=== PATIENT | female | born 1960 | race Caucasian/White ===

== ENCOUNTER → 2017-01-22 | Outpatient (CLI) | payer OTHER ==
--- NOTE | 2017-01-23 07:48 | MM ---
Reason for exam: screening (asymptomatic). Last mammogram was performed 1 year and 11 months ago. History: Took hormonal contraceptives for 6 months. Physical Findings: A clinical breast exam by your physician is recommended on an annual basis and results should be correlated with mammographic findings. MG Screening Mammo w CAD Bilateral CC and MLO view(s) were taken. Prior study comparison: February 19, 2015, bilateral MG screening mammo w CAD. January 10, 2011, bilateral digital screening mammo w/CAD. The breast tissue is almost entirely fat. Finding: There are typically benign calcifications in the right breast inferior fold. New finding since February 19, 2015 and January 10, 2011. ASSESSMENT: Incomplete: need additional imaging evaluation, BI-RAD 0 RECOMMENDATION: Special view mammogram of the right breast. [facility] will attempt to contact patient to return for supplemental views.
== END | disposition home or self-care (01) ==
LOC: RADMAMWWP 10:17
PROVIDERS: ATTEND Family Medicine
DX: Z12.31 Encounter for screening mammogram for malignant neoplasm of breast (principal)

== ENCOUNTER → 2017-01-28 | Outpatient (CLI) | payer OTHER ==
--- NOTE | 2017-01-29 07:10 | MM ---
Reason for exam: additional evaluation requested from abnormal screening. Last mammogram was performed less than 1 month ago. History: Took hormonal contraceptives for 6 months. Physical Findings: Nurse did not find any significant physical abnormalities on exam. MG Work Up Mamm w CAD RT ML and ML with magnification view(s) were taken of the right breast. Prior study comparison: January 22, 2017, bilateral MG screening mammo w CAD. February 19, 2015, bilateral MG screening mammo w CAD. There are scattered fibroglandular densities. Finding: There are stable typically benign calcifications in the right breast. These results were verbally communicated with the patient and result sheet given to the patient on 01/28/17. ASSESSMENT: Probably benign, BI-RAD 3 RECOMMENDATION: Follow-up diagnostic mammogram of the right breast in 6 months.
== END | disposition home or self-care (01) ==
LOC: RADMAMWWP 14:18
PROVIDERS: ATTEND Family Medicine
DX: R92.8 Other abnormal and inconclusive findings on diagnostic imaging of breast (principal)

== ENCOUNTER → 2017-02-02 | Outpatient (CLI) | payer OTHER ==
--- NOTE | 2017-02-02 16:40 | XR ---
Lumbosacral spine HISTORY: Back pain Correlation to prior exam 09/23/2016 Lumbar vertebral bodies show preserved height, alignment, and bone mineralization. There is no eviden t spondylolysis. Loss of disc height is present at L4-5, L5-S1, L3-4. There is multilevel spondylosis . IMPRESSION: Similar findings to prior exam, degenerative disc disease and facet arthropathy.
== END | disposition home or self-care (01) ==
LOC: RADXRMAIN 15:12
PROVIDERS: ATTEND Family Medicine
DX: M51.36 Other intervertebral disc degeneration, lumbar region (principal); M46.90 Unspecified inflammatory spondylopathy, site unspecified
CPT/HCPCS: 72110

== ENCOUNTER 2017-03-02 15:45 | Emergency (ER) | payer OTHER ==
[2017-03-02] MEDS ORDERED: IPRATROPIUM-ALBUTEROL 3 ML NEB INHALATION STA (16:57)
--- NOTE | 2017-03-02 17:00 | ED ---
SOB HPI - General Chief Complaint: Shortness of Breath Stated Complaint: SOB Time Seen by Provider: 03/02/17 16:03 Source: patient Mode of arrival: ambulatory Limitations: no limitations - History of Present Illness Initial Comments: 56-year-old female patient with past medical history significant for moderate COPD CHF, and sleep apnea presents to emergency department today for complaints of increased shortness of breath with activity. Patient states that this has been getting worse over the last couple of months. Patient states that she has seen her scada operator and was told that he would be giving her a nebulizer, but they never followed up. Patient states she has been utilizing her inhalers as directed but states they don't seem to be working any more. Patient states whenever she walks short distances that she becomes short of breath and has to rest until her breathing improves. Patient states she has a very intermittent cough, without sputum production. She does have edema for which she is supposed to wear compression stockings. She states she is occasionally wheezy. She denies any fever, chills, chest pain, back pain, weakness, or dizziness. She denies any abdominal pain, nausea, vomiting, constipation, or diarrhea. - Related Data Home Medications Medication Instructions Recorded Confirmed Meloxicam [Mobic] 7.5 mg PO AC-BID 10/06/14 03/02/17 metFORMIN HCL [Glucophage] 1,000 mg PO AC-BID 10/06/14 03/02/17 Atorvastatin [Lipitor] 20 mg PO HS 02/28/15 03/02/17 DULoxetine HCL [Cymbalta] 60 mg PO AC-BRKFST 05/10/15 03/02/17 Gabapentin 800 mg PO QID 02/25/16 03/02/17 Mirtazapine [Remeron] 30 mg PO HS 02/25/16 03/02/17 Pioglitazone [Actos] 15 mg PO AC-LUNCH 02/25/16 03/02/17 busPIRone HCL 15 mg PO AC-BID 02/25/16 03/02/17 Dicyclomine [Bentyl] 20 mg PO QID 10/07/16 03/02/17 Mometasone/Formoterol [Dulera 100 1 puff INHALATION RT-DAILY 10/07/16 03/02/17 Mcg/5 Mcg Inhaler] OXcarbazepine [Trileptal] 1,200 mg PO BID 10/07/16 03/02/17 Isosorbide Mononitrate ER [Imdur] 30 mg PO DAILY 10/22/16 03/02/17 Acetaminophen-Codeine 300-30mg 1 tab PO Q6H PRN 03/02/17 03/02/17 [Tylenol #3] Albuterol Inhaler [Ventolin Hfa 2 puff INHALATION RT-Q8H PRN 03/02/17 03/02/17 Inhaler] Aspirin 81 mg PO DAILY 03/02/17 03/02/17 Budesonide/Formoterol Fumarate 1 puff INHALATION RT-BID 03/02/17 03/02/17 [Symbicort 160-4.5 Mcg Inhaler] Insulin Glargine,Hum.rec.anlog 20 unit SQ HS 03/02/17 03/02/17 [Basaglar Kwikpen U-100] Pramipexole [Mirapex] 0.25 mg PO HS 03/02/17 03/02/17 Umeclidinium [place] [Incruse 1 puff INHALATION RT-DAILY 03/02/17 03/02/17 Ellipta] Verapamil HCl [Calan Sr] 240 mg PO HS 03/02/17 03/02/17 Previous Rx's Medication Instructions Recorded Ipratropium-Albuterol Nebulize 3 ml INHALATION QID #2 box 03/02/17 [Duoneb 0.5 mg-3 mg/3 ml Soln] predniSONE 10 mg PO DIRECTED #20 tab 03/02/17 Allergies Allergy/AdvReac Type Severity Reaction Status Date / Time adhesive AdvReac Rash/Hives Verified 03/02/17 16:26 Review of Systems ROS Statement: Those systems with pertinent positive or pertinent negative responses have been documented in the HPI. ROS Other: All systems not noted in ROS Statement are negative. Past Medical History Past Medical History: Asthma, COPD, Diabetes Mellitus, Fibromyalgia, Hyperlipidemia, Hypertension, Neurologic Disorder, Osteoarthritis (OA), Sleep Apnea/CPAP/BIPAP Additional Past Medical History / Comment(s): restless leg, neuropathy History of Any Multi-Drug Resistant Organisms: None Reported Past Surgical History: Cholecystectomy, Hysterectomy, Orthopedic Surgery, Tonsillectomy Additional Past Surgical History / Comment(s): colonoscopy, tendon repair on left foot Past Anesthesia/Blood Transfusion Reactions: Motion Sickness Past Psychological History: Anxiety, Depression, PTSD, Schizophrenia Smoking Status: Former smoker Past Alcohol Use History: Occasional Additional Past Alcohol Use History / Comment(s): quit drinking 6 months ago and now only occasionally will have a drink Past Drug Use History: None Reported General Exam Limitations: no limitations General appearance: alert, in no apparent distress Head exam: Present: atraumatic, normocephalic, normal inspection Eye exam: Present: normal appearance, PERRL, EOMI. Absent: scleral icterus, conjunctival injection, periorbital swelling ENT exam: Present: normal exam, normal oropharynx, mucous membranes moist Neck exam: Present: normal inspection. Absent: tenderness, meningismus, lymphadenopathy Respiratory exam: Present: wheezes (Faint right upper lobe), decreased breath sounds (Throughout). Absent: respiratory distress, rales, rhonchi, stridor Cardiovascular Exam: Present: regular rate, normal rhythm, normal heart sounds. Absent: systolic murmur, diastolic murmur, rubs, gallop, clicks GI/Abdominal exam: Present: soft, normal bowel sounds. Absent: distended, tenderness, guarding, rebound, rigid Extremities exam: Present: normal inspection, full ROM, normal capillary refill. Absent: tenderness, pedal edema, joint swelling, calf tenderness Back exam: Present: normal inspection Neurological exam: Present: alert, oriented X3, CN II-XII intact Psychiatric exam: Present: normal affect, normal mood Skin exam: Present: warm, dry, intact, normal color. Absent: rash Course Vital Signs 03/02/17 03/02/17 03/02/17 15:53 16:55 17:23 Temperature 97.7 F Pulse Rate 89 84 78 Respiratory 24 16 Rate Blood Pressure 138/87 144/78 O2 Sat by Pulse 99 98 Oximetry 03/02/17 03/02/17 17:33 17:41 Temperature Pulse Rate 76 83 Respiratory 18 Rate Blood Pressure 137/67 O2 Sat by Pulse 98 Oximetry Medical Decision Making - Medical Decision Making 56-year-old female patient presents to emergency department today for evaluation of shortness of breath with activity. Chest x-ray was negative for any acute cardiac pulmonary process. Lab work was unremarkable except for a low sodium level. Patient is satting 100% on room air, ambulating without difficulties in the department, and states she feels better after receiving DuoNeb treatment here in the emergency department. Patient will be given IV Solu-Medrol and then discharged home with prescription for DuoNeb nebulizer treatments as well as a tapering prednisone dose. Patient instructed to follow up with her scada operator in one to 2 days for recheck. Patient also instructed to return for any new, worsening, or concerning symptoms. Patient verbalizes understanding and agrees with this plan. - Lab Data Result diagrams: 03/02/17 17:00 03/02/17 17:00 Lab Results 03/02/17 03/02/17 03/02/17 Range/Units 17:00 17:00 17:00 WBC 8.1 (3.8-10.6) k/uL RBC 4.09 (3.80-5.40) m/uL Hgb 12.5 (11.4-16.0) gm/dL Hct 37.7 (34.0-46.0) % MCV 92.4 (80.0-100.0) fL MCH 30.7 (25.0-35.0) pg MCHC 33.2 (31.0-37.0) g/dL RDW 13.2 (11.5-15.5) % Plt Count 348 (150-450) k/uL Neutrophils % 73 % Lymphocytes % 16 % Monocytes % 6 % Eosinophils % 2 % Basophils % 1 % Neutrophils # 5.9 (1.3-7.7) k/uL Lymphocytes # 1.3 (1.0-4.8) k/uL Monocytes # 0.5 (0-1.0) k/uL Eosinophils # 0.2 (0-0.7) k/uL Basophils # 0.1 (0-0.2) k/uL PT (9.0-12.0) sec INR (<1.1) APTT (22.0-30.0) sec D-Dimer (<0.60) mg/L FEU Sodium 128 L (137-145) mmol/L Potassium 4.1 (3.5-5.1) mmol/L Chloride 94 L (98-107) mmol/L Carbon Dioxide 23 (22-30) mmol/L Anion Gap 11 mmol/L BUN 9 (7-17) mg/dL Creatinine 0.51 L (0.52-1.04) mg/dL Est GFR (MDRD) Af Amer >60 (>60 ml/min/1.73 sqM) Est GFR (MDRD) Non-Af >60 (>60 ml/min/1.73 sqM) Glucose 113 H (74-99) mg/dL Calcium 8.7 (8.4-10.2) mg/dL Magnesium 2.0 (1.6-2.3) mg/dL Total Bilirubin 0.4 (0.2-1.3) mg/dL AST 33 (14-36) U/L ALT 44 (9-52) U/L Alkaline Phosphatase 179 H (38-126) U/L Total Creatine Kinase 135 (30-135) U/L CK-MB (CK-2) 2.4 (0.0-2.4) ng/mL CK-MB (CK-2) Rel Index 1.8 Troponin I 0.012 (0.000-0.034) ng/mL NT-Pro-B Natriuret Pep pg/mL Total Protein 6.8 (6.3-8.2) g/dL Albumin 4.1 (3.5-5.0) g/dL 03/02/17 03/02/17 Range/Units 17:00 17:00 WBC (3.8-10.6) k/uL RBC (3.80-5.40) m/uL Hgb (11.4-16.0) gm/dL Hct (34.0-46.0) % MCV (80.0-100.0) fL MCH (25.0-35.0) pg MCHC (31.0-37.0) g/dL RDW (11.5-15.5) % Plt Count (150-450) k/uL Neutrophils % % Lymphocytes % % Monocytes % % Eosinophils % % Basophils % % Neutrophils # (1.3-7.7) k/uL Lymphocytes # (1.0-4.8) k/uL Monocytes # (0-1.0) k/uL Eosinophils # (0-0.7) k/uL Basophils # (0-0.2) k/uL PT 9.8 (9.0-12.0) sec INR 1.0 (<1.1) APTT 26.1 (22.0-30.0) sec D-Dimer 0.52 (<0.60) mg/L FEU Sodium (137-145) mmol/L Potassium (3.5-5.1) mmol/L Chloride (98-107) mmol/L Carbon Dioxide (22-30) mmol/L Anion Gap mmol/L BUN (7-17) mg/dL Creatinine (0.52-1.04) mg/dL Est GFR (MDRD) Af Amer (>60 ml/min/1.73 sqM) Est GFR (MDRD) Non-Af (>60 ml/min/1.73 sqM) Glucose (74-99) mg/dL Calcium (8.4-10.2) mg/dL Magnesium (1.6-2.3) mg/dL Total Bilirubin (0.2-1.3) mg/dL AST (14-36) U/L ALT (9-52) U/L Alkaline Phosphatase (38-126) U/L Total Creatine Kinase (30-135) U/L CK-MB (CK-2) (0.0-2.4) ng/mL CK-MB (CK-2) Rel Index Troponin I (0.000-0.034) ng/mL NT-Pro-B Natriuret Pep 753 pg/mL Total Protein (6.3-8.2) g/dL Albumin (3.5-5.0) g/dL 03/02/17 18:11 EKG obtained at 1736 reveals sinus rhythm with first-degree AV block, low voltage QRS, ventricular rate 80, LA intervals 210, QRS duration 92, QTC 418, QTC 42. No evidence of ST elevation or depression in any leads. - Radiology Data Radiology results: report reviewed Two-view x-ray of the chest reveals no heart failure nor confluent pneumonic infiltrate. There is suboptimal inspiration. There is spurring and thoracic spine. 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 There are chest leads. Impression by Dr. Conrad reveals inspiration is slightly less than old exam but a normal heart. Disposition Clinical Impression: COPD (chronic obstructive pulmonary disease) Disposition: HOME SELF-CARE Condition: Stable Instructions: COPD (Chronic Obstructive Pulmonary Disease) (ED) Additional Instructions: Take prednisone until complete. Monitor blood sugars closely while taking steroids. Follow-up with scada operator. Up with primary care physician in one to 2 days for recheck. Return for any new, worsening, or concerning symptoms. Prescriptions: Ipratropium-Albuterol Nebulize [Duoneb 0.5 mg-3 mg/3 ml Soln] 3 ml INHALATION QID #2 box predniSONE 10 mg PO DIRECTED #20 tab Referrals: Jensen Nieto MD [Primary Care Provider] - 1-2 days Samaria Solis DO [Doctor of Osteopathic Medicine] - 1-2 days Time of Disposition: 18:09
[2017-03-02 17:13] LABS: Basophils # (A) 0.1 k/uL (0-0.2); Basophils % (A) 1 %; CH 31.3; Eosinophils # (A) 0.2 k/uL (0-0.7); Eosinophils % (A) 2 %; HCT 37.7 % (34.0-46.0); HDW 2.12; HGB 12.5 gm/dL (11.4-16.0); Luc # (Auto) 0.17; Luc % (Auto) 2; Lymphocytes # (A) 1.3 k/uL (1.0-4.8); Lymphocytes % (A) 16 %; MCH 30.7 pg (25.0-35.0); MCHC 33.2 g/dL (31.0-37.0); MCV 92.4 fL (80.0-100.0); Mean Platelet Volume 5.9; Monocytes # (A) 0.5 k/uL (0-1.0); Monocytes % (A) 6 %; Neutrophils # (A) 5.9 k/uL (1.3-7.7); Neutrophils % (A) 73 %; RBC 4.09 m/uL (3.80-5.40); RDW 13.2 % (11.5-15.5); WBC 8.1 k/uL (3.8-10.6); WBC (Perox) 7.77
--- NOTE | 2017-03-02 17:20 | XR ---
EXAMINATION TYPE: XR chest 2V DATE OF EXAM: 03/02/2017 5:11 PM COMPARISON: 10/22/2016 HISTORY: Difficulty breathing TECHNIQUE: Frontal and lateral views of the chest are obtained. FINDINGS: There is no heart failure nor confluent pneumonic infiltrate. There is suboptimal inspirat ion. There is spurring in the thoracic spine. Thoracic aorta is atheromatous. There are chest leads. IMPRESSION: Inspiration is slightly less than old exam. Normal heart.
[2017-03-02 17:27] LABS: ALT 44 U/L (9-52); AST 33 U/L (14-36); Alkaline Phosphatase 179 U/L (38-126); Anion Gap 11 mmol/L; Blood Urea Nitrogen 9 mg/dL (7-17); Calcium 8.7 mg/dL (8.4-10.2); Carbon Dioxide 23 mmol/L (22-30); Chloride 94 mmol/L (98-107); Glucose 113 mg/dL (74-99); Non-African American GFR(MDRD) >60 (>60 ml/min/1.73 sqM); Partial Thromboplastin Time 26.1 sec (22.0-30.0); Potassium 4.1 mmol/L (3.5-5.1); Prothrombin Time 9.8 sec (9.0-12.0); Sodium 128 mmol/L (137-145); Total Bilirubin 0.4 mg/dL (0.2-1.3); Total Protein 6.8 g/dL (6.3-8.2)
[2017-03-02 17:46] LABS: Creatine Kinase MB 2.4 ng/mL (0.0-2.4); Troponin I 0.012 ng/mL (0.000-0.034)
[2017-03-02] MEDS ORDERED: methylPREDNISolone SOD SUCCI 125 MG/2 ML VIAL IV STA (18:05)
[2017-03-02 18:24] VITALS: BP 145/68; PULSE 82; RESP 16; TEMP 98
== END 2017-03-02 18:24 | disposition home or self-care (01) ==
LOC: EC 15:45
DX: J44.9 Chronic obstructive pulmonary disease, unspecified (principal); E78.5 Hyperlipidemia, unspecified; E11.9 Type 2 diabetes mellitus without complications; G25.81 Restless legs syndrome; J45.909 Unspecified asthma, uncomplicated; M19.90 Unspecified osteoarthritis, unspecified site; F32.9 Major depressive disorder, single episode, unspecified; Z79.84 Long term (current) use of oral hypoglycemic drugs; Z91.048 Other nonmedicinal substance allergy status; Z79.52 Long term (current) use of systemic steroids; Z79.1 Long term (current) use of non-steroidal anti-inflammatories (NSAID); Z87.891 Personal history of nicotine dependence; Z79.899 Other long term (current) drug therapy
CPT/HCPCS: 99285; 96374; 36415; 94640; 93005; 85379; 83880; 80053; 82550; 82553; 83735; 84484; 85025; 85610; 85730; 71020; J2930

== ENCOUNTER → 2017-03-02 | Outpatient (CLI) | payer OTHER | END | disposition home or self-care (01) | LOC: RADMRIMAIN 14:32 | PROVIDERS: ATTEND Family Medicine | DX: Z53.9 Procedure and treatment not carried out, unspecified reason (principal) ==

== ENCOUNTER → 2017-03-05 | Outpatient (CLI) | payer OTHER ==
--- NOTE | 2017-03-05 19:30 | PN ---
DATE OF SERVICE: 03/05/2017 This patient is a 56-year-old lady who has been followed in the sleep center for treatment of obstructive sleep apnea/hypopnea syndrome. Patient has a history of obstructive sleep apnea-hypopnea syndrome with apnea-hypopnea index 19.7 and oxygen desaturation to 80.4%. She was recommended treatment with CPAP, but she stopped using it about 1-1/2 years ago. She tried it again about 1 week ago for 2 nights but still had difficulties using it. About 1-1/2 years ago the patient was able to use it. She continues to feel sleepiness during the day, falling asleep. [place] Sleepiness Scale is 19. I again discussed with her the necessity of being treated with CPAP. She explained that she has difficulties with different types of the mask which we tried. MEDICATIONS: 1. BuSpar. 2. Remeron. 3. Dicyclomine. 4. Dulera inhaler. 5. Actos. 6. Metformin. 7. Calan SR. 8. Trileptal. 9. Meloxicam. 10. Mirapex. 11. Cymbalta. 12. Lipitor. 13. Isosorbide ( ) 14. Symbicort. 15. Incruse inhaler. 16. Baby aspirin. 17. Ventolin inhaler. 18. Basaglar. 19. Gabapentin. 20. Tylenol. 21. Recently patient was started on prednisone. 22. Albuterol sulfate up to 4 times a day. PHYSICAL EXAMINATION: GENERAL: Patient is in no distress. VITAL SIGNS: BP 170/90, HR 94, RR up to 20. Height 5 feet 7-1/2 inches. Weight 278. Neck 16 inches in circumference. Temperature 98.1. Oxygen saturation at room air 97%. HEENT: PERRLA, EOMI. Evaluation of oropharynx showed tongue protrudes midline; low position of soft palate. NECK: Supple. No JVD. Thyroid is not palpable. LUNGS: No wheezing at the present time. HEART: S1, S2 regular. No murmurs, gallops or rubs. ABDOMEN: Obese. EXTREMITIES: No clubbing or cyanosis. RESERVATION AGENT: Awake, alert, and oriented x3. Cranial nerves 2 to 7 intact. There is no fasciculation or atrophy noted. No focal deficits observed. Patient walks with a walker because of some weakness in her legs. IMPRESSION: 1. Obstructive sleep apnea/hypopnea syndrome. Patient unfortunately is not able to use her CPAP equipment and continues to feel sleepiness during the day, with awakenings from sleep. 2. Depression. 3. Diabetes. 4. Chronic obstructive pulmonary disease. 5. Status post right knee surgery. 6. Posttraumatic stress disorder. 7. Hyperlipidemia. 8. History of gallstones. PLAN: 1. We will repeat CPAP titration for re-evaluation of effective CPAP pressure at the present time and also to fit patient with a comfortable mask to be sure that she will be able to use her CPAP therapy. 2. Patient could be evaluated by ear, nose and throat physician to check if she is a candidate for surgical treatment of obstructive sleep apnea-hypopnea syndrome. 3. Oral appliances also could be considered for treatment of obstructive sleep apnea-hypopnea syndrome. Thank you very much for allowing me to participate in the management of your patient. Sincerely, Pierre Siddiqi MD, PhD, FAASM. Diplomat of [place] [employer], Sleep Medicine Board by [place] [employer], [place] [employer]
== END | disposition home or self-care (01) ==
LOC: SLEEP 14:52
PROVIDERS: ATTEND Internal Medicine
DX: G47.33 Obstructive sleep apnea (adult) (pediatric) (principal); F32.9 Major depressive disorder, single episode, unspecified; E11.9 Type 2 diabetes mellitus without complications; J44.9 Chronic obstructive pulmonary disease, unspecified; Z98.890 Other specified postprocedural states; F43.10 Post-traumatic stress disorder, unspecified; E78.5 Hyperlipidemia, unspecified; Z87.898 Personal history of other specified conditions; Z79.899 Other long term (current) drug therapy; Z79.84 Long term (current) use of oral hypoglycemic drugs

== ENCOUNTER → 2017-04-16 | Outpatient (CLI) | payer OTHER ==
--- NOTE | 2017-04-16 22:13 | PN ---
DATE OF SERVICE: 04/16/2017 This patient is a 56-year-old lady who has been followed in the sleep center for treatment of obstructive sleep apnea/hypopnea syndrome. Recently patient had a CPAP titration. She was titrated up to the pressure of 14 cm of water, but she was not able to use this pressure at home. She felt that the pressure was too high. Pressure was decreased down to 10 cm of water, and for the last 6 days after pressure was changed, patient was able to use her equipment. I checked her CPAP unit. Pressure in the unit now is 10 cm of water. Patient did use it for the last 6 days. According to her , she sleeps better with the machine, and she does not have snoring while she is using her machine. [place] Sleepiness Scale is still high. Today it is 19. MEDICATIONS: 1. BuSpar. 2. Remeron. 3. Dicyclomine. 4. Dulera inhaler. 5. Actos. 6. Metformin. 7. Trileptal. 8. Meloxicam. 9. Mirapex. 10. Cymbalta. 11. Lipitor. 12. Isosorbide. 13. Symbicort. 14. Baby aspirin. 15. Ventolin. 16. Gabapentin. 17. Albuterol. PHYSICAL EXAMINATION: Patient in no distress. VITAL SIGNS: BP 144/73, HR 88, RR 16. Weight 295. Height 5 feet 8 inches. BMI 45. Temperature 98.5. Oxygen saturation at room air 96%. HEENT: PERRLA, EOMI. Evaluation of oropharynx showed tongue protrudes midline; extremely low position of soft palate. NECK: Supple. No JVD. Thyroid is not palpable. LUNGS: Clear to percussion and to auscultation. Good air exchange. No wheezing or rhonchi. HEART: S1, S2 regular. No murmurs, gallops or rubs. ABDOMEN: Obese. EXTREMITIES: One plus ankle edema. INTERACTIVE PRODUCER: Awake, alert, and oriented x3. Cranial nerves 2 to 7 intact. There is no fasciculation or atrophy noted. No focal deficits observed. IMPRESSION: 1. Obstructive sleep apnea/hypopnea syndrome, under control with CPAP at 10 cm of water. 2. History of depression. 3. Diabetes mellitus. 4. Chronic obstructive pulmonary disease. 5. Status post right knee surgery. 6. Posttraumatic stress disorder. 7. Hyperlipidemia. 8. History of gallstones. PLAN: 1. Patient will continue treatment with CPAP every night for the whole night. 2. Aggressive losing-weight program. 3. Sleep hygiene with regular time in bed for at least 8 hours. 4. No driving if feeling any sleepiness. 5. Prescription for all necessary CPAP supplies, including mask, tube, filters. Thank you very much for allowing me to participate in the management your patient. Sincerely, Pierre Siddiqi MD, PhD, FAASM. Diplomat of [place] [employer], Sleep Medicine Board by [place] [employer], [place] [employer]
== END | disposition home or self-care (01) ==
LOC: SLEEP 13:47
PROVIDERS: ATTEND Internal Medicine
DX: G47.33 Obstructive sleep apnea (adult) (pediatric) (principal); F32.9 Major depressive disorder, single episode, unspecified; E11.9 Type 2 diabetes mellitus without complications; J44.9 Chronic obstructive pulmonary disease, unspecified; F43.10 Post-traumatic stress disorder, unspecified; E78.5 Hyperlipidemia, unspecified; Z79.899 Other long term (current) drug therapy; Z79.84 Long term (current) use of oral hypoglycemic drugs

== ENCOUNTER 2017-04-21 15:10 | Emergency (ER) | payer OTHER ==
--- NOTE | 2017-04-21 17:18 | ED ---
General Adult HPI - General Chief complaint: Upper Respiratory Infection Stated complaint: Coughing Time Seen by Provider: 04/21/17 17:01 Source: patient, RN notes reviewed Mode of arrival: ambulatory Limitations: no limitations - History of Present Illness Initial comments: Patient 56-year-old female who presents emergency room today with chief complaint of cough congestion over the last week. Patient does admit that she has been trying her breathing treatments and inhalers at home with little relief the symptoms. She states the cough has been nonproductive. She states she has spells and feels like she cannot stop the coughing for a few minutes at a time. She denies any other complaints associated symptoms. Patient denies any recent fever, chills, shortness of breath, chest pain, back pain, abdominal pain, nausea or vomiting, numbness or tingling, dysuria or hematuria, constipation or diarrhea, headaches or visual changes, or any other complaints. - Related Data Home Medications Medication Instructions Recorded Confirmed Meloxicam [Mobic] 7.5 mg PO AC-BID 10/06/14 03/02/17 metFORMIN HCL [Glucophage] 1,000 mg PO AC-BID 10/06/14 03/02/17 Atorvastatin [Lipitor] 20 mg PO HS 02/28/15 03/02/17 DULoxetine HCL [Cymbalta] 60 mg PO AC-BRKFST 05/10/15 03/02/17 Gabapentin 800 mg PO QID 02/25/16 03/02/17 Mirtazapine [Remeron] 30 mg PO HS 02/25/16 03/02/17 Pioglitazone [Actos] 15 mg PO AC-LUNCH 02/25/16 03/02/17 busPIRone HCL 15 mg PO AC-BID 02/25/16 03/02/17 Dicyclomine [Bentyl] 20 mg PO QID 10/07/16 03/02/17 Mometasone/Formoterol [Dulera 100 1 puff INHALATION RT-DAILY 10/07/16 03/02/17 Mcg/5 Mcg Inhaler] OXcarbazepine [Trileptal] 1,200 mg PO BID 10/07/16 03/02/17 Isosorbide Mononitrate ER [Imdur] 30 mg PO DAILY 10/22/16 03/02/17 Acetaminophen-Codeine 300-30mg 1 tab PO Q6H PRN 03/02/17 03/02/17 [Tylenol #3] Albuterol Inhaler [Ventolin Hfa 2 puff INHALATION RT-Q8H PRN 03/02/17 03/02/17 Inhaler] Aspirin 81 mg PO DAILY 03/02/17 03/02/17 Budesonide/Formoterol Fumarate 1 puff INHALATION RT-BID 03/02/17 03/02/17 [Symbicort 160-4.5 Mcg Inhaler] Insulin Glargine,Hum.rec.anlog 20 unit SQ HS 03/02/17 03/02/17 [Basaglar Kwikpen U-100] Pramipexole [Mirapex] 0.25 mg PO HS 03/02/17 03/02/17 Umeclidinium [place] [Incruse 1 puff INHALATION RT-DAILY 03/02/17 03/02/17 Ellipta] Verapamil HCl [Calan Sr] 240 mg PO HS 03/02/17 03/02/17 Previous Rx's Medication Instructions Recorded Ipratropium-Albuterol Nebulize 3 ml INHALATION QID #2 box 03/02/17 [Duoneb 0.5 mg-3 mg/3 ml Soln] predniSONE 10 mg PO DIRECTED #20 tab 03/02/17 Benzonatate [Tessalon Perles] 100 mg PO TID PRN #20 capsule 04/21/17 Famotidine [Pepcid] 20 mg PO BID #20 tablet 04/21/17 Loratadine [Claritin] 10 mg PO DAILY 20 Days 04/21/17 Allergies Allergy/AdvReac Type Severity Reaction Status Date / Time adhesive AdvReac Rash/Hives Verified 04/21/17 15:20 Review of Systems ROS Statement: Those systems with pertinent positive or pertinent negative responses have been documented in the HPI. ROS Other: All systems not noted in ROS Statement are negative. Past Medical History Past Medical History: Asthma, COPD, Diabetes Mellitus, Fibromyalgia, Hyperlipidemia, Hypertension, Neurologic Disorder, Osteoarthritis (OA), Sleep Apnea/CPAP/BIPAP Additional Past Medical History / Comment(s): restless leg, neuropathy History of Any Multi-Drug Resistant Organisms: None Reported Past Surgical History: Cholecystectomy, Hysterectomy, Orthopedic Surgery, Tonsillectomy Additional Past Surgical History / Comment(s): colonoscopy, tendon repair on left foot Past Anesthesia/Blood Transfusion Reactions: Motion Sickness Past Psychological History: Anxiety, Depression, PTSD, Schizophrenia Smoking Status: Former smoker Past Alcohol Use History: Occasional Additional Past Alcohol Use History / Comment(s): quit drinking 6 months ago and now only occasionally will have a drink Past Drug Use History: None Reported General Exam - General Exam Comments Initial Comments: General: The patient is awake and alert, in no distress, and does not appear acutely ill. Eye: Pupils are equal, round and reactive to light, extra-ocular movements are intact. No nystagmus. There is normal conjunctiva bilaterally. No signs of icterus. Ears, nose, mouth and throat: There are moist mucous membranes and no oral lesions. Neck: The neck is supple, there is no tenderness or JVD. Cardiovascular: There is a regular rate and rhythm. No murmur, rub or gallop is appreciated. Respiratory: Lungs are clear to auscultation, respirations are non-labored, breath sounds are equal. No wheezes, stridor, rales, or rhonchi. Musculoskeletal: Normal ROM, no tenderness. Strength 5/5. Sensation intact. Pulses equal bilaterally 2+. Neurological: A&O x 3. CN II-XII intact, There are no obvious motor or sensory deficits. Coordination appears grossly intact. Speech is normal. Skin: Skin is warm and dry and no rashes or lesions are noted. Psychiatric: Cooperative, appropriate mood & affect, normal judgment. Limitations: no limitations Course Vital Signs 04/21/17 15:19 Temperature 97.8 F Pulse Rate 94 Respiratory 20 Rate Blood Pressure 148/84 O2 Sat by Pulse 97 Oximetry Medical Decision Making - Medical Decision Making Patient reexamined at this time showing no signs of distress. Chest x-rays reviewed and is unremarkable. No evidence of pneumonia. No other acute abnormalities. Results were discussed with the patient. Patient is advised to try [id number] medicine such as Claritin/Pepcid for possible ALLERGIES or acid reflux causing some symptoms. Will be given a callus present. Advised follow-up the family doctor. Advised return if any symptoms increase or worsen or for any other concerns. Disposition Clinical Impression: Cough Disposition: HOME SELF-CARE Condition: Good Instructions: Chronic Cough (ED) Additional Instructions: Please use medication as discussed. Please follow-up with family doctor in the next 2 days of symptoms have not improved. Please return to emergency room if the symptoms increase or worsen or for any other concerns. Prescriptions: Benzonatate [Tessalon Perles] 100 mg PO TID PRN #20 capsule PRN Reason: Cough Famotidine [Pepcid] 20 mg PO BID #20 tablet Loratadine [Claritin] 10 mg PO DAILY 20 Days Referrals: Jensen Nieto MD [Primary Care Provider] - 1-2 days Time of Disposition: 17:35
--- NOTE | 2017-04-21 17:23 | XR ---
EXAMINATION TYPE: XR chest 2V DATE OF EXAM: 04/21/2017 COMPARISON: 03/02/2017 HISTORY: Cough TECHNIQUE: Frontal and lateral views of the chest are obtained. FINDINGS: There is some coarsening of interstitial pulmonary markings. Heart size is normal. Thoraci c aorta is atheromatous. There is no pleural effusion. IMPRESSION: Coarse lung markings similar to last exam and consistent with mild fibrosis. No heart fa ilure.
[2017-04-21 17:56] VITALS: BP 180/86; PULSE 99; RESP 16; TEMP 98.2
== END 2017-04-21 17:54 | disposition home or self-care (01) ==
LOC: EC 15:10
DX: R05 Cough (principal); R09.89 Other specified symptoms and signs involving the circulatory and respiratory systems; J45.909 Unspecified asthma, uncomplicated; J44.9 Chronic obstructive pulmonary disease, unspecified; E78.5 Hyperlipidemia, unspecified; M79.7 Fibromyalgia; I10 Essential (primary) hypertension; M19.90 Unspecified osteoarthritis, unspecified site; G25.81 Restless legs syndrome; G62.9 Polyneuropathy, unspecified; F41.9 Anxiety disorder, unspecified; F32.9 Major depressive disorder, single episode, unspecified; F43.10 Post-traumatic stress disorder, unspecified; Z87.891 Personal history of nicotine dependence; Z79.1 Long term (current) use of non-steroidal anti-inflammatories (NSAID); Z79.4 Long term (current) use of insulin; Z79.51 Long term (current) use of inhaled steroids; Z79.82 Long term (current) use of aspirin; Z79.84 Long term (current) use of oral hypoglycemic drugs; Z79.899 Other long term (current) drug therapy; Z91.048 Other nonmedicinal substance allergy status
CPT/HCPCS: 71020; 99283

== ENCOUNTER 2017-05-20 13:04 | Emergency (ER) | payer OTHER ==
[2017-05-20] MEDS ORDERED: HYDROcodone/APAP 5-325MG 1 EACH TAB PO STA (13:51)
--- NOTE | 2017-05-20 14:17 | ED ---
General Adult HPI - General Chief complaint: Fall Stated complaint: fell out of bed/right side pain Time Seen by Provider: 05/20/17 13:28 Source: patient, RN notes reviewed, old records reviewed Mode of arrival: ambulatory Limitations: no limitations - History of Present Illness Initial comments: This is a 37-year-old female to the ER for evaluation status post fall. Patient fell out of bed last night, she is on no blood thinners at this time. Patient has significant medical history. But denies any chest pain or shortness of breath. No bowel pain. Patient recent fall again last night while she was getting out of bed, she hit the right side of her head on her dresser and right hip, right knee on the ground. Patient is complaining of right hip pain and right facial pain. No loss of consciousness. Patient coming here today for evaluation regarding swelling of right side of face. - Related Data Home Medications Medication Instructions Recorded Confirmed Meloxicam [Mobic] 7.5 mg PO AC-BID 10/06/14 05/20/17 metFORMIN HCL [Glucophage] 1,000 mg PO AC-BID 10/06/14 05/20/17 Atorvastatin [Lipitor] 20 mg PO AC-BRKFST 02/28/15 05/20/17 DULoxetine HCL [Cymbalta] 60 mg PO AC-BRKFST 05/10/15 05/20/17 Gabapentin 800 mg PO QID 02/25/16 05/20/17 Mirtazapine [Remeron] 30 mg PO HS 02/25/16 05/20/17 busPIRone HCL 15 mg PO AC-BID 02/25/16 05/20/17 Dicyclomine [Bentyl] 20 mg PO QID 10/07/16 05/20/17 Mometasone/Formoterol [Dulera 100 1 puff INHALATION RT-BID 10/07/16 05/20/17 Mcg/5 Mcg Inhaler] OXcarbazepine [Trileptal] 1,200 mg PO BID 10/07/16 05/20/17 Isosorbide Mononitrate ER [Imdur] 30 mg PO DAILY 10/22/16 05/20/17 Acetaminophen-Codeine 300-30mg 1 tab PO Q6H PRN 03/02/17 05/20/17 [Tylenol #3] Albuterol Inhaler [Ventolin Hfa 2 puff INHALATION RT-Q8H PRN 03/02/17 05/20/17 Inhaler] Aspirin 81 mg PO DAILY 03/02/17 05/20/17 Insulin Glargine,Hum.rec.anlog 30 unit SQ HS 03/02/17 05/20/17 [Basaglar Kwikpen U-100] Pramipexole [Mirapex] 0.25 mg PO HS 03/02/17 05/20/17 Verapamil HCl [Calan Sr] 240 mg PO HS 03/02/17 05/20/17 Ipratropium-Albuterol Nebulize 3 ml INHALATION RT-QID 04/21/17 05/20/17 [Duoneb 0.5 mg-3 mg/3 ml Soln] Liraglutide [Victoza 2-Fredo] 1.2 mg SQ HS 04/21/17 05/20/17 Pioglitazone [Actos] 30 mg PO W/LUNCH 04/21/17 05/20/17 Pregabalin [Lyrica] 150 mg PO BID 04/21/17 05/20/17 Previous Rx's Medication Instructions Recorded Benzonatate [Tessalon Perles] 100 mg PO TID PRN #20 capsule 04/21/17 Famotidine [Pepcid] 20 mg PO BID #20 tablet 04/21/17 Loratadine [Claritin] 10 mg PO DAILY 20 Days 04/21/17 Allergies Allergy/AdvReac Type Severity Reaction Status Date / Time adhesive AdvReac Rash/Hives Verified 05/20/17 13:40 Review of Systems ROS Statement: Those systems with pertinent positive or pertinent negative responses have been documented in the HPI. ROS Other: All systems not noted in ROS Statement are negative. Past Medical History Past Medical History: Asthma, COPD, Diabetes Mellitus, Fibromyalgia, Hyperlipidemia, Hypertension, Neurologic Disorder, Osteoarthritis (OA), Sleep Apnea/CPAP/BIPAP Additional Past Medical History / Comment(s): restless leg, neuropathy History of Any Multi-Drug Resistant Organisms: None Reported Past Surgical History: Cholecystectomy, Hysterectomy, Orthopedic Surgery, Tonsillectomy Additional Past Surgical History / Comment(s): colonoscopy, tendon repair on left foot Past Anesthesia/Blood Transfusion Reactions: Motion Sickness Past Psychological History: Anxiety, Depression, PTSD, Schizophrenia Smoking Status: Former smoker Past Alcohol Use History: Occasional Past Drug Use History: None Reported General Exam Limitations: no limitations General appearance: alert, in no apparent distress Head exam: Present: normocephalic, normal inspection. Absent: atraumatic (R eye , cheek ecchymosis) Eye exam: Present: normal appearance, PERRL, EOMI. Absent: scleral icterus, conjunctival injection, periorbital swelling ENT exam: Present: normal exam, mucous membranes moist Neck exam: Present: normal inspection. Absent: tenderness, meningismus, lymphadenopathy Respiratory exam: Present: normal lung sounds bilaterally. Absent: respiratory distress, wheezes, rales, rhonchi, stridor Cardiovascular Exam: Present: regular rate, normal rhythm, normal heart sounds. Absent: systolic murmur, diastolic murmur, rubs, gallop, clicks GI/Abdominal exam: Present: soft, normal bowel sounds. Absent: distended, tenderness, guarding, rebound, rigid Extremities exam: Present: normal inspection, full ROM, normal capillary refill. Absent: tenderness, pedal edema, joint swelling, calf tenderness Back exam: Present: normal inspection Neurological exam: Present: alert, oriented X3, CN II-XII intact Psychiatric exam: Present: normal affect, normal mood Skin exam: Present: warm, dry, intact, normal color. Absent: rash Course Vital Signs 05/20/17 13:21 Temperature 98.1 F Pulse Rate 92 Respiratory 20 Rate Blood Pressure 133/67 O2 Sat by Pulse 98 Oximetry - Reevaluation(s) Reevaluation #1: 05/20/17 15:19 patient is in no acute distress, adequate pain control at this time Medical Decision Making - Medical Decision Making 57 female in the ER for evaluation today. Patient presents after falling out of bed last night. Patient followed bilaterally and with have had right-sided body, complaining of right hip pain right facial pain, right facial contusion with right hip contusion - Radiology Data Radiology results: report reviewed (CT bases beneficial to show no acute traumatic injury, x-ray right hip negative for traumatic injury), image reviewed Disposition Clinical Impression: Fall, Fall, Facial contusion Disposition: HOME SELF-CARE Condition: Good Instructions: Fall Prevention for Older Adults (ED) Referrals: Jensen Nieto MD [Primary Care Provider] - 1-2 days
--- NOTE | 2017-05-20 14:29 | XR ---
EXAMINATION TYPE: XR Hip Complete RT DATE OF EXAM: 05/20/2017 COMPARISON: NONE HISTORY: Pain TECHNIQUE: 2 views submitted FINDINGS: There is no evidence of erosive change or acute fracture. There is mild concentric narrowing of the joint space. IMPRESSION: 1. No evidence of acute fracture or dislocation.
--- NOTE | 2017-05-20 14:30 | XR ---
EXAMINATION TYPE: XR knee complete RT DATE OF EXAM: 05/20/2017 COMPARISON: NONE HISTORY: Pain TECHNIQUE: Three views are submitted. FINDINGS: Severe narrowing of the medial compartment of the knee joint with hypertrophic changes and mild diffu se osteopenia. Severe narrowing patellofemoral joint with hypertrophic changes. No acute fracture. There is a defect involving the medial femoral condyle suspicious for osteochondri tis dissecans. IMPRESSION: 1. No acute fracture. 2. 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 MRI recommended. 3. Severe osteoarthritis.
--- NOTE | 2017-05-20 15:15 | CT ---
EXAMINATION TYPE: CT brain oskar aguirre DATE OF EXAM: 05/20/2017 COMPARISON: NONE HISTORY: Fall today out of bed today. Right orbital injury. CT DLP: 1853.[address] of the brain was performed. The ventricles, basal cisterns and sulci overlying the cerebral convexities demonstrate mild enlargem ent. There is no evidence for intracranial hemorrhage or sulcal effacement. There is decreased attenuatio n about the periventricular white matter and deep white matter of both cerebral hemispheres, compatib le with chronic small vessel ischemia. No mass effects are seen. If symptoms persist consider MRI. Osseous calvarium is intact. Right frontal scalp hematoma. A small right frontal calvarial lesion is nonspecific. IMPRESSION: 1. Age related atrophic and chronic small vessel ischemic change without acute intracranial process seen at this time. CT Cervical Spine: Unenhanced CT of the cervical spine was performed with bone and soft tissue window settings submitted . Coronal and sagittal reconstruction is obtained. There is normal alignment and prevertebral soft tissues. No evidence for acute cervical fracture . Scattered degenerative disc disease and spondylosis. Biapical scarring. IMPRESSION: 1. No evidence for acute fracture or subluxation of the cervical spine.
--- NOTE | 2017-05-20 15:16 | CT ---
EXAMINATION TYPE: CT facial bones wo con DATE OF EXAM: 05/20/2017 COMPARISON: NONE HISTORY: Fall today out of bed today. Right orbital injury. CT DLP: 589.[address] of the facial bones was performed in the axial and coronal planes. Bone and soft tissu e window settings are submitted. There is right periorbital soft tissue swelling. I do not see evidence for displaced facial bone fracture or depressed facial bone fracture. The globes are intact. Paranasal sinuses are well-aerated. IMPRESSION: 1. No evidence for depressed or displaced facial bone fracture.
[2017-05-20 15:36] VITALS: BP 131/71; PULSE 75; RESP 16; TEMP 97
== END 2017-05-20 15:57 | disposition home or self-care (01) ==
LOC: EC 13:04
DX: S00.83XA Contusion of other part of head, initial encounter (principal); M25.551 Pain in right hip; M17.11 Unilateral primary osteoarthritis, right knee; J45.909 Unspecified asthma, uncomplicated; J44.9 Chronic obstructive pulmonary disease, unspecified; E78.5 Hyperlipidemia, unspecified; I10 Essential (primary) hypertension; E11.40 Type 2 diabetes mellitus with diabetic neuropathy, unspecified; F41.9 Anxiety disorder, unspecified; F43.10 Post-traumatic stress disorder, unspecified; F20.9 Schizophrenia, unspecified; F32.9 Major depressive disorder, single episode, unspecified; Z91.048 Other nonmedicinal substance allergy status; Z79.4 Long term (current) use of insulin; Z79.82 Long term (current) use of aspirin; Z79.51 Long term (current) use of inhaled steroids; Z79.84 Long term (current) use of oral hypoglycemic drugs; Z79.899 Other long term (current) drug therapy; Z87.891 Personal history of nicotine dependence; W06.XXXA Fall from bed, initial encounter
CPT/HCPCS: 70450; 70486; 72125; 73502; 99284

== ENCOUNTER 2017-06-19 14:25 | Emergency (ER) | payer MEDICARE, OTHER ==
[2017-06-19 14:33] VITALS: RESP 20; TEMP 99
[2017-06-19] MEDS ORDERED: ASPIRIN 81 MG PO STA (14:50)
[2017-06-19] MEDS ORDERED: NITROGLYCERIN OINT 1 INCH/GM PACKET TOPICAL STA (14:50)
--- NOTE | 2017-06-19 14:52 | ED ---
General Adult HPI - General Chief complaint: Chest Pain Stated complaint: Chest Pain Time Seen by Provider: 06/19/17 14:40 Source: patient, RN notes reviewed Mode of arrival: wheelchair Limitations: no limitations - History of Present Illness Initial comments: Patient is a pleasant 57-year-old female presenting to the emergency Department with complaints of left-sided chest discomfort. Onset of symptoms was around 11 :00. Symptoms have been steady since that time. Patient has sharp discomfort in her left breast without radiation. Discomfort is mild at rest does increase with breaths and position changes. No difficulty breathing. No nausea or vomiting. Patient has had several symptoms twice previously with negative evaluation. Patient is unclear if symptoms seem similar to her previous heart problems. No leg pain or leg swelling. - Related Data Home Medications Medication Instructions Recorded Confirmed Meloxicam [Mobic] 7.5 mg PO AC-BID 10/06/14 06/19/17 metFORMIN HCL [Glucophage] 1,000 mg PO AC-BID 10/06/14 06/19/17 Atorvastatin [Lipitor] 20 mg PO AC-BRKFST 02/28/15 06/19/17 DULoxetine HCL [Cymbalta] 60 mg PO AC-BRKFST 05/10/15 06/19/17 Gabapentin 800 mg PO QID 02/25/16 06/19/17 Mirtazapine [Remeron] 30 mg PO HS 02/25/16 06/19/17 busPIRone HCL 15 mg PO AC-BID 02/25/16 06/19/17 Dicyclomine [Bentyl] 20 mg PO QID 10/07/16 06/19/17 Mometasone/Formoterol [Dulera 100 1 puff INHALATION RT-BID 10/07/16 06/19/17 Mcg/5 Mcg Inhaler] OXcarbazepine [Trileptal] 1,200 mg PO BID 10/07/16 06/19/17 Isosorbide Mononitrate ER [Imdur] 30 mg PO DAILY 10/22/16 06/19/17 Acetaminophen-Codeine 300-30mg 1 tab PO Q6H PRN 03/02/17 06/19/17 [Tylenol #3] Albuterol Inhaler [Ventolin Hfa 2 puff INHALATION RT-Q8H PRN 03/02/17 06/19/17 Inhaler] Aspirin 81 mg PO DAILY 03/02/17 06/19/17 Insulin Glargine,Hum.rec.anlog 20 unit SQ HS 03/02/17 06/19/17 [Basaglar Kwikpen U-100] Pramipexole [Mirapex] 0.25 mg PO HS 03/02/17 06/19/17 Verapamil HCl [Calan Sr] 240 mg PO HS 03/02/17 06/19/17 Ipratropium-Albuterol Nebulize 3 ml INHALATION RT-QID 04/21/17 06/19/17 [Duoneb 0.5 mg-3 mg/3 ml Soln] Liraglutide [Victoza 2-Fredo] 1.2 mg SQ HS 04/21/17 06/19/17 Pioglitazone [Actos] 30 mg PO AC-LUNCH 04/21/17 06/19/17 Previous Rx's Medication Instructions Recorded Famotidine [Pepcid] 20 mg PO BID #20 tablet 04/21/17 Allergies Allergy/AdvReac Type Severity Reaction Status Date / Time adhesive AdvReac Rash/Hives Verified 06/19/17 15:19 Review of Systems ROS Statement: Those systems with pertinent positive or pertinent negative responses have been documented in the HPI. ROS Other: All systems not noted in ROS Statement are negative. Constitutional: Denies: fever Eyes: Denies: eye pain ENT: Denies: ear pain Respiratory: Denies: cough, dyspnea Cardiovascular: Reports: chest pain Endocrine: Denies: fatigue Gastrointestinal: Denies: abdominal pain, nausea Genitourinary: Denies: dysuria Musculoskeletal: Denies: back pain Skin: Denies: rash Neurological: Denies: weakness Past Medical History Past Medical History: Asthma, COPD, Diabetes Mellitus, Fibromyalgia, Hyperlipidemia, Hypertension, Neurologic Disorder, Osteoarthritis (OA), Sleep Apnea/CPAP/BIPAP Additional Past Medical History / Comment(s): restless leg, neuropathy History of Any Multi-Drug Resistant Organisms: None Reported Past Surgical History: Cholecystectomy, Hysterectomy, Orthopedic Surgery, Tonsillectomy Additional Past Surgical History / Comment(s): colonoscopy, tendon repair on left foot Past Anesthesia/Blood Transfusion Reactions: Motion Sickness Past Psychological History: Anxiety, Depression, PTSD, Schizophrenia Smoking Status: Former smoker Past Alcohol Use History: Occasional Past Drug Use History: None Reported General Exam Limitations: no limitations General appearance: alert, in no apparent distress Head exam: Present: atraumatic Eye exam: Present: normal appearance, PERRL ENT exam: Present: normal oropharynx Neck exam: Present: normal inspection Respiratory exam: Present: normal lung sounds bilaterally, chest wall tenderness (Left anterior chest beneath the breast.) Cardiovascular Exam: Present: regular rate, normal rhythm Expanded Peripheral pulses: 2+: Dorsalis Pedis (R), Dorsalis Pedis (L) GI/Abdominal exam: Present: soft. Absent: tenderness Extremities exam: Present: normal inspection. Absent: pedal edema, calf tenderness Neurological exam: Present: alert Psychiatric exam: Present: normal affect, normal mood Skin exam: Present: normal color Course Vital Signs 06/19/17 06/19/17 14:29 16:00 Temperature 99.0 F Pulse Rate 83 81 Respiratory 20 20 Rate Blood Pressure 156/74 141/83 O2 Sat by Pulse 96 97 Oximetry EKG Findings - EKG Comments: EKG Findings:: Normal sinus rhythm 86. MO 188. QRS 78. QT 380. QTC 454. Normal axis. Low QRS voltage. No acute ST change. Medical Decision Making - Medical Decision Making Patient reevaluated and resting comfortably in bed. Patient states essentially no discomfort except for with movement. Case was discussed in detail with Dr. Hinson who is comfortable with discharge of this patient and will follow-up on Thursday. Patient updated and is comfortable with discharge. - Lab Data Result diagrams: 06/19/17 15:10 06/19/17 15:10 Lab Results 06/19/17 06/19/17 06/19/17 Range/Units 15:10 15:10 15:10 WBC 10.1 (3.8-10.6) k/uL RBC 4.16 (3.80-5.40) m/uL Hgb 12.7 (11.4-16.0) gm/dL Hct 38.4 (34.0-46.0) % MCV 92.2 (80.0-100.0) fL MCH 30.5 (25.0-35.0) pg MCHC 33.0 (31.0-37.0) g/dL RDW 14.9 (11.5-15.5) % Plt Count 343 (150-450) k/uL Neutrophils % 74 % Lymphocytes % 16 % Monocytes % 5 % Eosinophils % 3 % Basophils % 0 % Neutrophils # 7.5 (1.3-7.7) k/uL Lymphocytes # 1.6 (1.0-4.8) k/uL Monocytes # 0.5 (0-1.0) k/uL Eosinophils # 0.3 (0-0.7) k/uL Basophils # 0.0 (0-0.2) k/uL PT (9.0-12.0) sec INR (<1.2) APTT (22.0-30.0) sec D-Dimer (<0.60) mg/L FEU Sodium 131 L (137-145) mmol/L Potassium 4.2 (3.5-5.1) mmol/L Chloride 95 L (98-107) mmol/L Carbon Dioxide 27 (22-30) mmol/L Anion Gap 9 mmol/L BUN 10 (7-17) mg/dL Creatinine 0.51 L (0.52-1.04) mg/dL Est GFR (MDRD) Af Amer >60 (>60 ml/min/1.73 sqM) Est GFR (MDRD) Non-Af >60 (>60 ml/min/1.73 sqM) Glucose 99 (74-99) mg/dL Calcium 8.6 (8.4-10.2) mg/dL Magnesium 1.8 (1.6-2.3) mg/dL Total Bilirubin 0.3 (0.2-1.3) mg/dL AST 22 (14-36) U/L ALT 68 H (9-52) U/L Alkaline Phosphatase 173 H (38-126) U/L Total Creatine Kinase 46 (30-135) U/L CK-MB (CK-2) 0.9 (0.0-2.4) ng/mL CK-MB (CK-2) Rel Index 2.0 Troponin I <0.012 (0.000-0.034) ng/mL Total Protein 6.5 (6.3-8.2) g/dL Albumin 3.8 (3.5-5.0) g/dL 06/19/17 Range/Units 15:10 WBC (3.8-10.6) k/uL RBC (3.80-5.40) m/uL Hgb (11.4-16.0) gm/dL Hct (34.0-46.0) % MCV (80.0-100.0) fL MCH (25.0-35.0) pg MCHC (31.0-37.0) g/dL RDW (11.5-15.5) % Plt Count (150-450) k/uL Neutrophils % % Lymphocytes % % Monocytes % % Eosinophils % % Basophils % % Neutrophils # (1.3-7.7) k/uL Lymphocytes # (1.0-4.8) k/uL Monocytes # (0-1.0) k/uL Eosinophils # (0-0.7) k/uL Basophils # (0-0.2) k/uL PT 9.6 (9.0-12.0) sec INR 0.9 (<1.2) APTT 22.7 (22.0-30.0) sec D-Dimer 0.49 (<0.60) mg/L FEU Sodium (137-145) mmol/L Potassium (3.5-5.1) mmol/L Chloride (98-107) mmol/L Carbon Dioxide (22-30) mmol/L Anion Gap mmol/L BUN (7-17) mg/dL Creatinine (0.52-1.04) mg/dL Est GFR (MDRD) Af Amer (>60 ml/min/1.73 sqM) Est GFR (MDRD) Non-Af (>60 ml/min/1.73 sqM) Glucose (74-99) mg/dL Calcium (8.4-10.2) mg/dL Magnesium (1.6-2.3) mg/dL Total Bilirubin (0.2-1.3) mg/dL AST (14-36) U/L ALT (9-52) U/L Alkaline Phosphatase (38-126) U/L Total Creatine Kinase (30-135) U/L CK-MB (CK-2) (0.0-2.4) ng/mL CK-MB (CK-2) Rel Index Troponin I (0.000-0.034) ng/mL Total Protein (6.3-8.2) g/dL Albumin (3.5-5.0) g/dL - Radiology Data Radiology results: image reviewed (Chest x-ray shows no acute process. Possible component of interstitial lung disease.) Disposition Clinical Impression: Chest pain Disposition: HOME SELF-CARE Condition: Stable Instructions: Chest Pain (ED) Additional Instructions: Please follow-up with Dr. Hinson or Dr. Nieto Thursday. Return for change or worsening symptoms, difficulty breathing, fevers, or other concerns. Referrals: Jensen Nieto MD [Primary Care Provider] - 1-2 days Time of Disposition: 16:52
[2017-06-19 15:22] LABS: Basophils % (A) 0 %; CHCM 33.7; Eosinophils # (A) 0.3 k/uL (0-0.7); Eosinophils % (A) 3 %; HCT 38.4 % (34.0-46.0); HDW 2.12; HGB 12.7 gm/dL (11.4-16.0); Luc # (Auto) 0.17; Luc % (Auto) 2; Lymphocytes # (A) 1.6 k/uL (1.0-4.8); Lymphocytes % (A) 16 %; MCH 30.5 pg (25.0-35.0); MCV 92.2 fL (80.0-100.0); Mean Platelet Volume 6.7; Monocytes # (A) 0.5 k/uL (0-1.0); Monocytes % (A) 5 %; Neutrophils # (A) 7.5 k/uL (1.3-7.7); Neutrophils % (A) 74 %; RBC 4.16 m/uL (3.80-5.40); RDW 14.9 % (11.5-15.5); WBC 10.1 k/uL (3.8-10.6); WBC (Perox) 10.63
[2017-06-19 15:33] LABS: ALT 68 U/L (9-52); AST 22 U/L (14-36); Alkaline Phosphatase 173 U/L (38-126); Anion Gap 9 mmol/L; Blood Urea Nitrogen 10 mg/dL (7-17); Calcium 8.6 mg/dL (8.4-10.2); Carbon Dioxide 27 mmol/L (22-30); Chloride 95 mmol/L (98-107); Glucose 99 mg/dL (74-99); Magnesium 1.8 mg/dL (1.6-2.3); Non-African American GFR(MDRD) >60 (>60 ml/min/1.73 sqM); Potassium 4.2 mmol/L (3.5-5.1); Sodium 131 mmol/L (137-145); Total Bilirubin 0.3 mg/dL (0.2-1.3); Total Protein 6.5 g/dL (6.3-8.2)
[2017-06-19 15:36] LABS: INR 0.9 (<1.2); Partial Thromboplastin Time 22.7 sec (22.0-30.0); Prothrombin Time 9.6 sec (9.0-12.0)
[2017-06-19 15:46] LABS: Creatine Kinase 46 U/L (30-135)
[2017-06-19 15:56] LABS: Creatine Kinase MB 0.9 ng/mL (0.0-2.4); Troponin I <0.012 ng/mL (0.000-0.034)
--- NOTE | 2017-06-19 16:03 | XR ---
EXAMINATION TYPE: XR chest 2V DATE OF EXAM: 06/19/2017 COMPARISON: Prior chest x-ray 04/21/2017 HISTORY: Chest pain and shortness of breath TECHNIQUE: Frontal and lateral views of the chest are obtained. FINDINGS: There is no focal air space opacity, pleural effusion, or pneumothorax seen. The cardiac silhouette size is stable. Prominent lung volume may be indicative of underlying COPD. Mild prominen ce of interstitium again noted as on prior exam. There are overlying cardiac leads. The osseous struc tures are intact. IMPRESSION: No acute cardiopulmonary process. There may be a component of interstitial lung disease, additional findings above.
[2017-06-19 17:46] VITALS: BP 144/70; PULSE 82
== END 2017-06-19 18:00 | disposition home or self-care (01) ==
LOC: EC 14:25
DX: R07.9 Chest pain, unspecified (principal); E11.9 Type 2 diabetes mellitus without complications; J44.9 Chronic obstructive pulmonary disease, unspecified; M19.90 Unspecified osteoarthritis, unspecified site; I10 Essential (primary) hypertension; E78.5 Hyperlipidemia, unspecified; M79.7 Fibromyalgia; G25.81 Restless legs syndrome; F32.9 Major depressive disorder, single episode, unspecified; F41.9 Anxiety disorder, unspecified; Z87.891 Personal history of nicotine dependence; Z91.048 Other nonmedicinal substance allergy status; Z79.1 Long term (current) use of non-steroidal anti-inflammatories (NSAID); Z79.84 Long term (current) use of oral hypoglycemic drugs; Z79.4 Long term (current) use of insulin; Z79.82 Long term (current) use of aspirin; Z79.51 Long term (current) use of inhaled steroids; Z79.899 Other long term (current) drug therapy
CPT/HCPCS: 36415; 71020; 80053; 82550; 82553; 83735; 84484; 85025; 85379; 85610; 85730; 93005; 99285

== ENCOUNTER → 2017-07-03 | Outpatient (CLI) | payer MEDICARE, OTHER ==
--- NOTE | 2017-07-03 12:00 | XR ---
Left foot HISTORY: Foot and heel pain, R 52 3 views of the left foot No comparisons There is an overlying dressing. Alignment, joint spaces, bone mineralization are maintained. No evide nt periostitis. Small plantar calcaneal spur is present. Some minimal spurring present at the tibiota lar joint, talar neck and intertarsal joints. IMPRESSION: Osteoarthritic changes are present. Small plantar calcaneal spur. Overlying dressing may obscure detail.
== END | disposition home or self-care (01) ==
LOC: RADXRMAIN 11:18
PROVIDERS: ATTEND Podiatrist
DX: M19.072 Primary osteoarthritis, left ankle and foot (principal); M77.32 Calcaneal spur, left foot

== ENCOUNTER → 2017-07-14 | Outpatient (CLI) | payer OTHER ==
[2017-07-14 14:12] LABS: Basophils # (A) 0.1 k/uL (0-0.2); Basophils % (A) 1 %; CH 30.5; CHCM 33.5; Eosinophils # (A) 0.2 k/uL (0-0.7); Eosinophils % (A) 2 %; HCT 37.4 % (34.0-46.0); HDW 2.39; HGB 12.7 gm/dL (11.4-16.0); Luc # (Auto) 0.21; Luc % (Auto) 2; Lymphocytes # (A) 1.8 k/uL (1.0-4.8); Lymphocytes % (A) 17 %; MCH 30.9 pg (25.0-35.0); MCHC 33.9 g/dL (31.0-37.0); MCV 91.2 fL (80.0-100.0); Mean Platelet Volume 6.4; Monocytes # (A) 0.5 k/uL (0-1.0); Monocytes % (A) 5 %; Neutrophils % (A) 74 %; WBC 10.7 k/uL (3.8-10.6); WBC (Perox) 11.12
[2017-07-14 14:31] LABS: ALT 35 U/L (9-52); AST 18 U/L (14-36); Alkaline Phosphatase 173 U/L (38-126); Anion Gap 9 mmol/L; Blood Urea Nitrogen 11 mg/dL (7-17); Calcium 8.4 mg/dL (8.4-10.2); Carbon Dioxide 24 mmol/L (22-30); Chloride 99 mmol/L (98-107); Glucose 123 mg/dL (74-99); Non-African American GFR(MDRD) >60 (>60 ml/min/1.73 sqM); Potassium 4.4 mmol/L (3.5-5.1); Sodium 132 mmol/L (137-145); Total Bilirubin 0.2 mg/dL (0.2-1.3)
[2017-07-14 15:17] LABS: Hepatitis C Virus IgG Ab Negative (Negative); Hepatitis C Virus IgG Index 0.02
== END | disposition home or self-care (01) ==
LOC: LABWHC1 13:26
PROVIDERS: ATTEND Family Medicine
DX: I87.2 Venous insufficiency (chronic) (peripheral) (principal); M79.7 Fibromyalgia; M54.16 Radiculopathy, lumbar region; E11.9 Type 2 diabetes mellitus without complications
CPT/HCPCS: 36415; 80053; 85025; 86803

== ENCOUNTER 2017-08-03 16:15 | Emergency (ER) | payer MEDICARE, OTHER ==
[2017-08-03] MEDS ORDERED: KETOROLAC 30 MG/ML 1 ML VIAL IVP STA (16:49)
--- NOTE | 2017-08-03 17:00 | ED ---
Chest Pain HPI - General Chief Complaint: Chest Pain Stated Complaint: Chest Pain X's 2 weeks Time Seen by Provider: 08/03/17 16:36 Source: patient, RN notes reviewed Mode of arrival: wheelchair Limitations: no limitations - History of Present Illness Initial Comments: This is a 57-year-old female who was brought in for evaluation of left-sided chest pain that she's had for about 2 weeks. She states is left-sided underneath her left breast notes were back aching nature of the 6/10 severity does get worse with deep breathing or upright movement. She states when she sits up that she gets sharper. She had no cough or phlegm production fevers chills or sweats no rashes she is not recall any trauma or strenuous activity recently. He voices no other complaints of any other issues at this time. MD Complaint: chest pain - Related Data Home Medications Medication Instructions Recorded Confirmed Meloxicam [Mobic] 7.5 mg PO AC-BID 10/06/14 08/03/17 metFORMIN HCL [Glucophage] 1,000 mg PO AC-BID 10/06/14 08/03/17 Atorvastatin [Lipitor] 20 mg PO HS 02/28/15 08/03/17 DULoxetine HCL [Cymbalta] 60 mg PO AC-BRKFST 05/10/15 08/03/17 Gabapentin 800 mg PO QID 02/25/16 08/03/17 Mirtazapine [Remeron] 30 mg PO HS 02/25/16 08/03/17 busPIRone HCL 15 mg PO AC-BID 02/25/16 08/03/17 Mometasone/Formoterol [Dulera 100 1 puff INHALATION RT-BID 10/07/16 08/03/17 Mcg/5 Mcg Inhaler] OXcarbazepine [Trileptal] 1,200 mg PO BID 10/07/16 08/03/17 Isosorbide Mononitrate ER [Imdur] 30 mg PO DAILY 10/22/16 08/03/17 Albuterol Inhaler [Ventolin Hfa 2 puff INHALATION RT-Q6H PRN 03/02/17 08/03/17 Inhaler] Aspirin 81 mg PO DAILY 03/02/17 08/03/17 Insulin Glargine,Hum.rec.anlog 20 unit SQ HS 03/02/17 08/03/17 [Basaglar Kwikpen U-100] Pramipexole [Mirapex] 0.25 mg PO HS 03/02/17 08/03/17 Verapamil HCl [Calan Sr] 240 mg PO HS 03/02/17 08/03/17 Ipratropium-Albuterol Nebulize 3 ml INHALATION RT-QID 04/21/17 08/03/17 [Duoneb 0.5 mg-3 mg/3 ml Soln] Liraglutide [Victoza 2-Fredo] 1.2 mg SQ HS 04/21/17 08/03/17 Pioglitazone [Actos] 30 mg PO DAILY@1200 04/21/17 08/03/17 Ranitidine HCl [Zantac] 150 mg PO BID 08/03/17 08/03/17 Previous Rx's Medication Instructions Recorded Furosemide [Lasix] 20 mg PO DAILY #7 tab 08/03/17 Allergies Allergy/AdvReac Type Severity Reaction Status Date / Time adhesive Allergy Rash/Hives Verified 08/03/17 16:46 Review of Systems ROS Statement: Those systems with pertinent positive or pertinent negative responses have been documented in the HPI. ROS Other: All systems not noted in ROS Statement are negative. EKG Findings - EKG Results: EKG: interpreted by SABINO, sinus rhythm (Sinus rhythm a rate of 89. Interval 196 QRS duration 82 QT since QTC of 360/438she rests nonspecific anterior configuration) Past Medical History Past Medical History: Asthma, COPD, Diabetes Mellitus, Fibromyalgia, Hyperlipidemia, Hypertension, Neurologic Disorder, Osteoarthritis (OA), Sleep Apnea/CPAP/BIPAP Additional Past Medical History / Comment(s): restless leg, neuropathy History of Any Multi-Drug Resistant Organisms: None Reported Past Surgical History: Cholecystectomy, Hysterectomy, Orthopedic Surgery, Tonsillectomy Additional Past Surgical History / Comment(s): colonoscopy, tendon repair on left foot Past Anesthesia/Blood Transfusion Reactions: Motion Sickness Past Psychological History: Anxiety, Bipolar, Depression, PTSD Smoking Status: Former smoker Past Alcohol Use History: Occasional Past Drug Use History: None Reported General Exam - General Exam Comments Initial Comments: This is a well-developed well-nourished awake alert oriented 3 female Limitations: no limitations General appearance: alert, in no apparent distress Head exam: Present: atraumatic, normocephalic, normal inspection Eye exam: Present: normal appearance, PERRL, EOMI. Absent: scleral icterus, conjunctival injection, periorbital swelling ENT exam: Present: normal exam, mucous membranes moist Neck exam: Present: normal inspection. Absent: tenderness, meningismus, lymphadenopathy Respiratory exam: Present: normal lung sounds bilaterally, chest wall tenderness (Reproducible tenderness palpation on the left costal chondral margin. No rashes noted). Absent: respiratory distress, wheezes, rales, rhonchi, stridor Cardiovascular Exam: Present: regular rate, normal rhythm, normal heart sounds. Absent: systolic murmur, diastolic murmur, rubs, gallop, clicks GI/Abdominal exam: Present: soft, normal bowel sounds, other (Obese abdomen.). Absent: distended, tenderness, guarding, rebound, rigid Extremities exam: Present: normal inspection, full ROM, normal capillary refill. Absent: tenderness, pedal edema, joint swelling, calf tenderness Back exam: Present: normal inspection Neurological exam: Present: alert, oriented X3, CN II-XII intact Psychiatric exam: Present: normal affect, normal mood Skin exam: Present: warm, dry, intact, normal color. Absent: rash Course Vital Signs 08/03/17 08/03/17 08/03/17 16:19 17:15 18:15 Temperature 98.2 F 98.0 F Pulse Rate 64 89 88 Respiratory 20 20 20 Rate Blood Pressure 152/70 170/77 134/64 O2 Sat by Pulse 96 97 94 L Oximetry 08/03/17 19:32 Temperature Pulse Rate 86 Respiratory 18 Rate Blood Pressure 117/67 O2 Sat by Pulse 98 Oximetry Chest Pain MDM - MDM I did review the imaging and report no evidence of acute findings no pulmonary embolism. I did have discussion with the patient I did discuss the case with Dr. Nieto patient be placed on diuretics and will follow-up in the office. The chest is of musculoskeletal etiology. Disposition Clinical Impression: Chest wall syndrome, Hyponatremia Disposition: HOME SELF-CARE Condition: Good Instructions: Costochondritis (ED), Hyponatremia (ED) Prescriptions: Furosemide [Lasix] 20 mg PO DAILY #7 tab Referrals: Jensen Nieto MD [Primary Care Provider] - 1-2 days
[2017-08-03 17:20] LABS: Basophils # (A) 0.1 k/uL (0-0.2); Basophils % (A) 1 %; CH 31.5; CHCM 34.9; Eosinophils # (A) 0.3 k/uL (0-0.7); Eosinophils % (A) 3 %; HCT 38.4 % (34.0-46.0); HDW 2.35; HGB 12.7 gm/dL (11.4-16.0); Luc # (Auto) 0.11; Luc % (Auto) 1; Lymphocytes # (A) 1.4 k/uL (1.0-4.8); Lymphocytes % (A) 15 %; MCH 29.9 pg (25.0-35.0); MCV 90.7 fL (80.0-100.0); Mean Platelet Volume 6.6; Monocytes # (A) 0.4 k/uL (0-1.0); Monocytes % (A) 4 %; Neutrophils # (A) 7.5 k/uL (1.3-7.7); Neutrophils % (A) 77 %; RBC 4.23 m/uL (3.80-5.40); RDW 14.9 % (11.5-15.5); WBC 9.8 k/uL (3.8-10.6); WBC (Perox) 11.03
[2017-08-03 17:30] LABS: ALT 26 U/L (9-52); AST 32 U/L (14-36); Alkaline Phosphatase 171 U/L (38-126); Amylase 40 U/L (30-110); Anion Gap 11 mmol/L; Blood Urea Nitrogen 8 mg/dL (7-17); Calcium 8.6 mg/dL (8.4-10.2); Carbon Dioxide 20 mmol/L (22-30); Chloride 95 mmol/L (98-107); Glucose 120 mg/dL (74-99); Magnesium 1.7 mg/dL (1.6-2.3); Non-African American GFR(MDRD) >60 (>60 ml/min/1.73 sqM); Sodium 126 mmol/L (137-145); Total Bilirubin 0.5 mg/dL (0.2-1.3); Total Protein 6.8 g/dL (6.3-8.2)
[2017-08-03 17:31] LABS: Potassium 5.4 mmol/L (3.5-5.1)
--- NOTE | 2017-08-03 17:44 | XR ---
EXAMINATION TYPE: XR chest 2V DATE OF EXAM: 08/03/2017 COMPARISON: 8417 HISTORY: Chest pain and shortness of breath TECHNIQUE: Frontal and lateral views of the chest are obtained. FINDINGS: There is no focal air space opacity, pleural effusion, or pneumothorax seen. Hilar promine nce may relate to underlying pulmonary arterial hypertension. Pulmonary hyperinflation and flattening of the diaphragms relates to underlying COPD. The cardiac silhouette size is within normal limits. There is new mild pulmonary vascular congestion The osseous structures are intact. IMPRESSION: 1. New mild pulmonary vascular congestion. 2. Hilar prominence may relate to vascular engorgement and underlying pulmonary arterial hypertension . Alternatively this could relate to adenopathy, which is considered less likely. 3. Radiographic findings of COPD, unchanged from the prior.
[2017-08-03 17:47] LABS: Creatine Kinase 60 U/L (30-135)
[2017-08-03 18:01] LABS: Creatine Kinase MB 0.8 ng/mL (0.0-2.4); Troponin I <0.012 ng/mL (0.000-0.034)
[2017-08-03 18:26] LABS: Appearance,Urine Clear (Clear); Bilirubin,Urine Negative (Negative); Glucose,Urine (UA) Negative (Negative); Ketones,Urine Negative (Negative); Leukocyte Esterase,Urine Negative (Negative); Nitrite,Urine Negative (Negative); Protein,Urine Trace (Negative); Specific Gravity,Urine 1.019 (1.001-1.035); UA Billing (MACRO vs. MICRO) CHEM; Urobilinogen,Urine <2.0 mg/dL (<2.0)
[2017-08-03 19:01] LABS: Partial Thromboplastin Time 25.2 sec (22.0-30.0); Prothrombin Time 9.9 sec (9.0-12.0)
[2017-08-03] MEDS ORDERED: RX INFO: IV CONTRAST WAS GIVEN 1 EACH MISC MISCELLANE PRN (19:10)
[2017-08-03 19:32] VITALS: RESP 18
--- NOTE | 2017-08-03 20:11 | CT ---
EXAMINATION TYPE: CT angio chest DATE OF EXAM: 08/03/2017 COMPARISON: NONE HISTORY: Pain under left breast x [address] DLP: 581.00 mGycm. Automated Exposure Control for Dose Reduction was Utilized. CONTRAST: CTA scan of the thorax is performed with IV Contrast, patient injected with 83 mL of Omnipaque 350, p ulmonary embolism protocol. MIP Images are created on CT scanner and reviewed. FINDINGS: LUNGS: No evidence of pulmonary embolus. Moderate centrilobular emphysematous changes are most pronou nced within the lung apices with bibasilar dependent subsegmental atelectasis. The lungs are grossly clear, there is no concerning parenchymal mass or nodule identified. There is no pleural effusion o r pneumothorax seen. The tracheobronchial tree is patent. MEDIASTINUM: There is satisfactory enhancement of the pulmonary artery and its branches, there is no CT evidence for pulmonary embolism. There are no greater than 1 cm hilar or mediastinal lymph nodes. No cardiomegaly or pericardial effusion is seen. OTHER: Healing rib fractures are seen of the posterior lateral aspects of ribs 7 and 8 on the left. M ild degenerative changes of the thoracic spine are noted. IMPRESSION: 1. No evidence of pulmonary embolus. 2. Healing posterior lateral rib fractures of ribs 7 and 8 on the left. 3. Moderate centrilobular pulmonary emphysema.
[2017-08-03 21:29] VITALS: BP 150/72; PULSE 86; TEMP 98.1
== END 2017-08-03 21:29 | disposition home or self-care (01) ==
LOC: EC 16:15
DX: R07.1 Chest pain on breathing (principal); E87.1 Hypo-osmolality and hyponatremia; J44.9 Chronic obstructive pulmonary disease, unspecified; J45.909 Unspecified asthma, uncomplicated; E11.9 Type 2 diabetes mellitus without complications; E78.5 Hyperlipidemia, unspecified; M79.7 Fibromyalgia; I10 Essential (primary) hypertension; F41.9 Anxiety disorder, unspecified; F32.9 Major depressive disorder, single episode, unspecified; F43.10 Post-traumatic stress disorder, unspecified; G25.81 Restless legs syndrome; G47.30 Sleep apnea, unspecified; Z99.89 Dependence on other enabling machines and devices; Z87.891 Personal history of nicotine dependence; Z79.1 Long term (current) use of non-steroidal anti-inflammatories (NSAID); Z79.4 Long term (current) use of insulin; Z79.51 Long term (current) use of inhaled steroids; Z79.899 Other long term (current) drug therapy; Z79.82 Long term (current) use of aspirin; Z91.048 Other nonmedicinal substance allergy status
CPT/HCPCS: 36415; 85379; 83880; 80053; 82150; 82550; 82553; 83690; 83735; 84484; 85025; 85610; 85730; 81003; 71020; 71275; 99285; 96374; Q9967; J1885

== ENCOUNTER 2017-09-07 12:14 | Inpatient (IN) | payer MEDICARE ==
[2017-09-07] MEDS ORDERED: NITROGLYCERIN OINT 1 INCH/GM PACKET TOPICAL STA (12:30)
[2017-09-07] MEDS ORDERED: ASPIRIN 81 MG PO STA (12:30)
--- NOTE | 2017-09-07 12:33 | ED ---
General Adult HPI - General Chief complaint: Chest Pain Stated complaint: Chest Pain Time Seen by Provider: 09/07/17 12:24 Source: patient, RN notes reviewed Mode of arrival: wheelchair Limitations: no limitations - History of Present Illness Initial comments: Patient is a pleasant 57-year-old female presenting to the emergency department complaining of chest discomfort. Onset was yesterday. Symptoms are mild at this time. Patient does have sharp or indigestion type discomfort of her left chest. Patient has had a cough for the past couple of weeks. Discomfort does increase with coughing. Patient states she may feel slightly short of breath. No fevers. No leg pain or leg swelling. No nausea or diaphoresis. Patient has had similar symptoms previously however is unclear why - Related Data Home Medications Medication Instructions Recorded Confirmed Meloxicam [Mobic] 7.5 mg PO AC-BID 10/06/14 09/07/17 metFORMIN HCL [Glucophage] 1,000 mg PO AC-BID 10/06/14 09/07/17 Atorvastatin [Lipitor] 20 mg PO HS 02/28/15 09/07/17 DULoxetine HCL [Cymbalta] 60 mg PO AC-BRKFST 05/10/15 09/07/17 Gabapentin 800 mg PO QID 02/25/16 09/07/17 busPIRone HCL 15 mg PO BID@0800,1200 02/25/16 09/07/17 Mometasone/Formoterol [Dulera 100 1 puff INHALATION RT-BID 10/07/16 09/07/17 Mcg/5 Mcg Inhaler] OXcarbazepine [Trileptal] 1,200 mg PO BID 10/07/16 09/07/17 Isosorbide Mononitrate ER [Imdur] 30 mg PO DAILY 10/22/16 09/07/17 Albuterol Inhaler [Ventolin Hfa 2 puff INHALATION RT-Q6H PRN 03/02/17 09/07/17 Inhaler] Aspirin 81 mg PO DAILY 03/02/17 09/07/17 Insulin Glargine,Hum.rec.anlog 20 unit SQ HS 03/02/17 09/07/17 [Basaglar Kwikpen U-100] Pramipexole [Mirapex] 0.25 mg PO HS 03/02/17 09/07/17 Verapamil HCl [Calan Sr] 240 mg PO HS 03/02/17 09/07/17 Liraglutide [Victoza 2-Fredo] 1.2 mg SQ HS 04/21/17 09/07/17 Pioglitazone [Actos] 30 mg PO DAILY@1200 04/21/17 09/07/17 Allergies Allergy/AdvReac Type Severity Reaction Status Date / Time adhesive Allergy Rash/Hives Verified 09/07/17 13:40 Review of Systems ROS Statement: Those systems with pertinent positive or pertinent negative responses have been documented in the HPI. ROS Other: All systems not noted in ROS Statement are negative. Constitutional: Denies: fever Eyes: Denies: eye pain ENT: Denies: ear pain Respiratory: Reports: cough, dyspnea Cardiovascular: Reports: chest pain Endocrine: Denies: fatigue Gastrointestinal: Denies: abdominal pain Genitourinary: Denies: urgency Musculoskeletal: Denies: back pain Skin: Denies: rash Neurological: Denies: weakness Past Medical History Past Medical History: Asthma, COPD, Diabetes Mellitus, Fibromyalgia, Hyperlipidemia, Hypertension, Neurologic Disorder, Osteoarthritis (OA), Sleep Apnea/CPAP/BIPAP Additional Past Medical History / Comment(s): restless leg, neuropathy History of Any Multi-Drug Resistant Organisms: None Reported Past Surgical History: Cholecystectomy, Hysterectomy, Orthopedic Surgery, Tonsillectomy Additional Past Surgical History / Comment(s): colonoscopy, tendon repair on left foot Past Anesthesia/Blood Transfusion Reactions: Motion Sickness Past Psychological History: Anxiety, Bipolar, Depression, PTSD Smoking Status: Former smoker Past Alcohol Use History: Occasional Past Drug Use History: None Reported General Exam Limitations: no limitations General appearance: alert, in no apparent distress Head exam: Present: atraumatic Eye exam: Present: normal appearance, PERRL ENT exam: Present: normal oropharynx Neck exam: Present: normal inspection Respiratory exam: Present: wheezes (Mild expiratory wheeze). Absent: respiratory distress, chest wall tenderness Cardiovascular Exam: Present: regular rate, normal rhythm Expanded Peripheral pulses: 2+: Radial (R), Radial (L), Posterior Tibialis (R) (Left leg cast limiting pulses evaluation) GI/Abdominal exam: Present: soft. Absent: tenderness Extremities exam: Present: pedal edema (+1 on the right), other (Left leg cast limiting evaluation). Absent: calf tenderness (On the right no tenderness) Neurological exam: Present: alert Psychiatric exam: Present: normal affect, normal mood Skin exam: Present: normal color Course Vital Signs 09/07/17 09/07/17 09/07/17 12:18 13:41 13:50 Temperature 98.3 F Pulse Rate 100 88 93 Respiratory 22 18 Rate Blood Pressure 172/78 O2 Sat by Pulse 99 Oximetry 09/07/17 09/07/17 14:00 15:00 Temperature Pulse Rate 89 68 Respiratory 18 20 Rate Blood Pressure 133/69 117/56 O2 Sat by Pulse 98 98 Oximetry EKG Findings - EKG Comments: EKG Findings:: Sinus rhythm 92. First-degree AV block with SD of 2:30. QRS 86. QT 384. QTC 474. Normal axis. Low QRS did. Septal Q waves. No acute ST change. Medical Decision Making - Medical Decision Making Patient reevaluated and resting comfortably in bed. Case discussed with Dr. Hinson, who will admit for Dr. Nieto. Patient believes her last stress test was a couple of years ago. - Lab Data Result diagrams: 09/07/17 13:15 09/07/17 13:15 Lab Results 09/07/17 09/07/17 09/07/17 Range/Units 13:15 13:15 13:15 WBC 8.3 (3.8-10.6) k/uL RBC 4.04 (3.80-5.40) m/uL Hgb 11.9 (11.4-16.0) gm/dL Hct 37.0 (34.0-46.0) % MCV 91.6 (80.0-100.0) fL MCH 29.6 (25.0-35.0) pg MCHC 32.3 (31.0-37.0) g/dL RDW 13.0 (11.5-15.5) % Plt Count 448 (150-450) k/uL Neutrophils % 68 % Lymphocytes % 21 % Monocytes % 6 % Eosinophils % 4 % Basophils % 1 % Neutrophils # 5.6 (1.3-7.7) k/uL Lymphocytes # 1.7 (1.0-4.8) k/uL Monocytes # 0.5 (0-1.0) k/uL Eosinophils # 0.3 (0-0.7) k/uL Basophils # 0.1 (0-0.2) k/uL PT (9.0-12.0) sec INR (<1.2) APTT (22.0-30.0) sec D-Dimer (<0.60) mg/L FEU Sodium 124 L (137-145) mmol/L Potassium 3.9 (3.5-5.1) mmol/L Chloride 89 L (98-107) mmol/L Carbon Dioxide 24 (22-30) mmol/L Anion Gap 11 mmol/L BUN 6 L (7-17) mg/dL Creatinine 0.46 L (0.52-1.04) mg/dL Est GFR (MDRD) Af Amer >60 (>60 ml/min/1.73 sqM) Est GFR (MDRD) Non-Af >60 (>60 ml/min/1.73 sqM) Glucose 113 H (74-99) mg/dL Calcium 8.2 L (8.4-10.2) mg/dL Magnesium 1.7 (1.6-2.3) mg/dL Total Bilirubin 0.1 L (0.2-1.3) mg/dL AST 21 (14-36) U/L ALT 33 (9-52) U/L Alkaline Phosphatase 168 H (38-126) U/L Total Creatine Kinase 72 (30-135) U/L CK-MB (CK-2) 1.0 (0.0-2.4) ng/mL CK-MB (CK-2) Rel Index 1.4 Troponin I <0.012 (0.000-0.034) ng/mL NT-Pro-B Natriuret Pep pg/mL Total Protein 6.6 (6.3-8.2) g/dL Albumin 3.9 (3.5-5.0) g/dL 09/07/17 09/07/17 Range/Units 13:15 13:15 WBC (3.8-10.6) k/uL RBC (3.80-5.40) m/uL Hgb (11.4-16.0) gm/dL Hct (34.0-46.0) % MCV (80.0-100.0) fL MCH (25.0-35.0) pg MCHC (31.0-37.0) g/dL RDW (11.5-15.5) % Plt Count (150-450) k/uL Neutrophils % % Lymphocytes % % Monocytes % % Eosinophils % % Basophils % % Neutrophils # (1.3-7.7) k/uL Lymphocytes # (1.0-4.8) k/uL Monocytes # (0-1.0) k/uL Eosinophils # (0-0.7) k/uL Basophils # (0-0.2) k/uL PT 9.9 (9.0-12.0) sec INR 1.0 (<1.2) APTT 26.9 (22.0-30.0) sec D-Dimer 0.65 H (<0.60) mg/L FEU Sodium (137-145) mmol/L Potassium (3.5-5.1) mmol/L Chloride (98-107) mmol/L Carbon Dioxide (22-30) mmol/L Anion Gap mmol/L BUN (7-17) mg/dL Creatinine (0.52-1.04) mg/dL Est GFR (MDRD) Af Amer (>60 ml/min/1.73 sqM) Est GFR (MDRD) Non-Af (>60 ml/min/1.73 sqM) Glucose (74-99) mg/dL Calcium (8.4-10.2) mg/dL Magnesium (1.6-2.3) mg/dL Total Bilirubin (0.2-1.3) mg/dL AST (14-36) U/L ALT (9-52) U/L Alkaline Phosphatase (38-126) U/L Total Creatine Kinase (30-135) U/L CK-MB (CK-2) (0.0-2.4) ng/mL CK-MB (CK-2) Rel Index Troponin I (0.000-0.034) ng/mL NT-Pro-B Natriuret Pep 86 pg/mL Total Protein (6.3-8.2) g/dL Albumin (3.5-5.0) g/dL - Radiology Data Radiology results: report reviewed (Computed tomography scan of the chest negative for pulmonary embolism.), image reviewed (Chest x-ray shows no acute process) Critical Care Time Critical Care Time: Yes Total Critical Care Time: 31 Disposition Clinical Impression: Unstable angina pectoris Disposition: ADMITTED IP TO THIS HOSP Referrals: Jensen Nieto MD [Primary Care Provider] - 1-2 days Decision Time: 16:28
[2017-09-07] MEDS ORDERED: IPRATROPIUM-ALBUTEROL 3 ML NEB INHALATION STA (12:42)
[2017-09-07 13:34] LABS: Basophils # (A) 0.1 k/uL (0-0.2); Basophils % (A) 1 %; CH 30.2; CHCM 33.1; Eosinophils # (A) 0.3 k/uL (0-0.7); Eosinophils % (A) 4 %; HDW 2.15; HGB 11.9 gm/dL (11.4-16.0); Luc # (Auto) 0.15; Luc % (Auto) 2; Lymphocytes # (A) 1.7 k/uL (1.0-4.8); Lymphocytes % (A) 21 %; MCH 29.6 pg (25.0-35.0); MCHC 32.3 g/dL (31.0-37.0); MCV 91.6 fL (80.0-100.0); Mean Platelet Volume 6.1; Monocytes # (A) 0.5 k/uL (0-1.0); Monocytes % (A) 6 %; Neutrophils # (A) 5.6 k/uL (1.3-7.7); Neutrophils % (A) 68 %; RBC 4.04 m/uL (3.80-5.40); WBC 8.3 k/uL (3.8-10.6); WBC (Perox) 7.76
[2017-09-07 13:46] LABS: ALT 33 U/L (9-52); AST 21 U/L (14-36); Alkaline Phosphatase 168 U/L (38-126); Anion Gap 11 mmol/L; Blood Urea Nitrogen 6 mg/dL (7-17); Calcium 8.2 mg/dL (8.4-10.2); Carbon Dioxide 24 mmol/L (22-30); Chloride 89 mmol/L (98-107); Glucose 113 mg/dL (74-99); Magnesium 1.7 mg/dL (1.6-2.3); Non-African American GFR(MDRD) >60 (>60 ml/min/1.73 sqM); Potassium 3.9 mmol/L (3.5-5.1); Sodium 124 mmol/L (137-145); Total Bilirubin 0.1 mg/dL (0.2-1.3); Total Protein 6.6 g/dL (6.3-8.2)
[2017-09-07 13:53] LABS: Prothrombin Time 9.9 sec (9.0-12.0)
[2017-09-07 13:54] LABS: Partial Thromboplastin Time 26.9 sec (22.0-30.0)
[2017-09-07 13:56] LABS: Creatine Kinase 72 U/L (30-135)
[2017-09-07 14:09] LABS: Troponin I <0.012 ng/mL (0.000-0.034)
--- NOTE | 2017-09-07 14:31 | XR ---
EXAMINATION TYPE: XR chest 2V DATE OF EXAM: 09/07/2017 COMPARISON: Prior chest x-ray 08/03/2017 HISTORY: Chest pain, shortness of breath and cough TECHNIQUE: Frontal and lateral views of the chest are obtained. FINDINGS: There is no focal air space opacity, pleural effusion, or pneumothorax seen. The cardiac silhouette size is stable. Patient is rotated. There are overlying cardiac leads. Prominent lung vo lumes compatible with underlying COPD. The osseous structures are intact. IMPRESSION: No acute cardiopulmonary process.
[2017-09-07] MEDS ORDERED: RX INFO: IV CONTRAST WAS GIVEN 1 EACH MISC MISCELLANE PRN (15:11)
--- NOTE | 2017-09-07 15:47 | CT ---
EXAMINATION TYPE: CT angio chest DATE OF EXAM: 09/07/2017 COMPARISON: CTA chest November 02, 2017 HISTORY: Chest pain and SOB. CT DLP: 666 mGycm. Automated Exposure Control for Dose Reduction was Utilized. CONTRAST: CTA scan of the thorax is performed with IV Contrast, patient injected with 80 mL of Omnipaque 300, p ulmonary embolism protocol. MIP Images are created on CT scanner and reviewed. FINDINGS: LUNGS: The lung volumes are redemonstrated. There is background mild to moderate emphysematous change most prominent in the upper lobes. There is dependent atelectasis in both lower lobes. There is no s uspicious parenchymal nodule or mass identified bilaterally. No pleural effusion or pneumothorax is s een bilaterally. Tracheobronchial tree is patent. MEDIASTINUM: There is slightly suboptimal bolus with some contrast noted throughout left heart system , but there is no CT evidence for pulmonary embolism. There are no greater than 1 cm hilar or medias tinal lymph nodes. No cardiomegaly or pericardial effusion is seen. OTHER: There is multilevel spurring in the thoracic spine most prominent in lower thoracic levels. Th ere is redemonstration of healing or healed fractures of the posterior lateral left sided mid ribs. IMPRESSION: No CT evidence for pulmonary embolism. Mild to moderate emphysematous change without susp icious acute pulmonary process. No significant change from prior CT.
[2017-09-07] MEDS ORDERED: HEPARIN SODIUM,PORCINE 5,000 UNIT/ML 1 ML VIAL IV ONE (16:28)
[2017-09-07] MEDS ORDERED: HEPARIN SODIUM,PORCINE 5,000 UNIT/ML 1 ML VIAL IV PRN (16:28)
[2017-09-07] MEDS ORDERED: NITROGLYCERIN SL TABS 0.4 MG TAB SUBLINGUAL PRN (16:28)
[2017-09-07] MEDS ORDERED: HEPARIN SODIUM,PORCINE/D5W PMX 25,000 UNIT in DEXTROSE/WATER 1 500ML.BAG IV SCH (16:30)
[2017-09-07] MEDS ORDERED: SODIUM CHLORIDE 0.9% 1,000 ML IV STA (16:54)
[2017-09-07 17:08] LABS: Glucose,Whole Blood 100 mg/dL (75-99)
[2017-09-07 18:01] LABS: Glucose,Whole Blood 185 mg/dL (75-99)
[2017-09-07] MEDS ORDERED: ALBUTEROL NEBULIZED 2.5 MG/3 ML INHALATION PRN (19:42)
[2017-09-07 20:23] LABS: Creatine Kinase 76 U/L (30-135)
[2017-09-07 20:36] LABS: Creatine Kinase MB 1.3 ng/mL (0.0-2.4); Troponin I <0.012 ng/mL (0.000-0.034)
[2017-09-07 20:44] LABS: Glucose,Whole Blood 128 mg/dL (75-99)
[2017-09-07] MEDS: GABAPENTIN 400 MG CAP PO SCH (21:17)
[2017-09-07] MEDS: ATORVASTATIN 20 MG TAB PO SCH (21:17)
[2017-09-07] MEDS: PRAMIPEXOLE 0.25 MG TAB PO SCH (21:17)
[2017-09-07] MEDS: OXcarbazepine 300 MG TAB PO SCH (21:17)
[2017-09-07] MEDS: metFORMIN 500 MG TAB PO SCH (21:17)
[2017-09-07] MEDS: VERAPAMIL SR 240 MG TABLET.ER PO SCH (21:17)
[2017-09-07] MEDS: Acetaminophen-Codeine 300-30mg TAB PO PRN (21:24)
[2017-09-07] MEDS: INSULIN GLARGINE 100 UNIT/ML 10 ML VIAL SQ SCH (21:24)
[2017-09-07] MEDS: SYMBICORT 80-4.5 MCG INHALER INHALATION SCH (21:26)
[2017-09-07] MEDS: Liraglutide [Victoza 2-Pak] 1.2 MG SQ SCH (21:34)
[2017-09-07] MEDS: NITROGLYCERIN OINT 1 INCH/GM PACKET TOPICAL SCH (21:35)
[2017-09-08] MEDS: NITROGLYCERIN OINT 1 INCH/GM PACKET TOPICAL SCH ×2 (00:04→06:48)
[2017-09-08 02:20] LABS: Mean Platelet Volume 7.2
[2017-09-08 02:26] LABS: Creatine Kinase 73 U/L (30-135)
[2017-09-08 02:28] LABS: Cholesterol 147 mg/dL (<200); HDL Cholesterol 79 mg/dL (40-60)
[2017-09-08 02:39] LABS: Creatine Kinase MB 1.3 ng/mL (0.0-2.4); Troponin I <0.012 ng/mL (0.000-0.034)
[2017-09-08 06:57] LABS: Glucose,Whole Blood 112 mg/dL (75-99)
[2017-09-08] MEDS: Acetaminophen-Codeine 300-30mg TAB PO PRN ×2 (07:28→21:02)
[2017-09-08] MEDS: SYMBICORT 80-4.5 MCG INHALER INHALATION SCH ×2 (07:57→20:19)
[2017-09-08] MEDS: MELOXICAM 7.5 MG TAB PO SCH ×2 (08:51→17:34)
[2017-09-08] MEDS: DULoxetine HCL 60 MG CAPSULE.DR PO SCH (08:51)
[2017-09-08] MEDS: busPIRone HCl 5 MG TAB PO SCH ×2 (08:52→13:30)
[2017-09-08] MEDS ORDERED: ASPIRIN 325 MG TAB PO SCH (09:00)
[2017-09-08] MEDS ORDERED: REGADENOSON 0.4 MG/5 ML SYRINGE IV ONE (09:53)
[2017-09-08] MEDS ORDERED: AMINOPHYLLINE 500 MG/20 ML VIAL IV PRN (09:53)
--- NOTE | 2017-09-08 11:11 | P.CRDCN ---
History of Present Illness Consult date: 09/08/17 History of present illness: This is a pleasant 57 year old female. She follows regularly with Dr. Adamson. Past medical history significant for hypertension, dyslipidemia, diabetes mellitus, former smoker quit 3 years ago and COPD/asthma. We have been asked to see the patient in consultation for complaints of chest pain. She states she frequently has these symptoms for many years. She states the pain is more under her left breath and in the axillary region. She describes this as tight feeling associated with shortness of breath and the pain is worse with cough. The pain started yesterday and has persisted. At the time of my exam she is chest pain free sitting up on the side of the bed coloring. EKG reveals sinus mechanism with first degree AVB, poor R-wave progression and nonspecific changes. Cardiac enzymes negative x3. LDL 27, HDL 79, triglycerides 204 and total cholesterol 147. D-dimer elevated, CTA negative for PE. ProBNP 86. Chest xray reveals no acute cardiopulmonary process. Blood pressure 135/61 with heart rate 74. Blood pressure on admission 172/78. Current cardiac medications include verapamil SR 240mg daily, imdur 30 mg daily , atorvastatin 20 mg daily and aspirin 81 mg daily. Most recent stress test done in June 2016 reveals no reversible ischemia. Most recent echo done 11/2016 reveals preserved LV function EF 55%. Review of Systems CONSTITUTIONAL: Denies fever. Denies chills. EYES: Denies blurred vision. Denies vision changes. Denies eye pain. EARS, NOSE, MOUTH & THROAT: Denies headache. Denies sore throat. Denies ear pain. CARDIOVASCULAR: Complains of chest pain, resolved. Complains of intermittent shortness of breath, resolved. Denies orthopnea. Denies PND. Denies palpitations. RESPIRATORY: Denies cough. GASTROINTESTINAL: Denies abdominal pain. Denies diarrhea. Denies constipation. Denies nausea. Denies vomitng. MUSCULOSKELETAL: Denies myalgias. INTEGUMENTARY: Denies pruitis. Denies rash. NEUROLOGIC: Denies numbness. Denies tingling. Denies weakness. PSYCHIATRIC: Denies anxiety. Denies depression. ENDOCRINE: Denies fatigue. Denies weight change. Denies polydipsia. Denies polyurina. GENITOURINARY: Denies burning, hematuria or urgency with micturation. HEMATOLOGIC: Denies history of anemia. Denies bleeding. Past Medical History Past Medical History: Asthma, COPD, Diabetes Mellitus, Fibromyalgia, Hyperlipidemia, Hypertension, Neurologic Disorder, Osteoarthritis (OA), Sleep Apnea/CPAP/BIPAP Additional Past Medical History / Comment(s): restless leg, neuropathy History of Any Multi-Drug Resistant Organisms: None Reported Past Surgical History: Cholecystectomy, Hysterectomy, Orthopedic Surgery, Tonsillectomy Additional Past Surgical History / Comment(s): colonoscopy, tendon repair on left foot Past Anesthesia/Blood Transfusion Reactions: Motion Sickness Past Psychological History: Anxiety, Bipolar, Depression, PTSD Smoking Status: Former smoker Past Alcohol Use History: Occasional Additional Past Alcohol Use History / Comment(s): quit drinking 3 YEARS AGO and now only occasionally will have a drink Past Drug Use History: None Reported - Past Family History Father Family Medical History: CVA/TIA, Diabetes Mellitus, Hypertension Additional Family Medical History / Comment(s): CATARACTS, AAA Medications and Allergies Home Medications Medication Instructions Recorded Confirmed Type Meloxicam [Mobic] 7.5 mg PO AC-BID 10/06/14 09/07/17 History metFORMIN HCL [Glucophage] 1,000 mg PO AC-BID 10/06/14 09/07/17 History Atorvastatin [Lipitor] 20 mg PO HS 02/28/15 09/07/17 History DULoxetine HCL [Cymbalta] 60 mg PO AC-BRKFST 05/10/15 09/07/17 History Gabapentin 800 mg PO QID 02/25/16 09/07/17 History busPIRone HCL 15 mg PO BID@0800,1200 02/25/16 09/07/17 History Mometasone/Formoterol [Dulera 100 1 puff INHALATION RT-BID 10/07/16 09/07/17 History Mcg/5 Mcg Inhaler] OXcarbazepine [Trileptal] 1,200 mg PO BID 10/07/16 09/07/17 History Isosorbide Mononitrate ER [Imdur] 30 mg PO DAILY 10/22/16 09/07/17 History Albuterol Inhaler [Ventolin Hfa 2 puff INHALATION RT-Q6H PRN 03/02/17 09/07/17 History Inhaler] Aspirin 81 mg PO DAILY 03/02/17 09/07/17 History Insulin Glargine,Hum.rec.anlog 20 unit SQ HS 03/02/17 09/07/17 History [Basaglar Kwikpen U-100] Pramipexole [Mirapex] 0.25 mg PO HS 03/02/17 09/07/17 History Verapamil HCl [Calan Sr] 240 mg PO HS 03/02/17 09/07/17 History Liraglutide [Victoza 2-Fredo] 1.2 mg SQ HS 04/21/17 09/07/17 History Pioglitazone [Actos] 30 mg PO DAILY@1200 04/21/17 09/07/17 History Acetaminophen-Codeine 300-30mg 1 tab PO Q6H PRN 09/07/17 09/07/17 History [Tylenol #3] Allergies Allergy/AdvReac Type Severity Reaction Status Date / Time adhesive Allergy Rash/Hives Verified 09/07/17 13:40 Physical Exam Vitals: Vital Signs Temp Pulse Pulse Pulse Resp BP BP 09/08/17 08:00 97.8 F 74 18 09/08/17 04:00 97.9 F 75 18 157/77 09/08/17 03:52 76 18 09/08/17 00:00 98 F 98 18 140/74 09/07/17 20:00 98 F 76 18 157/76 09/07/17 18:40 20 09/07/17 17:11 97.4 F L 82 20 132/66 09/07/17 16:00 89 20 136/71 09/07/17 15:00 68 20 117/56 09/07/17 14:00 89 18 133/69 09/07/17 13:50 93 09/07/17 13:41 88 18 09/07/17 12:18 98.3 F 100 22 172/78 BP Pulse Ox 09/08/17 08:00 135/61 95 09/08/17 04:00 100 09/08/17 03:52 09/08/17 00:00 99 09/07/17 20:00 94 L 09/07/17 18:40 09/07/17 17:11 99 09/07/17 16:00 09/07/17 15:00 98 09/07/17 14:00 98 09/07/17 13:50 09/07/17 13:41 09/07/17 12:18 99 Intake and Output 09/07/17 09/08/17 09/08/17 22:59 06:59 14:59 Intake Total 1660 2040.466 Balance 1660 2040.466 Intake: IV 180 Heparin Sodium,Porcine/ 180 D5w Pmx 25,000 unit In Dextrose/Water 1 500ml. bag @ 8.16 UNITS/KG/HR 19 .98 mls/hr IV .Q24H [facility] Rx#:[id number] Intake, IV Titration 160 360.466 Amount Heparin Sodium,Porcine/ 80 200.466 D5w Pmx 25,000 unit In Dextrose/Water 1 500ml. bag @ 8.16 UNITS/KG/HR 19 .98 mls/hr IV .Q24H [facility] Rx#:[id number] Sodium Chloride 0.9% 1, 80 160 000 ml @ 20 mls/hr IV . Q24H STA Rx#:[id number] Oral 1500 1500 Other: # Voids 3 3 GENERAL: This is a 57-year-old female in no apparent distress at the time of my examination. Obese. HEENT: Head is atraumatic, normocephalic. Pupils are equal, round. Sclerae anicteric. Conjunctivae are clear. Mucous membranes of the mouth are moist. Neck is supple. There is no jugular venous distention. No carotid bruit is heard. LUNGS: Clear to auscultation no wheezes, rales or rhonchi. No chest wall tenderness is noted on palpation or with deep breathing. Diminished air entry. HEART: Regular rate and rhythm without murmurs, rubs or gallops. S1 and S2 heard. ABDOMEN: Soft, nontender. Bowel sounds are heard. No organomegaly noted. EXTREMITIES: Cast to the left lower extremity status post foot surgery. Left lower extremity pulses strong and intact with trace edema evident. NEUROLOGIC: Patient is awake, alert and oriented x3. Results 09/08/17 01:05 09/07/17 13:15 Cardiac Enzymes 09/07/17 09/07/17 09/07/17 Range/Units 13:15 13:15 19:49 AST 21 (14-36) U/L CK-MB (CK-2) 1.0 1.3 (0.0-2.4) ng/mL Troponin I <0.012 <0.012 (0.000-0.034) ng/mL 09/08/17 Range/Units 01:07 AST (14-36) U/L CK-MB (CK-2) 1.3 (0.0-2.4) ng/mL Troponin I <0.012 (0.000-0.034) ng/mL Coagulation 09/07/17 09/08/17 09/08/17 Range/Units 13:15 01:07 09:29 PT 9.9 (9.0-12.0) sec APTT 26.9 28.2 31.3 H (22.0-30.0) sec Lipids 09/08/17 Range/Units 01:05 Triglycerides 204 H (<150) mg/dL Cholesterol 147 (<200) mg/dL HDL Cholesterol 79 H (40-60) mg/dL CBC 09/07/17 09/08/17 Range/Units 13:15 01:05 WBC 8.3 (3.8-10.6) k/uL RBC 4.04 (3.80-5.40) m/uL Hgb 11.9 (11.4-16.0) gm/dL Hct 37.0 (34.0-46.0) % Plt Count 448 444 (150-450) k/uL Comprehensive Metabolic Panel 09/07/17 Range/Units 13:15 Sodium 124 L (137-145) mmol/L Potassium 3.9 (3.5-5.1) mmol/L Chloride 89 L (98-107) mmol/L Carbon Dioxide 24 (22-30) mmol/L BUN 6 L (7-17) mg/dL Creatinine 0.46 L (0.52-1.04) mg/dL Glucose 113 H (74-99) mg/dL Calcium 8.2 L (8.4-10.2) mg/dL AST 21 (14-36) U/L ALT 33 (9-52) U/L Alkaline Phosphatase 168 H (38-126) U/L Total Protein 6.6 (6.3-8.2) g/dL Albumin 3.9 (3.5-5.0) g/dL Current Medications Generic Name Dose Route Start Last Admin Trade Name Freq PRN Reason Stop Dose Admin Acetaminophen/Codeine Phosphate 1 each 09/07/17 19:42 09/08/17 07:28 Tylenol #3 PO 1 each Q6H PRN Administration Pain Albuterol Sulfate 2.5 mg 09/07/17 19:42 Ventolin Nebulized INHALATION RT-Q6H PRN Shortness Of Breath Aminophylline 100 mg 09/08/17 09:53 Aminophylline IV 10/08/17 09:54 ONCE PRN Patient Response Aspirin 81 mg 09/08/17 09:00 Aspirin PO DAILY J[facility]VIS Atorvastatin Calcium 20 mg 09/07/17 21:00 09/07/17 21:17 Lipitor PO 20 mg HS JARVIS Administration Budesonide/Formoterol Fumarate 2 puff 09/07/17 20:00 09/08/17 07:57 Symbicort 80-4.5 Mcg Inhaler INHALATION 2 puff RT-BID JARVIS Administration Buspirone HCl 15 mg 09/08/17 08:00 09/08/17 08:52 Buspar PO 15 mg BID@0800,1200 JAR[facility] Administration Duloxetine HCl 60 mg 09/08/17 07:30 09/08/17 08:51 Cymbalta PO 60 mg AC-BRKFST JARVIS Administration Gabapentin 800 mg 09/07/17 22:00 09/07/17 21:17 Neurontin PO 800 mg QID JARVIS Administration Sodium Chloride 1,000 mls @ 20 mls/hr 09/07/17 16:54 09/07/17 17:05 Saline 0.9% IV 09/08/17 16:53 20 mls/hr .Q24H STA Administration Insulin Glargine 20 unit 09/07/17 21:00 09/07/17 21:24 Lantus SQ 20 unit HS JARVIS Administration Isosorbide Mononitrate 30 mg 09/08/17 09:00 Imdur PO DAILY JARVIS Meloxicam 7.5 mg 09/08/17 07:30 09/08/17 08:51 Mobic PO 7.5 mg AC-BID J[facility]VIS Administration Metformin HCl 1,000 mg 09/07/17 20:00 09/07/17 21:17 Glucophage PO 1,000 mg AC-BID JARVIS Administration Miscellaneous Information 1 each 09/07/17 15:11 Rx Info: Iv Contrast Was Given MISCELLANE 09/09/17 15:11 DAILY PRN Per Protocol Nitroglycerin 0.4 mg 09/07/17 16:28 Nitrostat SUBLINGUAL Q5M PRN Chest Pain Liraglutide [Victoza 1.2 each 09/07/17 21:00 09/07/17 21:34 2-Fredo] 1.2 Mg SQ Not Given HS JARVIS Oxcarbazepine 1,200 mg 09/07/17 21:00 09/07/17 21:17 Trileptal PO 1,200 mg BID JARVIS Administration Pioglitazone HCl 30 mg 09/08/17 12:00 Actos PO DAILY@1200 J[facility]VIS Pramipexole Dihydrochloride 0.25 mg 09/07/17 21:00 09/07/17 21:17 Mirapex PO 0.25 mg HS JARVIS Administration Sodium Chloride 10 ml 09/07/17 21:00 09/07/17 21:27 Saline Flush IV 10 ml BID JARVIS Administration Verapamil HCl 240 mg 09/07/17 21:00 09/07/17 21:17 Isoptin Sr PO 240 mg HS JARVIS Administration Intake and Output 09/07/17 09/08/17 09/08/17 22:59 06:59 14:59 Intake Total 1660 2040.466 Balance 1660 2040.466 Intake: IV 180 Heparin Sodium,Porcine/ 180 D5w Pmx 25,000 unit In Dextrose/Water 1 500ml. bag @ 8.16 UNITS/KG/HR 19 .98 mls/hr IV .Q24H [facility] Rx#:[id number] Intake, IV Titration 160 360.466 Amount Heparin Sodium,Porcine/ 80 200.466 D5w Pmx 25,000 unit In Dextrose/Water 1 500ml. bag @ 8.16 UNITS/KG/HR 19 .98 mls/hr IV .Q24H [facility] Rx#:[id number] Sodium Chloride 0.9% 1, 80 160 000 ml @ 20 mls/hr IV . Q24H STA Rx#:[id number] Oral 1500 1500 Other: # Voids 3 3 09/08/17 01:05 09/07/17 13:15 Assessment and Plan Assessment: ASSESSMENT 1. Chest pain, atypical 2. Hypertension, controlled 3. Hyperlipidemia, controlled 4. Diabetes mellitus 5. COPD 6. Former smoker PLAN We will obtain a Lexiscan stress test as well as a 2-D echocardiogram and Doppler study to assess cardiac structure and function. An acute coronary event has been ruled out with negative cardiac enzymes. She should continue medications as previously ordered. If this testing is normal, she can follow up with Dr. Adamson in 2 weeks. Thank you for this consultation. Nurse Practitioner note has been reviewed, I agree with a documented findings and plan of care. Patient was seen and examined.
[2017-09-08 12:37] LABS: Glucose,Whole Blood 107 mg/dL (75-99)
--- NOTE | 2017-09-08 12:54 | ECHOF ---
Referral Reason:chest pain MEASUREMENTS -------- HEIGHT: 172.7 cm WEIGHT: 122.5 kg BP: 135/61 RVIDd: 2.8 cm (< 3.3) IVSd: 1.3 cm (0.6 - 1.1) LVIDd: 4.2 cm (3.9 - 5.3) LVPWd: 1.3 cm (0.6 - 1.1) IVSs: 1.7 cm LVIDs: 2.9 cm LVPWs: 1.8 cm LA Diam: 2.7 cm (2.7 - 3.8) LAESV Index (A-L): 21.53 ml/m Ao Diam: 3.6 cm (2.0 - 3.7) MV E Steven: 1.10 m/s MV DecT: 274 ms MV A Steven: 1.05 m/s MV E/A Ratio: 1.05 AV maxP.26 mmHg AV meanP.45 mmHg FINDINGS -------- Sinus rhythm. This was a technically adequate study. The left ventricular size is normal. There is mild concentric left ventricular hypertrophy. Overall left ventricular systolic function is normal with, an EF between 55 - 60 %. The right ventricle is normal in size. Normal LA size by volume 22+/-6 ml/m2. The right atrium was not well visualized. The aortic valve was not well visualized. Mild mitral annular calcification present. There is trace mitral regurgitation. The tricuspid valve appears structurally normal. The pulmonic valve was not well visualized. The aortic root size is normal. IVC Not well visulized. There is no pericardial effusion. CONCLUSIONS -------- 1. Sinus rhythm. 2. Mild mitral annular calcification present. 3. There is trace mitral regurgitation. 4. The tricuspid valve appears structurally normal. 5. The pulmonic valve was not well visualized. 6. The aortic root size is normal. 7. IVC Not well visulized. 8. There is no pericardial effusion. 9. This was a technically adequate study. 10. The left ventricular size is normal. 11. There is mild concentric left ventricular hypertrophy. 12. Overall left ventricular systolic function is normal with, an EF between 55 - 60 %. 13. The right ventricle is normal in size. 14. Normal LA size by volume 22+/-6 ml/m2. 15. The right atrium was not well visualized. 16. The aortic valve was not well visualized. ANESTHESIOLOGY FELLOW: Kanchan Damian RDCS
[2017-09-08] MEDS: GABAPENTIN 400 MG CAP PO SCH ×4 (13:00→20:53)
[2017-09-08] MEDS: metFORMIN 500 MG TAB PO SCH ×3 (13:01→22:39)
--- NOTE | 2017-09-08 13:28 | NM ---
EXAMINATION TYPE: NM stress lexiscan cardiolite DATE OF EXAM: 09/08/2017 COMPARISON: Previous exam 07/09/2016 HISTORY: Chest pain TECHNIQUE: After the intravenous administration of 9.9 mCi Tc 99m Sestamibi - Cardiolite resting SPE CT images acquired 45 minutes post injection. The patient received 0.4mg Lexiscan, 28.2 mCi Tc 99m Sestamibi - Stress images obtained [address] injection FINDINGS: Review of stress and rest SPECT images demonstrates decreased radiopharmaceutical uptake along the an terolateral left ventricle on stress images as compared to rest images towards the cardiac apex. Decr eased uptake is noted towards the base of the heart along the anterior wall of the left ventricle on stress and rest images. Gated analysis shows normal wall motion with an estimated left ventricular ej ection fraction of 63 %. 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
[2017-09-08] MEDS: OXcarbazepine 300 MG TAB PO SCH ×2 (13:31→20:54)
[2017-09-08] MEDS: ISOSORBIDE MONONITRATE ER 30 MG TAB.ER.24H PO SCH (13:31)
[2017-09-08] MEDS: PIOGLITAZONE 30 MG TAB PO SCH (13:33)
--- NOTE | 2017-09-08 13:49 | EST ---
EXERCISE STRESS DATE OF SERVICE: 09/08/2017 AGE: 57 SEX: Female HT: 68" WT: PROTOCOL: Lexiscan Cardiolite STAGE: DURATION OF EXERCISE: HEART RATE REST: 75 BLOOD PRESSURE REST: 140/59 MAXIMUM HEART RATE ACHIEVED: 91 MAXIMUM BLOOD PRESSURE: 170/63 85% MPHR: 100% MPHR: METS: INDICATION OF THE STUDY: Chest pain. STRESS DATA: Pretesting physical examination showed heart rate 75, pressure 140/59 mmHg. Baseline EKG showed sinus mechanism. The patient was given 0.4 mg of Lexiscan over 15 seconds per protocol. The max heart rate was 91 beats per minute and maximum pressure was 170/63 mmHg. Clinically, the patient did not have any symptoms of chest pain or discomfort and the EKG did not show any significant ST or T-wave abnormalities consistent with ischemia. CONCLUSION: 1. Nondiagnostic electrocardiogram stress testing in response to Lexiscan. 2. Please follow up on the Cardiolite portion on a separate report from the radiology department. MMODL / IJN: [id number] /
--- NOTE | 2017-09-08 14:36 | P.HPIM ---
History of Present Illness H&P Date: 09/08/17 57 year old female who presented to the hospital on 09/07/2017 with a chief complaint of chest pain. The pain is located near her left breast and axillary area. The patient describes the pain as tightness. She is also experiencing shortness of breath with the chest pain. Her EKG revealed sinus rhythm with first degree block, poor R-wave progression, and nonspecific changes. Troponins were negative x3. Chest xray was unremarkable. Her d-dimer was elevated in the emergency room, but CTA of the chest was negative for a PE. Patient underwent stress test today which was positive. She is scheduled for cardiac cath tomorrow. She denies chest pain, pressure, or shortness of breath. Vital signs are stable. Review of Systems Those systems with pertinent positive or pertinent negative responses have been documented in the HPI Past Medical History Past Medical History: Asthma, COPD, Diabetes Mellitus, Fibromyalgia, Hyperlipidemia, Hypertension, Neurologic Disorder, Osteoarthritis (OA), Sleep Apnea/CPAP/BIPAP Additional Past Medical History / Comment(s): restless leg, neuropathy History of Any Multi-Drug Resistant Organisms: None Reported Past Surgical History: Cholecystectomy, Hysterectomy, Orthopedic Surgery, Tonsillectomy Additional Past Surgical History / Comment(s): colonoscopy, tendon repair on left foot Past Anesthesia/Blood Transfusion Reactions: Motion Sickness Past Psychological History: Anxiety, Bipolar, Depression, PTSD Smoking Status: Former smoker Past Alcohol Use History: Occasional Additional Past Alcohol Use History / Comment(s): quit drinking 3 YEARS AGO and now only occasionally will have a drink Past Drug Use History: None Reported - Past Family History Father Family Medical History: CVA/TIA, Diabetes Mellitus, Hypertension Additional Family Medical History / Comment(s): CATARACTS, AAA Medications and Allergies Home Medications Medication Instructions Recorded Confirmed Type Meloxicam [Mobic] 7.5 mg PO AC-BID 10/06/14 09/07/17 History metFORMIN HCL [Glucophage] 1,000 mg PO AC-BID 10/06/14 09/07/17 History Atorvastatin [Lipitor] 20 mg PO HS 02/28/15 09/07/17 History DULoxetine HCL [Cymbalta] 60 mg PO AC-BRKFST 05/10/15 09/07/17 History Gabapentin 800 mg PO QID 02/25/16 09/07/17 History busPIRone HCL 15 mg PO BID@0800,1200 02/25/16 09/07/17 History Mometasone/Formoterol [Dulera 100 1 puff INHALATION RT-BID 10/07/16 09/07/17 History Mcg/5 Mcg Inhaler] OXcarbazepine [Trileptal] 1,200 mg PO BID 10/07/16 09/07/17 History Isosorbide Mononitrate ER [Imdur] 30 mg PO DAILY 10/22/16 09/07/17 History Albuterol Inhaler [Ventolin Hfa 2 puff INHALATION RT-Q6H PRN 03/02/17 09/07/17 History Inhaler] Aspirin 81 mg PO DAILY 03/02/17 09/07/17 History Insulin Glargine,Hum.rec.anlog 20 unit SQ HS 03/02/17 09/07/17 History [Basaglar Kwikpen U-100] Pramipexole [Mirapex] 0.25 mg PO HS 03/02/17 09/07/17 History Verapamil HCl [Calan Sr] 240 mg PO HS 03/02/17 09/07/17 History Liraglutide [Victoza 2-Fredo] 1.2 mg SQ HS 04/21/17 09/07/17 History Pioglitazone [Actos] 30 mg PO DAILY@1200 04/21/17 09/07/17 History Acetaminophen-Codeine 300-30mg 1 tab PO Q6H PRN 09/07/17 09/07/17 History [Tylenol #3] Allergies Allergy/AdvReac Type Severity Reaction Status Date / Time adhesive Allergy Rash/Hives Verified 09/07/17 13:40 Physical Exam Vitals: Vital Signs Temp Pulse Pulse Pulse Resp BP BP 09/08/17 12:40 97.8 F 78 18 09/08/17 12:00 59 L 09/08/17 08:00 97.8 F 74 18 09/08/17 04:00 97.9 F 75 18 157/77 09/08/17 03:52 76 18 09/08/17 00:00 98 F 98 18 140/74 09/07/17 20:00 98 F 76 18 157/76 09/07/17 18:40 20 09/07/17 17:11 97.4 F L 82 20 132/66 09/07/17 16:00 89 20 136/71 09/07/17 15:00 68 20 117/56 BP Pulse Ox 09/08/17 12:40 158/90 97 09/08/17 12:00 09/08/17 08:00 135/61 95 09/08/17 04:00 100 09/08/17 03:52 09/08/17 00:00 99 09/07/17 20:00 94 L 09/07/17 18:40 09/07/17 17:11 99 09/07/17 16:00 09/07/17 15:00 98 Intake and Output 09/07/17 09/08/17 09/08/17 22:59 06:59 14:59 Intake Total 1660 2040.466 Balance 1660 2040.466 Intake: IV 180 Heparin Sodium,Porcine/ 180 D5w Pmx 25,000 unit In Dextrose/Water 1 500ml. bag @ 8.16 UNITS/KG/HR 19 .98 mls/hr IV .Q24H [facility] Rx#:[id number] Intake, IV Titration 160 360.466 Amount Heparin Sodium,Porcine/ 80 200.466 D5w Pmx 25,000 unit In Dextrose/Water 1 500ml. bag @ 8.16 UNITS/KG/HR 19 .98 mls/hr IV .Q24H [facility] Rx#:[id number] Sodium Chloride 0.9% 1, 80 160 000 ml @ 20 mls/hr IV . Q24H ST[facility] Rx#:[id number] Oral 1500 1500 Other: # Voids 3 3 Weight 122.47 kg Patient Weight 09/09/17 06:59 Weight 122.47 kg GENERAL: Alert and oriented. Appears in no acute distress. Pleasant. RESPIRATORY: Lungs clear bilaterally. No use of accessory muscles. Patient maintaining oxygen saturation greater than 92%. CARDIOVASCULAR: S1 and S2 noted. No murmurs auscultated. No JVD noted. EXTREMITIES: No edema noted. Palpable pedal pulses +2. ABDOMEN: No distention noted. Abdomen soft and round. Normal active bowel sounds auscultated 4 quadrants. No pain or tenderness noted upon palpation. Results CBC & Chem 7: 09/08/17 01:05 09/07/17 13:15 Labs: Abnormal Lab Results - Last 24 Hours (Table) 09/07/17 09/07/17 09/07/17 Range/Units 17:06 17:57 20:43 APTT (22.0-30.0) sec POC Glucose (mg/dL) 100 H 185 H 128 H (75-99) mg/dL Triglycerides (<150) mg/dL HDL Cholesterol (40-60) mg/dL 09/08/17 09/08/17 09/08/17 Range/Units 01:05 06:55 09:29 APTT 31.3 H (22.0-30.0) sec POC Glucose (mg/dL) 112 H (75-99) mg/dL Triglycerides 204 H (<150) mg/dL HDL Cholesterol 79 H (40-60) mg/dL 09/08/17 Range/Units 12:32 APTT (22.0-30.0) sec POC Glucose (mg/dL) 107 H (75-99) mg/dL Triglycerides (<150) mg/dL HDL Cholesterol (40-60) mg/dL Thrombosis Risk Factor Assmnt - Choose All That Apply Each Factor Represents 1 point: Abnormal pulmonary function (COPD), Age 41-60 years, Obesity (BMI >25) Thrombosis Risk Factor Assessment Total Risk Factor Score: 3 Thrombosis Risk Factor Assessment Level: Moderate Risk Assessment and Plan Plan: ASSESSMENT: -Chest pain, present on admission, lexiscan stress test positive, scheduled for cardiac cath tomorrow -Essential hypertension -Hyperlipidemia -Diabetes mellitus, type II -COPD, no evidence of acute exacerbation -History of tobacco abuse, patient is a former smoker -Morbid obesity: BMI 41.1 PLAN: -Cardiology on consult. Appreciate recommendations and input -Patient scheduled for cardiac catheterization tomorrow -Resume home meds as appropriate -Continue IV fluids -Monitor labs -GI prophylaxis: pepcid 20mg bid po -DVT prophylaxis: Patient scheduled for cath tomorrow, will add heparin subq after procedure -Monitor vital signs and address as appropriate -Capillary blood glucose Accu-Cheks before meals at bedtime -Humalog sliding scale -Patient requesting to take her Victoza while in the hospital. Patient may bring in Victoza from home for administration after it is checked by pharmacy. The above impression and plan of care have been discussed and directed by signing physician. Yanely Mcclellan, nurse practitioner, acting as scribe for signing physician.
[2017-09-08] MEDS ORDERED: ASPIRIN 325 MG TAB PO STA (14:47)
[2017-09-08] MEDS ORDERED: ATORVASTATIN 80 MG TAB PO STA (14:47)
[2017-09-08] MEDS ORDERED: SODIUM CHLORIDE 0.9% 1,000 ML in EMPTY BAG 1 BAG IV ONE (14:47)
[2017-09-08] MEDS ORDERED: ALPRAZolam 0.25 MG TAB PO PRN (14:47)
[2017-09-08] MEDS ORDERED: ALPRAZolam 0.5 MG TAB PO PRN (14:47)
[2017-09-08] MEDS ORDERED: HEPARIN SODIUM,PORCINE 5,000 UNIT/ML 1 ML VIAL IV PRN (14:51)
[2017-09-08] MEDS ORDERED: HEPARIN SODIUM,PORCINE/D5W PMX 25,000 UNIT in DEXTROSE/WATER 1 500ML.BAG IV SCH (15:00)
--- NOTE | 2017-09-08 15:05 | P.PN ---
Progress Note - Text Progress Note Date: 09/08/17 Lexiscan stress test has been read as positive. Results discussed with Dr. Blount. We have recommended that the patient undergo cardiac catheterization. This has been discussed with the patient. I have discussed the risks, benefits and alternative therapies for the above-mentioned procedure and for both sedation/analgesia as well as necessary blood product administration, if indicated, as they pertain to this patient. The patient has indicated understanding and acceptance of the risks and procedures discussed. Questions have been answered appropriately and she is agreeable to move forward with above stated procedure. Pre-cath orders have been placed and she will be NPO after midnight. Heparin drip will be restarted.
[2017-09-08] MEDS: ASPIRIN 81 MG PO SCH ×2 (15:39→22:36)
[2017-09-08 17:30] LABS: Glucose,Whole Blood 122 mg/dL (75-99)
[2017-09-08 20:46] LABS: Glucose,Whole Blood 133 mg/dL (75-99)
[2017-09-08] MEDS: PRAMIPEXOLE 0.25 MG TAB PO SCH (20:53)
[2017-09-08] MEDS: ATORVASTATIN 20 MG TAB PO SCH (20:53)
[2017-09-08] MEDS: VERAPAMIL SR 240 MG TABLET.ER PO SCH (20:53)
[2017-09-08] MEDS: Liraglutide [Victoza 2-Pak] 1.2 MG SQ SCH (20:54)
[2017-09-08] MEDS: FAMOTIDINE 20 MG TAB PO SCH (20:54)
[2017-09-08] MEDS: INSULIN GLARGINE 100 UNIT/ML 10 ML VIAL SQ SCH (21:03)
[2017-09-09 03:42] VITALS: RESP 18
[2017-09-09] MEDS: DULoxetine HCL 60 MG CAPSULE.DR PO SCH (06:01)
[2017-09-09] MEDS: FAMOTIDINE 20 MG TAB PO SCH (06:01)
[2017-09-09] MEDS: MELOXICAM 7.5 MG TAB PO SCH (06:01)
[2017-09-09] MEDS: busPIRone HCl 5 MG TAB PO SCH ×2 (06:01→13:07)
[2017-09-09] MEDS: ISOSORBIDE MONONITRATE ER 30 MG TAB.ER.24H PO SCH (06:01)
[2017-09-09] MEDS: GABAPENTIN 400 MG CAP PO SCH ×2 (06:02→13:08)
[2017-09-09] MEDS: OXcarbazepine 300 MG TAB PO SCH (06:02)
[2017-09-09 06:56] LABS: Basophils # (A) 0.1 k/uL (0-0.2); Basophils % (A) 1 %; CH 29.7; CHCM 32.6; Eosinophils # (A) 0.2 k/uL (0-0.7); Eosinophils % (A) 4 %; HCT 37.4 % (34.0-46.0); HDW 2.06; HGB 12.1 gm/dL (11.4-16.0); Luc # (Auto) 0.12; Luc % (Auto) 2; Lymphocytes # (A) 1.3 k/uL (1.0-4.8); Lymphocytes % (A) 22 %; MCH 29.6 pg (25.0-35.0); MCHC 32.3 g/dL (31.0-37.0); MCV 91.6 fL (80.0-100.0); Mean Platelet Volume 6.7; Monocytes # (A) 0.4 k/uL (0-1.0); Monocytes % (A) 7 %; Neutrophils # (A) 3.8 k/uL (1.3-7.7); Neutrophils % (A) 64 %; RBC 4.08 m/uL (3.80-5.40); RDW 14.5 % (11.5-15.5); WBC 5.9 k/uL (3.8-10.6); WBC (Perox) 6.33
[2017-09-09 07:05] LABS: Glucose,Whole Blood 100 mg/dL (75-99)
[2017-09-09] MEDS: SYMBICORT 80-4.5 MCG INHALER INHALATION SCH (07:34)
[2017-09-09] MEDS ORDERED: MIDAZOLAM 2 MG/2 ML VIAL IV ONE (07:58)
[2017-09-09] MEDS ORDERED: SODIUM CHLORIDE 0.9% 1,000 ML IV ONE (08:00)
[2017-09-09] MEDS ORDERED: LIDOCAINE 2% INJ 20 MG/ML SQ ONE (08:05)
[2017-09-09] MEDS ORDERED: HYDROmorphone 1 MG/ML 1 ML SYRINGE IVP ONE (08:06)
[2017-09-09] MEDS: VERAPAMIL SYRINGE (5 MG/10 ML) INTRAARTER ONE ×2 (08:07→08:16)
[2017-09-09] MEDS ORDERED: IOHEXOL 350 MG/ML 125ML BOTTLE INJ ONE (08:16)
[2017-09-09] MEDS ORDERED: RX INFO: IV CONTRAST WAS GIVEN 1 EACH MISC MISCELLANE PRN (08:22)
[2017-09-09] MEDS ORDERED: SODIUM CHLORIDE 0.9% 1,000 ML IV SCH (08:30)
[2017-09-09 08:47] VITALS: TEMP 97.9
--- NOTE | 2017-09-09 09:14 | CC ---
CARDIAC CATHETERIZATION REPORT DATE OF SERVICE: 09/09/2017 PERFORMING PHYSICIAN: Alexis Blount MD, window/distribution clerk. PROCEDURE PERFORMED: 1. Selective right and left coronary angiogram. 2. Left heart catheterization. INDICATION: This is a pleasant 57-year-old female patient who sees Dr. Adamson as an outpatient who presented to the hospital with chest discomfort and underwent myocardial perfusion imaging stress test came in to be abnormal and in view of that, a heart catheterization was recommended. The ischemia based on that stress test came in to be in the anterolateral wall of the LV. APPROACH: Right radial artery. COMPLICATION: None. LEVEL OF SEDATION: Moderate with sedation length of 15 minutes. PROCEDURE DESCRIPTION: After obtaining an informed consent, the patient was brought to the cardiac medical lab technologist. Right radial artery was cannulated using micropuncture technique, the micropuncture wire passed easily then I placed a 6-Persian sheath in the right radial artery. Subsequently I gave the patient 2 mg of verapamil IA and 10,000 units of heparin IV. After that, I did selective right and left coronary angiogram using JR4 and JL3.5 catheters. After that, I did left heart catheterization and that was performed using the JR4 catheter, which into the LV and I did pullback after that. The procedure was completed without any complication. SELECTIVE CORONARY ANGIOGRAM: 1. The right coronary artery is a large caliber vessel and it is a dominant vessel. It is angiographically normal. It bifurcates distally into PDA and PLV branches. Both are angiographically normal. 2. The left main is angiographically normal. It bifurcates into the left circumflex and left anterior descending artery. 3. The left circumflex is a large caliber vessel and it is a nondominant vessel and the proximal left circumflex is angiographically normal and gives rise into a large OM branch which seems to be angiographically normal. The left circumflex in the midportion is angiographically normal and distally seems to be angiographically normal and gives rise into a second OM, which seems to be normal as well. 4. The left anterior descending artery; the proximal LAD appeared to be angiographically normal. It gives rise into the first and second diagonal branches. Both are angiographically normal. The mid LAD also is angiographically normal and the LAD distally is angiographically normal. HEMODYNAMICS: The left ventricular end-diastolic pressure was 24 mmHg and no gradient was identified across the aortic valve. CONCLUSION: 1. Normal coronary angiogram. 2. Elevated left ventricular end-diastolic pressure. POSTPROCEDURE MANAGEMENT: Medical treatment and follow up with the patient. YAKOV / MARIA ELENA: [id number] /
[2017-09-09 11:32] VITALS: BP 131/77; PULSE 76
[2017-09-09 12:04] LABS: Glucose,Whole Blood 134 mg/dL (75-99)
[2017-09-09] MEDS: PIOGLITAZONE 30 MG TAB PO SCH (13:08)
--- NOTE | 2017-09-09 14:49 | P.DS ---
Providers Date of admission: 09/08/17 14:50 Expected date of discharge: 09/09/17 Attending physician: Jose Maria Ott Consults: 09/07/17 16:28 Consult Physician Urgent Consulting Provider: Eusebio Adamson Consult Reason/Comments: ua Do you want consulting provider notified?: Yes Primary care physician: [place] Hospital Course: 57 year old female who presented to the hospital on 09/07/2017 with a chief complaint of chest pain. The pain is located near her left breast and axillary area. The patient describes the pain as tightness. She is also experiencing shortness of breath with the chest pain. Her EKG revealed sinus rhythm with first degree block, poor R-wave progression, and nonspecific changes. Troponins were negative x3. Chest xray was unremarkable. Her d-dimer was elevated in the emergency room, but CTA of the chest was negative for a PE. Patient underwent stress test on 09/08/2017 which was positive. The patient underwent cardiac catheterization on 09/09/[address] Blount. Her catheterization revealed normal coronary angiogram and elevated left ventricular end-diastolic pressure. Medical management was recommended and the patient is to follow-up with cardiology. The patient denies chest pain, pressure, or shortness of breath. Vital signs are stable. The patient was deemed stable for discharge per Dr. Ott. Patient is cleared for discharge per cardiology also per Kayla Cooper NP She is to follow up outpatient with cardiology as well as her primary care physician. DISCHARGE DIAGNOSIS: -Chest pain, present on admission, lexiscan stress test positive, cardiac catheterization revealed normal coronary arteries. -Essential hypertension -Hyperlipidemia -Diabetes mellitus, type II -COPD, no evidence of acute exacerbation -History of tobacco abuse, patient is a former smoker -Morbid obesity: BMI 41.1 The above impression and plan of care have been discussed and directed by signing physician. Yanely Mcclellan, nurse practitioner, acting as scribe for signing physician. Patient Condition at Discharge: Stable Plan - Discharge Summary Discharge Rx Participant: No New Discharge Prescriptions: Continue metFORMIN HCL [Glucophage] 1,000 mg PO AC-BID Meloxicam [Mobic] 7.5 mg PO AC-BID Atorvastatin [Lipitor] 20 mg PO HS DULoxetine HCL [Cymbalta] 60 mg PO AC-BRKFST busPIRone HCL 15 mg PO BID@0800,1200 Gabapentin 800 mg PO QID OXcarbazepine [Trileptal] 1,200 mg PO BID Mometasone/Formoterol [Dulera 100 Mcg/5 Mcg Inhaler] 1 puff INHALATION RT-BID Isosorbide Mononitrate ER [Imdur] 30 mg PO DAILY Aspirin 81 mg PO DAILY Albuterol Inhaler [Ventolin Hfa Inhaler] 2 puff INHALATION RT-Q6H PRN PRN Reason: Shortness Of Breath Verapamil HCl [Calan Sr] 240 mg PO HS Pramipexole [Mirapex] 0.25 mg PO HS Insulin Glargine,Hum.rec.anlog [Basaglar Kwikpen U-100] 20 unit SQ HS Liraglutide [Victoza 2-Fredo] 1.2 mg SQ HS Pioglitazone [Actos] 30 mg PO DAILY@1200 Acetaminophen-Codeine 300-30mg [Tylenol w/codeine #3] 1 tab PO Q6H PRN PRN Reason: Pain Discharge Medication List Meloxicam [Mobic] 7.5 mg PO AC-BID 10/06/14 [History] metFORMIN HCL [Glucophage] 1,000 mg PO AC-BID 10/06/14 [History] Atorvastatin [Lipitor] 20 mg PO HS 02/28/15 [History] DULoxetine HCL [Cymbalta] 60 mg PO AC-BRKFST 05/10/15 [History] Gabapentin 800 mg PO QID 02/25/16 [History] busPIRone HCL 15 mg PO BID@0800,1200 02/25/16 [History] Mometasone/Formoterol [Dulera 100 Mcg/5 Mcg Inhaler] 1 puff INHALATION RT-BID [History] OXcarbazepine [Trileptal] 1,200 mg PO BID 10/07/16 [History] Isosorbide Mononitrate ER [Imdur] 30 mg PO DAILY 10/22/16 [History] Albuterol Inhaler [Ventolin Hfa Inhaler] 2 puff INHALATION RT-Q6H PRN 03/02/17 [ History] Aspirin 81 mg PO DAILY 03/02/17 [History] Insulin Glargine,Hum.rec.anlog [Basaglar Kwikpen U-100] 20 unit SQ HS 03/02/17 [ History] Pramipexole [Mirapex] 0.25 mg PO HS 03/02/17 [History] Verapamil HCl [Calan Sr] 240 mg PO HS 03/02/17 [History] Liraglutide [Victoza 2-Fredo] 1.2 mg SQ HS 04/21/17 [History] Pioglitazone [Actos] 30 mg PO DAILY@1200 04/21/17 [History] Acetaminophen-Codeine 300-30mg [Tylenol w/codeine #3] 1 tab PO Q6H PRN 09/07/17 [History] Follow up Appointment(s)/Referral(s): Jensen Nieto MD [Primary Care Provider] - 1-2 days Eusebio Adamson MD [STAFF PHYSICIAN] - 1 Week (Office will call with follow up Appointment.) Patient Instructions/Handouts: *[facility] - After Heart Catheterization - Sound Tester Instructions Activity/Diet/Wound Care/Special Instructions: HOLD METFORMIN TODAY AND TOMORROW. RESUME METFORMIN ON SEPTEMBER 11, 2017 See Activity Restriction Instructions Discharge Disposition: HOME SELF-CARE
== END 2017-09-09 15:05 | disposition home or self-care (01) | DRG 287 ==
LOC: EC 12:14 → 3OBS 16:28 → OBSVTOIN 09-08 14:50
PROVIDERS: ADMIT Family Medicine; ATTEND Family Medicine
PROC: B2111ZZ Fluoroscopy of Multiple Coronary Arteries using Low Osmolar Contrast (ICD-10-PCS; 2017-09-09)
PROC: B2151ZZ Fluoroscopy of Left Heart using Low Osmolar Contrast (ICD-10-PCS; 2017-09-09)
PROC: 4A023N7 Measurement of Cardiac Sampling and Pressure, Left Heart, Percutaneous Approach (ICD-10-PCS; principal; 2017-09-09 09:30)
DX: R07.9 Chest pain, unspecified (principal); E11.40 Type 2 diabetes mellitus with diabetic neuropathy, unspecified; E66.01 Morbid (severe) obesity due to excess calories; I10 Essential (primary) hypertension; E78.5 Hyperlipidemia, unspecified; F32.9 Major depressive disorder, single episode, unspecified; F43.10 Post-traumatic stress disorder, unspecified; G25.81 Restless legs syndrome; G47.30 Sleep apnea, unspecified; I44.0 Atrioventricular block, first degree; J44.9 Chronic obstructive pulmonary disease, unspecified; M79.7 Fibromyalgia; M19.90 Unspecified osteoarthritis, unspecified site; F41.9 Anxiety disorder, unspecified; Z68.41 Body mass index [BMI] 40.0-44.9, adult; Z79.82 Long term (current) use of aspirin; Z79.899 Other long term (current) drug therapy; Z79.4 Long term (current) use of insulin; Z87.891 Personal history of nicotine dependence; Z82.49 Family history of ischemic heart disease and other diseases of the circulatory system
CPT/HCPCS: 36415; 71020; 71275; 78452; 80053; 80061; 82550; 82553; 83735; 83880; 84484; 85025; 85049; 85379; 85610; 85730; 93005; 93017; 93306; 93458; 94640; 96374; 99291

== ENCOUNTER → 2017-09-21 | Outpatient (CLI) | payer MEDICARE, OTHER ==
[~2017-09-21] MED LIST: HYDROmorphone 2 MG/ML 1 ML SYRINGE ONE; MIDAZOLAM 2 MG/2 ML VIAL ONE; VERAPAMIL 2.5 MG/ML 2 ML AMP ONE
[2017-09-21 13:07] LABS: Anion Gap 8 mmol/L; Blood Urea Nitrogen 11 mg/dL (7-17); Calcium 8.9 mg/dL (8.4-10.2); Carbon Dioxide 27 mmol/L (22-30); Chloride 97 mmol/L (98-107); Glucose 106 mg/dL (74-99); Non-African American GFR(MDRD) >60 (>60 ml/min/1.73 sqM); Potassium 4.6 mmol/L (3.5-5.1); Sodium 132 mmol/L (137-145)
--- NOTE | 2017-09-21 13:22 | MM ---
Reason for exam: follow-up at short interval from prior study. Last mammogram was performed 8 months ago. History: Took hormonal contraceptives for 6 months. Physical Findings: Nurse did not find any significant physical abnormalities on exam. MG 3D Diag Mammo W/Cad RT CC and MLO view(s) were taken of the right breast. Prior study comparison: January 28, 2017, right breast MG work up mamm w CAD RT. January 22, 2017, bilateral MG screening mammo w CAD. There are scattered fibroglandular densities. There is no discrete abnormality including area of concern. No significant new findings when compared with previous films. These results were verbally communicated with the patient and result sheet given to the patient on 09/21/17. ASSESSMENT: Negative, BI-RAD 1 RECOMMENDATION: Return to routine screening mammogram schedule for both breasts. Back on schedule.
== END | disposition home or self-care (01) ==
LOC: RADMAMWWP 12:07
PROVIDERS: ATTEND Family Medicine
DX: R92.8 Other abnormal and inconclusive findings on diagnostic imaging of breast (principal); J44.1 Chronic obstructive pulmonary disease with (acute) exacerbation; E11.9 Type 2 diabetes mellitus without complications
CPT/HCPCS: 80048; 36415; G0206; G0279

== ENCOUNTER → 2017-11-11 | Outpatient (CLI) | payer MEDICARE ==
[2017-11-11 08:02] LABS: Basophils # (A) 0.1 k/uL (0-0.2); Basophils % (A) 1 %; CHCM 33.3; Eosinophils # (A) 0.2 k/uL (0-0.7); Eosinophils % (A) 3 %; HCT 41.2 % (34.0-46.0); HDW 2.16; HGB 13.2 gm/dL (11.4-16.0); Luc % (Auto) 3; Lymphocytes # (A) 1.4 k/uL (1.0-4.8); Lymphocytes % (A) 24 %; MCH 29.1 pg (25.0-35.0); MCHC 32.2 g/dL (31.0-37.0); MCV 90.4 fL (80.0-100.0); Mean Platelet Volume 6.2; Monocytes # (A) 0.4 k/uL (0-1.0); Monocytes % (A) 7 %; Neutrophils # (A) 3.7 k/uL (1.3-7.7); Neutrophils % (A) 62 %; RBC 4.55 m/uL (3.80-5.40); RDW 13.6 % (11.5-15.5); WBC (Perox) 5.92
[2017-11-11 08:23] LABS: ALT 36 U/L (9-52); AST 25 U/L (14-36); Alkaline Phosphatase 185 U/L (38-126); Anion Gap 8 mmol/L; Blood Urea Nitrogen 8 mg/dL (7-17); Calcium 9.8 mg/dL (8.4-10.2); Carbon Dioxide 30 mmol/L (22-30); Chloride 94 mmol/L (98-107); Cholesterol 158 mg/dL (<200); Glucose 112 mg/dL (74-99); HDL Cholesterol 98 mg/dL (40-60); Non-African American GFR(MDRD) >60 (>60 ml/min/1.73 sqM); Potassium 5.4 mmol/L (3.5-5.1); Sodium 132 mmol/L (137-145); Total Bilirubin 0.3 mg/dL (0.2-1.3); Total Protein 7.3 g/dL (6.3-8.2)
== END | disposition home or self-care (01) ==
LOC: LABWHC1 07:38
PROVIDERS: ATTEND Family Medicine
DX: Z00.01 Encounter for general adult medical examination with abnormal findings (principal); E11.9 Type 2 diabetes mellitus without complications; I10 Essential (primary) hypertension
CPT/HCPCS: 36415; 80053; 80061; 84443; 85025; 86803

== ENCOUNTER 2018-08-16 13:03 | Emergency (ER) | payer MEDICARE ==
[2018-08-16 13:24] VITALS: BP 127/64; PULSE 92; RESP 18; TEMP 98.2
[2018-08-16] MEDS ORDERED: IBUPROFEN 600 MG TAB PO STA (14:34)
--- NOTE | 2018-08-16 14:34 | ED ---
Fall HPI - General Chief Complaint: Fall Stated Complaint: fall Time Seen by Provider: 08/16/18 14:08 Source: patient Mode of arrival: ambulatory - History of Present Illness Initial Comments: 58-year-old female patient presents to the emergency department today for evaluation for expressing a fall. Patient states that she was getting off the city bus with her walker when her walker became caught and she fell forward landing on top with a walker. Patient states that she is having soreness to her bilateral ankles, wrists, and knees. She is reporting increased low back pain. She denies striking her back on anything. States she does have a history of degenerative disc disease and this does feel similar to her usual symptoms. She denies any radiation of the pain to her legs. Denies any numbness or tingling. Denies any loss of bowel or bladder control, or saddle anesthesia. Patient states that she was able to ambulate without difficulty after this occurred. Patient states her left wrist hurts worse than the right and does have some swelling however she states that she does have carpal tunnel and has had these symptoms before. She denies any difficulty with range of motion. States she does not think anything is broken she thinks she is just banged up. She denies hitting her head or losing consciousness. Patient denies any headache, neck pain, chest pain, shortness of breath, dizziness, weakness, abdominal pain, nausea, vomiting, or difficulties with bowel movements or urination. - Related Data Home Medications Medication Instructions Recorded Confirmed metFORMIN HCL [Glucophage] 1,000 mg PO AC-BID 10/06/14 08/16/18 Atorvastatin [Lipitor] 20 mg PO HS 02/28/15 08/16/18 DULoxetine HCL [Cymbalta] 60 mg PO DAILY 05/10/15 08/16/18 busPIRone HCL 15 mg PO BID-W/MEALS 02/25/16 08/16/18 OXcarbazepine [Trileptal] 1,200 mg PO BID 10/07/16 08/16/18 Isosorbide Mononitrate ER [Imdur] 30 mg PO DAILY 10/22/16 08/16/18 Aspirin 81 mg PO DAILY 03/02/17 08/16/18 Pramipexole [Mirapex] 0.25 mg PO HS 03/02/17 08/16/18 Liraglutide [Victoza 2-Fredo] 1.8 mg SQ HS 04/21/17 08/16/18 Pioglitazone [Actos] 30 mg PO DAILY 04/21/17 08/16/18 Gabapentin [Neurontin] 300 mg PO TID 12/19/17 08/16/18 Insulin Glargine,Hum.rec.anlog 16 unit SQ HS 12/19/17 08/16/18 [Lantus Solostar] Mirtazapine 30 mg PO HS 12/19/17 08/16/18 Verapamil HCl [Verapamil ER] 240 mg PO DAILY 12/19/17 08/16/18 Acetaminophen with Codeine 1 tab PO Q6H PRN 08/16/18 08/16/18 [Tylenol w/codeine #4] Naproxen [Naprosyn] 500 mg PO BID-W/MEALS 08/16/18 08/16/18 Pregabalin [Lyrica] 150 mg PO BID-W/MEALS 08/16/18 08/16/18 Allergies Allergy/AdvReac Type Severity Reaction Status Date / Time adhesive Allergy Rash/Hives Verified 08/16/18 14:31 Review of Systems ROS Statement: Those systems with pertinent positive or pertinent negative responses have been documented in the HPI. ROS Other: All systems not noted in ROS Statement are negative. Past Medical History Past Medical History: Asthma, COPD, Diabetes Mellitus, Fibromyalgia, Hyperlipidemia, Hypertension, Neurologic Disorder, Osteoarthritis (OA), Sleep Apnea/CPAP/BIPAP Additional Past Medical History / Comment(s): restless leg, neuropathy History of Any Multi-Drug Resistant Organisms: None Reported Past Surgical History: Cholecystectomy, Hysterectomy, Orthopedic Surgery, Tonsillectomy Additional Past Surgical History / Comment(s): colonoscopy, tendon repair on left foot Past Anesthesia/Blood Transfusion Reactions: Motion Sickness Past Psychological History: Anxiety, Bipolar, Depression, PTSD Smoking Status: Former smoker Past Alcohol Use History: Occasional Past Drug Use History: None Reported - Past Family History Father Family Medical History: CVA/TIA, Diabetes Mellitus, Hypertension Additional Family Medical History / Comment(s): CATARACTS, AAA General Exam Limitations: no limitations General appearance: alert, in no apparent distress, other (This is a well- developed, well-nourished adult female patient in no acute distress. Vital signs upon presentation are temperature 98.2F, pulse 92, respirations 18, blood pressure 127/64, pulse ox 95% on room air.) Eye exam: Present: normal appearance, PERRL, EOMI. Absent: scleral icterus, conjunctival injection, periorbital swelling ENT exam: Present: normal exam, normal oropharynx, mucous membranes moist Neck exam: Present: normal inspection, full ROM, other (Nontender, no step-off, no deformity to firm midline palpation of the posterior cervical spine. Full range of motion without pain or limitation.). Absent: tenderness, meningismus, lymphadenopathy Respiratory exam: Present: normal lung sounds bilaterally. Absent: respiratory distress, wheezes, rales, rhonchi, stridor Cardiovascular Exam: Present: regular rate, normal rhythm, normal heart sounds. Absent: systolic murmur, diastolic murmur, rubs, gallop, clicks GI/Abdominal exam: Present: soft, normal bowel sounds. Absent: distended, tenderness, guarding, rebound, rigid Extremities exam: Present: normal inspection, full ROM, normal capillary refill , other (Evaluation of bilateral wrist reveals pink, warm, and dry skin. Cap refills less than 3 seconds. No evidence of surface trauma or deformity. Radial pulses 2+ and equal bilaterally. Bilateral knee show no evidence surface , or ecchymosis. No swelling. Skin is pink, warm, and dry. Cap refills less than 3 seconds. Bilateral ankles show no evidence of acute trauma, no swelling , ecchymosis, or deformity noted. Pedal and posttibial pulses are 2+ and equal bilaterally.). Absent: tenderness, pedal edema, joint swelling, calf tenderness Back exam: Present: normal inspection, other (Nontender, no step-off, no deformity to firm midline palpation of the thoracic and lumbar vertebrae. Full range of motion without pain or limitation.). Absent: vertebral tenderness Neurological exam: Present: alert, oriented X3, CN II-XII intact Psychiatric exam: Present: normal affect, normal mood Skin exam: Present: warm, dry, intact, normal color. Absent: rash Course Vital Signs 08/16/18 13:19 Temperature 98.2 F Pulse Rate 92 Respiratory 18 Rate Blood Pressure 127/64 O2 Sat by Pulse 95 Oximetry Medical Decision Making - Medical Decision Making 58 year-old female patient presented to the emergency department today for evaluation of bilateral ankle, bilateral wrists, bilateral knee, and low back pain after falling today. Physical examination was relatively unremarkable. Patient had no difficulty with range of motion or weightbearing. There is no evidence of swollen joints or surface trauma to any of her painful areas. No vertebral tenderness. Patient neurologically intact. We did discuss low back strain as a cause for her increased back pain after the fall. Also left wrist sprain. She'll be given Kd wrap for the wrist. Given physical exam findings do not feel that x-rays are necessary, patient and agree states that she does not think anything is broken. She just wanted have documentation because she did fall due to the "capacity planning engineer not lowering the bus appropriately". She is instructed to take her home pain medication as needed for discomfort. She is instructed to follow-up with her primary care physician for recheck in 1-2 days. Return parameters discussed in detail. She verbalizes understanding and agreed with this plan. Disposition Clinical Impression: Fall, Back strain Disposition: HOME SELF-CARE Condition: Good Instructions: Low Back Strain (ED) Additional Instructions: Apply ice to the painful areas. Rest. Follow-up with your primary care physician for recheck in 1-2 days. Return here immediately for any new, worsening, or concerning symptoms. Is patient prescribed a controlled substance at d/c from ED?: No Referrals: yKaw Medeiros MD [Primary Care Provider] - 1-2 days Time of Disposition: 14:34
== END 2018-08-16 14:50 | disposition home or self-care (01) ==
LOC: EC 13:03
DX: S39.012A Strain of muscle, fascia and tendon of lower back, initial encounter (principal); S63.502A Unspecified sprain of left wrist, initial encounter; M25.571 Pain in right ankle and joints of right foot; M25.572 Pain in left ankle and joints of left foot; M25.531 Pain in right wrist; M25.561 Pain in right knee; M25.562 Pain in left knee; E11.40 Type 2 diabetes mellitus with diabetic neuropathy, unspecified; M79.7 Fibromyalgia; E78.5 Hyperlipidemia, unspecified; I10 Essential (primary) hypertension; M19.90 Unspecified osteoarthritis, unspecified site; G25.81 Restless legs syndrome; G47.30 Sleep apnea, unspecified; Z99.89 Dependence on other enabling machines and devices; Z79.82 Long term (current) use of aspirin; Z79.4 Long term (current) use of insulin; Z79.1 Long term (current) use of non-steroidal anti-inflammatories (NSAID); Z79.899 Other long term (current) drug therapy; Z91.048 Other nonmedicinal substance allergy status; F41.9 Anxiety disorder, unspecified; F32.9 Major depressive disorder, single episode, unspecified; F43.10 Post-traumatic stress disorder, unspecified; Z87.891 Personal history of nicotine dependence; V78.9XXA Unspecified occupant of bus injured in noncollision transport accident in traffic accident, initial encounter; Y92.410 Unspecified street and highway as the place of occurrence of the external cause; Y93.89 Activity, other specified
CPT/HCPCS: 99283

== ENCOUNTER 2018-10-15 11:14 | Emergency (ER) | payer MEDICARE ==
[2018-10-15 11:17] VITALS: RESP 18
--- NOTE | 2018-10-15 13:13 | ED ---
General Adult HPI - General Chief complaint: Psychiatric Symptoms Stated complaint: Petition Time Seen by Provider: 10/15/18 11:51 Source: patient, RN notes reviewed Mode of arrival: ambulatory Limitations: no limitations - History of Present Illness Initial comments: Patient is a pleasant 58-year-old female presenting to the emergency department with sadness. Patient admits to being more depressed lately and crying frequently. Patient was petitioned. Patient is unclear why she was petitioned and feels somewhat he may have mistaken her words. Patient denies suicidal or homicidal ideation. No hallucinations. No alcohol or street drug use. No new physical complaints. Patient does question if her medications are still working well for her. - Related Data Home Medications Medication Instructions Recorded Confirmed metFORMIN HCL [Glucophage] 1,000 mg PO AC-BID 10/06/14 10/15/18 DULoxetine HCL [Cymbalta] 60 mg PO DAILY 05/10/15 10/15/18 OXcarbazepine [Trileptal] 1,200 mg PO HS 10/07/16 10/15/18 Isosorbide Mononitrate ER [Imdur] 30 mg PO DAILY 10/22/16 10/15/18 Liraglutide [Victoza 2-Fredo] 1.8 mg SQ HS 04/21/17 10/15/18 Pioglitazone [Actos] 30 mg PO DAILY 04/21/17 10/15/18 Mirtazapine 30 mg PO HS 12/19/17 10/15/18 Verapamil HCl [Verapamil ER] 240 mg PO HS 12/19/17 10/15/18 Acetaminophen with Codeine 1 tab PO Q6H PRN 08/16/18 10/15/18 [Tylenol w/codeine #4] Naproxen [Naprosyn] 500 mg PO BID-W/MEALS 08/16/18 10/15/18 Pregabalin [Lyrica] 150 mg PO TID 08/16/18 10/15/18 Albuterol Inhaler [Ventolin Hfa 1 - 2 puff INHALATION RT-Q6H PRN 10/15/18 Inhaler] Albuterol Nebulized [Ventolin 2.5 mg INHALATION Q6H PRN 10/15/18 10/15/18 Nebulized] Albuterol Sulfate [Proair Hfa] 2 puff INHALATION RT-Q6H PRN 10/15/18 10/15/18 Atorvastatin [Lipitor] 80 mg PO HS 10/15/18 10/15/18 Budesonide/Formoterol Fumarate 2 puff INHALATION RT-BID 10/15/18 10/15/18 [Symbicort 160-4.5 Mcg Inhaler] DULoxetine HCL [Cymbalta] 30 mg PO DAILY 10/15/18 10/15/18 busPIRone HCL 15 mg PO BID 10/15/18 10/15/18 Allergies Allergy/AdvReac Type Severity Reaction Status Date / Time adhesive Allergy Rash/Hives Verified 10/15/18 12:02 Review of Systems ROS Statement: Those systems with pertinent positive or pertinent negative responses have been documented in the HPI. ROS Other: All systems not noted in ROS Statement are negative. Constitutional: Denies: fever Eyes: Denies: eye pain ENT: Denies: ear pain Respiratory: Denies: cough, dyspnea Cardiovascular: Denies: chest pain Endocrine: Denies: fatigue Gastrointestinal: Denies: abdominal pain Genitourinary: Denies: dysuria Musculoskeletal: Denies: back pain Skin: Denies: rash Neurological: Denies: headache Psychiatric: Reports: depression Past Medical History Past Medical History: Asthma, COPD, Diabetes Mellitus, Fibromyalgia, Hyperlipidemia, Hypertension, Neurologic Disorder, Osteoarthritis (OA), Sleep Apnea/CPAP/BIPAP Additional Past Medical History / Comment(s): restless leg, neuropathy History of Any Multi-Drug Resistant Organisms: None Reported Past Surgical History: Cholecystectomy, Hysterectomy, Orthopedic Surgery, Tonsillectomy Additional Past Surgical History / Comment(s): colonoscopy, tendon repair on left foot Past Anesthesia/Blood Transfusion Reactions: Unable to Obtain, Motion Sickness Past Psychological History: Anxiety, Bipolar, Depression, PTSD Smoking Status: Former smoker - Past Family History Father Family Medical History: CVA/TIA, Diabetes Mellitus, Hypertension Additional Family Medical History / Comment(s): CATARACTS, AAA General Exam Limitations: no limitations General appearance: alert, in no apparent distress Head exam: Present: atraumatic Eye exam: Present: normal appearance ENT exam: Present: normal oropharynx Neck exam: Present: normal inspection Respiratory exam: Present: normal lung sounds bilaterally Cardiovascular Exam: Present: regular rate, normal rhythm GI/Abdominal exam: Present: soft. Absent: tenderness Extremities exam: Present: normal inspection. Absent: pedal edema, calf tenderness Neurological exam: Present: alert Psychiatric exam: Present: normal affect, normal mood Skin exam: Present: normal color Course Vital Signs 10/15/18 11:15 Temperature 97.7 F Pulse Rate 83 Respiratory 18 Rate Blood Pressure 158/77 O2 Sat by Pulse 95 Oximetry Medical Decision Making - Medical Decision Making Patient was seen by mental health services who recommends discharge and outpatient follow-up. - Lab Data Lab Results 10/15/18 Range/Units 13:15 Urine Opiates Screen Detected H (NotDetected) Ur Oxycodone Screen Not Detected (NotDetected) Urine Methadone Screen Not Detected (NotDetected) Ur Propoxyphene Screen Not Detected (NotDetected) Ur Barbiturates Screen Not Detected (NotDetected) U Tricyclic Antidepress Not Detected (NotDetected) Ur Phencyclidine Scrn Not Detected (NotDetected) Ur Amphetamines Screen Not Detected (NotDetected) U Methamphetamines Scrn Not Detected (NotDetected) U Benzodiazepines Scrn Not Detected (NotDetected) Urine Cocaine Screen Not Detected (NotDetected) U Marijuana (THC) Screen Not Detected (NotDetected) Disposition Clinical Impression: Depression Disposition: HOME SELF-CARE Condition: Stable Instructions: Depression (ED) Additional Instructions: Please follow-up to primary care physician on Thursday. Please also follow-up with mental health services as directed. Return for thoughts of self-harm, thoughts of hurting others, worsening symptoms or other concerns Is patient prescribed a controlled substance at d/c from ED?: No Referrals: Kyaw Medeiros MD [Primary Care Provider] - 1-2 days Time of Disposition: 16:08
[2018-10-15 13:42] LABS: Amphetamine Screen,Urine Not Detected (NotDetected); Barbiturate Screen,Urine Not Detected (NotDetected); Benzodiazepines Screen,Urine Not Detected (NotDetected); Cocaine Screen,Urine Not Detected (NotDetected); Methadone Screen, Urine Not Detected (NotDetected); Opiate Screen,Urine Detected (NotDetected); Oxycodone Screen, Urine Not Detected (NotDetected); Phencyclidine Screen,Urine Not Detected (NotDetected); Tricyclic Antidepressant,Urine Not Detected (NotDetected); Urn Cannabinoid Scrn Not Detected (NotDetected)
[2018-10-15] MEDS ORDERED: Acetaminophen-Codeine 300-30mg TAB PO STA (14:32)
[2018-10-15 16:31] VITALS: BP 142/66; PULSE 74; TEMP 98
== END 2018-10-15 16:31 | disposition home or self-care (01) ==
LOC: EC 11:14
DX: F31.9 Bipolar disorder, unspecified (principal); J44.9 Chronic obstructive pulmonary disease, unspecified; E78.5 Hyperlipidemia, unspecified; M79.7 Fibromyalgia; I10 Essential (primary) hypertension; M19.90 Unspecified osteoarthritis, unspecified site; E11.40 Type 2 diabetes mellitus with diabetic neuropathy, unspecified; G25.81 Restless legs syndrome; G47.30 Sleep apnea, unspecified; Z99.89 Dependence on other enabling machines and devices; F41.9 Anxiety disorder, unspecified; F43.10 Post-traumatic stress disorder, unspecified; Z87.891 Personal history of nicotine dependence; Z79.1 Long term (current) use of non-steroidal anti-inflammatories (NSAID); Z79.51 Long term (current) use of inhaled steroids; Z79.84 Long term (current) use of oral hypoglycemic drugs; Z79.899 Other long term (current) drug therapy; Z91.048 Other nonmedicinal substance allergy status
CPT/HCPCS: 80306; 99284

== ENCOUNTER → 2019-02-28 | Outpatient (CLI) | payer MEDICARE ==
--- NOTE | 2019-02-28 11:38 | XR ---
EXAMINATION TYPE: XR foot complete LT DATE OF EXAM: 02/28/2019 COMPARISON: NONE HISTORY: Pain TECHNIQUE: Three views are submitted. FINDINGS: The osseous structures are intact. There is no acute fracture or dislocation. Joint spaces are p reserved. There is diffuse osteopenia. Spurring involving the calcaneus noted. IMPRESSION: 1. No acute fracture or dislocation. If symptoms persist, follow-up exam in 7 to 10 days could be ob tained.
--- NOTE | 2019-02-28 11:39 | XR ---
EXAMINATION TYPE: XR Hip Complete LT DATE OF EXAM: 02/28/2019 COMPARISON: NONE HISTORY: Pain TECHNIQUE: 2 views submitted FINDINGS: There is no evidence of erosive change or acute fracture. Mild hypertrophic change of the acetabulum can be seen with removal acetabular impingement. IMPRESSION: 1. No evidence of acute fracture or dislocation.
--- NOTE | 2019-02-28 11:39 | XR ---
EXAM TYPE: LUMBAR SPINE X RAY SERIES COMPARISON: NONE HISTORY: Pain TECHNIQUE: 4 views are submitted. FINDINGS: Alignment is anatomic. The pedicles are intact. The transverse processes are intact. There is no s pondylolysis or spondylolisthesis. Multilevel hypertrophic changes are seen with degenerative disc d isease L4-5 and L5-S1. Vascular calcification seen. IMPRESSION: 1. No acute process.
== END | disposition home or self-care (01) ==
LOC: RADXRMAIN 10:19
PROVIDERS: ATTEND Family Medicine
DX: M51.36 Other intervertebral disc degeneration, lumbar region (principal)
CPT/HCPCS: 72100; 73502

== ENCOUNTER 2019-03-24 13:19 | Emergency (ER) | payer MEDICARE ==
[2019-03-24 13:28] VITALS: BP 157/79; PULSE 94; RESP 20; TEMP 97.9
[2019-03-24] MEDS ORDERED: HYDROcodone/APAP 10-325MG 1 EACH TAB PO ONE (13:53)
--- NOTE | 2019-03-24 13:54 | ED ---
Fall HPI - General Chief Complaint: Fall Stated Complaint: Fall, pelvic pain Time Seen by Provider: 03/24/19 13:33 Source: patient, RN notes reviewed Mode of arrival: ambulatory Limitations: no limitations - History of Present Illness Initial Comments: This a 58-year-old female presents emergency Department chief complaint right shoulder pain, left hip pain. Patient states she's had no falls last few weeks. She states she did have x-rays prior to her second fall. Patient that she was seen at [facility] and by her neurologist after her second fall that she's had no repeat imaging. Patient states she was given Toradol condition to her Tylenol number fourth. Patient states that is not helping. Patient was given muscle relaxers by [facility]. Patient states that has not helped. Patient states that she has an appointment April and that Dr. Hood's office recommended her to go to the hospital at the pain was unbearable. - Related Data Home Medications Medication Instructions Recorded Confirmed metFORMIN HCL [Glucophage] 1,000 mg PO AC-BID 10/06/14 10/15/18 DULoxetine HCL [Cymbalta] 60 mg PO DAILY 05/10/15 10/15/18 OXcarbazepine [Trileptal] 1,200 mg PO HS 10/07/16 10/15/18 Isosorbide Mononitrate ER [Imdur] 30 mg PO DAILY 10/22/16 10/15/18 Liraglutide [Victoza 2-Fredo] 1.8 mg SQ HS 04/21/17 10/15/18 Pioglitazone [Actos] 30 mg PO DAILY 04/21/17 10/15/18 Mirtazapine 30 mg PO HS 12/19/17 10/15/18 Verapamil HCl [Verapamil ER] 240 mg PO HS 12/19/17 10/15/18 Acetaminophen with Codeine 1 tab PO Q6H PRN 08/16/18 10/15/18 [Tylenol w/codeine #4] Naproxen [Naprosyn] 500 mg PO BID-W/MEALS 08/16/18 10/15/18 Pregabalin [Lyrica] 150 mg PO TID 08/16/18 10/15/18 Albuterol Inhaler [Ventolin Hfa 1 - 2 puff INHALATION RT-Q6H PRN 10/15/18 10/15/18 Inhaler] Albuterol Nebulized [Ventolin 2.5 mg INHALATION Q6H PRN 10/15/18 10/15/18 Nebulized] Albuterol Sulfate [Proair Hfa] 2 puff INHALATION RT-Q6H PRN 10/15/18 10/15/18 Atorvastatin [Lipitor] 80 mg PO HS 10/15/18 10/15/18 Budesonide/Formoterol Fumarate 2 puff INHALATION RT-BID 10/15/18 10/15/18 [Symbicort 160-4.5 Mcg Inhaler] DULoxetine HCL [Cymbalta] 30 mg PO DAILY 10/15/18 10/15/18 busPIRone HCL 15 mg PO BID 10/15/18 10/15/18 Allergies Allergy/AdvReac Type Severity Reaction Status Date / Time adhesive Allergy Rash/Hives Verified 03/24/19 13:28 Review of Systems ROS Statement: Those systems with pertinent positive or pertinent negative responses have been documented in the HPI. ROS Other: All systems not noted in ROS Statement are negative. Past Medical History Past Medical History: Asthma, COPD, Diabetes Mellitus, Fibromyalgia, Hyperlipidemia, Hypertension, Neurologic Disorder, Osteoarthritis (OA), Sleep Apnea/CPAP/BIPAP Additional Past Medical History / Comment(s): restless leg, neuropathy History of Any Multi-Drug Resistant Organisms: None Reported Past Surgical History: Cholecystectomy, Hysterectomy, Orthopedic Surgery, Tonsillectomy Additional Past Surgical History / Comment(s): colonoscopy, tendon repair on l eft foot Past Anesthesia/Blood Transfusion Reactions: Unable to Obtain, Motion Sickness Past Psychological History: Anxiety, Bipolar, Depression, PTSD Smoking Status: Former smoker Past Alcohol Use History: None Reported Past Drug Use History: None Reported - Past Family History Father Family Medical History: CVA/TIA, Diabetes Mellitus, Hypertension Additional Family Medical History / Comment(s): CATARACTS, AAA General Exam Limitations: no limitations Course Vital Signs 03/24/19 13:25 Temperature 97.9 F Pulse Rate 94 Respiratory 20 Rate Blood Pressure 157/79 O2 Sat by Pulse 97 Oximetry Medical Decision Making - Medical Decision Making 58-year-old female present for fall, left hip and right shoulder pain. X-rays are negative. Patient will be given [place] emergency department and advised to follow-up with her pain management. Disposition Clinical Impression: Fall, Contusion, hip, Shoulder pain Disposition: HOME SELF-CARE Condition: Stable Instructions (If sedation given, give patient instructions): Chronic Pain (ED) Additional Instructions: Please return to the Emergency Department if symptoms worsen or any other concerns. Is patient prescribed a controlled substance at d/c from ED?: No Referrals: Kyaw Medeiros MD [Primary Care Provider] - 1-2 days Time of Disposition: 14:26
--- NOTE | 2019-03-24 14:12 | XR ---
EXAMINATION TYPE: XR shoulder complete RT DATE OF EXAM: 03/24/2019 COMPARISON: NONE HISTORY: Pain TECHNIQUE: Three views are submitted. FINDINGS: The osseous structures are intact. There is no acute fracture or dislocation. Mild arthropathy of th e AC joint. IMPRESSION: 1. No acute process.
--- NOTE | 2019-03-24 14:14 | XR ---
EXAMINATION TYPE: XR Hip LT and AP Pelvis DATE OF EXAM: 03/24/2019 COMPARISON: 02/28/2019 HISTORY: Pain TECHNIQUE: A single AP view of the pelvis is obtained. Two views of the left hip are obtained. FINDINGS: There is no acute fracture/dislocation evident in the pelvis. Mild concentric narrowing of the hip joints bilaterally. Osteitis pubis condensans noted. The overlying soft tissue appears unrem arkable. Two views of left hip show no acute fracture or dislocation. No focal lytic or sclerotic lesion seen in the proximal left femur. The overlying soft tissue is unremarkable. Hypertrophic change of the acetabulum can be associated with femoral acetabular impingement. IMPRESSION: There is no acute fracture or dislocation in the pelvis or left hip. If symptoms persist follow-up MRI recommended.
== END 2019-03-24 14:49 | disposition home or self-care (01) ==
LOC: EC 13:19
DX: S70.02XA Contusion of left hip, initial encounter (principal); M25.511 Pain in right shoulder; R10.2 Pelvic and perineal pain; J44.9 Chronic obstructive pulmonary disease, unspecified; E11.40 Type 2 diabetes mellitus with diabetic neuropathy, unspecified; M79.7 Fibromyalgia; E78.5 Hyperlipidemia, unspecified; I10 Essential (primary) hypertension; M19.90 Unspecified osteoarthritis, unspecified site; F41.9 Anxiety disorder, unspecified; F32.9 Major depressive disorder, single episode, unspecified; F43.10 Post-traumatic stress disorder, unspecified; G47.30 Sleep apnea, unspecified; Z99.89 Dependence on other enabling machines and devices; Z90.49 Acquired absence of other specified parts of digestive tract; Z90.710 Acquired absence of both cervix and uterus; Z87.891 Personal history of nicotine dependence; Z79.84 Long term (current) use of oral hypoglycemic drugs; Z79.1 Long term (current) use of non-steroidal anti-inflammatories (NSAID); Z79.51 Long term (current) use of inhaled steroids; Z79.899 Other long term (current) drug therapy; Z91.048 Other nonmedicinal substance allergy status; W19.XXXA Unspecified fall, initial encounter; Y92.009 Unspecified place in unspecified non-institutional (private) residence as the place of occurrence of the external cause
CPT/HCPCS: 73502; 99283

== ENCOUNTER → 2019-05-09 | Outpatient (CLI) | payer MEDICARE ==
--- NOTE | 2019-05-09 16:07 | XR ---
Left hand HISTORY: Pain and numbness 3 views the left hand Bone mineralization, joint spaces and alignment are maintained. IMPRESSION: No fracture or dislocation. No significant abnormality is evident.
== END | disposition home or self-care (01) ==
LOC: RADXRMAIN 14:53
PROVIDERS: ATTEND Family Medicine
DX: R52 Pain, unspecified (principal)

== ENCOUNTER → 2019-06-15 | Outpatient (CLI) | payer MEDICARE ==
[2019-06-15 14:13] VITALS: RESP 16
[2019-06-15 14:16] VITALS: BP 160/70; PULSE 80
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
== END | disposition home or self-care (01) ==
LOC: PNWHC3 12:09
PROVIDERS: ATTEND Anesthesiology
DX: G89.29 Other chronic pain (principal); M51.16 Intervertebral disc disorders with radiculopathy, lumbar region; M47.26 Other spondylosis with radiculopathy, lumbar region; J44.9 Chronic obstructive pulmonary disease, unspecified; E11.40 Type 2 diabetes mellitus with diabetic neuropathy, unspecified; I10 Essential (primary) hypertension; E78.00 Pure hypercholesterolemia, unspecified; I25.10 Atherosclerotic heart disease of native coronary artery without angina pectoris; E66.01 Morbid (severe) obesity due to excess calories; F17.200 Nicotine dependence, unspecified, uncomplicated; Z73.3 Stress, not elsewhere classified; Z68.41 Body mass index [BMI] 40.0-44.9, adult; Z79.51 Long term (current) use of inhaled steroids; Z79.4 Long term (current) use of insulin; Z79.899 Other long term (current) drug therapy
CPT/HCPCS: 99211

== ENCOUNTER 2019-06-21 08:34 | Day surgery (SDC) | payer MEDICARE ==
[2019-06-21] MEDS ORDERED: LACTATED RINGERS 1,000 ML IV SCH (09:15)
[2019-06-21 10:27] VITALS: RESP 16; TEMP 96.7
[2019-06-21] MEDS ORDERED: LIDOCAINE 1% 20 ML VIAL (10MG/ML) FOR IV START INTRADERMA ONE (10:33)
[2019-06-21 10:37] LABS: Glucose,Whole Blood 99 mg/dL (75-99)
--- NOTE | 2019-06-21 11:37 | P.PCN ---
Date of Procedure: 06/21/19 Procedure(s) Performed: PREOPERATIVE DIAGNOSIS: Lumbar Radicular Pain POSTOPERATIVE DIAGNOSIS: Same PROCEDURE Lumbar epidural steroid injection under fluoroscopic guidance at the L4-L5 level. ANESTHESIA: Local with 1% lidocaine 3 ml; moderate sedation with Versed EBL: Minimal PROCEDURE INDICATION: Lumbar radicular pain. PROCEDURE DESCRIPTION / TECHNIQUE: The patient was seen and identified in the preoperative area. Risks, benefits, complications including but not limited to infections ,bleeding ,allergic reaction to the medications ,nerve damage and not complete pain relief , and alternatives were discussed with the patient. The patient agreed to proceed with the procedure and signed the consent. IV was started, and vital signs were stable. Patient was taken to the OR and time out was completed. The patient was placed in the prone position on procedure table and a pillow was placed under the abdomen to reduce lumbar lordosis. The lumbosacral area was prepped and draped in the usual sterile fashion. The patient was closely monitored during the procedure. Conscious sedation was used during the procedure to decrease patients anxiety. Vital signs was monitored during the entire procedure. Using anterior-posterior fluoroscopy, the L4-L5 interlaminar space was ident ified and the skin over this site was marked and then infiltrated with 1% lidocaine subcutaneously. Subsequently, a 20-gauge Tuohy epidural needle was inserted and advanced toward the epidural space using the loss of resistance technique and guided by AP and lateral fluoroscopy. The correct needle position in the epidural space was verified. After negative aspiration, a solution containing 40 mg of Depo-Medrol, 2 mL of normal saline, 3 mL of 1% lidocaine for a total of 5 mL was injected. The needle was withdrawn intact, skin was cleansed, and bandages were applied. COMPLICATIONS: None DISPOSITION / PLANS: The patient was returned to the supine position and transferred to the recovery area in a stable condition for observation. There was no evidence of lower extremity motor or sensory deficit after the procedure. Patient was discharged from the recovery room after meeting discharge criteria. Home discharge instructions were given to the patient by the staff. Follow up plan: In clinic
[2019-06-21] MEDS ORDERED: IV FLUID CONTINUATION 1,000 ML IV ONE (11:40)
--- NOTE | 2019-06-21 11:52 | FL ---
EXAMINATION TYPE: FL guided pain mgmt statistic DATE OF EXAM: 06/21/2019 HISTORY: Flouroscopy time 16 seconds of fluoroscopy provided. IMPRESSION: 1. Fluoroscopy time.
[2019-06-21 12:01] VITALS: BP 152/91; PULSE 80
== END 2019-06-21 12:23 | disposition home or self-care (01) ==
LOC: ORPAIN 08:34
PROVIDERS: ATTEND Student in an Organized Health Care Education/Training Program
DX: G89.29 Other chronic pain (principal); M54.16 Radiculopathy, lumbar region; Z79.891 Long term (current) use of opiate analgesic
CPT/HCPCS: 62323; J2250; J1030; Q9966; 99152

== ENCOUNTER 2019-06-28 13:17 | Emergency (ER) | payer MEDICARE ==
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
--- NOTE | 2019-06-28 14:46 | XR ---
Left hip HISTORY: Trauma and pain 2 views of the left hip, comparison to prior exam 02/28/2019 Bone mineralization, joint spaces and alignment are maintained. IMPRESSION: No fracture or dislocation.
--- NOTE | 2019-06-28 14:48 | XR ---
Right knee HISTORY: Trauma and pain Prior exam 2016 Osteoarthritic changes are again noted. Marginal spurring and joint space loss is greatest in the med ial compartment. Alignment and bone mineralization are maintained. No evident joint effusion. IMPRESSION: No fracture or dislocation.
[2019-06-28 15:28] VITALS: BP 156/83; PULSE 78; RESP 18; TEMP 97.6
== END 2019-06-28 15:27 | disposition home or self-care (01) ==
LOC: EC 13:17
DX: M25.561 Pain in right knee (principal); M25.552 Pain in left hip; J44.9 Chronic obstructive pulmonary disease, unspecified; E11.40 Type 2 diabetes mellitus with diabetic neuropathy, unspecified; M79.7 Fibromyalgia; E78.5 Hyperlipidemia, unspecified; I10 Essential (primary) hypertension; M19.90 Unspecified osteoarthritis, unspecified site; G89.29 Other chronic pain; F31.9 Bipolar disorder, unspecified; F41.9 Anxiety disorder, unspecified; F17.200 Nicotine dependence, unspecified, uncomplicated; Z91.048 Other nonmedicinal substance allergy status; Z79.1 Long term (current) use of non-steroidal anti-inflammatories (NSAID); Z79.4 Long term (current) use of insulin; Z79.51 Long term (current) use of inhaled steroids; Z79.899 Other long term (current) drug therapy; W18.09XA Striking against other object with subsequent fall, initial encounter; Y93.01 Activity, walking, marching and hiking; Y92.009 Unspecified place in unspecified non-institutional (private) residence as the place of occurrence of the external cause
CPT/HCPCS: 73502; 99283

== ENCOUNTER → 2019-07-14 | Outpatient (CLI) | payer MEDICARE ==
[2019-07-14 12:33] VITALS: BP 148/72; PULSE 79; RESP 18
--- NOTE | 2019-07-14 14:15 | P.PAINPG ---
Subjective Progress Note Date: 07/14/19 Mrs. Cannon is a 59-year-old female, who we have been following for low back pain. She did receive a lumbar epidural steroid injection with very minimal benefit. Today however her low back pain is not her main part pain concern. Fracture left hip is the most painful area. She states that on 03/24/2019 she had a fall. She has had several x-rays which did not show any hip fracture. The most recent imaging is in our system on 06/28/2019 which showed no fracture. She would want her left hip to be treated at this point. She continues to have some low back pain however this was not the major focus of the examination today. Objective - Vital Signs Vital signs: Vital Signs Temp Pulse 79 07/14/19 12:24 Resp 18 07/14/19 12:24 BP 148/72 07/14/19 12:24 Pulse Ox 95 07/14/19 12:24 Intake & Output 07/13/19 07/14/19 07/14/19 18:59 06:59 18:59 Weight 128.367 kg - Exam Vital Signs: Reviewed in EMR GENERAL: Well appearing, in no acute distress, PSYCH: Mood and affect is appropriate. Awake, alert, and oriented SKIN: Skin color, texture, turgor normal, no rashes or lesions HEENT: Normocephalic, atraumatic. EOM intact CV: No pedal edema RESP: Respirations are unlabored, no audible wheezing GI: Abdomen non-distended MUSCULOSKELETAL: Hip scouring test was positive for reproduction of her pain, she did have anterior groin pain on the left side. NEUR:. No loss of sensation is noted. Cranial nerves are grossly intact. Assessment and Plan Assessment: Assessment: 1. Left hip pain 2. Lumbar spondylosis 3. Obesity 4. Multiple psychosocial stressors 5. Multiple medical comorbidities Plan: 1. Explanation: I spoke to her about the hip injection, and how her injection only mask the pain. 2. Opioid agreement: None 3. Counseling: The patient was counseled extensively on BODY MASS INDEX, EXERCISE. Specifically, the patient was instructed regarding the importance of weight control, and exercise in the context of both chronic pain and overall health. 4. Procedures: Left hip injection under fluoroscopy 5. Consultations: None 6. Investigations: Hip x-ray reviewed 7. Medications: Continue [id number] medications 8. Disposition: For her hip injection , PQRS Measure Charge Sheet Measure #47: Advance Care Plan: Advance care planning discussed & documented, pt chose/unable to give Measure #131: Pain Assessment & Follow-up: Pain positive & plan documented, Follow-up scheduled PQRS Narrative: Smoking Status Current every day smoker Blood Pressure 148/72 Pain Intensity [Left Hip] 9 Scale Used Numeric (1 - 10) Hx Alcohol Use (MH) No Home Medications: Ambulatory Orders metFORMIN HCL [Glucophage] 1,000 mg PO AC-BID 10/06/14 DULoxetine HCL [Cymbalta] 90 mg PO DAILY 05/10/15 OXcarbazepine [Trileptal] 1,200 mg PO HS 10/07/16 Isosorbide Mononitrate ER [Imdur] 30 mg PO DAILY 10/22/16 Liraglutide [Victoza 2-Fredo] 1.8 mg SQ HS 04/21/17 Pioglitazone [Actos] 30 mg PO DAILY 04/21/17 Verapamil HCl [Verapamil ER] 240 mg PO HS 12/19/17 Acetaminophen with Codeine [Tylenol w/codeine #4] 1 tab PO Q6H PRN 08/16/18 Naproxen [Naprosyn] 500 mg PO BID-W/MEALS 08/16/18 Pregabalin [Lyrica] 100 mg PO TID 08/16/18 Albuterol Inhaler [Ventolin Hfa Inhaler] 1 - 2 puff INHALATION RT-Q6H PRN 10/15/18 Atorvastatin [Lipitor] 80 mg PO HS 10/15/18 Budesonide/Formoterol Fumarate [Symbicort 160-4.5 Mcg Inhaler] 2 puff INHALATION DAILY 10/15/18 busPIRone HCL 15 mg PO BID 10/15/18 Cholecalciferol [Vitamin D3 (25 Mcg = 1000 Iu)] 2,000 units PO DAILY 06/13/19 Insulin Glargine [Lantus] 16 unit SQ HS 06/13/19 Methocarbamol [Robaxin] 500 mg PO BID 06/13/19 Mirtazapine 30 mg PO HS 06/13/19 Multivit-Min/FA/Lycopen/Lutein [Centrum Silver Tablet] 1 each PO DAILY 06/13/19 Pramipexole Di-HCl [Mirapex] 0.5 mg PO HS 06/13/19 ALPRAZolam [Xanax] 0.5 mg PO TID PRN 06/15/19 Controlled Substance Measures - Controlled Substance Measures Is patient prescribed a controlled substance at discharge?: No
== END ==
LOC: PNWHC3 12:13
PROVIDERS: ATTEND Student in an Organized Health Care Education/Training Program
DX: M47.816 Spondylosis without myelopathy or radiculopathy, lumbar region (principal); E66.9 Obesity, unspecified; M25.552 Pain in left hip; F17.200 Nicotine dependence, unspecified, uncomplicated; Z79.899 Other long term (current) drug therapy; Z79.4 Long term (current) use of insulin
CPT/HCPCS: 99211

== ENCOUNTER 2019-07-25 05:40 | Day surgery (SDC) | payer MEDICARE ==
[2019-07-20 14:03] VITALS: BMI 42.5
[2019-07-25] MEDS ORDERED: LACTATED RINGERS 1,000 ML IV ONE (06:28)
[2019-07-25] MEDS ORDERED: LIDOCAINE 1% 20 ML VIAL (10MG/ML) FOR IV START INTRADERMA ONE (06:28)
[2019-07-25 06:31] LABS: Glucose,Whole Blood 143 mg/dL (75-99)
[2019-07-25 06:32] VITALS: TEMP 97.4
[2019-07-25] MEDS ORDERED: LACTATED RINGERS 1,000 ML IV SCH (06:45)
--- NOTE | 2019-07-25 07:34 | P.PCN ---
Date of Procedure: 07/25/19 Procedure(s) Performed: Description of Procedure: PREOPERATIVE DIAGNOSIS: Left hip arthralgia . POSTOPERATIVE DIAGNOSIS: same as preoperative diagnoses PROCEDURES: left intra-articular hip injection with fluoroscopy (fluoroscopy images available in the radiology Department ) ANESTHESIA: Moderate sedation with versed 2 mg , and fentanyl 15 g EBL: Minimal PROCEDURE INDICATION: The patient with left hip pain secondary to osteoarthritis, who has been unresponsive to conservative therapy. No use of blood thinners. PROCEDURE DESCRIPTION / TECHNIQUE: The patient was seen and identified in the preoperative area. Risks, benefits, complications, and alternatives were discussed with the patient (including but not limited to incomplete pain relief, bleeding, infection, nerve damage, and allergies to medications), the patient agreed to proceed with the procedure and signed the consent after all questions were answered. Patient was taken to the OR and time out was completed to verify proper patient, position, laterality of pain, and allergies. Pt was placed in the supine position. IV was started. Vital signs remained stable throughout the procedure. . The left hip area was prepped and draped in the usual sterile fashion. Vital signs were closely monitored during the procedure. sedation was used during the procedure to decrease patients anxiety. Using AP fluoroscopy, the femoral neck was identified, marked, and localized with 1% lidocaine. Subsequently, a 22 gauge 5-inch spinal needle was advanced guided by fluoroscopy to the 10 o'clock position on the femoral neck until the needle was felt entering the hip capsule. , contrast was injected to demonstrat e an arthrogram. After negative aspiration for CSF or heme and in the absence of paresthesias, the full 8 ml ml of the block solution containing Depo-medrol 40 mg and 7 mL of preservative-free 0.5% Ropivacaine was injected. At the end of the procedure, the skin was cleansed and bandages were applied. COMPLICATIONS: No acute complications. DISPOSITION / PLANS: The patient was placed in a supine position and transferred to the recovery area in a stable condition for observation and was discharged from the recovery room after meeting discharge criteria. Home discharge instructions given to the patient by the staff.
[2019-07-25] MEDS ORDERED: IV FLUID CONTINUATION 1,000 ML IV ONE ×2 (07:36)
[2019-07-25 07:41] VITALS: RESP 18
[2019-07-25 07:54] VITALS: BP 140/67; PULSE 92
--- NOTE | 2019-07-25 09:40 | FL ---
EXAMINATION TYPE: FL guided pain mgmt statistic DATE OF EXAM: 07/25/2019 HISTORY: Flouroscopy time 9 seconds of fluoroscopy provided. IMPRESSION: 1. Fluoroscopy time.
== END 2019-07-25 08:02 | disposition home or self-care (01) ==
LOC: ORPAIN 05:40
PROVIDERS: ATTEND Specialist
DX: M16.12 Unilateral primary osteoarthritis, left hip (principal); Z88.8 Allergy status to other drugs, medicaments and biological substances
CPT/HCPCS: 20610; J2250; J1030; J3010; Q9966; 99152

== ENCOUNTER → 2019-08-08 | Day surgery (SDC) | payer MEDICARE ==
[2019-08-04 15:14] VITALS: BMI 42.5
[~2019-08-08] MED LIST changes: -HYDROmorphone 2 MG/ML 1 ML SYRINGE ONE; +IV FLUID CONTINUATION 1,000 ML IV ONE; +LACTATED RINGERS 1,000 ML IV ONE; +LACTATED RINGERS 1,000 ML IV SCH; +LIDOCAINE 1% 20 ML VIAL (10MG/ML) FOR IV START INTRADERMA ONE; -MIDAZOLAM 2 MG/2 ML VIAL ONE; -VERAPAMIL 2.5 MG/ML 2 ML AMP ONE
[2019-08-08 06:18] VITALS: RESP 18; TEMP 97.8
[2019-08-08 06:24] LABS: Glucose,Whole Blood 119 mg/dL (75-99)
--- NOTE | 2019-08-08 07:45 | P.PCN ---
Date of Procedure: 08/08/19 Procedure(s) Performed: PREOPERATIVE DIAGNOSIS: Left hip arthralgia . POSTOPERATIVE DIAGNOSIS: same as preoperative diagnoses PROCEDURES: left intra-articular hip injection with fluoroscopy (fluoroscopy images available in the radiology Department ) ANESTHESIA: Moderate sedation with versed 2 mg , and fentanyl 50 g EBL: Minimal PROCEDURE INDICATION: The patient with left hip pain secondary to osteoarthritis, who has been unresponsive to conservative therapy. No use of blood thinners. PROCEDURE DESCRIPTION / TECHNIQUE: The patient was seen and identified in the preoperative area. Risks, benefits, complications, and alternatives were discussed with the patient (including but not limited to incomplete pain relief, bleeding, infection, nerve damage, and allergies to medications), the patient agreed to proceed with the procedure and signed the consent after all questions were answered. Patient was taken to the OR and time out was completed to verify proper patient, position, laterality of pain, and allergies. Pt was placed in the supine position. IV was started. Vital signs remained stable throughout the procedure. . The left hip area was prepped and draped in the usual sterile fashion. Vital signs were closely monitored during the procedure. sedation was used during the procedure to decrease patients anxiety. Using AP fluoroscopy, the femoral neck was identified, marked, and localized with 1% lidocaine. Subsequently, a 22 gauge 5-inch spinal needle was advanced guided by fluoroscopy to the 10 o'clock position on the femoral neck until the needle was felt entering the hip capsule. , contrast was injected to demonstrate an arthrogram. After negative aspiration for CSF or heme and in the absence of paresthesias, the full 8 ml ml of the block solution containing Depo- medrol 40 mg and 7 mL of preservative-free 0.5% Ropivacaine was injected. At the end of the procedure, the skin was cleansed and bandages were applied. COMPLICATIONS: No acute complications. DISPOSITION / PLANS: The patient was placed in a supine position and transferred to the recovery area in a stable condition for observation and was discharged from the recovery room after meeting discharge criteria. Home discharge instructions given to the patient by the staff.
[2019-08-08 08:07] LABS: Glucose,Whole Blood 110 mg/dL (75-99)
[2019-08-08 08:18] VITALS: BP 168/73; PULSE 68
--- NOTE | 2019-08-08 12:36 | FL ---
Fluoroscopy HISTORY: Pain 9 seconds fluoroscopy time supplied to the referring clinician. 1 intraoperative C-arm images docume nt the procedure. See dictated report from anesthesia.
== END ==
LOC: ORPAIN 05:55
PROVIDERS: ATTEND Specialist
DX: M25.552 Pain in left hip (principal); E11.9 Type 2 diabetes mellitus without complications; Z90.710 Acquired absence of both cervix and uterus
CPT/HCPCS: 20610; J2250; J1030; J3010; Q9966

== ENCOUNTER → 2019-08-22 | Outpatient (CLI) | payer MEDICARE ==
[2019-08-22 13:31] VITALS: BP 120/73; PULSE 72; RESP 16
--- NOTE | 2019-08-22 13:59 | P.PN ---
Subjective Progress Note Date: 08/22/19 This is a 59-year-old morbidly obese lady with history of chronic lower back pain and left hip pain. The patient had lumbar epidural steroid injection which helped her lower back pain however she fell on her hip and then she had 2 injections on the hip joint which helped her ambulate better. Right now she complains of increasing lower back pain was rated radiation to the left lower extremity to the left foot with occasional numbness and tingling. The patient is diabetic . she denies taking any anticoagulants. The patient gets Tylenol with Codeine No. 4 from her primary care physician and she is waiting for the referral to Dr. Fonseca. Patient denies new-onset weakness, bowel/bladder incontinence, or any other signs or symptoms of cauda equina syndrome. There are no signs of acute intoxication, and no indications of medication diversion or overuse. In addition to above, 13-point review of systems is also negative for chest pain, shortness of breath, changes in vision, changes in hearing, new onset weakness, abdominal pain, diarrhea, extreme fatigue, malaise, fever, skin changes, homicidal or suicidal ideation, or bowel or bladder incontinence. Vital Signs: Reviewed in EMR Gen: AAOx3, NAD HEENT: PERRLA,hearing grossly normal Pulm: resp unlabored Heart: Regular Neck: supple, trachea midline Neuro exam of the lower extremities: Decreased but symmetrical muscle strength to 4 out of 5 bilaterally, absent right knee reflex and decreased left knee reflex and absent ankle reflexes bilaterally Straight leg raising test: Negative bilaterally Jus's test: Range of motion of the lumbar spine: Facet loading test: Tenderness in the paravertebral musculature: Positive tenderness in the lumbar paravertebral musculature bilaterally Neuro: CN II-XII grossly intact, Imaging: Reviewed in EMR/chart Assessment: Lumbar neuro foraminal stenosis Left lumbar radiculopathy Morbid obesity Plan: 1. Explanation: Opioid and psychological risk scores were reviewed. Diagnoses, prognoses, and multiple treatment options including but not limited to physical therapy, interventional therapies, adjuvant medical therapies, narcotic medication therapies, and surgery were discussed with the patient and all questions were answered to the patient's satisfaction. 2. Opioid agreement: Signed with the patient and the patient is warned not to use opioids while driving or before driving and not to combine opioids with benzodiazepines or alcohol. 3. Counseling: The patient was counseled extensively on SMOKING CESSATION, BODY MASS INDEX, EXERCISE. Specifically, the patient was instructed regarding the importance of smoking cessation, obesity, and exercise in the context of both chronic pain and overall health. 4. Procedures: Scheduled for lumbar epidural steroid injection under fluoroscopic guidance at the L4 5 level in the left paramedian approach 5. Consultations: None 6. Investigations: None 7. Medications: None prescribed today 8. Disposition: Return to do the above-mentioned procedure as soon as possible 9. Maps were reviewed and were appropriate. Objective - Vital Signs Vital signs: Vital Signs Temp Pulse 72 08/22/19 13:28 Resp 16 08/22/19 13:28 BP 120/73 08/22/19 13:28 Pulse Ox 97 08/22/19 13:28
== END ==
LOC: PNWHC3 11:31
PROVIDERS: ATTEND Anesthesiology
DX: M48.061 Spinal stenosis, lumbar region without neurogenic claudication (principal); M54.16 Radiculopathy, lumbar region; E66.01 Morbid (severe) obesity due to excess calories
CPT/HCPCS: 99211

== ENCOUNTER 2019-08-30 05:39 | Day surgery (SDC) | payer MEDICARE ==
[2019-08-26 14:37] VITALS: BMI 42.5
[2019-08-30 06:12] VITALS: TEMP 97.5
[2019-08-30] MEDS: LACTATED RINGERS 1,000 ML IV SCH ×2 (06:18→07:25)
[2019-08-30] MEDS ORDERED: LIDOCAINE 1% 20 ML VIAL (10MG/ML) FOR IV START INTRADERMA ONE (06:19)
[2019-08-30 06:21] LABS: Glucose,Whole Blood 102 mg/dL (75-99)
[2019-08-30 07:57] LABS: Glucose,Whole Blood 115 mg/dL (75-99)
--- NOTE | 2019-08-30 07:57 | P.PCN ---
Date of Procedure: 08/30/19 Procedure(s) Performed: PREOPERATIVE DIAGNOSIS: 1- Lumbar radiculopathy, Lumbar Degenerative Disc Diseases 2-Lumbar spondylosis with Facet arthropathy without myelopathy POSTOPERATIVE DIAGNOSIS: 1-Lumber Degenerative Disc Diseases 2-Lumbar spondylosis with Facet arthropathy without myelopathy PROCEDURE 1. Lumbar epidural steroid injection under fluoroscopic guidance at the L4-5 level using a left paramedian approach 2. Lumbar epidurogram. ANESTHESIA: Local with 1% lidocaine 3 ml, moderate sedation with intravenous Versed and fentanyl, sedation time 12 minutes Fluoroscopy was used for the procedure and images were saved in the radiology portion of the chart. EBL: Minimal PROCEDURE INDICATION: The patient with low back pain and radiculitis symptoms unresponsive to conservative treatment. Fluoroscopy was used to optimize visualization of the needle placement and to maximize safety. PROCEDURE DESCRIPTION / TECHNIQUE: The patient was seen and identified in the preoperative area. Risks, benefits, complications including but not limited to infections ,bleeding ,allergic reaction to the medications ,nerve damage and incomplete pain releif , and alternatives were discussed with the patient. The patient agreed to proceed with the procedure and signed the consent. IV was started, and vital signs were stable. Patient was taken to the OR and time out was completed. The patient was placed in the prone position on procedure table and a pillow was placed under the abdomen to reduce lumbar lordosis. The lumbosacral area was prepped and draped in the usual sterile fashion. Vitals were closely monitored during the procedure. Conscious sedation was used during the procedure to decrease patients anxiety. Using anterior-posterior fluoroscopy, the L4-5 interlaminar space was identified and the skin over this site was marked and then infiltrated with 1% lidocaine subcutaneously. Subsequently, a 18-gauge 6" Tuohy epidural needle was inserted and advanced toward the epidural space using the loss of resistance technique and guided by AP and lateral/ oblique fluoroscopy. The correct needle position in the epidural space was verified with the injection of 2 mL of the water soluble contrast dye Isovue 200 contrast under live fluoroscopy, observing an excellent epidurogram. Then, after negative aspiration for blood and CSF and in the absence of paresthesias, a 5 ml mixture containing 40 mg of Depo-medrol , 3 ml of preservative free Normal Saline, and 1 ml of preservative free lidocaine 1% solution was injected and a washout epidurogram was seen. Needle was withdrawn intact, skin was cleansed, and bandages were applied. COMPLICATIONS: None DISPOSITION / PLANS: The patient was placed in a supine position and transferred to the recovery area in a stable condition for observation. There was no evidence of lower extremity motor or sensory deficit after the procedure. Patient was discharged from the recovery room after meeting discharge criteria. Home discharge instructions were given to the patient by the staff. The patient will schedule a follow up in the clinic in 2-4 weeks.
[2019-08-30 08:00] VITALS: RESP 18
[2019-08-30] MEDS ORDERED: IV FLUID CONTINUATION 650 ML IV ONE (08:00)
[2019-08-30 08:20] VITALS: BP 118/66; PULSE 70
--- NOTE | 2019-08-30 08:42 | FL ---
EXAMINATION TYPE: FL guided pain mgmt statistic DATE OF EXAM: 08/30/2019 HISTORY: Flouroscopy time 6 seconds of fluoroscopy provided. IMPRESSION: 1. Fluoroscopy time.
== END 2019-08-30 08:20 | disposition home or self-care (01) ==
LOC: ORPAIN 05:39
PROVIDERS: ATTEND Anesthesiology
DX: G89.29 Other chronic pain (principal); M51.16 Intervertebral disc disorders with radiculopathy, lumbar region; M47.26 Other spondylosis with radiculopathy, lumbar region; M48.061 Spinal stenosis, lumbar region without neurogenic claudication; E66.01 Morbid (severe) obesity due to excess calories; E11.9 Type 2 diabetes mellitus without complications; Z68.41 Body mass index [BMI] 40.0-44.9, adult
CPT/HCPCS: 62323; J2250; J1030; J3010; Q9966; 99152

== ENCOUNTER → 2019-09-28 | Outpatient (CLI) | payer MEDICARE ==
[2019-09-28 12:43] VITALS: BP 176/92; PULSE 80; RESP 16
--- NOTE | 2019-09-29 09:10 | P.PAINPG ---
Subjective Progress Note Date: 09/28/19 Mrs. Cannon is a 59-year-old female, who we have been following for low back pain. She did receive a lumbar epidural steroid injection with very minimal benefit. She continued to have severe low back pain, with occasional radiation to the lower extremity. The pain is constant and increased with any activity, she denies any motor or sensory deficit she is able to ambulate freely, but the intensity of the pain interferes with the quality of life and with activities of daily livings, she continued to use Robaxin 500 mg twice a day naproxen 500 mg twice a day, Tylenol for every 6 hours when necessary, Lyrica 100 mg 3 times a day, and also she gets Cymbalta 90 mg daily and Xanax 0.5 mg 3 times a day, and medication management by her primary care and she denies any side effect of the medication, she denies any fever or night sweats Objective - Vital Signs Vital signs: Vital Signs Temp Pulse 80 09/28/19 12:36 Resp 16 09/28/19 12:36 BP 176/92 09/28/19 12:36 Pulse Ox 97 09/28/19 12:36 - Exam Physical Examinations : -Constitutiona : Cooperative , not in acute distress . -HEENT : nech : supple , no Lymphadenopathy , normal thyroid size . : eyes : no ptosis , no icterus, no photophobia . - neurologic : Cranial nerve II to XII intact , no focal neurological deffecit . -psychatric : alert , oriented X 3 , appropriate affect , intact judgment and insight . -Lymphatic : no Lymphadenopathy . - musculoskeltal : Lumber spine moter stegnth lower extremities ,thigh and legs 5/5 Right side , 5/5 Left side deep tendon reflexes : normal Knee Jerk , normal ankle Jerk lumber facet Loading Test =positive Right , posiutive Left Range of motion of the lumbar spine Flexion 30 degrees, extension 10 degrees strait leg raising test = positive at degree Fabere test= positive Right , and positive LT . tenderness over the Sacroiliac joint on the Right , and Left sides Gaenslen test= positive right ,and positive left . Seated flexion test= positive right ,and positive Left . - Constitutional Constitutional Comment(s): MRI of the lumbar spine done at open MRI 01/27/2019= L3 4 L4 5 and L5-S1 disc this occasion and L3 4 L4 5 and L5-S1 lumbar spondylosis with facet arthropathy Assessment and Plan Plan: Assessment and plan= chronic severe low back pain secondary to lumbar spondylosis with lumbar facet arthropathy and lumbar degenerative disc disease Patient had minimal benefit after lumbar epidural steroid injection under fluoroscopy guidance ( done previously) Patient will be good candidate to have diagnostic medial branch block lumbar area L2, L3, L4, L5 x2 and if it's positive then we will proceed with radiofrequency thermocoagulation, treatment plan discussed with the patient she agreed with proceeding Time with Patient: Less than 30 PQRS Measure Charge Sheet Measure #130: Documentation of Current Meds in Medical Chart: Patient's medications documented in chart Measure #226: Tobacco Use: Screen & Cessation Intervention: Pt screened for tobacco use AND intervention given Measure #111: Pneumonia Vaccination: Pneumococcal vaccine administered or previously received Measure #47: Advance Care Plan: Advance care planning discussed & documented, pt chose/unable to give Measure #412: Opioid Treatment Agreement: No documentation of signed opioid treatment agreement Measure #408: Opioid Therapy Follow-up Evaluation: Patient had NO f/u eval minimum every 3 months during opioid therapy Measure #317: Preventitive Care & Scrn High Bld Press & F/U: Pre-hypertensive or hypertensive BP documented, pt will f/u with PCP Measure #128: Body Mass Index (BMI) Screening & Follow-up: BMI documented ABOVE normal parameters - f/u documented Measure #131: Pain Assessment & Follow-up: Pain positive & plan documented, Follow-up scheduled Measure #431: Unhealthy Alcohol Use Preventative Care & Scrn: Patient not identified as an unhealthy alcohol user PQRS Narrative: Smoking Status Current every day smoker Blood Pressure 176/92 Pain Intensity [Lower Back] 8 Scale Used Numeric (1 - 10) Hx Alcohol Use (MH) Yes Home Medications: Ambulatory Orders metFORMIN HCL [Glucophage] 1,000 mg PO AC-BID 10/06/14 DULoxetine HCL [Cymbalta] 90 mg PO DAILY 05/10/15 OXcarbazepine [Trileptal] 1,200 mg PO HS 10/07/16 Isosorbide Mononitrate ER [Imdur] 30 mg PO DAILY 10/22/16 Liraglutide [Victoza 2-Fredo] 1.8 mg SQ HS 04/21/17 Pioglitazone [Actos] 30 mg PO DAILY 04/21/17 Verapamil HCl [Verapamil ER] 240 mg PO HS 12/19/17 Acetaminophen with Codeine [Tylenol w/codeine #4] 1 tab PO Q6H PRN 08/16/18 Naproxen [Naprosyn] 500 mg PO BID-W/MEALS 08/16/18 Pregabalin [Lyrica] 100 mg PO TID 08/16/18 Albuterol Inhaler [Ventolin Hfa Inhaler] 1 - 2 puff INHALATION RT-Q6H PRN 10/15/18 Atorvastatin [Lipitor] 80 mg PO HS 10/15/18 busPIRone HCL 15 mg PO BID 10/15/18 Insulin Glargine [Lantus] 16 unit SQ HS 06/13/19 Methocarbamol [Robaxin] 500 mg PO BID 06/13/19 Mirtazapine 30 mg PO HS 06/13/19 Pramipexole Di-HCl [Mirapex] 0.5 mg PO HS 06/13/19 ALPRAZolam [Xanax] 0.5 mg PO TID PRN 06/15/19 Aspirin [Adult Low Dose Aspirin EC] 81 mg PO DAILY 08/26/19 Controlled Substance Measures - Controlled Substance Measures Is patient prescribed a controlled substance at discharge?: No
== END | disposition home or self-care (01) ==
LOC: PNWHC3 12:23
PROVIDERS: ATTEND Specialist
DX: G89.29 Other chronic pain (principal); M51.36 Other intervertebral disc degeneration, lumbar region; M47.816 Spondylosis without myelopathy or radiculopathy, lumbar region; M46.96 Unspecified inflammatory spondylopathy, lumbar region; F17.200 Nicotine dependence, unspecified, uncomplicated; Z79.84 Long term (current) use of oral hypoglycemic drugs; Z79.1 Long term (current) use of non-steroidal anti-inflammatories (NSAID); Z79.4 Long term (current) use of insulin; Z79.82 Long term (current) use of aspirin; Z79.899 Other long term (current) drug therapy
CPT/HCPCS: 99211

== ENCOUNTER 2019-10-05 06:53 | Day surgery (SDC) | payer MEDICARE ==
[2019-10-04 10:20] VITALS: BMI 42.5
[2019-10-05 07:22] VITALS: TEMP 98.1
[2019-10-05] MEDS: LACTATED RINGERS 1,000 ML IV SCH ×2 (07:23→08:03)
[2019-10-05 07:37] LABS: Glucose,Whole Blood 111 mg/dL (75-99)
--- NOTE | 2019-10-05 08:29 | P.PCN ---
Date of Procedure: 10/05/19 Procedure(s) Performed: PREOPERATIVE DIAGNOSIS : Lumbar spondylosis with Facet Arthropathy without myelopathy POSTOPERATIVE DIAGNOSIS: same PROCEDURE: First Diagnostic lumbar medial branch block with fluoroscopy at L2, L3, L4, L5 [bilateral] which covers facets L3-4, L4-5 and L5-S1 ANESTHESIA: Local anesthetic; moderate IV sedation with Versed 1 mg, sedation time 14 minutes Fluoroscopy was used for the procedure and images were saved in the radiology portion of the chart. Surgeon: Jani Ha MD PROCEDURE INDICATION: Lumbar back pain without radiculopathy, not responsive to conservative management. PROCEDURE DESCRIPTION: the patient was seen and identified in the preop holding area , risks and benefits and possible complications of the procedure and alternatives were discussed with the patient, and the patient agreed to proceed with the procedure and signed the consent . IV was started , vital signs were monitored during the procedure and fluoroscopy was used to maximize the benefit and accuracy of the needle placement, and sedation was given to decrease patient anxiety. Patient was taken to the procedure room and placed in prone position. The lumbar region was prepped using chlorhexidineX-2. Under strict sterile technique using AP fluoroscopy the bilateral sacral ala were identified and using ipsilateral oblique fluoroscopy ,the junction of the transverse process and the superior articulating process of the L3, L4, L5 vertebra which corresponds to the fluoroscopy image of the eye of the Jack dog for the medial branches were identified. Subsequently, after local infiltration of skin with lidocaine 1% 0.2 mL at each level , a 22 gauge 5 inch Quincke-type needle was placed at the junction of the base of the transverse process and the superior articular process at the appropriate level as well as the sacral ala, and the needle was advanced until the periosteum contacted, needle placement confirmed with AP and oblique fluoroscopy, 0.2 mL of Isovue 200 per level was injected which revealed no vascular uptake and after negative aspiration, 0.5 mL of Lidocaine 4% was injected at each level and the needle subsequently removed . At the end of the procedure and the needles were removed and a bandage applied after the skin was cleaned. The patient was taken to recovery room in stable condition and monitors in the recovery room for 20-30 minutes and discharged home in stable condition after discharge criteria met and patient will follow up for repeat procedure in 2 weeks EBL: Minimal COMPLICATION: None.
[2019-10-05] MEDS ORDERED: IV FLUID CONTINUATION 1,000 ML IV ONE (08:34)
[2019-10-05 08:39] VITALS: RESP 17
--- NOTE | 2019-10-05 08:39 | FL ---
EXAMINATION TYPE: FL guided pain mgmt statistic DATE OF EXAM: 10/05/2019 HISTORY: Flouroscopy time 7 seconds of fluoroscopy provided. IMPRESSION: 1. Fluoroscopy time.
[2019-10-05 08:55] VITALS: BP 127/66; PULSE 78
== END 2019-10-05 09:10 | disposition home or self-care (01) ==
LOC: ORPAIN 06:53
PROVIDERS: ATTEND Anesthesiology
DX: G89.29 Other chronic pain (principal); M47.26 Other spondylosis with radiculopathy, lumbar region; Z79.1 Long term (current) use of non-steroidal anti-inflammatories (NSAID); Z79.891 Long term (current) use of opiate analgesic; Z79.899 Other long term (current) drug therapy; F17.200 Nicotine dependence, unspecified, uncomplicated; Z91.09 Other allergy status, other than to drugs and biological substances
CPT/HCPCS: 64493; 64494; 64495; J2250; Q9966; 99152

== ENCOUNTER 2019-10-31 06:55 | Day surgery (SDC) | payer MEDICARE ==
[2019-10-27 14:54] VITALS: BMI 43.7
[~2019-10-31 06:55] MED LIST changes: -IV FLUID CONTINUATION 1,000 ML IV ONE; -LACTATED RINGERS 1,000 ML IV ONE; -LIDOCAINE 1% 20 ML VIAL (10MG/ML) FOR IV START INTRADERMA ONE
[2019-10-31 07:20] VITALS: RESP 16; TEMP 97.3
[2019-10-31 07:33] LABS: Glucose,Whole Blood 116 mg/dL (75-99)
[2019-10-31] MEDS ORDERED: LACTATED RINGERS 1,000 ML IV ONE (08:22)
[2019-10-31 08:26] VITALS: PULSE 84
[2019-10-31 08:35] VITALS: BP 130/78
--- NOTE | 2019-10-31 09:59 | FL ---
Fluoroscopy HISTORY: Pain 9 seconds fluoroscopy time supplied to the referring clinician. 5 intraoperative C-arm images docume nt the procedure. See dictated report from anesthesia.
--- NOTE | 2019-10-31 15:24 | P.PCN ---
Date of Procedure: 10/31/19 Procedure(s) Performed: PREOPERATIVE DIAGNOSIS : Lumbar spondylosis with Facet Arthropathy without myelopathy POSTOPERATIVE DIAGNOSIS: same PROCEDURE: [first/second] Diagnostic lumbar medial branch block with fluoroscopy at L2, L3, L4, L5 [bilateral] which covers facets L3-4, L4-5 and L5- S1 ANESTHESIA: Local anesthetic; moderate IV sedation with Versed 1 mg, sedation time 18 minutes Fluoroscopy was used for the procedure and images were saved in the radiology portion of the chart. Surgeon: Jani Ha MD PROCEDURE INDICATION: Lumbar back pain without radiculopathy, not responsive to conservative management. PROCEDURE DESCRIPTION: the patient was seen and identified in the preop holding area , risks and benefits and possible complications of the procedure and alternatives were discussed with the patient, and the patient agreed to proceed with the procedure and signed the consent . IV was started , vital signs were monitored during the procedure and fluoroscopy was used to maximize the benefit and accuracy of the needle placement, and sedation was given to decrease patient anxiety. Patient was taken to the procedure room and placed in prone position. The lumbar region was prepped using chlorhexidineX-2. Under strict sterile technique using AP fluoroscopy the bilateral sacral ala were identified and using ipsilateral oblique fluoroscopy ,the junction of the transverse process and the superior articulating process of the L3, L4, L5 vertebra which corresponds to the fluoroscopy image of the eye of the Jack dog for the medial branches were identified. Subsequently, after local infiltration of skin with lidocaine 1% 0.2 mL at each level , a 22-guage 5" Quincke-type needle was placed at the junction of the base of the transverse process and the superior articular process at the appropriate level as well as the sacral ala, and the needle was advanced until the periosteum contacted, needle placement confirmed with AP and oblique fluoroscopy, 0.2 mL of Isovue 200 per level was injected which revealed no vascular uptake and after negative aspiration, 0.5 mL of ropivacaine 0.5% was injected at each level and the needle subsequently removed . At the end of the procedure and the needles were removed and a bandage applied after the skin was cleaned. The patient was taken to recovery room in stable condition and monitors in the recovery room for 20-30 minutes and discharged home in stable condition after discharge criteria met and patient will follow up in clinic in 2 weeks EBL: Minimal COMPLICATION: None.
== END 2019-10-31 09:02 | disposition home or self-care (01) ==
LOC: ORPAIN 06:55
PROVIDERS: ATTEND Anesthesiology
DX: M47.816 Spondylosis without myelopathy or radiculopathy, lumbar region (principal); E11.9 Type 2 diabetes mellitus without complications; Z79.82 Long term (current) use of aspirin
CPT/HCPCS: 64493; 64494; 64495; J2250; Q9966; 99152

== ENCOUNTER → 2019-11-23 | Outpatient (CLI) | payer MEDICARE ==
[2019-11-23 13:33] VITALS: BP 163/76; PULSE 87; RESP 18
--- NOTE | 2019-11-23 21:44 | P.PAINPG ---
Subjective Progress Note Date: 11/23/19 Mrs. Cannon is a 59-year-old female, who we have been following for low back pain. She is diagnosed with lumbar degenerative disc disease and lumbar spondylosis with lumbar facet arthropathy, She did receive a lumbar epidural steroid injection with very minimal benefit. Recently we have done diagnostic m edial branch block lumbar area 2 she get more than 70% improvement in her low back pain after each diagnostic block she reported that her pain was 8/10 before the block ,dropped to 2/10 after the block She continued to have severe low back pain, with occasional radiation to the lower extremity. The pain is constant and increased with any activity, she denies any motor or sensory deficit she is able to ambulate freely, but the intensity of the pain interferes with the quality of life and with activities of daily livings, she continued to use Robaxin 500 mg twice a day naproxen 500 mg twice a day, Tylenol for every 6 hours when necessary, Lyrica 100 mg 3 times a day, and also she gets Cymbalta 90 mg daily and Xanax 0.5 mg 3 times a day, and medication management by her primary care and she denies any side effect of the medication, she denies any fever or night sweats Objective - Vital Signs Vital signs: Vital Signs Temp Pulse 87 11/23/19 13:28 Resp 18 11/23/19 13:28 BP 163/76 11/23/19 13:28 Pulse Ox 97 11/23/19 13:28 - Exam -Constitutiona : Cooperative , not in acute distress . -HEENT : nech : supple , no Lymphadenopathy , normal thyroid size . : eyes : no ptosis , no icterus, no photophobia . - neurologic : Cranial nerve II to XII intact , no focal neurological deffecit . -psychatric : alert , oriented X 3 , appropriate affect , intact judgment and insight . -Lymphatic : no Lymphadenopathy . - musculoskeltal : Lumber spine moter stegnth lower extremities ,thigh and legs 5/5 Right side , 5/5 Left side deep tendon reflexes : normal Knee Jerk , normal ankle Jerk lumber facet Loading Test =positive Right , posiutive Left Range of motion of the lumbar spine Flexion 30 degrees, extension 10 degrees strait leg raising test = positive at degree Fabere test= positive Right , and positive LT . tenderness over the Sacroiliac joint on the Right , and Left sides Gaenslen test= positive right ,and positive left . Seated flexion test= positive right ,and positive Left . Assessment and Plan Plan: Assessment and plan= chronic low back pain secondary to lumbar spondylosis with lumbar facet arthropathy and lumbar degenerative disc disease She had positive results after diagnostic medial branch block lumbar area she will be good candidate to have radiofrequency ablation of the medial branch lumbar area at L2, L3, L4 and L5 were do the left side first, she will continue to get her prescription refills from her primary care Time with Patient: Less than 30 PQRS Measure Charge Sheet Measure #130: Documentation of Current Meds in Medical Chart: Patient's medications documented in chart Measure #226: Tobacco Use: Screen & Cessation Intervention: Pt screened for tobacco use AND intervention given Measure #111: Pneumonia Vaccination: Pneumococcal vaccine administered or previously received Measure #47: Advance Care Plan: Advance care planning discussed & documented, pt chose/unable to give Measure #412: Opioid Treatment Agreement: No documentation of signed opioid treatment agreement Measure #408: Opioid Therapy Follow-up Evaluation: Patient had NO f/u eval minimum every 3 months during opioid therapy Measure #317: Preventitive Care & Scrn High Bld Press & F/U: Pre-hypertensive or hypertensive BP documented, pt will f/u with PCP Measure #128: Body Mass Index (BMI) Screening & Follow-up: BMI documented ABOVE normal parameters - f/u documented Measure #131: Pain Assessment & Follow-up: Pain positive & plan documented, Follow-up scheduled Measure #431: Unhealthy Alcohol Use Preventative Care & Scrn: Patient not identified as an unhealthy alcohol user PQRS Narrative: Smoking Status Current every day smoker Blood Pressure 163/76 Pain Intensity [Lower Back] 6 Scale Used Numeric (1 - 10) Hx Alcohol Use (MH) Yes Home Medications: Ambulatory Orders metFORMIN HCL [Glucophage] 1,000 mg PO AC-BID 10/06/14 DULoxetine HCL [Cymbalta] 60 mg PO 1200,2100 05/10/15 OXcarbazepine [Trileptal] 1,200 mg PO HS 10/07/16 Isosorbide Mononitrate ER [Imdur] 30 mg PO DAILY 10/22/16 Liraglutide [Victoza 2-Fredo] 1.8 mg SQ HS 04/21/17 Pioglitazone [Actos] 30 mg PO DAILY 04/21/17 Verapamil HCl [Verapamil ER] 240 mg PO HS 12/19/17 Acetaminophen with Codeine [Tylenol w/codeine #4] 1 tab PO Q6H PRN 08/16/18 Naproxen [Naprosyn] 500 mg PO BID-W/MEALS 08/16/18 Pregabalin [Lyrica] 100 mg PO TID 08/16/18 Albuterol Inhaler [Ventolin Hfa Inhaler] 1 - 2 puff INHALATION RT-Q6H PRN 10/15/18 Atorvastatin [Lipitor] 80 mg PO HS 10/15/18 busPIRone HCL 15 mg PO BID 10/15/18 Insulin Glargine [Lantus] 16 unit SQ HS 06/13/19 Methocarbamol [Robaxin] 500 mg PO TID 06/13/19 Mirtazapine 30 mg PO HS 06/13/19 Pramipexole Di-HCl [Mirapex] 0.5 mg PO HS 06/13/19 ALPRAZolam [Xanax] 0.5 mg PO TID PRN 06/15/19 Aspirin [Adult Low Dose Aspirin EC] 81 mg PO DAILY 08/26/19 Budesonide/Formoterol Fumarate [Symbicort 160-4.5 Mcg Inhaler] 2 puff INHALATION DAILY 10/27/19 DULoxetine HCL [Cymbalta] 30 mg PO 1200 10/27/19 Controlled Substance Measures - Controlled Substance Measures Is patient prescribed a controlled substance at discharge?: No
== END | disposition home or self-care (01) ==
LOC: PNWHC3 13:09
PROVIDERS: ATTEND Specialist
DX: G89.29 Other chronic pain (principal); M51.36 Other intervertebral disc degeneration, lumbar region; M47.816 Spondylosis without myelopathy or radiculopathy, lumbar region; M46.96 Unspecified inflammatory spondylopathy, lumbar region; I45.4 Nonspecific intraventricular block; F17.200 Nicotine dependence, unspecified, uncomplicated; Z79.891 Long term (current) use of opiate analgesic; Z79.1 Long term (current) use of non-steroidal anti-inflammatories (NSAID); Z79.4 Long term (current) use of insulin; Z79.82 Long term (current) use of aspirin; Z79.51 Long term (current) use of inhaled steroids; Z79.899 Other long term (current) drug therapy
CPT/HCPCS: 99211

== ENCOUNTER 2019-12-15 07:03 | Day surgery (SDC) | payer MEDICARE ==
[2019-12-13 15:29] VITALS: BMI 42.5
[~2019-12-15 07:03] MED LIST changes: +LIDOCAINE 4% (PF) 5 ML AMP ONE; +MIDAZOLAM 2 MG/2 ML VIAL ONE; +fentaNYL (PF) 50 MCG/ML 2 ML AMP ONE
[2019-12-15 10:07] VITALS: TEMP 97.6
[2019-12-15 10:09] LABS: Glucose,Whole Blood 125 mg/dL (75-99)
--- NOTE | 2019-12-15 11:04 | P.PCN ---
Date of Procedure: 12/15/19 Procedure(s) Performed: PREOPERATIVE DIAGNOSIS: Lumbar Spondylosis POSTOPERATIVE DIAGNOSIS: Same PROCEDURES: Radiofrequency ablation of the L2, L3, L4, L5 medial branches with fluoroscopic guidance on the left side SURGEON: Jani Ha MD. ANESTHESIA: Lidocaine 1% 5 mL, Moderate sedation with intravenous Versed and fentanyl, sedation time 23 minutes EBL: Minimal Fluoroscopy was used for the procedure and images were saved in the radiology portion of the chart. PROCEDURE INDICATION: The patient with low back pain secondary to lumbar facet arthropathy who had more than 50% relief of pain with previous diagnostic lumbar medial branch block X2. PROCEDURE DESCRIPTION / TECHNIQUE: The patient was seen and identified in the preoperative area. Risks, benefits, complications, including but not limited to risk of infection ,bleeding , allergic reactions to the medications and incomplete pain relief , and alternatives were discussed with the patient, the patient agreed to proceed with the procedure and signed the consent. IV was started. The operative site was marked. Patient was taken to the OR and time out was completed. The patient was placed in the prone position on the procedure table. The lumbar area was prepped and draped in the usual sterile fashion. . Vital signs were closely monitored during the procedure .IV sedation was used during the procedure to decrease patients anxiety. Using AP and then oblique fluoroscopy, the "eye of the Jack dog" corresponding to the connection between the superior and transverse articular processes of the L3, L4 and L5 as well as the sacral ala were identified, marked, and localized with 1% lidocaine. Subsequently, an 18 guage 150 mm radiofrequency cannula with a 10-mm active tip was advanced guided by fluoroscopy to the identified target at each site. Needle positioning was confirmed on AP, oblique and lateral fluoroscopy. Motor testing at 2.5 Hz was done with paraspinal muscle stimulation only, and no radicular symptoms down the legs. Then 1 mL of 4% lidocaine was injected in each site. Radiofrequency thermocoagulation at 80 degrees celsius for 90 seconds was then performed. [place] were removed. Sterile dressings were applied. COMPLICATIONS: No acute complications. DISPOSITION / PLANS: The patient was placed in a supine position and transferred to the recovery area in a stable condition for observation and was discharged from the recovery room after meeting discharge criteria. Home discharge instructions given to the patient by the staff. The patient will follow up for right-sided procedure in 2 weeks. Today, the patient is requesting a left hip injection as well. She has under gone left hip injections in the past with good results. She is primarily complaining of left hip pain radiating to left groin. We will schedule her to have a left hip intra-articular steroid injection at next procedure, provided we are able to get insurance authorization.
[2019-12-15] MEDS ORDERED: IV FLUID CONTINUATION 1,000 ML IV ONE (11:08)
[2019-12-15 11:16] VITALS: RESP 16
[2019-12-15 11:20] LABS: Glucose,Whole Blood 122 mg/dL (75-99)
[2019-12-15 11:33] VITALS: BP 140/65; PULSE 78
--- NOTE | 2019-12-15 13:08 | FL ---
Fluoroscopy HISTORY: Pain 19 seconds fluoroscopy time supplied to the referring clinician. 11 intraoperative C-arm images docu ment the procedure. See dictated report from anesthesia.
== END 2019-12-15 11:41 ==
LOC: ORPAIN 07:03
PROVIDERS: ATTEND Anesthesiology
DX: G89.29 Other chronic pain (principal); M47.816 Spondylosis without myelopathy or radiculopathy, lumbar region; M51.36 Other intervertebral disc degeneration, lumbar region; M25.552 Pain in left hip; R10.32 Left lower quadrant pain; F17.200 Nicotine dependence, unspecified, uncomplicated; Z79.1 Long term (current) use of non-steroidal anti-inflammatories (NSAID); Z79.899 Other long term (current) drug therapy; Z79.891 Long term (current) use of opiate analgesic; Z79.4 Long term (current) use of insulin; Z79.82 Long term (current) use of aspirin; Z79.51 Long term (current) use of inhaled steroids; Z90.710 Acquired absence of both cervix and uterus
CPT/HCPCS: 64635; 64636; J2001; J2250; J3010; 99152; 99153

== ENCOUNTER 2020-01-02 08:32 | Day surgery (SDC) | payer MEDICARE ==
[2019-12-29 11:48] VITALS: BMI 43.7
[~2020-01-02 08:32] MED LIST changes: +BUPIVACAINE (PF) 0.5% 30 ML VIAL ONE; +IOPAMIDOL M200 10 ML VIAL ONE; -LACTATED RINGERS 1,000 ML IV SCH; +LIDOCAINE 1% INJ 10MG/ML (20 ML MDV) ONE; -LIDOCAINE 4% (PF) 5 ML AMP ONE; +methylPREDNISolone ACETATE 40 MG/ML 1 ML VIAL ONE
--- NOTE | 2020-01-02 09:04 | P.PCN ---
Date of Procedure: 01/02/20 Description of Procedure: PREOPERATIVE DIAGNOSIS: Lumbar Facet Arthropathy without myelopathy POSTOPERATIVE DIAGNOSIS: Same PROCEDURES: RIGHT Radiofrequency thermocoagulation of L2-3, L3 4, L4 5 medial branches, with fluoroscopic guidance ANESTHESIA: IV sedation with versed and fentanyl and local infiltration with lidocaine 1% 10 ml Imaging: Fluoroscopy was used, images where saved to the medical record PROCEDURE INDICATION: The patient with low back pain secondary to lumbar facet arthropathy who had more than 50% relief of pain with previous diagnostic lumbar medial branch block with local anesthetic. PROCEDURE DESCRIPTION / TECHNIQUE: The patient was seen and identified in the preoperative area. Risks, benefits, complications, including but not limited to risk of infection ,bleeding , allergic reactions to the medications and no complete pain relief , and alternatives were discussed with the patient, the patient agreed to proceed with the procedure and signed the consent. IV was started. Vital signs remained stable throughout the procedure. Patient was taken to the OR and time out was completed. The patient was placed in the prone position on the procedure table. The lumber area was prepped and draped in the usual sterile fashion. Vital signs were closely monitored during the procedure. IV sedation was used during the procedure to decrease patient anxiety. Using AP and then oblique fluoroscopy, the eye of the Jack dog corresponding to the connection between the superior and transverse articular processes of L2, L3, L4, L5, marked, and localized with 1% lidocaine. Subsequently, a 20 [id number] radiofrequency cannula with a 10-mm active tip was advanced guided by fluoroscopy to the junction of the pedicle and transverse process of each identified level. Each site then underwent sensory testing at 50 Hz and 0 to 1 volt and motor testing at 2.5 Hz and 0 to 3 volt with local stimulation, no radicular symptoms sensed by the patient and no obvious motor stimulation noted. Thereafter the tested sites underwent radiofrequency thermocoagulation at 80 degrees celsius for 90 seconds after injecting 1 ml of PF lidocaine 1%. Then after the thermocoagulation was done, 1 ml of the block solution containing ropivaciane 0.5% was injected at the lesioned sites after negative aspiration of CSF and blood and with no paresthesias. Cannulas were retracted. At the end of the procedure, the skin was cleansed and bandages were applied. COMPLICATIONS: No acute complications. DISPOSITION / PLANS: The patient was placed in a supine position and transferred to the recovery area in a stable condition for observation and was discharged from the recovery room after meeting discharge criteria. Home discharge instructions given to the patient by the staff. The patient was reexamined prior to discharge. Patient will follow up as directed.
--- NOTE | 2020-01-02 09:05 | P.PCN ---
Date of Procedure: 01/02/20 Description of Procedure: Pre OP diagnoses: trochanteric bursitis Postoperative diagnosis: trochanteric bursitis Procedure: Right Trochanteric bursa injection under fluoroscopy Imaging: Fluoroscopy was used, images where saved to the medical record Anesthesia: Local with 1% lidocaine with IV moderate sedation Description of the procedure: Risks, benefits, and alternatives of the procedure including but not limited to risk of infection, bleeding and incomplete pain relief, possible allergic reaction to medications were discussed with the patient along with the alternatives were also discussed with the patient and they agreed to proceed to the operating room. The patient was Placed in the supine position and standard monitors applied patient. The right back and the hip area prepped with chlorhexidine 3 times, and under sterile technique a 25g 1.5" needle was used to anesthetize the skin with 5ml of 1% lidocaine. After adequete localization, a 22g spinal needle was advanced under fluoroscopy to the trochanteric bursa under fluoroscopy and placed in the trochanteric bursa. Confirmation of the procedure was done under fluoroscopy. After negative aspiration, 5 mL of 0.5% ropivacaine along with 40mg of depomedrol was placed into the bursa. Patient tolerated the procedure well. Complications: none Follow up: Discharge material was given to the patient along with aftercare instructions. Patient will follow up as directed.
[2020-01-02] MEDS: LACTATED RINGERS 1,000 ML IV SCH ×2 (09:10→09:11)
[2020-01-02 09:11] LABS: Glucose,Whole Blood 138 mg/dL (75-99)
[2020-01-02 09:25] VITALS: TEMP 97.7
[2020-01-02] MEDS ORDERED: IV FLUID CONTINUATION 600 ML IV ONE (09:50)
[2020-01-02 10:02] VITALS: BP 126/64; PULSE 81; RESP 16
--- NOTE | 2020-01-02 10:11 | FL ---
EXAMINATION TYPE: FL guided pain mgmt statistic DATE OF EXAM: 01/02/2020 HISTORY: Fluoroscopy time 24 seconds of fluoroscopy provided. IMPRESSION: 1. Fluoroscopy time.
== END 2020-01-02 10:43 | disposition home or self-care (01) ==
LOC: ORPAIN 08:32
PROVIDERS: ATTEND Hospitalist
DX: M47.816 Spondylosis without myelopathy or radiculopathy, lumbar region (principal); E11.9 Type 2 diabetes mellitus without complications; Z90.710 Acquired absence of both cervix and uterus; Z79.82 Long term (current) use of aspirin
CPT/HCPCS: 20610; 64635; 64636 ×2; J2250; J1030; J2001; J3010; Q9966; G0463; 99152; 99153; 99211

== ENCOUNTER → 2020-05-16 | Outpatient (CLI) | payer MEDICARE ==
--- NOTE | 2020-05-16 18:49 | CONS ---
CONSULTATION DATE OF SERVICE: 05/16/2020 This patient is a 60-year-old lady who has been [facility]uated [facility] for obstructive sleep apnea-hypopnea syndrome. HISTORY OF PRESENT ILLNESS/SLEEP-WAKE EVALUATION: Patient has a history of obstructive sleep apnea. Last titration was done on 03/16/2017. At that time her breathing was under control with CPAP. She received her CPAP unit but had difficulties with the usage of CPAP because it was difficult for her to breathe with the machine, and also her machine was lost. At present her sleep schedule is from 10 p.m. to 4 a.m. No problems with falling asleep, although she has a TV set in the bedroom. She sleeps on the back and side positions. She snores, has episodes of stopped breathing during sleep, wakes up from sleep 6 times with nocturia. Also she has episodes of dry mouth, panic attacks, restless legs. In the morning she wakes up tired, has difficulties paying attention, falling asleep during the day, worries about his sleep, has problems with memory, concentration, irritability, depression, anxiety, claustrophobia. Datil Sleepiness Scale is significantly increased at 18. PAST MEDICAL HISTORY: Positive for hypertension, COPD, hyperlipidemia, diabetes, anxiety, major depression with manic episodes, bipolar, memory problems, spondylosis. PAST SURGICAL HISTORY: Cholecystectomy, tonsillectomy, partial hysterectomy. MEDICATIONS: Lantus, Victoza, BuSpar, Trileptal, Lipitor, isosorbide, Mirapex, verapamil, Actos, metformin, Cymbalta, Lyrica, baby aspirin, naproxen, Xanax, Symbicort, Ventolin, methocarbamol, [place], Prozac. SOCIAL HISTORY: Alcohol consumption occasional. FAMILY HISTORY: Heart problems. PHYSICAL EXAMINATION: GENERAL: A pleasant lady without distress. VITAL SIGNS: BP 150/65, HR 92, RR 16, height 5 feet 7 inches, weight 284, BMI 44.3, temperature 98.1, oxygen saturation at room air 96%. HEENT: PERRLA, EOMI. Evaluation of oropharynx showed tongue protrudes midline. Low position of soft palate. NECK: Supple. No JVD. Thyroid is not palpable. Wide neck; 16-1/2 inches in circumference. LUNGS: Clear to percussion and to auscultation. Good air exchange. No wheezing or rhonchi. HEART: S1, S2 regular. No murmurs, gallops or rubs. ABDOMEN: Obese. EXTREMITIES: No clubbing or cyanosis. ENVIRONMENT ARTIST: Awake, alert, and oriented X3. Cranial nerves 2 to 7 intact. There is no fasciculation or atrophy. noted. No focal deficits observed. IMPRESSION: 1. Obstructive sleep apnea-hypopnea syndrome. The patient did not use CPAP equipment for about 3 years. Previously had difficulties with the usage of CPAP. 2. Chronic obstructive pulmonary disease. 3. Hypertension. 4. Obesity. 5. Anxiety. 6. Major depression with manic episodes. 7. Bipolar. 8. Memory problems. 9. Diabetes mellitus. 10.Spondylosis. 11.Status post cholecystectomy. 12.Status post tonsillectomy. 13.Unsteady gait. PLAN: 1. Falling precautions. 2. Polysomnography for evaluation of patient's breathing during sleep. 3. CPAP, if necessary BiPAP titration, if sleep study confirms obstructive sleep apnea- hypopnea syndrome. 4. Preferable position during sleep on the side. 5. No driving if patient feels any sleepiness. 6. I will see patient for follow up visit to explain results of testing and following plan. Thank you very much for allowing me to participate in the management of your patient. Sincerely, Pierre Siddiqi MD, PhD, FAASM Diplomat of [employer] [facility] [place] MMODL / JOSEN: [id number] /
== END | disposition home or self-care (01) ==
LOC: SLEEP 13:56
PROVIDERS: ATTEND Internal Medicine
DX: G47.33 Obstructive sleep apnea (adult) (pediatric) (principal); J44.9 Chronic obstructive pulmonary disease, unspecified; F41.9 Anxiety disorder, unspecified; I10 Essential (primary) hypertension; E66.9 Obesity, unspecified; F30.9 Manic episode, unspecified; E11.9 Type 2 diabetes mellitus without complications; R41.3 Other amnesia; M47.819 Spondylosis without myelopathy or radiculopathy, site unspecified; Z90.49 Acquired absence of other specified parts of digestive tract; R26.81 Unsteadiness on feet; Z90.09 Acquired absence of other part of head and neck; Z68.41 Body mass index [BMI] 40.0-44.9, adult; Z79.1 Long term (current) use of non-steroidal anti-inflammatories (NSAID); Z79.84 Long term (current) use of oral hypoglycemic drugs; Z79.82 Long term (current) use of aspirin; Z79.4 Long term (current) use of insulin; Z79.891 Long term (current) use of opiate analgesic; Z79.899 Other long term (current) drug therapy

== ENCOUNTER → 2020-05-24 | Outpatient (CLI) | payer MEDICARE ==
--- NOTE | 2020-05-24 13:15 | P.PAINPG ---
Subjective Progress Note Date: 05/24/20 Mrs. Cnanon is a 60-year-old female, who we have been following for low back pain. She is diagnosed with lumbar degenerative disc disease and lumbar spondylosis with lumbar facet arthropathy, She is currently having severe low back pain, with occasional radiation to the lower extremity. The pain is cons tant and increased with any activity, she denies any motor or sensory deficit she is able to ambulate freely, but the intensity of the pain interferes with the quality of life and with activities of daily livings, she continued to use Robaxin 500 mg twice a day naproxen 500 mg twice a day, [place] 7.5/325 every 8 hours when necessary, Lyrica 100 mg 3 times a day, and medication management by her primary care and she denies any side effect of the medication, she denies any fever or night sweats Objective - Vital Signs Vital signs: Vital Signs Temp Pulse 94 05/24/20 12:54 Resp 18 05/24/20 12:54 BP 135/70 05/24/20 12:54 Pulse Ox 96 05/24/20 12:54 - Exam Physical Examinations : -Constitutiona : Cooperative , not in acute distress . -HEENT : nech : supple , no Lymphadenopathy , normal thyroid size . : eyes : no ptosis , no icterus, no photophobia . - neurologic : Cranial nerve II to XII intact , no focal neurological deffecit . -psychatric : alert , oriented X 3 , appropriate affect , intact judgment and insight . -Lymphatic : no Lymphadenopathy . - musculoskeltal : Lumber spine moter stegnth lower extremities ,thigh and legs 5/5 Right side , 4/5 Left side deep tendon reflexes : normal Knee Jerk , normal ankle Jerk lumber facet Loading Test =positive Right , positive Left Range of motion of the lumbar spine Flexion 30 degrees, extension 10 degrees strait leg raising test = positive at 30 degree in the left side ,and negative on the right side Fabere test= positive Right , and positive LT . Sever tenderness over the Sacroiliac joint on the Right , and Left sides Gaenslen test= positive right ,and positive left . Seated flexion test= positive right ,and positive Left . Assessment and Plan Plan: Assessment and plan=1-bilateral sacroiliitis. 2-lumbar degenerative disc disease. 3-lumbar spondylosis with lumbar facet arthropathy. Patient will be good candidate to have bilateral sacroiliac joint steroid injections under fluoroscopy guidance, She should continue to use her current medications Lyrica milligrams 3 times a day naproxen 500 mg twice a [place] 7.5/325 every 8 hours when necessary, and she is getting prescription refill from her primary care Time with Patient: Less than 30 PQRS Measure Charge Sheet Measure #130: Documentation of Current Meds in Medical Chart: Patient's medications documented in chart Measure #226: Tobacco Use: Screen & Cessation Intervention: Pt screened for tobacco use AND intervention given Measure #111: Pneumonia Vaccination: Pneumococcal vaccine administered or previously received Measure #47: Advance Care Plan: Advance care planning discussed & documented, pt chose/unable to give Measure #412: Opioid Treatment Agreement: No documentation of signed opioid treatment agreement Measure #408: Opioid Therapy Follow-up Evaluation: Patient had NO f/u eval minimum every 3 months during opioid therapy Measure #317: Preventitive Care & Scrn High Bld Press & F/U: Normal blood pressure, f/u not required Measure #128: Body Mass Index (BMI) Screening & Follow-up: BMI documented ABOVE normal parameters - f/u documented Measure #131: Pain Assessment & Follow-up: Pain positive & plan documented, Follow-up scheduled Measure #431: Unhealthy Alcohol Use Preventative Care & Scrn: Patient not identified as an unhealthy alcohol user PQRS Narrative: Smoking Status Current every day smoker Blood Pressure 135/70 Pain Intensity [Left Hip] 9 Pain Intensity [Lower Back] 8 Scale Used Numeric (1 - 10) Hx Alcohol Use (MH) Yes Home Medications: Ambulatory Orders metFORMIN HCL [Glucophage] 1,000 mg PO AC-BID 10/06/14 OXcarbazepine [Trileptal] 1,200 mg PO HS 10/07/16 Isosorbide Mononitrate ER [Imdur] 30 mg PO DAILY 10/22/16 Liraglutide [Victoza 2-Fredo] 1.8 mg SQ HS 04/21/17 Pioglitazone [Actos] 30 mg PO DAILY 04/21/17 Verapamil HCl [Verapamil ER] 240 mg PO HS 12/19/17 Naproxen [Naprosyn] 500 mg PO BID-W/MEALS 08/16/18 Pregabalin [Lyrica] 100 mg PO TID 08/16/18 Albuterol Inhaler (Mhu) [Ventolin Hfa Inhaler] 1 - 2 puff INHALATION RT-Q6H PRN 10/15/18 Atorvastatin [Lipitor] 80 mg PO HS 10/15/18 busPIRone HCL 15 mg PO BID 10/15/18 Insulin Glargine [Lantus] 16 unit SQ HS 06/13/19 Methocarbamol [Robaxin] 500 mg PO TID 06/13/19 Mirtazapine 30 mg PO HS 06/13/19 Pramipexole Di-HCl [Mirapex] 0.5 mg PO HS 06/13/19 ALPRAZolam [Xanax] 0.5 mg PO TID PRN 06/15/19 Aspirin [Adult Low Dose Aspirin EC] 81 mg PO DAILY 08/26/19 Budesonide/Formoterol Fumarate [Symbicort 160-4.5 Mcg Inhaler] 2 puff INHALATION BID 10/27/19 DULoxetine HCL [Cymbalta] 90 mg PO 1200 10/27/19 HYDROcodone/APAP 7.5-325MG [[place] 7.5-325] 1 tab PO TID 05/15/20 Losartan (Unk.Dose) 1 tab PO DAILY 05/15/20 Controlled Substance Measures - Controlled Substance Measures Is patient prescribed a controlled substance at discharge?: No
[2020-05-25 04:42] VITALS: BP 135/70; PULSE 94; RESP 18
== END | disposition home or self-care (01) ==
LOC: PNWHC3 12:40
PROVIDERS: ATTEND Specialist
DX: M51.36 Other intervertebral disc degeneration, lumbar region (principal); M47.816 Spondylosis without myelopathy or radiculopathy, lumbar region; M46.1 Sacroiliitis, not elsewhere classified; F17.200 Nicotine dependence, unspecified, uncomplicated; Z79.891 Long term (current) use of opiate analgesic; Z79.899 Other long term (current) drug therapy; Z79.4 Long term (current) use of insulin; Z79.1 Long term (current) use of non-steroidal anti-inflammatories (NSAID); Z79.82 Long term (current) use of aspirin; Z79.51 Long term (current) use of inhaled steroids
CPT/HCPCS: 99211

== ENCOUNTER 2020-05-25 09:17 | Emergency (ER) | payer MEDICARE ==
--- NOTE | 2020-05-25 09:41 | ED ---
General Adult HPI - General Chief complaint: Extremity Injury, Lower Stated complaint: left leg & foot pain Time Seen by Provider: 05/25/20 09:22 Source: patient, RN notes reviewed, old records reviewed Mode of arrival: EMS Limitations: physical limitation - History of Present Illness Initial comments: 60-year-old female presents for evaluation of left knee and left hip pain status post fall which occurred yesterday. Patient was getting dressed, fell onto both knees and injured her left foot as well. She's had some swelling noted in the foot over the past 12 hours. She has previous history of osteoarthritis, she has had a left ankle surgery in the past. She denies head neck or back trauma. She has been ambulating on both extremity with some pain predominantly in the left. - Related Data Home Medications Medication Instructions Recorded Confirmed metFORMIN HCL [Glucophage] 1,000 mg PO AC-BID 10/06/14 05/15/20 OXcarbazepine [Trileptal] 1,200 mg PO HS 10/07/16 05/15/20 Isosorbide Mononitrate ER [Imdur] 30 mg PO DAILY 10/22/16 05/15/20 Liraglutide [Victoza 2-Fredo] 1.8 mg SQ HS 04/21/17 05/15/20 Pioglitazone [Actos] 30 mg PO DAILY 04/21/17 05/15/20 Verapamil HCl [Verapamil ER] 240 mg PO HS 12/19/17 05/15/20 Naproxen [Naprosyn] 500 mg PO BID-W/MEALS 08/16/18 05/15/20 Pregabalin [Lyrica] 100 mg PO TID 08/16/18 05/15/20 Albuterol Inhaler (Mhu) [Ventolin 1 - 2 puff INHALATION RT-Q6H PRN 10/15/18 05/15/20 Hfa Inhaler] Atorvastatin [Lipitor] 80 mg PO HS 10/15/18 05/15/20 busPIRone HCL 15 mg PO BID 10/15/18 05/15/20 Insulin Glargine [Lantus] 16 unit SQ HS 06/13/19 05/15/20 Methocarbamol [Robaxin] 500 mg PO TID 06/13/19 05/15/20 Mirtazapine 30 mg PO HS 06/13/19 05/15/20 Pramipexole Di-HCl [Mirapex] 0.5 mg PO HS 06/13/19 05/15/20 ALPRAZolam [Xanax] 0.5 mg PO TID PRN 06/15/19 05/15/20 Aspirin [Adult Low Dose Aspirin EC] 81 mg PO DAILY 08/26/19 05/15/20 Budesonide/Formoterol Fumarate 2 puff INHALATION BID 10/27/19 05/15/20 [Symbicort 160-4.5 Mcg Inhaler] DULoxetine HCL [Cymbalta] 90 mg PO 1200 10/27/19 05/15/20 HYDROcodone/APAP 7.5-325MG [[place] 1 tab PO TID 05/15/20 05/15/20 7.5-325] Losartan (Unk.Dose) 1 tab PO DAILY 05/15/20 05/15/20 Allergies Allergy/AdvReac Type Severity Reaction Status Date / Time No Known Allergies Allergy Verified 05/25/20 09:37 Review of Systems ROS Statement: Those systems with pertinent positive or pertinent negative responses have been documented in the HPI. ROS Other: All systems not noted in ROS Statement are negative. Past Medical History Past Medical History: Asthma, Chest Pain / Angina, COPD, Diabetes Mellitus, Fibromyalgia, Hyperlipidemia, Hypertension, Neurologic Disorder, Osteoarthritis (OA), Sleep Apnea/CPAP/BIPAP Additional Past Medical History / Comment(s): Back pain, fall at home March 2019, pain with standing/walking. Hx Restless Leg, neuropathy, more foot pain recently, no CPAP use, DDD, occasional chest pain and SOB. recent vision changes be evaluated and tested by dr lt hip pain to begin physical therapy History of Any Multi-Drug Resistant Organisms: None Reported Past Surgical History: Cholecystectomy, Heart Catheterization, Hysterectomy, Orthopedic Surgery, Tonsillectomy Additional Past Surgical History / Comment(s): Colonoscopy, tendon repair on left foot, epidural for pain, pain clinic procedures. filipe cataract Past Anesthesia/Blood Transfusion Reactions: Motion Sickness Past Psychological History: Anxiety, Bipolar, Depression, PTSD Smoking Status: Current every day smoker Past Alcohol Use History: Rare Additional Past Alcohol Use History / Comment(s): Quit smoking in 2010, using vape now, smoked approx 40 yrs, 2PPD. Past Drug Use History: None Reported Additional Drug Use History / Comment(s): . - Past Family History Father Family Medical History: CVA/TIA, Diabetes Mellitus, Hypertension Additional Family Medical History / Comment(s): CATARACTS, AAA. General Exam Limitations: physical limitation General appearance: alert, in no apparent distress Head exam: Present: atraumatic, normocephalic Eye exam: Present: normal appearance, PERRL, EOMI ENT exam: Present: normal exam Neck exam: Present: normal inspection. Absent: tenderness, meningismus Respiratory exam: Present: normal lung sounds bilaterally. Absent: respiratory distress, wheezes Cardiovascular Exam: Present: regular rate, normal rhythm GI/Abdominal exam: Present: soft. Absent: distended, tenderness, guarding, rebound Extremities exam: Present: pedal edema (Trace bilateral pedal edema, she has some soft tissue swelling and early ecchymosis in the left foot just proximal to the base of the second and third digit. She has a superficial abrasion to the left knee, no gross deformity noted, normal range of motion, distal pulses are intact.), joint swelling Neurological exam: Present: alert, oriented X3. Absent: motor sensory deficit Psychiatric exam: Present: normal affect, normal mood Skin exam: Present: warm, dry, intact. Absent: cyanosis, diaphoretic Course Vital Signs 05/25/20 05/25/20 09:22 11:27 Temperature 98.1 F Pulse Rate 85 76 Respiratory 18 17 Rate Blood Pressure 124/63 122/67 O2 Sat by Pulse 96 97 Oximetry Medical Decision Making - Medical Decision Making 60-year-old female presenting status post fall with multiple pain complaints including left foot, both knees, left hip and low back. Injury occurred yesterday with no alarming features on history or physical exam. X-rays are performed which are negative for any acute bony abnormality showing diffuse osteoarthritis. X-rays of the foot, both knees, left hip, and lumbar spine were performed. She does have a normal CBC, elevated blood glucose and she will monitor this at home she is a known diabetic. She has [place] prescribed her for chronic pain and will continue this medication. She will follow-up with her primary care physician. - Lab Data Result diagrams: 05/25/20 09:44 05/25/20 09:44 Lab Results 05/25/20 05/25/20 Range/Units 09:44 09:44 WBC 8.7 (3.8-10.6) k/uL RBC 4.69 (3.80-5.40) m/uL Hgb 13.5 (11.4-16.0) gm/dL Hct 42.3 (34.0-46.0) % MCV 90.2 (80.0-100.0) fL MCH 28.7 (25.0-35.0) pg MCHC 31.8 (31.0-37.0) g/dL RDW 14.8 (11.5-15.5) % Plt Count 378 (150-450) k/uL Neutrophils % 69 % Lymphocytes % 19 % Monocytes % 5 % Eosinophils % 4 % Basophils % 1 % Neutrophils # 6.0 (1.3-7.7) k/uL Lymphocytes # 1.6 (1.0-4.8) k/uL Monocytes # 0.5 (0-1.0) k/uL Eosinophils # 0.3 (0-0.7) k/uL Basophils # 0.1 (0-0.2) k/uL Sodium 133 L (137-145) mmol/L Potassium 4.3 (3.5-5.1) mmol/L Chloride 98 (98-107) mmol/L Carbon Dioxide 27 (22-30) mmol/L Anion Gap 8 mmol/L BUN 6 L (7-17) mg/dL Creatinine 0.37 L (0.52-1.04) mg/dL Est GFR (CKD-EPI)AfAm >90 (>60 ml/min/1.73 sqM) Est GFR (CKD-EPI)NonAf >90 (>60 ml/min/1.73 sqM) Glucose 257 H (74-99) mg/dL Calcium 8.6 (8.4-10.2) mg/dL Disposition Clinical Impression: Contusion of foot, Knee strain Disposition: HOME SELF-CARE Condition: Fair Instructions (If sedation given, give patient instructions): Knee Pain (ED), Knee Sprain (ED), Foot Contusion (ED) Is patient prescribed a controlled substance at d/c from ED?: No Referrals: Aditya Nelson MD [Primary Care Provider] - 1-2 days Time of Disposition: 12:17
[2020-05-25 10:05] LABS: Basophils # (A) 0.1 k/uL (0-0.2); Basophils % (A) 1 %; Eosinophils # (A) 0.3 k/uL (0-0.7); Eosinophils % (A) 4 %; HCT 42.3 % (34.0-46.0); HGB 13.5 gm/dL (11.4-16.0); Lymphocytes # (A) 1.6 k/uL (1.0-4.8); Lymphocytes % (A) 19 %; MCH 28.7 pg (25.0-35.0); MCHC 31.8 g/dL (31.0-37.0); MCV 90.2 fL (80.0-100.0); Mean Platelet Volume 7.2; Monocytes # (A) 0.5 k/uL (0-1.0); Monocytes % (A) 5 %; Neutrophils % (A) 69 %; Platelet Count 378 k/uL (150-450); RBC 4.69 m/uL (3.80-5.40); RDW 14.8 % (11.5-15.5); WBC 8.7 k/uL (3.8-10.6)
[2020-05-25 10:15] LABS: African American GFR (CKD) >90 (>60 ml/min/1.73 sqM); Anion Gap 8 mmol/L; Blood Urea Nitrogen 6 mg/dL (7-17); Calcium 8.6 mg/dL (8.4-10.2); Carbon Dioxide 27 mmol/L (22-30); Chloride 98 mmol/L (98-107); Glucose 257 mg/dL (74-99); Non-African American GFR(CKD) >90 (>60 ml/min/1.73 sqM); Potassium 4.3 mmol/L (3.5-5.1); Sodium 133 mmol/L (137-145)
--- NOTE | 2020-05-25 10:30 | XR ---
Left knee HISTORY: Pain, trauma 3 views of the left knee Osteoarthritic changes present. Alignment and bone mineralization are maintained. There may be minima l joint effusion. IMPRESSION: No fracture or dislocation. Osteoarthritis.
--- NOTE | 2020-05-25 10:31 | XR ---
Left foot HISTORY: Trauma and pain 3 views left foot Bone mineralization is reduced. Alignment and joint spaces are maintained. There is soft tissue swell ing present. There is a plantar calcaneal spur. Degenerative changes present at the intertarsal joint s, tarsometatarsal joints. Small ossific densities anterior to the distal tibia are well-corticated a nd not felt likely to be acute. Correlate for tenderness. IMPRESSION: Low bone mineralization could limit sensitivity. No fracture or dislocation is evident. F ollow-up as indicated.
[2020-05-25 10:45] VITALS: TEMP 98.1
--- NOTE | 2020-05-25 11:34 | XR ---
Lumbar spine HISTORY: Trauma and pain 3 views the lumbar spine, correlation to prior exam 02/28/2019 Lumbar vertebral bodies show stable height, alignment, and bone mineralization. There is multilevel s pondylosis as noted on prior exam. Loss of disc height present greatest at L3-4, L4-5 and L5-S1. Scle rosis present in the posterior elements is consistent with facet arthropathy. Apical scarring vascula r calcifications are present in the aortoiliac distribution. IMPRESSION: Degenerative disc disease and facet arthropathy.
--- NOTE | 2020-05-25 11:35 | XR ---
Left hip HISTORY: Trauma and pain 2 views of the left hip, correlation 06/28/2019 left hip There is joint space loss, marginal spurring consistent with osteoarthritic change. Alignment and bon e mineralization is maintained. Technique somewhat limited likely due to patient body habitus. IMPRESSION: No fracture or dislocation. There is been progression of patient's osteoarthritis.
--- NOTE | 2020-05-25 11:38 | XR ---
Right knee HISTORY: Pain 3 views of the right knee Correlation to prior right knee 06/28/2019 Osteoarthritic changes are again noted with joint space loss in the medial compartment with marginal spurring. Alignment and bone mineralization are stable. No evident joint effusion. Spurring also pres ent at the patellofemoral joint. IMPRESSION: No fracture or dislocation.
[2020-05-25 12:52] VITALS: BP 135/71; PULSE 82; RESP 19
== END 2020-05-25 12:48 | disposition home or self-care (01) ==
LOC: EC 09:17
DX: S90.32XA Contusion of left foot, initial encounter (principal); S86.812A Strain of other muscle(s) and tendon(s) at lower leg level, left leg, initial encounter; M17.12 Unilateral primary osteoarthritis, left knee; M51.36 Other intervertebral disc degeneration, lumbar region; M46.82 Other specified inflammatory spondylopathies, cervical region; M16.12 Unilateral primary osteoarthritis, left hip; J44.9 Chronic obstructive pulmonary disease, unspecified; M79.7 Fibromyalgia; I25.2 Old myocardial infarction; E78.5 Hyperlipidemia, unspecified; I10 Essential (primary) hypertension; E11.40 Type 2 diabetes mellitus with diabetic neuropathy, unspecified; F41.9 Anxiety disorder, unspecified; F31.9 Bipolar disorder, unspecified; F43.10 Post-traumatic stress disorder, unspecified; F17.200 Nicotine dependence, unspecified, uncomplicated; Z79.4 Long term (current) use of insulin; Z79.82 Long term (current) use of aspirin; Z79.51 Long term (current) use of inhaled steroids; Z79.1 Long term (current) use of non-steroidal anti-inflammatories (NSAID); Z79.899 Other long term (current) drug therapy; Z95.5 Presence of coronary angioplasty implant and graft; W18.30XA Fall on same level, unspecified, initial encounter; Y93.89 Activity, other specified; Y92.009 Unspecified place in unspecified non-institutional (private) residence as the place of occurrence of the external cause
CPT/HCPCS: 36415; 72100; 73502; 80048; 85025; 99284

== ENCOUNTER 2020-06-07 06:16 | Day surgery (SDC) | payer MEDICARE ==
[2020-06-06 11:57] VITALS: BMI 44.4
[~2020-06-07 06:16] MED LIST changes: -BUPIVACAINE (PF) 0.5% 30 ML VIAL ONE; -IOPAMIDOL M200 10 ML VIAL ONE; +LACTATED RINGERS 1,000 ML IV SCH; -LIDOCAINE 1% INJ 10MG/ML (20 ML MDV) ONE; -MIDAZOLAM 2 MG/2 ML VIAL ONE; -fentaNYL (PF) 50 MCG/ML 2 ML AMP ONE; -methylPREDNISolone ACETATE 40 MG/ML 1 ML VIAL ONE
[2020-06-07 06:55] VITALS: TEMP 97.7
[2020-06-07 06:58] LABS: Glucose,Whole Blood 170 mg/dL (75-99)
[2020-06-07] MEDS ORDERED: ROPIVACAINE 5MG/ML 20ML VIAL ONE (07:24)
[2020-06-07] MEDS ORDERED: MIDAZOLAM 2 MG/2 ML VIAL ONE (07:24)
[2020-06-07] MEDS ORDERED: TRIAMCINOLONE ACETONIDE 40 MG/ML 1 ML VIAL ONE (07:24)
[2020-06-07] MEDS ORDERED: fentaNYL (PF) 50 MCG/ML 2 ML AMP ONE (07:24)
[2020-06-07] MEDS ORDERED: IOPAMIDOL M200 10 ML VIAL ONE (07:24)
[2020-06-07 07:47] VITALS: RESP 16
--- NOTE | 2020-06-07 07:50 | P.PCN ---
Date of Procedure: 06/07/20 Procedure(s) Performed: Preoperative diagnoses: bilateral sacroilitis Postoperative diagnoses: bilateral sacroilitis. Procedure: bilateral sacroiliac joint steroid injection under fluoroscopic guidance. Surgeon: Jani Ha MD Anesthesia: [2 mL of 1% lidocaine and moderate sedation with Versed and fentanyl], sedation time 10 minutes Fluoroscopy was used for the procedure and fluoroscopic images were saved to the radiology portion of the patient's chart. EBL: None Procedure indication: The patient had a history of severe chronic low back pain, diagnosed with sacroiliitis unresponsive to conservative treatment. Procedure description: The patient was seen and identified in the preoperative holding area, risks and benefits and alternative of the procedure and possible complications discussed with the patient, and patient agreed with the preceding, patient signed the consent, an IV was started, and vital signs were monitored and were stable throughout the procedure, patient was placed in the prone position on table and the lumbosacral area was prepped and draped with a sterile fashion, vital signs were closely monitored during the procedure, the fluoroscopy camera was placed in the contralateral oblique view on the bilateral sacroiliac joint and the lower part of the joint was identified . Then the skin and subcutaneous tissue was anesthetized using 2 mL of 1% lidocaine then a 22- gauge Quincke-type spinal needle advanced slowly under fluoroscopy and placed in the posterior and inferior border of the right sacroiliac joint, placement confirmed with AP and lateral view, and after appropriate needle placement confirmed and after negative aspiration for heme, 1 mL of Isovue 200 was injected revealing intra-articular spread. Then a solution consisting of 2 ml of ropivacaine 0.5% and 20 mg of Kenalog injected after negative aspiration, no paresthesia during the injection, no resistance to injection, and the needle was removed. The procedure was then repeated on the left side. Total of 40 mg of Kenalog was used for the procedure. Patient tolerated the procedure well without any complication. The patient was returned to supine position after the back was cleaned and a Band-Aid applied, the patient was transported to recovery room in stable condition and monitored for 30 minutes before being discharged home. The patient will follow up with the pain clinic in a few weeks
[2020-06-07] MEDS ORDERED: IV FLUID CONTINUATION 1,000 ML IV ONE (07:59)
[2020-06-07 08:20] LABS: Glucose,Whole Blood 159 mg/dL (75-99)
--- NOTE | 2020-06-07 08:21 | FL ---
EXAMINATION TYPE: FL guided pain mgmt statistic DATE OF EXAM: 06/07/2020 HISTORY: Fluoroscopy time 7 seconds of fluoroscopy provided. IMPRESSION: 1. Fluoroscopy time.
[2020-06-07 08:26] VITALS: BP 86/49; PULSE 81
== END 2020-06-07 08:35 | disposition home or self-care (01) ==
LOC: ORPAIN 06:16
PROVIDERS: ATTEND Anesthesiology
DX: G89.29 Other chronic pain (principal); M46.1 Sacroiliitis, not elsewhere classified; Z90.710 Acquired absence of both cervix and uterus
CPT/HCPCS: J2250; J3301; J3010; Q9966; J2795; G0260; 99152

== ENCOUNTER → 2020-08-17 | Outpatient (CLI) | payer MEDICARE ==
--- NOTE | 2020-08-17 13:47 | US ---
EXAMINATION TYPE: US venous doppler duplex LE DATE OF EXAM: 08/17/2020 1:35 PM COMPARISON: NONE CLINICAL HISTORY: R60.0 Localized edema. no h/o dvt SIDE PERFORMED: Bilateral TECHNIQUE: The lower extremity deep venous system is examined utilizing real time linear array sonog ryan with graded compression, doppler sonography and color-flow sonography. VESSELS IMAGED: External Iliac Vein (EIV) Common Femoral Vein Deep Femoral Vein Greater Saphenous Vein * Femoral Vein Popliteal Vein Small Saphenous Vein * Proximal Calf Veins (* superficial vessels) Right Leg: Negative for DVT Left Leg: Negative for DVT IMPRESSION: No evidence for DVT at this time.
== END | disposition home or self-care (01) ==
LOC: RADUSWWP 12:57
PROVIDERS: ATTEND Internal Medicine Cardiovascular Disease
DX: R06.00 Dyspnea, unspecified (principal); R60.0 Localized edema
CPT/HCPCS: 93970

== ENCOUNTER → 2020-08-20 | Outpatient (CLI) | payer MEDICARE ==
[~2020-08-20] MED LIST changes: -LACTATED RINGERS 1,000 ML IV SCH; +REGADENOSON 0.4 MG/5 ML SYRINGE IV ONE
--- NOTE | 2020-08-20 12:06 | NM ---
EXAMINATION TYPE: NM stress lexiscan cardiolite DATE OF EXAM: 08/20/2020 COMPARISON: Prior exam 09/08/2017 HISTORY: Dyspnea, chest pain TECHNIQUE: After the intravenous administration of 9.87 mCi Tc 99m Sestamibi - Cardiolite resting SP ECT images acquired 50 minutes post injection. The patient received 0.4mg Lexiscan, 25.3 mCi Tc 99m Sestamibi - Stress images obtained [address] injection FINDINGS: Review of stress and rest SPECT images demonstrates decreased uptake along the inferior wall of the l eft ventricle greater on rest imaging than on stress images. Decreased radiopharmaceutical uptake al so present along the anterolateral left ventricle greater on rest images than on stress images. Towar ds the base of the heart some questionable decreased uptake on stress as compared to rest images zoie g anterior wall seen on axial images but not reproduced well in the additional planes. Gated analysis shows some paradoxical wall motion at the apex, inferior wall with an estimated left ventricular eje ction fraction of 55 %. IMPRESSION: Findings suggest previous myocardial infarctions. Difficult to exclude some kandi-infarct pharmacologi padilla induced left ventricular myocardial ischemia towards the base of the heart. Consider echocardio graphic correlation for wall motion abnormality.
--- NOTE | 2020-08-20 12:48 | ECHOF ---
Referral Reason:R06.00 Dyspnea MEASUREMENTS -------- HEIGHT: 170.2 cm WEIGHT: 125.6 kg BP: RVIDd: 3.0 cm (< 3.3) IVSd: 1.5 cm (0.6 - 1.1) LVIDd: 4.4 cm (3.9 - 5.3) LVPWd: 1.4 cm (0.6 - 1.1) IVSs: 1.7 cm LVIDs: 3.1 cm LVPWs: 1.7 cm LA Diam: 3.8 cm (2.7 - 3.8) LAESV Index (A-L): 28.83 ml/m Ao Diam: 3.3 cm (2.0 - 3.7) AV Cusp: 2.1 cm (1.5 - 2.6) MV E Steven: 1.00 m/s MV DecT: 166 ms MV A Steven: 1.02 m/s MV E/A Ratio: 0.98 RAP: 15.00 mmHg RVSP: 44.18 mmHg FINDINGS -------- Sinus rhythm. This was a technically difficult study with suboptimal views. The left ventricular size is normal. There is moderate concentric left ventricular hypertrophy. O verall left ventricular systolic function is normal with, an EF between 60 - 65 %. The right ventricle is normal in size. LA is midly dilated 29-33ml/m2. The right atrium is normal in size. 5.0mg of Lumason was utilized for enhancement of images Interatrial and interventricular septum intact. The aortic valve is trileaflet and appears structurally normal. The mitral valve is normal. Mild tricuspid regurgitation present. There is mild pulmonary hypertension. The right ventricular systolic pressure, as measured by Doppler, is 44.18mmHg. The pulmonic valve was not well visualized. The aortic root size is normal. IVC Not well visulized. There is no pericardial effusion. CONCLUSIONS -------- 1. The left ventricular size is normal. 2. There is moderate concentric left ventricular hypertrophy. 3. Overall left ventricular systolic function is normal with, an EF between 60 - 65 %. 4. LA is midly dilated 29-33ml/m2. 5. 5.0mg of Lumason was utilized for enhancement of images 6. Mild tricuspid regurgitation present. 7. There is mild pulmonary hypertension. 8. The right ventricular systolic pressure, as measured by Doppler, is 44.18mmHg. 9. There is no pericardial effusion. HURRICANE TRACKER: MARIETTA Cristobal
--- NOTE | 2020-08-20 13:48 | EST ---
EXERCISE STRESS DATE OF SERVICE: 08/20/2020 AGE.: 60 SEX: F HT: 67" WT: 276 lb PROTOCOL: Lexiscan Cardiolite STAGE: DURATION OF EXERCISE: HEART RATE REST: 88 BLOOD PRESSURE REST: 126/72 MAXIMUM HEART RATE ACHIEVED: 106 MAXIMUM BLOOD PRESSURE: 162/83 85% MPHR: 138 100% MPHR: 162 METS: INDICATIONS: Chest pain. STRESS DATA: Heart rate 88, blood pressure is 126/72 mmHg. Baseline EKG showed sinus mechanism. 0.4 mg of Lexiscan given over 15 seconds per protocol. Max heart rate was 106 beats per minute and maximum pressure was 168/83 mmHg. Clinically, the patient did not have any symptoms and the EKG did not show any significant ST or T-wave abnormalities. CONCLUSION: 1. Nondiagnostic electrocardiogram stress testing in response to Lexiscan. 2. Please follow up on the Cardiolite portion on a separate report from Radiology Department. MMODL / IJN: [id number] /
== END | disposition home or self-care (01) ==
LOC: RADNMMAIN 07:48
PROVIDERS: ATTEND Internal Medicine Cardiovascular Disease
DX: R06.00 Dyspnea, unspecified (principal); R60.0 Localized edema
CPT/HCPCS: 93017; 78452; C8929; A9500; J2785; Q9950; 93306

== ENCOUNTER → 2020-09-04 | Outpatient (CLI) | payer MEDICARE ==
[2020-09-05 05:04] LABS: African American GFR (CKD) 123.6 (60.0-200.0); Anion Gap 9.8 mmol/L (4.00-12.00); Carbon Dioxide 28.2 mmol/L (21.6-31.8); Non-African American GFR(CKD) 106.7 (60.0-200.0); Potassium 4.4 mmol/L (3.5-5.5)
[2020-09-05 05:27] LABS: Calcium 9.1 mg/dL (8.7-10.3)
== END | disposition home or self-care (01) ==
LOC: LABWHC1 14:44
PROVIDERS: ATTEND Internal Medicine Cardiovascular Disease
DX: I50.9 Heart failure, unspecified (principal)
CPT/HCPCS: 36415; 80048; 83880

== ENCOUNTER 2020-09-11 14:36 | Observation (INO) | payer MEDICARE ==
--- NOTE | 2020-09-11 15:50 | ED ---
URI HPI - General Chief Complaint: Upper Respiratory Infection Stated Complaint: Cough Time Seen by Provider: 09/11/20 14:40 Source: patient Mode of arrival: wheelchair Limitations: no limitations - History of Present Illness Initial Comments: Patient is a 60-year-old female with past medical history of asthma, COPD, diabetes, hypertension who presents to the emergency department with reported cough, congestion and weakness. Patient was around her son who is tested for Covid but just received his results this morning and they were negative. She de nies productive cough. Has had shortness of breath. Does not wear oxygen at home. Reports exertional dyspnea. No fevers or chills. Denies nausea or vomiting. No chest pain. No worsening lower extremity edema. Patient is on hydrochlorothiazide. No recent medication changes. Denies chest pain. No history of coronary disease. Denies history of DVT or PE. No calf pain. No other alleviating, precipitating or modifying factors - Related Data Home Medications Medication Instructions Recorded Confirmed metFORMIN HCL [Glucophage] 1,000 mg PO BID-W/MEALS 10/06/14 09/11/20 OXcarbazepine [Trileptal] 1,200 mg PO HS 10/07/16 09/11/20 Isosorbide Mononitrate ER [Imdur] 30 mg PO DAILY 10/22/16 09/11/20 Liraglutide [Victoza 2-Fredo] 1.8 mg SQ HS 04/21/17 09/11/20 Pioglitazone [Actos] 30 mg PO DAILY 04/21/17 09/11/20 Verapamil HCl [Verapamil ER] 240 mg PO HS 12/19/17 09/11/20 Atorvastatin [Lipitor] 40 mg PO HS 10/15/18 09/11/20 Insulin Glargine [Lantus] 30 unit SQ HS 06/13/19 09/11/20 Mirtazapine 30 mg PO HS 06/13/19 09/11/20 Pramipexole Di-HCl [Mirapex] 0.5 mg PO HS 06/13/19 09/11/20 ALPRAZolam [Xanax] 0.5 mg PO TID PRN 06/15/19 09/11/20 Aspirin [Adult Low Dose Aspirin EC] 81 mg PO DAILY 08/26/19 09/11/20 Budesonide/Formoterol Fumarate 2 puff INHALATION RT-BID 10/27/19 09/11/20 [Symbicort 160-4.5 Mcg Inhaler] DULoxetine HCL [Cymbalta] 30 mg PO W/LUNCH 10/27/19 09/11/20 Ergocalciferol [Vitamin D2 50,000 unit PO SA 06/06/20 09/11/20 (DRISDOL)] FLUoxetine HCL [PROzac] 20 mg PO DAILY 06/06/20 09/11/20 Losartan Potassium 100 mg PO DAILY 06/06/20 09/11/20 Multivit-Min/FA/Lycopen/Lutein 1 tab PO DAILY 06/06/20 09/11/20 [Centrum Silver Tablet] methocarbamoL [Robaxin] 750 mg PO TID 06/06/20 09/11/20 Albuterol Inhaler [Ventolin Hfa 2 puff INHALATION RT-Q6H PRN 09/11/20 09/11/20 Inhaler] DULoxetine HCL [Cymbalta] 60 mg PO W/LUNCH 09/11/20 09/11/20 Hydrocodone/Acetaminophen [[place] 1 tab PO QID 09/11/20 09/11/20 10-325] Nicotine [Nicotrol] 10 mg INHALATION 5XD PRN 09/11/20 09/11/20 Pregabalin [Lyrica] 100 mg PO TID-W/MEALS 09/11/20 09/11/20 buPROPion HCL [Wellbutrin XL] 150 mg PO DAILY 09/11/20 09/11/20 busPIRone HCL 15 mg PO BID-W/MEALS 09/11/20 09/11/20 Previous Rx's Medication Instructions Recorded Azithromycin [Zithromax Z-pack (6 0 mg PO DIRECTED 5 Days #6 tab 09/12/20 tabs)] Azithromycin [Zithromax Z-pack (6 0 mg PO DIRECTED 5 Days #6 tab 09/12/20 tabs)] Allergies Allergy/AdvReac Type Severity Reaction Status Date / Time No Known Allergies Allergy Verified 09/14/20 16:18 Review of Systems ROS Statement: Those systems with pertinent positive or pertinent negative responses have been documented in the HPI. ROS Other: All systems not noted in ROS Statement are negative. Past Medical History Past Medical History: Asthma, Chest Pain / Angina, COPD, Diabetes Mellitus, Fibromyalgia, Hyperlipidemia, Hypertension, Neurologic Disorder, Osteoarthritis (OA), Sleep Apnea/CPAP/BIPAP Additional Past Medical History / Comment(s): Back pain, fall at home March 2019, pain with standing/walking. Hx Restless Leg, neuropathy, more foot pain recently, no CPAP use, DDD, occasional chest pain and SOB. recent vision changes be evaluated and tested by lt jamal hip pain to begin physical therapy History of Any Multi-Drug Resistant Organisms: None Reported Past Surgical History: Cholecystectomy, Heart Catheterization, Hysterectomy, Orthopedic Surgery, Tonsillectomy Additional Past Surgical History / Comment(s): Colonoscopy, tendon repair on left foot, epidural for pain, pain clinic procedures. filipe cataract Past Anesthesia/Blood Transfusion Reactions: Motion Sickness Past Psychological History: Anxiety, Bipolar, Depression, PTSD Smoking Status: Current every day smoker Past Alcohol Use History: Rare Past Drug Use History: None Reported - Past Family History Father Family Medical History: CVA/TIA, Diabetes Mellitus, Hypertension Additional Family Medical History / Comment(s): CATARACTS, AAA. General Exam Limitations: no limitations General appearance: alert, in no apparent distress Head exam: Present: atraumatic, normocephalic, normal inspection Eye exam: Present: normal appearance, PERRL, EOMI. Absent: scleral icterus, conjunctival injection, periorbital swelling ENT exam: Present: normal exam, mucous membranes moist Neck exam: Present: normal inspection. Absent: tenderness, meningismus, lym phadenopathy Respiratory exam: Present: normal lung sounds bilaterally. Absent: respiratory distress, wheezes, rales, rhonchi, stridor Cardiovascular Exam: Present: regular rate, normal rhythm, normal heart sounds. Absent: systolic murmur, diastolic murmur, rubs, gallop, clicks GI/Abdominal exam: Present: soft, normal bowel sounds. Absent: distended, tenderness, guarding, rebound, rigid Extremities exam: Present: normal inspection, full ROM, normal capillary refill, pedal edema. Absent: tenderness, joint swelling, calf tenderness Back exam: Present: normal inspection Neurological exam: Present: alert, oriented X3, CN II-XII intact Psychiatric exam: Present: normal affect, normal mood Skin exam: Present: warm, dry, intact, normal color. Absent: rash Course Vital Signs 09/11/20 09/11/20 09/11/20 14:41 15:42 17:09 Temperature 98.8 F Pulse Rate 84 69 74 Respiratory 20 20 18 Rate Blood Pressure 141/65 124/73 138/90 O2 Sat by Pulse 97 97 94 L Oximetry 09/11/20 18:45 Temperature 97.9 F Pulse Rate 75 Respiratory 18 Rate Blood Pressure 125/63 O2 Sat by Pulse 99 Oximetry Medical Decision Making - Medical Decision Making Upon arrival patient is placed in room 27. A thorough history and physical exam was performed. Patient is placed on 2 L of oxygen. Laboratory sister for conducted and a portal chest x-rays performed. Laboratory studies are remarkable for sodium of 123. Influenza A and B are negative. Chest x-ray demonstrates chronic changes without acute process. The results are discussed with the patient. Because of her hyponatremia I gave her a liter bolus of normal saline. I did recommend hospital admission in order to replace her sodium for which the patient did agree to. Discussed the case with Dr. Nelson who accepted admission. Patient is awaiting a bed on the floor - Lab Data Result diagrams: 09/12/20 06:06 09/12/20 06:06 Lab Results 09/11/20 09/11/20 09/11/20 Range/Units 15:36 15:36 15:36 WBC 11.3 H (3.8-10.6) k/uL RBC 4.67 (3.80-5.40) m/uL Hgb 13.5 (11.4-16.0) gm/dL Hct 40.9 (34.0-46.0) % MCV 87.6 (80.0-100.0) fL MCH 29.0 (25.0-35.0) pg MCHC 33.1 (31.0-37.0) g/dL RDW 15.0 (11.5-15.5) % Plt Count 403 (150-450) k/uL Neutrophils % 75 % Lymphocytes % 16 % Monocytes % 5 % Eosinophils % 2 % Basophils % 1 % Neutrophils # 8.5 H (1.3-7.7) k/uL Lymphocytes # 1.8 (1.0-4.8) k/uL Monocytes # 0.6 (0-1.0) k/uL Eosinophils # 0.2 (0-0.7) k/uL Basophils # 0.1 (0-0.2) k/uL PT 9.8 (9.0-12.0) sec INR 0.9 (<1.2) APTT 28.0 (22.0-30.0) sec Sodium 123 L (137-145) mmol/L Potassium 3.8 (3.5-5.1) mmol/L Chloride 89 L (98-107) mmol/L Carbon Dioxide 28 (22-30) mmol/L Anion Gap 6 mmol/L BUN 9 (7-17) mg/dL Creatinine 0.42 L (0.52-1.04) mg/dL Est GFR (CKD-EPI)AfAm >90 (>60 ml/min/1.73 sqM) Est GFR (CKD-EPI)NonAf >90 (>60 ml/min/1.73 sqM) Glucose 115 H (74-99) mg/dL Plasma Lactic Acid Sulaiman (0.7-2.0) mmol/L Calcium 8.8 (8.4-10.2) mg/dL Total Bilirubin 0.4 (0.2-1.3) mg/dL AST 23 (14-36) U/L ALT 19 (4-34) U/L Alkaline Phosphatase 145 H (38-126) U/L Troponin I (0.000-0.034) ng/mL NT-Pro-B Natriuret Pep pg/mL Total Protein 6.8 (6.3-8.2) g/dL Albumin 4.0 (3.5-5.0) g/dL Coronavirus (PCR) (Not Detected) Influenza Type A RNA (Not Detectd) Influenza Type B (PCR) (Not Detectd) 09/11/20 09/11/20 09/11/20 Range/Units 15:36 15:36 15:36 WBC (3.8-10.6) k/uL RBC (3.80-5.40) m/uL Hgb (11.4-16.0) gm/dL Hct (34.0-46.0) % MCV (80.0-100.0) fL MCH (25.0-35.0) pg MCHC (31.0-37.0) g/dL RDW (11.5-15.5) % Plt Count (150-450) k/uL Neutrophils % % Lymphocytes % % Monocytes % % Eosinophils % % Basophils % % Neutrophils # (1.3-7.7) k/uL Lymphocytes # (1.0-4.8) k/uL Monocytes # (0-1.0) k/uL Eosinophils # (0-0.7) k/uL Basophils # (0-0.2) k/uL PT (9.0-12.0) sec INR (<1.2) APTT (22.0-30.0) sec Sodium (137-145) mmol/L Potassium (3.5-5.1) mmol/L Chloride (98-107) mmol/L Carbon Dioxide (22-30) mmol/L Anion Gap mmol/L BUN (7-17) mg/dL Creatinine (0.52-1.04) mg/dL Est GFR (CKD-EPI)AfAm (>60 ml/min/1.73 sqM) Est GFR (CKD-EPI)NonAf (>60 ml/min/1.73 sqM) Glucose (74-99) mg/dL Plasma Lactic Acid Sulaiman 1.8 (0.7-2.0) mmol/L Calcium (8.4-10.2) mg/dL Total Bilirubin (0.2-1.3) mg/dL AST (14-36) U/L ALT (4-34) U/L Alkaline Phosphatase (38-126) U/L Troponin I <0.012 (0.000-0.034) ng/mL NT-Pro-B Natriuret Pep 40 pg/mL Total Protein (6.3-8.2) g/dL Albumin (3.5-5.0) g/dL Coronavirus (PCR) (Not Detected) Influenza Type A RNA (Not Detectd) Influenza Type B (PCR) (Not Detectd) 09/11/20 09/11/20 Range/Units 15:36 15:36 WBC (3.8-10.6) k/uL RBC (3.80-5.40) m/uL Hgb (11.4-16.0) gm/dL Hct (34.0-46.0) % MCV (80.0-100.0) fL MCH (25.0-35.0) pg MCHC (31.0-37.0) g/dL RDW (11.5-15.5) % Plt Count (150-450) k/uL Neutrophils % % Lymphocytes % % Monocytes % % Eosinophils % % Basophils % % Neutrophils # (1.3-7.7) k/uL Lymphocytes # (1.0-4.8) k/uL Monocytes # (0-1.0) k/uL Eosinophils # (0-0.7) k/uL Basophils # (0-0.2) k/uL PT (9.0-12.0) sec INR (<1.2) APTT (22.0-30.0) sec Sodium (137-145) mmol/L Potassium (3.5-5.1) mmol/L Chloride (98-107) mmol/L Carbon Dioxide (22-30) mmol/L Anion Gap mmol/L BUN (7-17) mg/dL Creatinine (0.52-1.04) mg/dL Est GFR (CKD-EPI)AfAm (>60 ml/min/1.73 sqM) Est GFR (CKD-EPI)NonAf (>60 ml/min/1.73 sqM) Glucose (74-99) mg/dL Plasma Lactic Acid [place]aim[place] (0.7-2.0) mmol/L Calcium (8.4-10.2) mg/dL Total Bilirubin (0.2-1.3) mg/dL AST (14-36) U/L ALT (4-34) U/L Alkaline Phosphatase (38-126) U/L Troponin I (0.000-0.034) ng/mL NT-Pro-B Natriuret Pep pg/mL Total Protein (6.3-8.2) g/dL Albumin (3.5-5.0) g/dL Coronavirus (PCR) Not Detected (Not Detected) Influenza Type A RNA Not Detected (Not Detectd) Influenza Type B (PCR) Not Detected (Not Detectd) - EKG Data EKG Comments: EKG demonstrates a sinus rhythm with first-degree block. Rate is 68. KS interval 226. QRS 82. QTC 450. No acute ST segment elevations or depressions Disposition Clinical Impression: Hyponatremia, Acute respiratory insufficiency Disposition: ADMITTED IP TO THIS HOSP Condition: Stable Is patient prescribed a controlled substance at d/c from ED?: No Decision to Admit Reason: Admit from EC Decision Date: 09/11/20 Decision Time: 17:22
[2020-09-11 15:57] LABS: Basophils # (A) 0.1 k/uL (0-0.2); Basophils % (A) 1 %; Eosinophils # (A) 0.2 k/uL (0-0.7); Eosinophils % (A) 2 %; HCT 40.9 % (34.0-46.0); HGB 13.5 gm/dL (11.4-16.0); Lymphocytes # (A) 1.8 k/uL (1.0-4.8); Lymphocytes % (A) 16 %; MCHC 33.1 g/dL (31.0-37.0); MCV 87.6 fL (80.0-100.0); Mean Platelet Volume 6.4; Monocytes # (A) 0.6 k/uL (0-1.0); Monocytes % (A) 5 %; Neutrophils # (A) 8.5 k/uL (1.3-7.7); Neutrophils % (A) 75 %; Platelet Count 403 k/uL (150-450); RBC 4.67 m/uL (3.80-5.40); WBC 11.3 k/uL (3.8-10.6)
--- NOTE | 2020-09-11 16:04 | XR ---
EXAMINATION TYPE: XR chest 1V portable DATE OF EXAM: 09/11/2020 COMPARISON: Chest x-ray CTA chest September 07, 2017 HISTORY: Cough. TECHNIQUE: Single AP portable frontal upright view of the chest is obtained. FINDINGS: Exam slightly suboptimal due to portable technique and patient's large body habitus. There is background chronic emphysematous change without suspicious focal air space opacity, pleural effus ion, or pneumothorax seen. The cardiac silhouette size is stable and upper limits of normal. The o sseous structures are intact. IMPRESSION: Suboptimal study, chronic changes without acute pulmonary process.
[2020-09-11 16:07] LABS: INR 0.9 (<1.2); Prothrombin Time 9.8 sec (9.0-12.0)
[2020-09-11 16:19] LABS: ALT 19 U/L (4-34); AST 23 U/L (14-36); African American GFR (CKD) >90 (>60 ml/min/1.73 sqM); Alkaline Phosphatase 145 U/L (38-126); Anion Gap 6 mmol/L; Blood Urea Nitrogen 9 mg/dL (7-17); Calcium 8.8 mg/dL (8.4-10.2); Carbon Dioxide 28 mmol/L (22-30); Chloride 89 mmol/L (98-107); Glucose 115 mg/dL (74-99); Non-African American GFR(CKD) >90 (>60 ml/min/1.73 sqM); Potassium 3.8 mmol/L (3.5-5.1); Sodium 123 mmol/L (137-145); Total Bilirubin 0.4 mg/dL (0.2-1.3); Total Protein 6.8 g/dL (6.3-8.2)
[2020-09-11] MEDS ORDERED: SODIUM CHLORIDE 0.9% 1,000 ML IV ONE (16:53)
[2020-09-11] MEDS ORDERED: NALOXONE 0.4 MG/ML 1 ML VIAL IV PRN (17:22)
[2020-09-11] MEDS: SODIUM CHLORIDE 0.9% 1,000 ML IV SCH (18:47)
[2020-09-11] MEDS ORDERED: ALPRAZolam 0.5 MG TAB PO PRN (20:54)
[2020-09-11] MEDS ORDERED: ALBUTEROL NEBULIZED 2.5 MG/3 ML INHALATION PRN (20:54)
[2020-09-11 20:56] LABS: Glucose,Whole Blood 178 mg/dL (75-99)
[2020-09-11] MEDS ORDERED: VERAPAMIL SR 240 MG TABLET.ER PO SCH (21:00)
[2020-09-11] MEDS ORDERED: ATORVASTATIN 40 MG TAB PO SCH (21:00)
[2020-09-11] MEDS ORDERED: MIRTAZAPINE 15 MG TAB PO SCH (21:00)
[2020-09-11] MEDS: HYDROcodone/APAP 10-325MG 1 EACH TAB PO SCH (21:36)
[2020-09-11] MEDS: INSULIN ASPART (NovoLOG) 100 UNIT/ML VIAL SQ SCH (21:37)
[2020-09-11] MEDS: methocarbamoL 750 MG TAB PO SCH (21:46)
[2020-09-11] MEDS ORDERED: INSULIN DETEMIR (LEVEMIR) 100 UNIT/ML SYR SQ SCH (22:00)
[2020-09-11] MEDS ORDERED: OXcarbazepine 300 MG TAB PO SCH (22:00)
[2020-09-12 06:30] LABS: Basophils # (A) 0.1 k/uL (0-0.2); Basophils % (A) 1 %; Eosinophils # (A) 0.3 k/uL (0-0.7); Eosinophils % (A) 4 %; HCT 41.3 % (34.0-46.0); HGB 13.2 gm/dL (11.4-16.0); Lymphocytes # (A) 1.8 k/uL (1.0-4.8); Lymphocytes % (A) 22 %; MCH 28.7 pg (25.0-35.0); Mean Platelet Volume 6.1; Monocytes # (A) 0.5 k/uL (0-1.0); Monocytes % (A) 6 %; Neutrophils # (A) 5.4 k/uL (1.3-7.7); Neutrophils % (A) 66 %; Platelet Count 335 k/uL (150-450); RBC 4.59 m/uL (3.80-5.40); WBC 8.2 k/uL (3.8-10.6)
[2020-09-12 06:55] LABS: Glucose,Whole Blood 77 mg/dL (75-99)
[2020-09-12] MEDS: INSULIN ASPART (NovoLOG) 100 UNIT/ML VIAL SQ SCH ×2 (07:05→11:51)
[2020-09-12] MEDS ORDERED: busPIRone HCl 5 MG TAB PO SCH (07:30)
[2020-09-12] MEDS: PREGABALIN 100 MG CAP PO SCH ×2 (07:38→12:13)
[2020-09-12] MEDS: HYDROcodone/APAP 10-325MG 1 EACH TAB PO SCH ×2 (07:38→12:13)
[2020-09-12] MEDS: methocarbamoL 750 MG TAB PO SCH ×2 (07:39→15:31)
[2020-09-12] MEDS ORDERED: SYMBICORT 160-4.5 MCG INHALER INHALATION SCH (08:00)
[2020-09-12] MEDS ORDERED: buPROPion XL 150 MG TAB.ER.24H PO SCH (09:00)
[2020-09-12] MEDS ORDERED: LOSARTAN 50 MG TAB PO SCH (09:00)
[2020-09-12] MEDS ORDERED: ASPIRIN 81 MG PO SCH (09:00)
[2020-09-12] MEDS ORDERED: FLUoxetine HCL 20 MG CAP PO SCH (09:00)
[2020-09-12] MEDS ORDERED: MULTIVITAMINS, THERA 1 EACH TAB PO SCH (09:00)
[2020-09-12] MEDS ORDERED: ISOSORBIDE MONONITRATE ER 30 MG TAB.ER.24H PO SCH (09:00)
[2020-09-12 09:48] LABS: African American GFR (CKD) 123.6 (60.0-200.0); Anion Gap 1.9 mmol/L (4.00-12.00); Calcium 8.3 mg/dL (8.7-10.3); Carbon Dioxide 31.1 mmol/L (21.6-31.8); Non-African American GFR(CKD) 106.7 (60.0-200.0); Potassium 4.9 mmol/L (3.5-5.5)
[2020-09-12 11:29] LABS: Glucose,Whole Blood 72 mg/dL (75-99)
[2020-09-12] MEDS: SODIUM CHLORIDE 0.9% 1,000 ML IV SCH (12:14)
[2020-09-12] MEDS ORDERED: DULoxetine HCL 30 MG CAPSULE.DR PO SCH (12:30)
[2020-09-12] MEDS ORDERED: DULoxetine HCL 60 MG CAPSULE.DR PO SCH (12:30)
--- NOTE | 2020-09-12 12:51 | P.HPIM ---
History of Present Illness H&P Date: 09/12/20 Chief Complaint: Acute respiratory insufficiency This is a 60-year-old female patient who originally presented to ER with complaints of cough and runny nose and concerns for COVID. She reports that she had a cough and runny nose along with diarrhea and nausea for 1 day. Patient reports she was concerned her son had Covid but did come back negative. Patient was found to have low sodium at 123. Patient was admitted due to low sodium. Chest x-ray was showing suboptimal study, chronic changes without acute pulmonary process. Patient's past medical history includes diabetes mellitus, asthma, COPD, fibromyalgia, hyperlipidemia, hypertension, osteoporosis, sleep apnea, anxiety, bipolar, depression, restless leg syndrome and nicotine dependence. Patient does take hydrochlorothiazide at home. Patient has been started on saline at 50 along with bolus given sodium is trending up at 129. Patient reports the nausea vomiting and diarrhea has subsided. This time pat ient denies any chest pain. Patient does repair occasional shortness of breath. Patient denies nausea vomiting or diarrhea. Patient denies any urinary burning or frequency. Review of Systems Please refer to HPI otherwise unremarkable Past Medical History Past Medical History: Asthma, Chest Pain / Angina, COPD, Diabetes Mellitus, Fibromyalgia, Hyperlipidemia, Hypertension, Neurologic Disorder, Osteoarthritis (OA), Sleep Apnea/CPAP/BIPAP Additional Past Medical History / Comment(s): Back pain, fall at home March 2019, pain with standing/walking. Hx Restless Leg, neuropathy, more foot pain recently, no CPAP use, DDD, occasional chest pain and SOB. recent vision changes be evaluated and tested by lt jamal hip pain to begin physical therapy History of Any Multi-Drug Resistant Organisms: None Reported Past Surgical History: Cholecystectomy, Heart Catheterization, Hysterectomy, Orthopedic Surgery, Tonsillectomy Additional Past Surgical History / Comment(s): Colonoscopy, tendon repair on left foot, epidural for pain, pain clinic procedures. filipe cataract Past Anesthesia/Blood Transfusion Reactions: Motion Sickness Past Psychological History: Anxiety, Bipolar, Depression, PTSD Smoking Status: Current every day smoker Past Alcohol Use History: Rare Past Drug Use History: None Reported - Past Family History Father Family Medical History: CVA/TIA, Diabetes Mellitus, Hypertension Additional Family Medical History / Comment(s): CATARACTS, AAA. Medications and Allergies Home Medications Medication Instructions Recorded Confirmed Type metFORMIN HCL [Glucophage] 1,000 mg PO BID-W/MEALS 10/06/14 09/11/20 History OXcarbazepine [Trileptal] 1,200 mg PO HS 10/07/16 09/11/20 History Isosorbide Mononitrate ER [Imdur] 30 mg PO DAILY 10/22/16 09/11/20 History Liraglutide [Victoza 2-Fredo] 1.8 mg SQ HS 04/21/17 09/11/20 History Pioglitazone [Actos] 30 mg PO DAILY 04/21/17 09/11/20 History Verapamil HCl [Verapamil ER] 240 mg PO HS 12/19/17 09/11/20 History Atorvastatin [Lipitor] 40 mg PO HS 10/15/18 09/11/20 History Insulin Glargine [Lantus] 30 unit SQ HS 06/13/19 09/11/20 History Mirtazapine 30 mg PO HS 06/13/19 09/11/20 History Pramipexole Di-HCl [Mirapex] 0.5 mg PO HS 06/13/19 09/11/20 History ALPRAZolam [Xanax] 0.5 mg PO TID PRN 06/15/19 09/11/20 History Aspirin [Adult Low Dose Aspirin EC] 81 mg PO DAILY 08/26/19 09/11/20 History Budesonide/Formoterol Fumarate 2 puff INHALATION RT-BID 10/27/19 09/11/20 History [Symbicort 160-4.5 Mcg Inhaler] DULoxetine HCL [Cymbalta] 30 mg PO W/LUNCH 10/27/19 09/11/20 History Ergocalciferol [Vitamin D2] 50,000 unit PO SA 06/06/20 09/11/20 History FLUoxetine HCL [PROzac] 20 mg PO DAILY 06/06/20 09/11/20 History Losartan Potassium 100 mg PO DAILY 06/06/20 09/11/20 History Multivit-Min/FA/Lycopen/Lutein 1 tab PO DAILY 06/06/20 09/11/20 History [Centrum Silver Tablet] methocarbamoL [Robaxin] 750 mg PO TID 06/06/20 09/11/20 History Albuterol Inhaler [Ventolin Hfa 2 puff INHALATION RT-Q6H PRN 09/11/20 09/11/20 History Inhaler] DULoxetine HCL [Cymbalta] 60 mg PO W/LUNCH 09/11/20 09/11/20 History Hydrocodone/Acetaminophen [[place] 1 tab PO QID 09/11/20 09/11/20 History 10-325] Nicotine [Nicotrol] 10 mg INHALATION 5XD PRN 09/11/20 09/11/20 History Pregabalin [Lyrica] 100 mg PO TID-W/MEALS 09/11/20 09/11/20 History buPROPion HCL [Wellbutrin XL] 150 mg PO DAILY 09/11/20 09/11/20 History busPIRone HCL 15 mg PO BID-W/MEALS 09/11/20 09/11/20 History hydroCHLOROthiazide 50 mg PO DAILY 09/11/20 09/11/20 History Allergies Allergy/AdvReac Type Severity Reaction Status Date / Time No Known Allergies Allergy Verified 09/11/20 17:46 Physical Exam Vitals: Vital Signs Temp Pulse Pulse Resp BP BP Pulse Ox 09/12/20 07:00 97.4 F L 64 18 142/75 97 09/12/20 00:50 97.6 F 64 18 125/88 95 09/11/20 20:55 97.8 F 72 18 134/70 97 09/11/20 18:45 97.9 F 75 18 125/63 99 09/11/20 17:09 74 18 138/90 94 L 09/11/20 15:42 69 20 124/73 97 09/11/20 14:41 98.8 F 84 20 141/65 97 Intake and Output 09/11/20 09/12/20 09/12/20 22:59 06:59 14:59 Intake Total 300 400 Balance 300 400 Intake: IV 400 Sodium Chloride 0.9% 1, 400 000 ml @ 50 mls/hr IV . Q20H [facility] Rx#:[id number] Oral 300 Other: # Voids 1 1 Weight 126.099 kg Head normocephalic Neck supple Lungs clear to auscultation bilaterally no wheezing or crackles Heart regular rate and rhythm S1-S2, no rub or gallop Abdomen is soft nontender nondistended positive bowel sounds no hepatosplenomegaly Extremities no edema Neuro alert and orientated to 3 Results CBC & Chem 7: 09/12/20 06:06 09/12/20 06:06 Labs: Abnormal Lab Results - Last 24 Hours (Table) 09/11/20 09/11/20 09/11/20 Range/Units 15:36 15:36 20:55 WBC 11.3 H (3.8-10.6) k/uL Neutrophils # 8.5 H (1.3-7.7) k/uL Sodium 123 L (137-145) mmol/L Chloride 89 L (98-107) mmol/L Anion Gap (4.00-12.00) mmol/L Creatinine 0.42 L (0.52-1.04) mg/dL Glucose 115 H (74-99) mg/dL POC Glucose (mg/dL) 178 H (75-99) mg/dL Calcium (8.7-10.3) mg/dL Alkaline Phosphatase 145 H (38-126) U/L 09/12/20 09/12/20 Range/Units 06:06 11:28 WBC (3.8-10.6) k/uL Neutrophils # (1.3-7.7) k/uL Sodium 129 L (137-145) mmol/L Chloride (98-107) mmol/L Anion Gap 1.90 L (4.00-12.00) mmol/L Creatinine 0.5 L (0.52-1.04) mg/dL Glucose (74-99) mg/dL POC Glucose (mg/dL) 72 L (75-99) mg/dL Calcium 8.3 L (8.7-10.3) mg/dL Alkaline Phosphatase (38-126) U/L Thrombosis Risk Factor Assmnt - Choose All That Apply Each Factor Represents 1 point: Age 41-60 years, Obesity (BMI >25) Thrombosis Risk Factor Assessment Total Risk Factor Score: 2 Thrombosis Risk Factor Assessment Level: Low Risk Assessment and Plan Assessment: 1. Hyponatremia. Patient reports she did have diarrhea and vomiting 1 day. Patient also on hydrochlorothiazide this has been DC'd sodium is trending up at 129 continue normal saline at 50 2. Shortness of breath with cough. COVID test pending. Influenza is negative. Chest x-ray completed showing suboptimal study chronic changes without acute pulmonary process 3. Vomiting and diarrhea. Patient reports that the symptoms have subsided but will order amylase and lipase to rule out cause 4. History of fibromyalgia 5. Diabetes mellitus. Home insulin dose resumed 6. Bipolar depression 7. Hyperlipidemia. Maintained on statin 8. Essential hypertension. Home meds resumed HIDA chlorothiazide held 9. COPD 10. Nicotine dependence. Nicotine patch has been ordered DVT prophylaxis Lovenox. GI prophylaxis Pepcid Continue normal saline at 50 Covid test pending Time with Patient: Greater than 30 (Greater than 60% of the total time spent in counseling and coordination of care)
[2020-09-12 14:21] VITALS: BP 135/79; PULSE 62; RESP 19; TEMP 97.5
--- NOTE | 2020-09-12 14:21 | P.DS ---
Providers Date of admission: 09/11/20 17:22 Expected date of discharge: 09/12/20 Attending physician: Aditya Nelson Primary care physician: Aditya Nelson [facility] Course: Discharge diagnosis 1. Hyponatremia. Patient reports she did have diarrhea and vomiting 1 day. Patient also on hydrochlorothiazide this has been DC'd sodium is trending up at 129 continue normal saline at 50 2. Shortness of breath with cough. COVID test pending. Influenza is negative. Chest x-ray completed showing suboptimal study chronic changes without acute pulmonary process 3. Vomiting and diarrhea. Patient reports that the symptoms have subsided but will order amylase and lipase to rule out cause 4. History of fibromyalgia 5. Diabetes mellitus. Home insulin dose resumed 6. Bipolar depression 7. Hyperlipidemia. Maintained on statin 8. Essential hypertension. Home meds resumed hydrocodone thiazide held 9. COPD 10. Nicotine dependence. Nicotine patch has been ordered 11. Acute bronchitis. Patient will receive 1 dose of Rocephin prior to discharge and discharged on azithromycin Z-Fredo. Patient to follow-up with PCP Hospital course This is a 60-year-old female patient who originally presented to ER with complaints of cough and runny nose and concerns for COVID. She reports that she had a cough and runny nose along with diarrhea and nausea for 1 day. Patient reports she was concerned her son had Covid but did come back negative. Patient was found to have low sodium at 123. Patient was admitted due to low sodium. Chest x-ray was showing suboptimal study, chronic changes without acute pulmonary process. Patient's past medical history includes diabetes mellitus, asthma, COPD, fibromyalgia, hyperlipidemia, hypertension, osteoporosis, sleep apnea, anxiety, bipolar, depression, restless leg syndrome and nicotine dependence. Patient does take hydrochlorothiazide at home. Patient has been started on saline at 50 along with bolus given sodium is trending up at 129. Patient reports the nausea vomiting and diarrhea has subsided. This time patient denies any chest pain. Patient does repair occasional shortness of breath. Patient denies nausea vomiting or diarrhea. Patient denies any urinary burning or frequency. On 09/12/2020 patient is alert and oriented 3 her to go home. Patient requesting to be discharged. Sodium improving to 129. Will discharge patient home patient is stable no signs of distress vitals have been stable. Patient to hold hydrochlorothiazide upon discharge will be discharged azithromycin for acute bronchitis. COVID test is pending and we take an additional 24 hours patient is aware. Nausea vomiting and diarrhea have completely subsided. Patient denies any shortness of breath or cough at this time she has remained afebrile. Patient Condition at Discharge: Stable Plan - Discharge Summary New Discharge Prescriptions: New Azithromycin [Zithromax Z-pack (6 tabs)] 0 mg PO DIRECTED 5 Days #6 tab Azithromycin [Zithromax Z-pack (6 tabs)] 0 mg PO DIRECTED 5 Days #6 tab Continue metFORMIN HCL [Glucophage] 1,000 mg PO BID-W/MEALS OXcarbazepine [Trileptal] 1,200 mg PO HS Isosorbide Mononitrate ER [Imdur] 30 mg PO DAILY Liraglutide [Victoza 2-Fredo] 1.8 mg SQ HS Pioglitazone [Actos] 30 mg PO DAILY Verapamil HCl [Verapamil ER] 240 mg PO HS Atorvastatin [Lipitor] 40 mg PO HS Pramipexole Di-HCl [Mirapex] 0.5 mg PO HS Mirtazapine 30 mg PO HS Insulin Glargine [Lantus] 30 unit SQ HS ALPRAZolam [Xanax] 0.5 mg PO TID PRN PRN Reason: Anxiety Aspirin [Adult Low Dose Aspirin EC] 81 mg PO DAILY DULoxetine HCL [Cymbalta] 30 mg PO W/LUNCH Budesonide/Formoterol Fumarate [Symbicort 160-4.5 Mcg Inhaler] 2 puff INHALATION RT-BID methocarbamoL [Robaxin] 750 mg PO TID Losartan Potassium 100 mg PO DAILY Ergocalciferol [Vitamin D2 (DRISDOL)] 50,000 unit PO SA FLUoxetine HCL [PROzac] 20 mg PO DAILY Multivit-Min/FA/Lycopen/Lutein [Centrum Silver Tablet] 1 tab PO DAILY buPROPion HCL [Wellbutrin XL] 150 mg PO DAILY Albuterol Inhaler [Ventolin Hfa Inhaler] 2 puff INHALATION RT-Q6H PRN PRN Reason: Shortness Of Breath Pregabalin [Lyrica] 100 mg PO TID-W/MEALS DULoxetine HCL [Cymbalta] 60 mg PO W/LUNCH busPIRone HCL 15 mg PO BID-W/MEALS Hydrocodone/Acetaminophen [[place] 10-325] 1 tab PO QID Nicotine [Nicotrol] 10 mg INHALATION 5XD PRN PRN Reason: Nicotine Cravings Discontinued hydroCHLOROthiazide 50 mg PO DAILY Discharge Medication List metFORMIN HCL [Glucophage] 1,000 mg PO BID-W/MEALS 10/06/14 [History] OXcarbazepine [Trileptal] 1,200 mg PO HS 10/07/16 [History] Isosorbide Mononitrate ER [Imdur] 30 mg PO DAILY 10/22/16 [History] Liraglutide [Victoza 2-Fredo] 1.8 mg SQ HS 04/21/17 [History] Pioglitazone [Actos] 30 mg PO DAILY 04/21/17 [History] Verapamil HCl [Verapamil ER] 240 mg PO HS 12/19/17 [History] Atorvastatin [Lipitor] 40 mg PO HS 10/15/18 [History] Insulin Glargine [Lantus] 30 unit SQ HS 06/13/19 [History] Mirtazapine 30 mg PO HS 06/13/19 [History] Pramipexole Di-HCl [Mirapex] 0.5 mg PO HS 06/13/19 [History] ALPRAZolam [Xanax] 0.5 mg PO TID PRN 06/15/19 [History] Aspirin [Adult Low Dose Aspirin EC] 81 mg PO DAILY 08/26/19 [History] Budesonide/Formoterol Fumarate [Symbicort 160-4.5 Mcg Inhaler] 2 puff INHALATION RT-BID 10/27/19 [History] DULoxetine HCL [Cymbalta] 30 mg PO W/LUNCH 10/27/19 [History] Ergocalciferol [Vitamin D2 (DRISDOL)] 50,000 unit PO SA 06/06/20 [History] FLUoxetine HCL [PROzac] 20 mg PO DAILY 06/06/20 [History] Losartan Potassium 100 mg PO DAILY 06/06/20 [History] Multivit-Min/FA/Lycopen/Lutein [Centrum Silver Tablet] 1 tab PO DAILY 06/06/20 [History] methocarbamoL [Robaxin] 750 mg PO TID 06/06/20 [History] Albuterol Inhaler [Ventolin Hfa Inhaler] 2 puff INHALATION RT-Q6H PRN 09/11/20 [History] DULoxetine HCL [Cymbalta] 60 mg PO W/LUNCH 09/11/20 [History] Hydrocodone/Acetaminophen [[place] 10-325] 1 tab PO QID 09/11/20 [History] Nicotine [Nicotrol] 10 mg INHALATION 5XD PRN 09/11/20 [History] Pregabalin [Lyrica] 100 mg PO TID-W/MEALS 09/11/20 [History] buPROPion HCL [Wellbutrin XL] 150 mg PO DAILY 09/11/20 [History] busPIRone HCL 15 mg PO BID-W/MEALS 09/11/20 [History] Azithromycin [Zithromax Z-pack (6 tabs)] 0 mg PO DIRECTED 5 Days #6 tab 09/12/20 [Rx] Azithromycin [Zithromax Z-pack (6 tabs)] 0 mg PO DIRECTED 5 Days #6 tab 09/12/20 [Rx] Follow up Appointment(s)/Referral(s): Aditya Nelson MD [Primary Care Provider] - 1-2 days Ambulatory/Diagnostic Orders: Comprehensive Metabolic Panel [LAB.AMB] Time Frame: 2 Days, Location: None Selected Patient Instructions/Handouts: Hyponatremia (DC)
[2020-09-12 20:33] LABS: Amylase 41 U/L (23-121); Lipase 50 U/L (14-63)
[2020-09-13] MEDS ORDERED: ENOXAPARIN 40 MG/0.4 ML SYRINGE SQ SCH (09:00)
[2020-09-13] MEDS ORDERED: FAMOTIDINE 20 MG TAB PO SCH (09:00)
[2020-09-13] MEDS ORDERED: NICOTINE 14MG/24HR PATCH TRANSDERM SCH (09:00)
== END 2020-09-12 16:26 | disposition home or self-care (01) ==
LOC: EC 14:36 → INTOOBSV 17:22 → 4SSUR 17:22 → UNDODISIN 09-12 16:26
PROVIDERS: ADMIT Internal Medicine; ATTEND Internal Medicine
DX: E87.1 Hypo-osmolality and hyponatremia (principal); J44.0 Chronic obstructive pulmonary disease with (acute) lower respiratory infection; E11.9 Type 2 diabetes mellitus without complications; E78.5 Hyperlipidemia, unspecified; F17.200 Nicotine dependence, unspecified, uncomplicated; F43.10 Post-traumatic stress disorder, unspecified; G25.81 Restless legs syndrome; I10 Essential (primary) hypertension; M79.7 Fibromyalgia; Z20.828 Contact with and (suspected) exposure to other viral communicable diseases; M81.0 Age-related osteoporosis without current pathological fracture; M19.90 Unspecified osteoarthritis, unspecified site; J20.9 Acute bronchitis, unspecified; F31.9 Bipolar disorder, unspecified; R11.2 Nausea with vomiting, unspecified; Z79.51 Long term (current) use of inhaled steroids; Z79.4 Long term (current) use of insulin; Z79.82 Long term (current) use of aspirin; Z79.899 Other long term (current) drug therapy; Z90.710 Acquired absence of both cervix and uterus; Z90.49 Acquired absence of other specified parts of digestive tract; Z90.89 Acquired absence of other organs; Z98.890 Other specified postprocedural states; Z98.42 Cataract extraction status, left eye; Z98.41 Cataract extraction status, right eye; Z82.49 Family history of ischemic heart disease and other diseases of the circulatory system; Z83.3 Family history of diabetes mellitus
CPT/HCPCS: 96365; 96361; 99284; 36415; 94640; 93005; 83880; 80053; 80048; 82150; 83605; 83690; 84484; 85025 ×2; 85610; 85730; 87502; 71045; G0378 ×2; U0003; J0696; 96360

== ENCOUNTER 2020-09-14 16:13 | Emergency (ER) | payer MEDICARE ==
[2020-09-14] MEDS ORDERED: SODIUM CHLORIDE 0.9% 500 ML 500 ML IV STA (16:59)
--- NOTE | 2020-09-14 17:06 | ED ---
SOB HPI - General Chief Complaint: Shortness of Breath Stated Complaint: body aches/SOB Time Seen by Provider: 09/14/20 16:38 Source: patient Mode of arrival: ambulatory Limitations: no limitations - History of Present Illness Initial Comments: Patient is a 60-year-old female, history of COPD, diabetes, hypertension, fibromyalgia, sleep apnea, presenting to emergency Department with complaints of continued body aches, fatigue and a cough. Patient was discharged from the hospital 2 days ago with low sodium as well as shortness of breath. Patient st ates she followed up with her doctor today and they did repeat labs however she does not know the results of those. Patient states the doctor said if she continues to feel weak and no improvement come back to the ER. Patient continues to be short of breath, coughing, little sputum. She states she is having hard time walking secondary to her weakness. They did do a Covid test which was negative, influenza was also negative. She was given a prescription for a Z-Fredo which she did star as well as steroids which she has not started yet. No steroids today. She denies any fevers, chest pains, nausea, vomiting, diarrhea. She states her appetite has been low. She has no further complaints at this time. Upon arrival to the ER, patient's blood pressure is elevated at 185/77, rest of vitals are normal. - Related Data Home Medications Medication Instructions Recorded Confirmed metFORMIN HCL [Glucophage] 1,000 mg PO BID-W/MEALS 10/06/14 09/11/20 OXcarbazepine [Trileptal] 1,200 mg PO HS 10/07/16 09/11/20 Isosorbide Mononitrate ER [Imdur] 30 mg PO DAILY 10/22/16 09/11/20 Liraglutide [Victoza 2-Fredo] 1.8 mg SQ HS 04/21/17 09/11/20 Pioglitazone [Actos] 30 mg PO DAILY 04/21/17 09/11/20 Verapamil HCl [Verapamil ER] 240 mg PO HS 12/19/17 09/11/20 Atorvastatin [Lipitor] 40 mg PO HS 10/15/18 09/11/20 Insulin Glargine [Lantus] 30 unit SQ HS 06/13/19 09/11/20 Mirtazapine 30 mg PO HS 06/13/19 09/11/20 Pramipexole Di-HCl [Mirapex] 0.5 mg PO HS 06/13/19 09/11/20 ALPRAZolam [Xanax] 0.5 mg PO TID PRN 06/15/19 09/11/20 Aspirin [Adult Low Dose Aspirin EC] 81 mg PO DAILY 08/26/19 09/11/20 Budesonide/Formoterol Fumarate 2 puff INHALATION RT-BID 10/27/19 09/11/20 [Symbicort 160-4.5 Mcg Inhaler] DULoxetine HCL [Cymbalta] 30 mg PO W/LUNCH 10/27/19 09/11/20 Ergocalciferol [Vitamin D2 50,000 unit PO SA 06/06/20 09/11/20 (DRISDOL)] FLUoxetine HCL [PROzac] 20 mg PO DAILY 06/06/20 09/11/20 Losartan Potassium 100 mg PO DAILY 06/06/20 09/11/20 Multivit-Min/FA/Lycopen/Lutein 1 tab PO DAILY 06/06/20 09/11/20 [Centrum Silver Tablet] methocarbamoL [Robaxin] 750 mg PO TID 06/06/20 09/11/20 Albuterol Inhaler [Ventolin Hfa 2 puff INHALATION RT-Q6H PRN 09/11/20 09/11/20 Inhaler] DULoxetine HCL [Cymbalta] 60 mg PO W/LUNCH 09/11/20 09/11/20 Hydrocodone/Acetaminophen [[place] 1 tab PO QID 09/11/20 09/11/20 10-325] Nicotine [Nicotrol] 10 mg INHALATION 5XD PRN 09/11/20 09/11/20 Pregabalin [Lyrica] 100 mg PO TID-W/MEALS 09/11/20 09/11/20 buPROPion HCL [Wellbutrin XL] 150 mg PO DAILY 09/11/20 09/11/20 busPIRone HCL 15 mg PO BID-W/MEALS 09/11/20 09/11/20 Previous Rx's Medication Instructions Recorded Azithromycin [Zithromax Z-pack (6 0 mg PO DIRECTED 5 Days #6 tab 09/12/20 tabs)] Azithromycin [Zithromax Z-pack (6 0 mg PO DIRECTED 5 Days #6 tab 09/12/20 tabs)] Allergies Allergy/AdvReac Type Severity Reaction Status Date / Time No Known Allergies Allergy Verified 09/14/20 16:18 Review of Systems ROS Statement: Those systems with pertinent positive or pertinent negative responses have been documented in the HPI. ROS Other: All systems not noted in ROS Statement are negative. Past Medical History Past Medical History: Asthma, Chest Pain / Angina, COPD, Diabetes Mellitus, Fibromyalgia, Hyperlipidemia, Hypertension, Neurologic Disorder, Osteoarthritis (OA), Sleep Apnea/CPAP/BIPAP Additional Past Medical History / Comment(s): Back pain, fall at home March 2019, pain with standing/walking. Hx Restless Leg, neuropathy, more foot pain recently, no CPAP use, DDD, occasional chest pain and SOB. recent vision changes be evaluated and tested by dr lt hip pain to begin physical therapy History of Any Multi-Drug Resistant Organisms: None Reported Past Surgical History: Cholecystectomy, Heart Catheterization, Hysterectomy, O rthopedic Surgery, Tonsillectomy Additional Past Surgical History / Comment(s): Colonoscopy, tendon repair on left foot, epidural for pain, pain clinic procedures. filipe cataract Past Anesthesia/Blood Transfusion Reactions: Motion Sickness Past Psychological History: Anxiety, Bipolar, Depression, PTSD Smoking Status: Current every day smoker Past Alcohol Use History: Rare Past Drug Use History: None Reported - Past Family History Father Family Medical History: CVA/TIA, Diabetes Mellitus, Hypertension Additional Family Medical History / Comment(s): CATARACTS, AAA. General Exam - General Exam Comments Initial Comments: GENERAL: Patient is well-developed and well-nourished. Patient is nontoxic and in no acute distress, does appear fatigued. HEAD: Atraumatic, normocephalic. EYES: Pupils equal round and reactive to light, extraocular movements intact, sclera anicteric, conjunctiva are normal. Eyelids were unremarkable. ENT: TMs normal, nares patent, oropharynx clear without exudates. Moist mucous membranes. NECK: Normal range of motion, supple without lymphadenopathy or JVD. LUNGS: Decreased sounds on the right, scattered wheezes. No rales or rhonchi. HEART: Regular rate and rhythm without murmurs, rubs or gallops. ABDOMEN: Soft, nontender, normoactive bowel sounds. No guarding, no rebound. No masses appreciated. : Deferred MUSCULOSKELETAL: Normal extremities with adequate strength and normal range of motion, no pitting or edema. No clubbing or cyanosis. NEUROLOGICAL: Patient is alert and oriented x 3. Motor and sensory are also intact. Cranial nerves II through XII grossly intact. Symmetrical smile. Normal speech, normal gait. PSYCH: Normal mood, normal affect. SKIN: Warm, Dry, normal turgor, no rashes or lesions noted. Limitations: no limitations Course Vital Signs 09/14/20 09/14/20 16:15 17:00 Temperature 98.7 F Pulse Rate 86 Respiratory 24 20 Rate Blood Pressure 185/77 O2 Sat by Pulse 98 Oximetry Medical Decision Making - Medical Decision Making Patient is a 60-year-old female with multiple comorbidities, presenting with increase in fatigue, cough. She was discharged from the hospital 2 days ago, had follow-up with her PCP today and has remained weak, short of breath. Her blood pressure slightly elevated on arrival, rest of vitals are normal. Her exam reveals decreased sounds on the right, scattered wheezes, rest of exam is within normal limits. Chest x-ray looks relatively unchanged from 2 days ago. Her labs are also stable, sodium is normal at 136. Patient has been resting comfortably in the ER. I did discuss her case with her physician, Dr. Nelson who is okay with patient being discharged. She can follow-up with him next week if symptoms persist. She is to continue with her azithromycin as well as her steroids. Patient is in agreement with this plan of care. She is stable for discharge. Return parameters were discussed with the patient and she verbalized understanding. Case discussed with Dr. Garcia. - Lab Data Result diagrams: 09/14/20 17:52 09/14/20 17:52 Lab Results 09/14/20 09/14/20 09/14/20 Range/Units 17:52 17:52 17:52 WBC 8.7 (3.8-10.6) k/uL RBC 4.65 (3.80-5.40) m/uL Hgb 13.7 (11.4-16.0) gm/dL Hct 41.9 (34.0-46.0) % MCV 90.1 (80.0-100.0) fL MCH 29.5 (25.0-35.0) pg MCHC 32.8 (31.0-37.0) g/dL RDW 15.3 (11.5-15.5) % Plt Count 371 (150-450) k/uL Neutrophils % 69 % Lymphocytes % 18 % Monocytes % 6 % Eosinophils % 4 % Basophils % 1 % Neutrophils # 6.0 (1.3-7.7) k/uL Lymphocytes # 1.6 (1.0-4.8) k/uL Monocytes # 0.6 (0-1.0) k/uL Eosinophils # 0.3 (0-0.7) k/uL Basophils # 0.1 (0-0.2) k/uL Sodium 136 L (137-145) mmol/L Potassium 5.2 H (3.5-5.1) mmol/L Chloride 105 (98-107) mmol/L Carbon Dioxide 25 (22-30) mmol/L Anion Gap 6 mmol/L BUN 11 (7-17) mg/dL Creatinine 0.38 L (0.52-1.04) mg/dL Est GFR (CKD-EPI)AfAm >90 (>60 ml/min/1.73 sqM) Est GFR (CKD-EPI)NonAf >90 (>60 ml/min/1.73 sqM) Glucose 119 H (74-99) mg/dL Calcium 8.9 (8.4-10.2) mg/dL Magnesium 2.2 (1.6-2.3) mg/dL Total Bilirubin 0.4 (0.2-1.3) mg/dL AST 30 (14-36) U/L ALT 21 (4-34) U/L Alkaline Phosphatase 151 H (38-126) U/L NT-Pro-B Natriuret Pep 136 pg/mL Total Protein 6.8 (6.3-8.2) g/dL Albumin 4.0 (3.5-5.0) g/dL - EKG Data EKG Comments: Sinus rhythm with first-degree AV block, voltage QRS, similar to previous EKG in 09/11/2020. No signs of acute ischemia. Ventricular rate 74, MI interval 226, QT 398. Disposition Clinical Impression: Fatigue, Cough Disposition: HOME SELF-CARE Condition: Stable Instructions (If sedation given, give patient instructions): Acute Bronchitis (ED) Additional Instructions: Please return to the Emergency Department if symptoms worsen or any other concerns. Continue with already prescribed antibiotic and steroids. Follow-up with your PCP next week. Is patient prescribed a controlled substance at d/c from ED?: No Referrals: Aditya Nelson MD [Primary Care Provider] - 1-2 days
--- NOTE | 2020-09-14 17:47 | XR ---
EXAMINATION TYPE: XR chest 2V DATE OF EXAM: 09/14/2020 COMPARISON: 09/11/2020 HISTORY: Cough and chest pain TECHNIQUE: FINDINGS: There is no heart failure nor confluent pneumonic infiltrate. Costophrenic angles are clear . There is slight coarsening of the interstitial markings in the lower lung sorto. There are no sebas r masses. Bony thorax is intact. Heart size is normal. IMPRESSION: Lung markings increased slightly compared to old exam. No pulmonary consolidation. No hea rt failure.
[2020-09-14 18:07] LABS: Basophils # (A) 0.1 k/uL (0-0.2); Basophils % (A) 1 %; Eosinophils # (A) 0.3 k/uL (0-0.7); Eosinophils % (A) 4 %; HCT 41.9 % (34.0-46.0); HGB 13.7 gm/dL (11.4-16.0); Lymphocytes # (A) 1.6 k/uL (1.0-4.8); Lymphocytes % (A) 18 %; MCH 29.5 pg (25.0-35.0); MCHC 32.8 g/dL (31.0-37.0); MCV 90.1 fL (80.0-100.0); Mean Platelet Volume 6.3; Monocytes # (A) 0.6 k/uL (0-1.0); Monocytes % (A) 6 %; Neutrophils % (A) 69 %; Platelet Count 371 k/uL (150-450); RBC 4.65 m/uL (3.80-5.40); RDW 15.3 % (11.5-15.5); WBC 8.7 k/uL (3.8-10.6)
[2020-09-14 18:27] LABS: ALT 21 U/L (4-34); AST 30 U/L (14-36); African American GFR (CKD) >90 (>60 ml/min/1.73 sqM); Alkaline Phosphatase 151 U/L (38-126); Anion Gap 6 mmol/L; Blood Urea Nitrogen 11 mg/dL (7-17); Calcium 8.9 mg/dL (8.4-10.2); Carbon Dioxide 25 mmol/L (22-30); Chloride 105 mmol/L (98-107); Glucose 119 mg/dL (74-99); Magnesium 2.2 mg/dL (1.6-2.3); Non-African American GFR(CKD) >90 (>60 ml/min/1.73 sqM); Potassium 5.2 mmol/L (3.5-5.1); Sodium 136 mmol/L (137-145); Total Bilirubin 0.4 mg/dL (0.2-1.3); Total Protein 6.8 g/dL (6.3-8.2)
[2020-09-14 19:31] VITALS: BP 175/70; PULSE 82; RESP 16; TEMP 98.1
== END 2020-09-14 19:30 | disposition home or self-care (01) ==
LOC: EC 16:13
DX: R05 Cough (principal); R53.83 Other fatigue; R06.02 Shortness of breath; F41.9 Anxiety disorder, unspecified; F31.9 Bipolar disorder, unspecified; J44.9 Chronic obstructive pulmonary disease, unspecified; I20.9 Angina pectoris, unspecified; E78.5 Hyperlipidemia, unspecified; E11.40 Type 2 diabetes mellitus with diabetic neuropathy, unspecified; I10 Essential (primary) hypertension; F17.200 Nicotine dependence, unspecified, uncomplicated; M19.90 Unspecified osteoarthritis, unspecified site; G47.33 Obstructive sleep apnea (adult) (pediatric); Z79.4 Long term (current) use of insulin; Z79.899 Other long term (current) drug therapy; Z79.51 Long term (current) use of inhaled steroids; Z79.82 Long term (current) use of aspirin; Z99.89 Dependence on other enabling machines and devices; Z95.5 Presence of coronary angioplasty implant and graft; Z98.42 Cataract extraction status, left eye; Z98.41 Cataract extraction status, right eye
CPT/HCPCS: 36415; 71046; 80053; 83735; 83880; 85025; 93005; 96360; 99285

== ENCOUNTER 2020-09-20 12:38 | Emergency (ER) | payer MEDICARE, OTHER ==
[2020-09-20] MEDS ORDERED: KETOROLAC 15 MG/ML 1 ML VIAL IM STA (13:08)
--- NOTE | 2020-09-20 13:45 | ED ---
General Adult HPI - General Chief complaint: Extremity Injury, Lower Stated complaint: Left hip/ankle pain Time Seen by Provider: 09/20/20 12:49 Source: patient, RN notes reviewed Mode of arrival: wheelchair Limitations: no limitations - History of Present Illness Initial comments: 60-year-old female presents to the emergency room for left ankle pain. Patient reports that when she got up this morning she had significant pain in left ankle. She does have a history of ankle and hip pain however this is worse than normal. Patient states it was painful to walk on. Patient does report she had surgery on the left ankle several years ago. Patient denies fevers or chills. Denies redness or swelling.Patient has no other complaints at this time incl uding shortness of breath, chest pain, abdominal pain, nausea or vomiting, headache, or visual changes. - Related Data Home Medications Medication Instructions Recorded Confirmed metFORMIN HCL [Glucophage] 1,000 mg PO BID-W/MEALS 10/06/14 09/11/20 OXcarbazepine [Trileptal] 1,200 mg PO HS 10/07/16 09/11/20 Isosorbide Mononitrate ER [Imdur] 30 mg PO DAILY 10/22/16 09/11/20 Liraglutide [Victoza 2-Fredo] 1.8 mg SQ HS 04/21/17 09/11/20 Pioglitazone [Actos] 30 mg PO DAILY 04/21/17 09/11/20 Verapamil HCl [Verapamil ER] 240 mg PO HS 12/19/17 09/11/20 Atorvastatin [Lipitor] 40 mg PO HS 10/15/18 09/11/20 Insulin Glargine [Lantus] 30 unit SQ HS 06/13/19 09/11/20 Mirtazapine 30 mg PO HS 06/13/19 09/11/20 Pramipexole Di-HCl [Mirapex] 0.5 mg PO HS 06/13/19 09/11/20 ALPRAZolam [Xanax] 0.5 mg PO TID PRN 06/15/19 09/11/20 Aspirin [Adult Low Dose Aspirin EC] 81 mg PO DAILY 08/26/19 09/11/20 Budesonide/Formoterol Fumarate 2 puff INHALATION RT-BID 10/27/19 09/11/20 [Symbicort 160-4.5 Mcg Inhaler] DULoxetine HCL [Cymbalta] 30 mg PO W/LUNCH 10/27/19 09/11/20 Ergocalciferol [Vitamin D2 50,000 unit PO SA 06/06/20 09/11/20 (DRISDOL)] FLUoxetine HCL [PROzac] 20 mg PO DAILY 06/06/20 09/11/20 Losartan Potassium 100 mg PO DAILY 06/06/20 09/11/20 Multivit-Min/FA/Lycopen/Lutein 1 tab PO DAILY 06/06/20 09/11/20 [Centrum Silver Tablet] methocarbamoL [Robaxin] 750 mg PO TID 06/06/20 09/11/20 Albuterol Inhaler [Ventolin Hfa 2 puff INHALATION RT-Q6H PRN 09/11/20 09/11/20 Inhaler] DULoxetine HCL [Cymbalta] 60 mg PO W/LUNCH 09/11/20 09/11/20 Hydrocodone/Acetaminophen [[place] 1 tab PO QID 09/11/20 09/11/20 10-325] Nicotine [Nicotrol] 10 mg INHALATION 5XD PRN 09/11/20 09/11/20 Pregabalin [Lyrica] 100 mg PO TID-W/MEALS 09/11/20 09/11/20 buPROPion HCL [Wellbutrin XL] 150 mg PO DAILY 09/11/20 09/11/20 busPIRone HCL 15 mg PO BID-W/MEALS 09/11/20 09/11/20 Previous Rx's Medication Instructions Recorded Azithromycin [Zithromax Z-pack (6 0 mg PO DIRECTED 5 Days #6 tab 09/12/20 tabs)] Azithromycin [Zithromax Z-pack (6 0 mg PO DIRECTED 5 Days #6 tab 09/12/20 tabs)] Allergies Allergy/AdvReac Type Severity Reaction Status Date / Time No Known Allergies Allergy Verified 09/20/20 12:44 Review of Systems ROS Statement: Those systems with pertinent positive or pertinent negative responses have been documented in the HPI. ROS Other: All systems not noted in ROS Statement are negative. Past Medical History Past Medical History: Asthma, Chest Pain / Angina, COPD, Diabetes Mellitus, Fibromyalgia, Hyperlipidemia, Hypertension, Neurologic Disorder, Osteoarthritis (OA), Sleep Apnea/CPAP/BIPAP Additional Past Medical History / Comment(s): Back pain, fall at home March 2019, pain with standing/walking. Hx Restless Leg, neuropathy, more foot pain recently, no CPAP use, DDD, occasional chest pain and SOB. recent vision changes be evaluated and tested by dr lt hip pain to begin physical therapy History of Any Multi-Drug Resistant Organisms: None Reported Past Surgical History: Cholecystectomy, Heart Catheterization, Hysterectomy, Orthopedic Surgery, Tonsillectomy Additional Past Surgical History / Comment(s): Colonoscopy, tendon repair on left foot, epidural for pain, pain clinic procedures. filipe cataract Past Anesthesia/Blood Transfusion Reactions: Motion Sickness Past Psychological History: Anxiety, Bipolar, Depression, PTSD Smoking Status: Current every day smoker Past Alcohol Use History: Rare Past Drug Use History: None Reported - Past Family History Father Family Medical History: CVA/TIA, Diabetes Mellitus, Hypertension Additional Family Medical History / Comment(s): CATARACTS, AAA. General Exam Limitations: no limitations General appearance: alert, in no apparent distress Head exam: Present: atraumatic, normocephalic, normal inspection Eye exam: Present: normal appearance, PERRL, EOMI. Absent: scleral icterus, conjunctival injection, periorbital swelling ENT exam: Present: normal exam, mucous membranes moist Neck exam: Present: normal inspection, full ROM. Absent: tenderness, meningismus, lymphadenopathy Respiratory exam: Present: normal lung sounds bilaterally. Absent: respiratory distress, wheezes, rales, rhonchi, stridor Cardiovascular Exam: Present: regular rate, normal rhythm, normal heart sounds. Absent: systolic murmur, diastolic murmur, rubs, gallop, clicks GI/Abdominal exam: Present: soft, normal bowel sounds. Absent: distended, tenderness, guarding, rebound, rigid Extremities exam: Present: full ROM (Patient does have complete dorsi and plantar flexion of the left ankle over does have pain with this.), tenderness (Tenderness noted throughout the left ankle.), normal capillary refill (Capillary refill is 2 seconds, DP pulse 2+ and left lower extremity.), joint swelling (Minimal edema of the left ankle without erythema or increased warmth.), other (Sensation intact left lower extremity.). Absent: pedal edema, calf tenderness Course Vital Signs 09/20/20 12:41 Temperature 97.8 F Pulse Rate 94 Respiratory 16 Rate Blood Pressure 150/77 O2 Sat by Pulse 97 Oximetry Medical Decision Making - Medical Decision Making X-ray of the left ankle shows no definite acute fracture or dislocation. There is periostial reaction involving the distal tibia that is nonspecific. Soft tissue edema noted. At this time there is no evidence of infection. There is no erythema or increased warmth. Patient has full range of motion. She has only minimal edema. Patient does follow with Dr. Grady for orthopedics. She will contact them in the morning. Patient will return here for any worsening symptoms which were discussed in depth with her. Patient does not want crutches. She reports that she has a walker at home that she will use. Disposition Clinical Impression: Ankle pain, left Disposition: HOME SELF-CARE Condition: Good Instructions (If sedation given, give patient instructions): Ankle Sprain (ED) Additional Instructions: Please continue to take your pain medication for pain. Please follow-up with your orthopedic doctor by calling tomorrow morning for the earliest appointment. If you have any worsening symptoms such as redness, fever, or increased pain return to the emergency room. Is patient prescribed a controlled substance at d/c from ED?: No Referrals: Aditya Nelson MD [Primary Care Provider] - 1-2 days Devaughn Cali MD [STAFF PHYSICIAN] - 1-2 days Time of Disposition: 14:54
--- NOTE | 2020-09-20 14:14 | XR ---
EXAMINATION TYPE: XR ankle complete LT DATE OF EXAM: 09/20/2020 COMPARISON: NONE HISTORY: Pain FINDINGS: Three views of the ankle demonstrate the ankle mortise to be intact and symmetric. The joint spaces are preserved. The osseous structures are intact. Periosteal thickening along the distal tibia. No definite intraosseous lesion seen. Hypertrophic spurring of the medial malleolus diffuse soft tissue edema. Small calcaneal spurs. IMPRESSION: 1. No definite acute fracture or dislocation, if symptoms persist follow-up study in 7 to 10 days wou ld be suggested. 2. There is a periosteal reaction involving the distal tibia is nonspecific. Recommend bone scan. 3. Diffuse soft tissue edema.
--- NOTE | 2020-09-20 14:16 | XR ---
EXAMINATION TYPE: XR foot complete LT DATE OF EXAM: 09/20/2020 COMPARISON: 01/09/2020 HISTORY: Pain TECHNIQUE: Three views are submitted. FINDINGS: The osseous structures are intact. There is no acute fracture or dislocation. Mild diffuse osteope isaac. Small calcaneal spurs are noted. IMPRESSION: 1. No acute fracture or dislocation. If symptoms persist, follow-up exam in 7 to 10 days could be ob tained. 2. Diffuse osteopenia.
[2020-09-20 15:17] VITALS: BP 148/80; PULSE 90; RESP 20; TEMP 98
== END 2020-09-20 15:16 | disposition home or self-care (01) ==
LOC: EC 12:38
DX: M25.572 Pain in left ankle and joints of left foot (principal); R60.0 Localized edema; I10 Essential (primary) hypertension; E11.40 Type 2 diabetes mellitus with diabetic neuropathy, unspecified; J44.9 Chronic obstructive pulmonary disease, unspecified; E78.5 Hyperlipidemia, unspecified; G25.81 Restless legs syndrome; I20.9 Angina pectoris, unspecified; M19.90 Unspecified osteoarthritis, unspecified site; M54.9 Dorsalgia, unspecified; M79.7 Fibromyalgia; G47.30 Sleep apnea, unspecified; F41.9 Anxiety disorder, unspecified; F32.9 Major depressive disorder, single episode, unspecified; F43.10 Post-traumatic stress disorder, unspecified; F17.200 Nicotine dependence, unspecified, uncomplicated; Z79.82 Long term (current) use of aspirin; Z79.4 Long term (current) use of insulin; Z79.899 Other long term (current) drug therapy; Z79.891 Long term (current) use of opiate analgesic; Z79.51 Long term (current) use of inhaled steroids; Z99.89 Dependence on other enabling machines and devices
CPT/HCPCS: 99283 ×2; 96372 ×2; 73610; 73630; J1885

== ENCOUNTER 2020-09-27 11:13 | Emergency (ER) | payer MEDICARE ==
[2020-09-27 11:19] VITALS: BP 142/75; PULSE 89; RESP 18; TEMP 97.7
[2020-09-27] MEDS ORDERED: ACET/COD 300 MG/30 MG STARTER PACK 6 TAB BTL PO STA (11:57)
--- NOTE | 2020-09-27 12:38 | XR ---
EXAMINATION TYPE: XR knee complete LT DATE OF EXAM: 09/27/2020 COMPARISON: NONE HISTORY: Pain TECHNIQUE: Three views are submitted. FINDINGS: Severe arthropathy of the medial compartment of the knee joint with hypertrophic spurring.. Osseous structures are intact. No acute fracture seen. IMPRESSION: 1. No acute fracture or dislocation. 2. Severe arthropathy..
--- NOTE | 2020-09-27 12:39 | XR ---
EXAMINATION TYPE: XR foot complete LT DATE OF EXAM: 09/27/2020 COMPARISON: NONE HISTORY: Pain TECHNIQUE: Three views are submitted. FINDINGS: The osseous structures are intact. There is no acute fracture or dislocation. Joint spaces are p reserved. Paraspinous deformity. Tiny calcaneal spurs. IMPRESSION: 1. No acute fracture or dislocation. If symptoms persist, follow-up exam in 7 to 10 days could be ob tained.
--- NOTE | 2020-09-27 12:40 | XR ---
EXAMINATION TYPE: XR Hip Complete LT DATE OF EXAM: 09/27/2020 COMPARISON: NONE HISTORY: Pain TECHNIQUE: 2 views submitted FINDINGS: There is no evidence of erosive change or acute fracture. Severe arthropathy of the hip with hypertrophic changes of the acetabulum. IMPRESSION: 1. No evidence of acute fracture or dislocation. 2. Severe arthropathy correlate for femoral acetabular impingement.
--- NOTE | 2020-09-27 12:49 | ED ---
Fall HPI - General Chief Complaint: Fall Stated Complaint: Fall Time Seen by Provider: 09/27/20 11:35 Source: patient Mode of arrival: wheelchair - History of Present Illness Initial Comments: 60-year-old female presenting today for chief complaint of fall. Patient states she tripped over C Pap machine last night she states that she hurt her left foot knee and hip. She states she came down onto the left knee. Patient denies any loss of sensation or weakness of the extremity she states she still able to weight-bear and ambulate. Patient states that she has not noticed any bruising. Patient denies any new low back pain denies any injury to head neck chest or abdomen. Patient denies any injury to the upper extremity is. Upon arrival patient is pleasant she is able to and light with walker which is her baseline. She is in no acute distress - Related Data Home Medications Medication Instructions Recorded Confirmed metFORMIN HCL [Glucophage] 1,000 mg PO BID-W/MEALS 10/06/14 09/11/20 OXcarbazepine [Trileptal] 1,200 mg PO HS 10/07/16 09/11/20 Isosorbide Mononitrate ER [Imdur] 30 mg PO DAILY 10/22/16 09/11/20 Liraglutide [Victoza 2-Fredo] 1.8 mg SQ HS 04/21/17 09/11/20 Pioglitazone [Actos] 30 mg PO DAILY 04/21/17 09/11/20 Verapamil HCl [Verapamil ER] 240 mg PO HS 12/19/17 09/11/20 Atorvastatin [Lipitor] 40 mg PO HS 10/15/18 09/11/20 Insulin Glargine [Lantus] 30 unit SQ HS 06/13/19 09/11/20 Mirtazapine 30 mg PO HS 06/13/19 09/11/20 Pramipexole Di-HCl [Mirapex] 0.5 mg PO HS 06/13/19 09/11/20 ALPRAZolam [Xanax] 0.5 mg PO TID PRN 06/15/19 09/11/20 Aspirin [Adult Low Dose Aspirin EC] 81 mg PO DAILY 08/26/19 09/11/20 Budesonide/Formoterol Fumarate 2 puff INHALATION RT-BID 10/27/19 09/11/20 [Symbicort 160-4.5 Mcg Inhaler] DULoxetine HCL [Cymbalta] 30 mg PO W/LUNCH 10/27/19 09/11/20 Ergocalciferol [Vitamin D2 50,000 unit PO SA 06/06/20 09/11/20 (DRISDOL)] FLUoxetine HCL [PROzac] 20 mg PO DAILY 06/06/20 09/11/20 Losartan Potassium 100 mg PO DAILY 06/06/20 09/11/20 Multivit-Min/FA/Lycopen/Lutein 1 tab PO DAILY 06/06/20 09/11/20 [Centrum Silver Tablet] methocarbamoL [Robaxin] 750 mg PO TID 06/06/20 09/11/20 Albuterol Inhaler [Ventolin Hfa 2 puff INHALATION RT-Q6H PRN 09/11/20 09/11/20 Inhaler] DULoxetine HCL [Cymbalta] 60 mg PO W/LUNCH 09/11/20 09/11/20 Hydrocodone/Acetaminophen [[place] 1 tab PO QID 09/11/20 09/11/20 10-325] Nicotine [Nicotrol] 10 mg INHALATION 5XD PRN 09/11/20 09/11/20 Pregabalin [Lyrica] 100 mg PO TID-W/MEALS 09/11/20 09/11/20 buPROPion HCL [Wellbutrin XL] 150 mg PO DAILY 09/11/20 09/11/20 busPIRone HCL 15 mg PO BID-W/MEALS 09/11/20 09/11/20 Previous Rx's Medication Instructions Recorded Azithromycin [Zithromax Z-pack (6 0 mg PO DIRECTED 5 Days #6 tab 09/12/20 tabs)] Azithromycin [Zithromax Z-pack (6 0 mg PO DIRECTED 5 Days #6 tab 09/12/20 tabs)] Allergies Allergy/AdvReac Type Severity Reaction Status Date / Time No Known Allergies Allergy Verified 09/27/20 11:19 Review of Systems ROS Statement: Those systems with pertinent positive or pertinent negative responses have been documented in the HPI. ROS Other: All systems not noted in ROS Statement are negative. Past Medical History Past Medical History: Asthma, Chest Pain / Angina, COPD, Diabetes Mellitus, Fibromyalgia, Hyperlipidemia, Hypertension, Neurologic Disorder, Osteoarthritis (OA), Sleep Apnea/CPAP/BIPAP Additional Past Medical History / Comment(s): Back pain, fall at home March 2019, pain with standing/walking. Hx Restless Leg, neuropathy, more foot pain recently, no CPAP use, DDD, occasional chest pain and SOB. recent vision changes be evaluated and tested by dr lt hip pain to begin physical therapy History of Any Multi-Drug Resistant Organisms: None Reported Past Surgical History: Cholecystectomy, Heart Catheterization, Hysterectomy, Orthopedic Surgery, Tonsillectomy Additional Past Surgical History / Comment(s): Colonoscopy, tendon repair on left foot, epidural for pain, pain clinic procedures. filipe cataract Past Anesthesia/Blood Transfusion Reactions: Motion Sickness Past Psychological History: Anxiety, Bipolar, Depression, PTSD Smoking Status: Current every day smoker Past Alcohol Use History: Rare Past Drug Use History: None Reported - Past Family History Father Family Medical History: CVA/TIA, Diabetes Mellitus, Hypertension Additional Family Medical History / Comment(s): CATARACTS, AAA. General Exam - General Exam Comments Initial Comments: General: The patient is awake and alert, in no distress Eye: +3 mm pupils are equal, round and reactive to light, extra-ocular movements are intact. No nystagmus. There is normal conjunctiva bilaterally. No signs of icterus. Ears, nose, mouth and throat: There are moist mucous membranes and no oral lesions. Neck: The neck is supple, there is no tenderness or JVD. Cardiovascular: There is a regular rate and rhythm. No murmur, rub or gallop is appreciated. Respiratory: Lungs are clear to auscultation, respirations are non-labored, breath sounds are equal. No wheezes, stridor, rales, or rhonchi. Gastrointestinal: Soft, non-distended, non-tender abdomen without masses or organomegaly noted. There is no rebound or guarding present. Musculoskeletal: Normal ROM, no tenderness. Strength 5/5 of the LE b/l. Sensation intact of the LE b/l. Radial and DP pulses equal bilaterally 2+. Neurological: A&O x 3. CN II-XII intact grossly, There are no obvious motor or sensory deficits. Coordination appears grossly intact. Speech is normal. Skin: Skin is warm and dry and no rashes or lesions are noted. Psychiatric: Cooperative, appropriate mood & affect, normal judgment. Limitations: no limitations Course Vital Signs 11/12/20 11:17 Temperature 97.7 F Pulse Rate 89 Respiratory 18 Rate Blood Pressure 142/75 O2 Sat by Pulse 96 Oximetry Medical Decision Making - Medical Decision Making 60yo female prsesenting for fall. Patient is full strength of the left lower extremity which is the affected side at the hip knee and ankle and foot. There is no tenderness over the forefoot more lateral. No bruising no bruising on the plantar aspect. Patient imaging studies negative for acute osseous process she does have chronic changes and a acetabular femoral impingement noted. Patient states she has surgery scheduled for October [address] Grady for surgery oon her hip. Jimenan denies additional complaints She was discharged appearing well. Disposition Clinical Impression: Left foot pain, Abrasion of left knee, Left hip pain, Femoral acetabular i mpingement, Arthritis Disposition: HOME SELF-CARE Condition: Good Instructions (If sedation given, give patient instructions): Osteoarthritis (ED), Hip Pain (ED) Additional Instructions: Please use medication as discussed. Please follow-up with family doctor in the next 2 days, recommend outpatient orthopedic follow-up. Please return to emergency room if the symptoms increase or worsen or for any other concerns. Is patient prescribed a controlled substance at d/c from ED?: No Referrals: Aditya Nelson MD [Primary Care Provider] - 1-2 days Kurt Lyle MD [STAFF PHYSICIAN] - 1-2 days Devaughn Cali MD [STAFF PHYSICIAN] - 1-2 days Time of Disposition: 12:49
== END 2020-09-27 13:02 | disposition home or self-care (01) ==
LOC: EC 11:13
DX: S80.212A Abrasion, left knee, initial encounter (principal); M25.852 Other specified joint disorders, left hip; M19.91 Primary osteoarthritis, unspecified site; M79.672 Pain in left foot; F41.9 Anxiety disorder, unspecified; F31.9 Bipolar disorder, unspecified; F17.200 Nicotine dependence, unspecified, uncomplicated; J44.9 Chronic obstructive pulmonary disease, unspecified; E11.40 Type 2 diabetes mellitus with diabetic neuropathy, unspecified; E78.5 Hyperlipidemia, unspecified; I10 Essential (primary) hypertension; M19.90 Unspecified osteoarthritis, unspecified site; G47.33 Obstructive sleep apnea (adult) (pediatric); Z79.82 Long term (current) use of aspirin; Z79.4 Long term (current) use of insulin; Z79.899 Other long term (current) drug therapy; Z79.51 Long term (current) use of inhaled steroids; Z99.89 Dependence on other enabling machines and devices; Z95.5 Presence of coronary angioplasty implant and graft; Z90.710 Acquired absence of both cervix and uterus; Z90.49 Acquired absence of other specified parts of digestive tract; W01.0XXA Fall on same level from slipping, tripping and stumbling without subsequent striking against object, initial encounter
CPT/HCPCS: 73502; 99283

== ENCOUNTER → 2020-09-27 | Outpatient (CLI) | payer MEDICARE | END | disposition home or self-care (01) | LOC: LABPAT 10:39 | PROVIDERS: ATTEND Orthopaedic Surgery | DX: Z01.812 Encounter for preprocedural laboratory examination (principal) | CPT/HCPCS: 87070 ==

== ENCOUNTER → 2020-10-05 | Outpatient (CLI) | payer MEDICARE ==
--- NOTE | 2020-10-05 14:07 | NM ---
EXAMINATION TYPE: NM bone 3 phase DATE OF EXAM: 10/05/2020 COMPARISON: Plain film 09/27/2020 and 09/20/2020 HISTORY: Osteomyelitis left ankle, left ankle swelling, trauma 09/20/2020, pain Triple phase bone scintigraphy was performed following the injection of 24.1 mCi Tc 99m MDP. Immedia te images and 4 hours post injection images acquired. FINDINGS: Blood flow activity symmetric. Blood pool shows some increased uptake in the region of the right ankl e, first metatarsal phalangeal joint of the left foot. Delayed imaging shows abnormal activity within the bilateral ankles as well as the first metatarsophalangeal joint of the left foot. IMPRESSION: There are underlying degenerative changes. Posttraumatic changes not excluded, ankle MRI may be of be nefit.
== END | disposition home or self-care (01) ==
LOC: RADNMMAIN 07:01
PROVIDERS: ATTEND Internal Medicine
DX: Z98.890 Other specified postprocedural states (principal); M86.672 Other chronic osteomyelitis, left ankle and foot
CPT/HCPCS: 78315; A9503

== ENCOUNTER → 2020-10-12 | Outpatient (CLI) | payer MEDICARE | END | disposition home or self-care (01) | LOC: LABPAT 09:45 | PROVIDERS: ATTEND Orthopaedic Surgery | DX: Z01.818 Encounter for other preprocedural examination (principal); M16.12 Unilateral primary osteoarthritis, left hip | CPT/HCPCS: 86850; 86900; 86901 ==

== ENCOUNTER → 2020-10-19 | Outpatient (CLI) | payer MEDICARE ==
[2020-10-19 13:54] LABS: Basophils # (A) 0.1 k/uL (0-0.2); Basophils % (A) 1 %; Eosinophils # (A) 0.3 k/uL (0-0.7); Eosinophils % (A) 3 %; HCT 42.5 % (34.0-46.0); HGB 13.8 gm/dL (11.4-16.0); Lymphocytes # (A) 1.8 k/uL (1.0-4.8); Lymphocytes % (A) 22 %; MCHC 32.5 g/dL (31.0-37.0); MCV 89.3 fL (80.0-100.0); Mean Platelet Volume 6.9; Monocytes # (A) 0.5 k/uL (0-1.0); Monocytes % (A) 5 %; Neutrophils # (A) 5.6 k/uL (1.3-7.7); Neutrophils % (A) 67 %; Platelet Count 353 k/uL (150-450); RBC 4.76 m/uL (3.80-5.40); WBC 8.4 k/uL (3.8-10.6)
== END | disposition home or self-care (01) ==
LOC: LABPAT 12:54
PROVIDERS: ATTEND Orthopaedic Surgery
DX: Z01.818 Encounter for other preprocedural examination (principal); M16.12 Unilateral primary osteoarthritis, left hip
CPT/HCPCS: 36415; 80051; 85025

== ENCOUNTER 2020-10-20 00:14 | Emergency (ER) | payer MEDICARE ==
[2020-10-20 00:28] VITALS: RESP 18
[2020-10-20] MEDS ORDERED: ORPHENADRINE 30 MG/ML 2 ML VIAL IVP STA (00:47)
[2020-10-20] MEDS ORDERED: MORPHINE SULFATE 4 MG/ML SYRINGE IVP STA (00:47)
--- NOTE | 2020-10-20 01:04 | ED ---
Extremity Problem HPI - General Chief complaint: Extremity Problem,Nontraumatic Stated complaint: Left hip pain Time Seen by Provider: 10/20/20 00:16 Source: EMS, RN notes reviewed, old records reviewed Mode of arrival: EMS Limitations: no limitations - History of Present Illness Initial comments: 60-year-old female scheduled to have left hip replacement surgery on Thursday presents for left hip pain today. Denies any fall or trauma. She reports she's been taking at home pain medication. At this time patient's denies any saddle anesthesias or back pain. She reports the pain is worse with ambulation and she has "severe hip impingement syndrome". She denies change in urination or bowel habits. Patient reports she is able to ambulate. She does sleep in a hospital bed at home. - Related Data Home Medications Medication Instructions Recorded Confirmed metFORMIN HCL [Glucophage] 1,000 mg PO BID-W/MEALS 10/06/14 10/19/20 OXcarbazepine [Trileptal] 1,200 mg PO HS 10/07/16 10/19/20 Isosorbide Mononitrate ER [Imdur] 30 mg PO DAILY 10/22/16 10/19/20 Liraglutide [Victoza 2-Fredo] 1.8 mg SQ HS 04/21/17 10/19/20 Pioglitazone [Actos] 30 mg PO DAILY 04/21/17 10/19/20 Verapamil HCl [Verapamil ER] 240 mg PO HS 12/19/17 10/19/20 Atorvastatin [Lipitor] 40 mg PO HS 10/15/18 10/19/20 Insulin Glargine [Lantus] 30 unit SQ HS 06/13/19 10/19/20 Mirtazapine 30 mg PO HS 06/13/19 10/19/20 Pramipexole Di-HCl [Mirapex] 0.5 mg PO HS 06/13/19 10/19/20 ALPRAZolam [Xanax] 0.5 mg PO TID PRN 06/15/19 10/19/20 Aspirin [Adult Low Dose Aspirin EC] 81 mg PO DAILY 08/26/19 10/19/20 Budesonide/Formoterol Fumarate 2 puff INHALATION RT-BID 10/27/19 10/19/20 [Symbicort 160-4.5 Mcg Inhaler] DULoxetine HCL [Cymbalta] 30 mg PO W/LUNCH 10/27/19 10/19/20 Ergocalciferol [Vitamin D2 50,000 unit PO SA 06/06/20 10/19/20 (DRISDOL)] FLUoxetine HCL [PROzac] 20 mg PO DAILY 06/06/20 10/19/20 Losartan Potassium 100 mg PO DAILY 06/06/20 10/19/20 Multivit-Min/FA/Lycopen/Lutein 1 tab PO DAILY 06/06/20 10/19/20 [Centrum Silver Tablet] methocarbamoL [Robaxin] 750 mg PO TID 06/06/20 10/19/20 Albuterol Inhaler [Ventolin Hfa 2 puff INHALATION RT-Q6H PRN 09/11/20 10/19/20 Inhaler] DULoxetine HCL [Cymbalta] 60 mg PO W/LUNCH 09/11/20 10/19/20 Hydrocodone/Acetaminophen [[place] 1 tab PO QID 09/11/20 10/19/20 10-325] Nicotine [Nicotrol] 10 mg INHALATION 5XD PRN 09/11/20 10/19/20 Pregabalin [Lyrica] 100 mg PO TID-W/MEALS 09/11/20 10/19/20 buPROPion HCL [Wellbutrin XL] 150 mg PO DAILY 09/11/20 10/19/20 busPIRone HCL 15 mg PO BID-W/MEALS 09/11/20 10/19/20 Previous Rx's Medication Instructions Recorded Azithromycin [Zithromax Z-pack (6 0 mg PO DIRECTED 5 Days #6 tab 09/12/20 tabs)] Azithromycin [Zithromax Z-pack (6 0 mg PO DIRECTED 5 Days #6 tab 09/12/20 tabs)] Allergies Allergy/AdvReac Type Severity Reaction Status Date / Time No Known Allergies Allergy Verified 10/20/20 00:26 Review of Systems ROS Statement: Those systems with pertinent positive or pertinent negative responses have been documented in the HPI. ROS Other: All systems not noted in ROS Statement are negative. Past Medical History Past Medical History: Asthma, Chest Pain / Angina, Heart Failure, COPD, Diabetes Mellitus, Fibromyalgia, Hyperlipidemia, Hypertension, Neurologic Disorder, Osteoarthritis (OA), Sleep Apnea/CPAP/BIPAP Additional Past Medical History / Comment(s): Back pain, fall at home March 2019, pain with standing/walking. Hx Restless Leg, neuropathy, more foot pain r ecently, no CPAP use, DDD, occasional chest pain and SOB. recent vision changes be evaluated and tested by dr lt hip pain to begin physical therapy. FELL AT HOME 09/27/20 SEEN IN ER History of Any Multi-Drug Resistant Organisms: None Reported Past Surgical History: Cholecystectomy, Heart Catheterization, Hysterectomy, Orthopedic Surgery, Tonsillectomy Additional Past Surgical History / Comment(s): Colonoscopy, tendon repair on left foot, epidural for pain, pain clinic procedures. filipe cataract Past Anesthesia/Blood Transfusion Reactions: Motion Sickness Past Psychological History: Anxiety, Bipolar, Depression, PTSD Smoking Status: Current every day smoker, Vaper - Past Family History Father Family Medical History: CVA/TIA, Diabetes Mellitus, Hypertension Additional Family Medical History / Comment(s): CATARACTS, AAA. General Exam - General Exam Comments Initial Comments: Well-appearing 52-year-old female. No distress. Limitations: no limitations General appearance: alert, in no apparent distress Head exam: Present: atraumatic, normocephalic, normal inspection Eye exam: Present: normal appearance, PERRL, EOMI. Absent: scleral icterus, conjunctival injection, periorbital swelling ENT exam: Present: normal exam, mucous membranes moist Neck exam: Present: normal inspection. Absent: tenderness, meningismus, lymphadenopathy Respiratory exam: Present: normal lung sounds bilaterally. Absent: respiratory distress, wheezes, rales, rhonchi, stridor Cardiovascular Exam: Present: regular rate, normal rhythm, normal heart sounds. Absent: systolic murmur, diastolic murmur, rubs, gallop, clicks GI/Abdominal exam: Present: soft, normal bowel sounds. Absent: distended, tenderness, guarding, rebound, rigid Extremities exam: Present: normal inspection, full ROM, normal capillary refill. Absent: tenderness, pedal edema, joint swelling, calf tenderness Back exam: Present: normal inspection, full ROM, tenderness (Tenderness over her left trochanter. No bruising. Normal pulse and lower extremity.) Neurological exam: Present: alert, oriented X3, CN II-XII intact Psychiatric exam: Present: normal affect, normal mood Skin exam: Present: warm, dry, intact, normal color. Absent: rash Course Vital Signs 10/20/20 00:24 Temperature 98.1 F Pulse Rate 89 Respiratory 18 Rate Blood Pressure 184/81 O2 Sat by Pulse 96 Oximetry Medical Decision Making - Medical Decision Making 52-year-old female presents for acute exacerbation of chronic hip pain. No falls or trauma. No saddle anesthesias. She has full range of motion of leg and is able to ambulate. She has upcoming surgery for hip replacement on Thursday. Discussed Patient achieved her at home pain medication and to wait for her upcoming surgery on Thursday. I discussed return parameters. As listed she has no fall or trauma or new injury to this we repeat imaging is not necessary at this time Patient is agreeable as planned. Patient does feel improved after IV analgesia and will be discharged home in stable condition. Disposition Clinical Impression: Left hip pain Disposition: HOME SELF-CARE Condition: Good Instructions (If sedation given, give patient instructions): Arthralgia (ED), Hip Pain (ED) Additional Instructions: Continue at home pain medication. Return to the emergency department if any alarming signs or symptoms occur. Is patient prescribed a controlled substance at d/c from ED?: No Referrals: Aditya Nelson MD [Primary Care Provider] - 1-2 days Time of Disposition: 01:04
[2020-10-20 01:34] VITALS: BP 154/89; PULSE 80; TEMP 98.3
== END 2020-10-20 01:33 | disposition home or self-care (01) ==
LOC: EC 00:14
DX: M25.552 Pain in left hip (principal); G89.29 Other chronic pain; F17.290 Nicotine dependence, other tobacco product, uncomplicated; J44.9 Chronic obstructive pulmonary disease, unspecified; I11.0 Hypertensive heart disease with heart failure; I50.9 Heart failure, unspecified; F41.9 Anxiety disorder, unspecified; F31.9 Bipolar disorder, unspecified; I25.2 Old myocardial infarction; M79.7 Fibromyalgia; E78.5 Hyperlipidemia, unspecified; M19.90 Unspecified osteoarthritis, unspecified site; E11.40 Type 2 diabetes mellitus with diabetic neuropathy, unspecified; G25.81 Restless legs syndrome; Z79.4 Long term (current) use of insulin; Z79.51 Long term (current) use of inhaled steroids; Z79.82 Long term (current) use of aspirin; Z79.899 Other long term (current) drug therapy; Z95.5 Presence of coronary angioplasty implant and graft; Z98.890 Other specified postprocedural states
CPT/HCPCS: 99284; 96374; 96375; J2270; J2360

== ENCOUNTER 2020-10-23 15:19 | Observation (INO) | payer MEDICARE ==
[2020-10-19 10:24] VITALS: BMI 43.5
--- NOTE | 2020-10-22 09:32 | HP ---
HISTORY AND PHYSICAL CHIEF COMPLAINT: Left hip pain. HISTORY OF PRESENT ILLNESS: Patient is a 60-year-old female on disability, who presents with progressive left hip pain for the past several years. She notes she is having a difficult time with weightbearing activities. She notes lateral pain along with groin pain. She feels like she wants to give out. She is also having night symptoms. She has tried therapy in addition has been trying to lose weight. She has been taking pain medications for this. She does use a walker. PAST MEDICAL HISTORY: Significant for coronary artery disease, COPD, depression, fibromyalgia, hypercholesterolemia, arthritis, neuropathy. PAST SURGICAL HISTORY: Significant for cardiac catheterization, cholecystectomy, ankle surgery, hysterectomy, and previous colonoscopy. CURRENT MEDICATIONS: Albuterol, aspirin, alprazolam, atorvastatin, fluoxetine, losartan, metformin, methocarbamol, [place], pregabalin, verapamil. She denies alejo drug allergies. FAMILY HISTORY: Significant for heart disease. SOCIAL HISTORY: Significant for 1 pack per day tobacco use. 16 POINT REVIEW OF SYSTEMS: Otherwise reviewed and is noncontributory. PHYSICAL EXAMINATION: On examination, the patient is approximately 5 foot 7, 277 pounds of endomorphic habitus. HEENT" Exam is nonfocal. Neck is supple. Passive motion left hip, flexion 70 degrees, external rotation is 50 degrees, internal rotation is 20 degrees with pain. She has clinical shortening of the left lower extremity compared to the right. She does have a mildly antalgic gait pattern. Her distal neurovascular exam appears intact in the left lower extremity. AP and lateral views of the left hip obtained in the office show severe osteoarthrosis with [id number] changes and subchondral sclerosis. IMPRESSION: 1. Left hip severe osteoarthrosis. 2. Obesity. 3. History of coronary artery disease. 4. Non-insulin dependent diabetes. RECOMMENDATIONS: I talked to the patient at length regarding her condition along with treatment options. At this point, she is quite symptomatic and limited because of pain related to her osteoarthrosis despite conservative measures. After thorough discussion, she opts to proceed with surgery. We will plan to proceed with left total hip arthroplasty utilizing a lateral approach. Risks and benefits were discussed at length in layman's terms. She underwent preoperative cardiac clearance. MMODL / IJN: [id number] /
[2020-10-23] MEDS: LACTATED RINGERS 1,000 ML IV SCH (12:57)
[2020-10-23 12:58] LABS: Glucose,Whole Blood 104 mg/dL (75-99)
[~2020-10-23 15:19] MED LIST changes: +ACETAMINOPHEN TAB 325 MG TAB PO PRN; +ACETAMINOPHEN TAB 500 MG TAB PO PRN; +DEXAMETHASONE SOD PHOSPHATE 4 MG/ML 1 ML VIAL IVP ONE; +GLYCOPYRROLATE 0.2 MG/ML 2 ML VIAL ONE; +HYDROmorphone (PF) 1 MG/ML ONE; +HYDROmorphone 0.5 MG/0.5 ML SYRINGE IVP PRN; +HYDROmorphone 1 MG/ML 1 ML SYRINGE IVP PRN; +KETAMINE 10 MG/ML 20 ML VIAL ONE; +LACTATED RINGERS 1,000 ML IV ONE; +LIDOCAINE 1% (10MG/ML) FOR IV START INTRADERMA PRN; +MAGNESIUM HYDROXIDE 2,400 MG/10 ML CUP PO PRN; +MELOXICAM 7.5 MG TAB PO PRN; +MIDAZOLAM 2 MG/2 ML VIAL ONE; +NALOXONE 0.4 MG/ML 1 ML VIAL IV PRN; +ONDANSETRON 4 MG/2 ML VIAL IVP ONE; +ONDANSETRON 4 MG/2 ML VIAL IVP PRN; +PHENYLEPHRINE 10 MG/ML VIAL ONE; +PROPOFOL 10 MG/ML 20 ML VIAL IV ONE; -REGADENOSON 0.4 MG/5 ML SYRINGE IV ONE; +SODIUM CHLORIDE 0.9% 100 ML BAG ONE; +TRANEXAMIC ACID 1,000 MG in SODIUM CHLORIDE 0.9% 100 ML IVPB PRN; +TRANEXAMIC ACID 1,000 MG/10 ML VIAL ONE; +ceFAZolin 3 GM in SODIUM CHLORIDE 0.9% 100 ML IVPB PRN; +ceFAZolin 3,000 MG in SODIUM CHLORIDE 0.9% IRRIGATIO 3,000 ML IRRIGATION ONE; +diphenhydrAMINE 50 MG/ML 1 ML VIAL ONE; +fentaNYL (PF) 50 MCG/ML 2 ML AMP ONE
--- NOTE | 2020-10-23 15:41 | P.OP ---
Date of Procedure: 10/23/20 Preoperative Diagnosis: Left hip severe osteoarthrosis Postoperative Diagnosis: Same Procedure(s) Performed: Left total hip arthroplastypress-fit Implants: Depuy [place] size 10 standard collared press-fit femoral stem, 36 mm +1.5 cobalt chrome femoral head, 54 mm [place] acetabular shell with neutral polyethylene liner. Anesthesia: spinal Surgeon: Devaughn Cali Senior Cost Analyst #1: Trevor Brar Estimated Blood Loss (ml): 500 Pathology: other (Femoral head) Condition: stable Disposition: PACU Indications for Procedure: The patient's a 60-year-old female who presents with progressive left hip pain secondary osteoarthrosis despite conservative measures. A discussion of the risks and benefits of continued conservative measures versus operative intervention was made with patient. She opted to proceed with surgery. Opera tive risks to include infection, neurovascular injury, development of blood clots, possible fracture, possible leg length discrepancy, possible instability, possible component loosening/failure and need for subsequent procedures was discussed. Informed consent was obtained. Operative Findings: As below Description of Procedure: The patient was brought to the operating room, and after induction of spinal anesthesia was placed in a lateral decubitus position. The bony prominences were appropriately padded. The pelvis was stable perpendicular to the floor with a pegboard. The left lower extremity was prepped and draped in normal fashion. A 12 cm incision was then made centered over the greater trochanter extending superiorly to level the ASIS and distally in line with the femoral shaft. The skin and subcutaneous tissues were divided sharply. Electrocautery was used for hemostasis. The fascia fox and gluteus jassi fascia was split in line with the skin incision. The muscle fibers were bluntly dissected proximally. A self-retaining retractor was placed. The anterior and posterior margins of the gluteus medius muscles identified and the anterior two thirds was detached from the greater trochanter with electrocautery. The gluteus minimus tendon was identified and detached in a similar fashion. A wide capsulotomy was performed. The femoral neck fracture was identified in the lower neck cut was made approximately 1 1/2 cm above the level of the lesser trochanter with a sagittal saw at a 45 the shaft. The head was then extracted with a corkscrew. Attention was then paid towards preparing the acetabular. Anterior and posterior retractors were placed. The remaining capsular labral tissues debrided sharply clearly defining the acetabular margins. Began reaming with a 47 mm reamer taking care to initially medialize, then reaming at 45 of abduction and 20 of anteversion. Sequential reaming is performed up to 53 mm. This was down to bleeding bony surface. A trial 4 mm acetabular shell was inserted at 45 of abduction and 20 of anteversion. This was fully seated. There was good rim fit and stability. I did place one screw measuring 6.5 mm x 30 mm with good purchase posteriorly. A neutral polyethylene liner was then impacted. Care taken to avoid any soft tissue interposition. Attention was then paid towards preparing the proximal femur. A box chisel was used to open the metaphyseal region. A canal finder was used to find the femoral canal. Sequential broaching was performed up to a size an. This is placed in 15 of anteversion with the leg perpendicular floor judging off the trans-epicondylar axis. There is good rotational stability. A calcar mill was used to fashion the medial calcar. A trial standard neck along with a 36 mm + 1.5 trial head was placed. The hip was gently reduced. It was taken through range of motion. I felt to be stable in flexion and extension with internal and external rotation. I felt there was adequate sikh of soft tissue tension. The hip was gently dislocated. The trial components removed. Pulsatile lavage was utilized. The final size 10 standard collared femoral stem was inserted again with the leg perpendicular to the floor in 15 of anteversion. Again there was good rotational stability. A 36 mm + 0.5 cobalt chrome femoral head was gently impacted. The hip was gently reduced. Again it was taken through motion and felt to be stable in flexion and extension with internal and external rotation. Pulsatile lavage was again utilized. With the leg in abduction the gluteus minimus and medius tendons reattached to the greater trochanter with #2 Ethibond suture. There was minimal drainage therefore a deep drain was not placed. The fascia fox and gluteus jassi fascia was closed with #2 Ethibond suture. The subcutaneous tissues were reapproximated interrupted 2-0 Vicryl sutures. The skin was reapproximated with 3-0 subcuticular strata fix suture. Skin tape and adhesive was applied. A sterile dressing was applied. The patient was awoken from sedation and transferred to recovery room in good condition. Blood loss was estimated 500 mL. No complications were incurred. Sponge and needle counts were correct in the case. Elia IRELAND assisted during the major composes case to include exposure, implantation, and closure.
[2020-10-23 16:06] LABS: Glucose,Whole Blood 133 mg/dL (75-99)
--- NOTE | 2020-10-23 16:10 | XR ---
Left hip HISTORY: Status post left hip arthroplasty Single frontal view of the left hip Patient is status post left hip arthroplasty. There is anatomic alignment. Lucency is present in the soft tissues. IMPRESSION: Orthopedic follow-up.
[2020-10-23 16:43] LABS: Glucose,Whole Blood 129 mg/dL (75-99)
[2020-10-23] MEDS ORDERED: NICOTINE 10 MG INHALATION PRN (17:30)
[2020-10-23] MEDS: PREGABALIN 100 MG CAP PO SCH (17:50)
[2020-10-23] MEDS: metFORMIN 500 MG TAB PO SCH (17:50)
[2020-10-23] MEDS: HYDROcodone/APAP 10-325MG 1 EACH TAB PO PRN (17:59)
[2020-10-23] MEDS: SYMBICORT 160-4.5 MCG INHALER INHALATION SCH (20:08)
[2020-10-23 20:30] LABS: Glucose,Whole Blood 161 mg/dL (75-99)
[2020-10-23] MEDS: VERAPAMIL SR 240 MG TABLET.ER PO SCH (20:39)
[2020-10-23] MEDS: SENNOSIDES-DOCUSATE SODIUM 1 EACH TAB PO SCH (20:39)
[2020-10-23] MEDS: ATORVASTATIN 40 MG TAB PO SCH (20:39)
[2020-10-23] MEDS: PRAMIPEXOLE 0.5 MG TAB PO SCH (20:39)
[2020-10-23] MEDS: methocarbamoL 750 MG TAB PO SCH (20:39)
[2020-10-23] MEDS: MIRTAZAPINE 15 MG TAB PO SCH (20:39)
[2020-10-23] MEDS: ceFAZolin 3 GM in SODIUM CHLORIDE 0.9% 100 ML IVPB SCH (20:39)
[2020-10-23] MEDS: INSULIN DETEMIR (LEVEMIR) 100 UNIT/ML SYR SQ SCH (20:39)
[2020-10-23] MEDS: hydrALAZINE HCL 25 MG TAB PO SCH (20:39)
[2020-10-23] MEDS: OXcarbazepine 300 MG TAB PO SCH (20:40)
[2020-10-24] MEDS: LACTATED RINGERS 1,000 ML IV SCH (04:38)
[2020-10-24] MEDS: ceFAZolin 3 GM in SODIUM CHLORIDE 0.9% 100 ML IVPB SCH (04:44)
[2020-10-24 06:38] LABS: Basophils # (A) 0.1 k/uL (0-0.2); Basophils % (A) 0 %; Eosinophils # (A) 0.1 k/uL (0-0.7); Eosinophils % (A) 1 %; HCT 36.4 % (34.0-46.0); HGB 12.2 gm/dL (11.4-16.0); Lymphocytes # (A) 1.7 k/uL (1.0-4.8); Lymphocytes % (A) 15 %; MCH 29.6 pg (25.0-35.0); MCHC 33.6 g/dL (31.0-37.0); MCV 88.1 fL (80.0-100.0); Mean Platelet Volume 6.8; Monocytes # (A) 0.8 k/uL (0-1.0); Monocytes % (A) 7 %; Neutrophils # (A) 8.6 k/uL (1.3-7.7); Neutrophils % (A) 76 %; Platelet Count 322 k/uL (150-450); RBC 4.14 m/uL (3.80-5.40); RDW 15.8 % (11.5-15.5); WBC 11.4 k/uL (3.8-10.6)
[2020-10-24 06:42] LABS: Glucose,Whole Blood 102 mg/dL (75-99)
[2020-10-24] MEDS: methocarbamoL 750 MG TAB PO SCH ×3 (07:32→22:01)
[2020-10-24] MEDS: PIOGLITAZONE 30 MG TAB PO SCH (07:32)
[2020-10-24] MEDS: MULTIVITAMINS, THERA 1 EACH TAB PO SCH (07:33)
[2020-10-24] MEDS: FAMOTIDINE 20 MG TAB PO SCH (07:33)
[2020-10-24] MEDS: buPROPion XL 150 MG TAB.ER.24H PO SCH (07:33)
[2020-10-24] MEDS: HYDROcodone/APAP 10-325MG 1 EACH TAB PO PRN ×3 (07:34→22:01)
[2020-10-24] MEDS: ASPIRIN 81 MG PO SCH (07:34)
[2020-10-24] MEDS: RIVAROXABAN 10 MG TAB PO SCH (07:35)
[2020-10-24] MEDS: LOSARTAN 50 MG TAB PO SCH (07:35)
[2020-10-24] MEDS: metFORMIN 500 MG TAB PO SCH ×2 (07:35→17:12)
[2020-10-24] MEDS: PREGABALIN 100 MG CAP PO SCH ×3 (07:35→17:11)
[2020-10-24] MEDS: hydrALAZINE HCL 25 MG TAB PO SCH ×2 (08:06→21:59)
[2020-10-24] MEDS: FLUoxetine HCL 20 MG CAP PO SCH (08:06)
[2020-10-24] MEDS: ISOSORBIDE MONONITRATE ER 30 MG TAB.ER.24H PO SCH (08:06)
[2020-10-24] MEDS: SYMBICORT 160-4.5 MCG INHALER INHALATION SCH ×2 (09:11→19:56)
[2020-10-24] MEDS: ALPRAZolam 0.5 MG TAB PO PRN ×3 (09:13→22:02)
--- NOTE | 2020-10-24 09:44 | P.PN ---
Subjective Progress Note Date: 10/24/20 Principal diagnosis: Status post left total hip arthroplasty Patient is examined today at bedside, resting in her hospital bed. Patient admits to significant discomfort of the left leg, this happens with any movement. She was able to get up and ambulated minimally with therapy today. Patient states most of the discomfort is in the anterior thigh the transverse down to the knee, she states the hip joint is feeling much better. He currently denies any chest pain, fever or chills. Objective - Vital Signs Vital signs: Vital Signs Temp 98.8 F 10/24/20 07:00 Pulse 82 10/24/20 07:00 Resp 18 10/24/20 07:00 BP 153/84 10/24/20 07:00 Pulse Ox 99 10/24/20 07:00 Intake & Output 10/23/20 10/24/20 10/24/20 18:59 06:59 18:59 Intake Total 1301 1050 Output Total 510 Balance 791 1050 Weight 126.099 kg Intake: IV 1301 Oral 1050 Output: Estimated Blood Loss 510 Other: Voiding Method Toilet # Voids 1 3 - Exam Left lower extremity: Incision is clean, dry, and intact. The exofin fusion tape is in good condition. There is minimal soft tissue swelling and ecchymosis surrounding the medial and lateral aspects of the incision. Calf is soft, no tenderness with palpation. Plantar flexion, dorsiflexion, EHL, FHL are intact. Sensory exam to light touch throughout the extremity is intact, dorsal pedis pulses 2+. - Labs CBC & Chem 7: 10/24/20 05:44 Labs: Abnormal Lab Results - Last 24 Hours (Table) 10/23/20 10/23/20 10/23/20 Range/Units 12:54 16:04 16:39 WBC (3.8-10.6) k/uL RDW (11.5-15.5) % Neutrophils # (1.3-7.7) k/uL POC Glucose (mg/dL) 104 H 133 H 129 H (75-99) mg/dL 10/23/20 10/24/20 10/24/20 Range/Units 20:29 05:44 06:40 WBC 11.4 H (3.8-10.6) k/uL RDW 15.8 H (11.5-15.5) % Neutrophils # 8.6 H (1.3-7.7) k/uL POC Glucose (mg/dL) 161 H 102 H (75-99) mg/dL Assessment and Plan Assessment: Status post left total hip arthroplasty Plan: Pain control, discuss patient that pain control would be more difficult with due to her being on high-dose oral narcotics for many years. Our goal will be to utilize her normally prescribed pain medication, IV pain medication for breakthrough pain. DVT prophylaxis, continue Xarelto, plan for the same medication of discharge Wound care instructions were discussed Continue physical therapy Discussed activity level with patient, she needs to be up multiple times today ambulating with use of a walker at all times Medical recommendations Patient has very limited help at home and is very nervous about going home. Arrangements will be started for subacute rehab. Patient explained me that she did discuss this with her insurance company already and that she would qualify. I will have case management also begin the process. Time with Patient: Less than 30
[2020-10-24 11:29] LABS: Glucose,Whole Blood 117 mg/dL (75-99)
[2020-10-24 11:30] LABS: African American GFR (CKD) 123.6 (60.0-200.0); Albumin/Globulin Ratio 2.22 (1.60-3.17); Calcium 8.4 mg/dL (8.7-10.3); Globulin 1.8 g/dL (1.6-3.3); Non-African American GFR(CKD) 106.7 (60.0-200.0); Potassium 4.1 mmol/L (3.5-5.5); Total Bilirubin 0.2 mg/dL (0.3-1.2); Total Protein 5.8 g/dL (6.2-8.2)
[2020-10-24] MEDS: DULoxetine HCL 60 MG CAPSULE.DR PO SCH (12:44)
[2020-10-24] MEDS: DULoxetine HCL 30 MG CAPSULE.DR PO SCH (12:48)
[2020-10-24 16:44] LABS: Glucose,Whole Blood 168 mg/dL (75-99)
--- NOTE | 2020-10-24 17:56 | P.CONS ---
History of Present Illness - Reason for Consult Consult date: 10/24/20 - History of Present Illness Renee ambrose, is a 60-year-old female well known to my practice who was admitted to [facility] by Dr. Devaughn Cali, due to left hip that failed conservative management patient underwent left total hip arthroplasty medical consultation was requested for management while hospitalized. Patient has a known history of hypertension, hyperlipidemia, insulin-dependent diabetes mellitus, coronary artery disease, depression, restless leg syndrome, history of COPD, history of morbid obesity, history of obstructive sleep apnea. On review of systems patient is alert and oriented 3 in no distress she is complaining of left hip pain otherwise she denies any complaints there is no fev er or chills no headache or dizziness no chest pain no shortness of breath no cough no nausea or vomiting no abdominal pain no diarrhea no blood in the stools no burning with urination no frequency or urgency and no hematuria Past Medical History Past Medical History: Asthma, Chest Pain / Angina, Heart Failure, COPD, Diabetes Mellitus, Fibromyalgia, Hyperlipidemia, Hypertension, Neurologic Disorder, Osteoarthritis (OA), Sleep Apnea/CPAP/BIPAP Additional Past Medical History / Comment(s): Back pain, fall at home March 2019, pain with standing/walking. Hx Restless Leg, neuropathy, more foot pain recently, no CPAP use, DDD, occasional chest pain and SOB. recent vision changes be evaluated and tested by , lt hip pain to begin physical therapy. FELL AT HOME 09/27/20 SEEN IN ER History of Any Multi-Drug Resistant Organisms: None Reported Past Surgical History: Cholecystectomy, Heart Catheterization, Hysterectomy, Orthopedic Surgery, Tonsillectomy Additional Past Surgical History / Comment(s): Colonoscopy, tendon repair on left foot, epidural for pain, pain clinic procedures. filipe cataract Past Anesthesia/Blood Transfusion Reactions: Motion Sickness Past Psychological History: Anxiety, Bipolar, Depression, PTSD Additional Psychological History / Comment(s): pt states she has major depressive disorder with manic episodes Smoking Status: Current every day smoker, Vaper Past Alcohol Use History: Rare Additional Past Alcohol Use History / Comment(s): Quit smoking in 2010, using vape now, smoked approx 40 yrs, 2PPD. SMOKING AGAIN-ABOUT 1/2 PPD-TRYING TO QUIT AGAIN Past Drug Use History: None Reported Additional Drug Use History / Comment(s): . - Past Family History Father Family Medical History: CVA/TIA, Diabetes Mellitus, Hypertension Additional Family Medical History / Comment(s): CATARACTS, AAA. Medications and Allergies Home Medications Medication Instructions Recorded Confirmed Type metFORMIN HCL [Glucophage] 1,000 mg PO BID-W/MEALS 10/06/14 10/19/20 History OXcarbazepine [Trileptal] 1,200 mg PO HS 10/07/16 10/19/20 History Isosorbide Mononitrate ER [Imdur] 30 mg PO DAILY 10/22/16 10/19/20 History Liraglutide [Victoza 2-Fredo] 1.8 mg SQ HS 04/21/17 10/19/20 History Pioglitazone [Actos] 30 mg PO DAILY 04/21/17 10/19/20 History Verapamil HCl [Verapamil ER] 240 mg PO HS 12/19/17 10/19/20 History Atorvastatin [Lipitor] 40 mg PO HS 10/15/18 10/19/20 History Insulin Glargine [Lantus] 30 unit SQ HS 06/13/19 10/19/20 History Mirtazapine 30 mg PO HS 06/13/19 10/19/20 History Pramipexole Di-HCl [Mirapex] 0.5 mg PO HS 06/13/19 10/19/20 History ALPRAZolam [Xanax] 0.5 mg PO TID PRN 06/15/19 10/19/20 History Aspirin [Adult Low Dose Aspirin EC] 81 mg PO DAILY 08/26/19 10/19/20 History Budesonide/Formoterol Fumarate 2 puff INHALATION RT-BID 10/27/19 10/19/20 History [Symbicort 160-4.5 Mcg Inhaler] DULoxetine HCL [Cymbalta] 30 mg PO W/LUNCH 10/27/19 10/19/20 History Ergocalciferol [Vitamin D2 50,000 unit PO SA 06/06/20 10/19/20 History (DRISDOL)] FLUoxetine HCL [PROzac] 20 mg PO DAILY 06/06/20 10/19/20 History Losartan Potassium 100 mg PO DAILY 06/06/20 10/19/20 History Multivit-Min/FA/Lycopen/Lutein 1 tab PO DAILY 06/06/20 10/19/20 History [Centrum Silver Tablet] methocarbamoL [Robaxin] 750 mg PO TID 06/06/20 10/19/20 History DULoxetine HCL [Cymbalta] 60 mg PO W/LUNCH 09/11/20 10/19/20 History Hydrocodone/Acetaminophen [[place] 1 tab PO QID 09/11/20 10/19/20 History 10-325] Nicotine [Nicotrol] 10 mg INHALATION 5XD PRN 09/11/20 10/19/20 History Pregabalin [Lyrica] 100 mg PO TID-W/MEALS 09/11/20 10/19/20 History buPROPion HCL [Wellbutrin XL] 150 mg PO DAILY 09/11/20 10/19/20 History hydrALAZINE HCL 25 mg PO BID 10/23/20 10/23/20 History Allergies Allergy/AdvReac Type Severity Reaction Status Date / Time No Known Allergies Allergy Verified 10/23/20 12:28 Physical Exam Vitals: Vital Signs Temp Pulse Resp BP Pulse Ox 10/24/20 14:36 99.5 F 89 18 145/78 95 10/24/20 07:30 18 10/24/20 07:00 98.8 F 82 18 153/84 99 10/24/20 02:20 98.6 F 96 18 127/68 94 L 10/23/20 20:05 98.4 F 97 18 138/74 94 L 10/23/20 18:30 89 152/79 95 10/23/20 18:15 80 128/78 96 10/23/20 18:00 76 130/68 95 10/23/20 17:45 80 151/62 10/23/20 17:30 88 129/77 Intake and Output 10/24/20 10/24/20 10/24/20 06:59 14:59 22:59 Intake Total 550 Balance 550 Intake: Oral 550 Other: # Voids 3 2 # Bowel Movements 1 In general patient is alert and oriented 3 in no apparent distress HEENT head normocephalic and atraumatic Neck is supple no JVD no goiter no lymphadenopathy Chest exam reveals clear respiratory sounds no crackles no wheezing Cardiac exam reveals regular heart sounds S1 and S2 no gallops no murmurs Abdomen is soft nontender no organomegaly with normal bowel sounds Extremity exam reveals minimal edema no cyanosis or clubbing Neurological examination reveals no gross focal neurological deficit Results CBC & Chem 7: 12/09/20 05:44 10/24/20 05:44 Labs: Abnormal Lab Results - Last 24 Hours (Table) 10/23/20 10/24/20 10/24/20 Range/Units 20:29 05:44 05:44 WBC 11.4 H (3.8-10.6) k/uL RDW 15.8 H (11.5-15.5) % Neutrophils # 8.6 H (1.3-7.7) k/uL Sodium 130 L (135-145) mmol/L Chloride 95 L (96-109) mmol/L Creatinine 0.5 L (0.6-1.5) mg/dL Glucose 117 H (70-110) mg/dL POC Glucose (mg/dL) 161 H (75-99) mg/dL Calcium 8.4 L (8.7-10.3) mg/dL Total Bilirubin 0.2 L (0.3-1.2) mg/dL Alkaline Phosphatase 135 H (41-126) U/L Total Protein 5.8 L (6.2-8.2) g/dL 10/24/20 10/24/20 10/24/20 Range/Units 06:40 11:28 16:42 WBC (3.8-10.6) k/uL RDW (11.5-15.5) % Neutrophils # (1.3-7.7) k/uL Sodium (135-145) mmol/L Chloride (96-109) mmol/L Creatinine (0.6-1.5) mg/dL Glucose (70-110) mg/dL POC Glucose (mg/dL) 102 H 117 H 168 H (75-99) mg/dL Calcium (8.7-10.3) mg/dL Total Bilirubin (0.3-1.2) mg/dL Alkaline Phosphatase (41-126) U/L Total Protein (6.2-8.2) g/dL Assessment and Plan Plan: 1. Osteoarthritis status post left total hip arthroplasty postoperative day #1 2. Underlying history of insulin-dependent diabetes mellitus 3. Underlying history of hypertension with hypertensive cardiovascular disease 4. Underlying history of hypertension 5. An underlying history of hyperlipidemia 6. Underlying history of depression with anxiety disorder 7. Underlying history of restless leg syndrome 8. Underlying history of obstructive sleep apnea 9. Underlying history of COPD At this time home medication reviewed and reordered Medication and labs reviewed today Continue with current care we will follow during this admission
[2020-10-24 20:46] LABS: Glucose,Whole Blood 164 mg/dL (75-99)
[2020-10-24] MEDS: MIRTAZAPINE 15 MG TAB PO SCH (21:59)
[2020-10-24] MEDS: ATORVASTATIN 40 MG TAB PO SCH (21:59)
[2020-10-24] MEDS: INSULIN DETEMIR (LEVEMIR) 100 UNIT/ML SYR SQ SCH (21:59)
[2020-10-24] MEDS: PRAMIPEXOLE 0.5 MG TAB PO SCH (22:00)
[2020-10-24] MEDS: VERAPAMIL SR 240 MG TABLET.ER PO SCH (22:00)
[2020-10-24] MEDS: SENNOSIDES-DOCUSATE SODIUM 1 EACH TAB PO SCH (22:00)
[2020-10-24] MEDS: OXcarbazepine 300 MG TAB PO SCH (22:00)
[2020-10-25] MEDS: HYDROcodone/APAP 10-325MG 1 EACH TAB PO PRN ×3 (04:02→15:34)
[2020-10-25] MEDS: LACTATED RINGERS 1,000 ML IV SCH (06:05)
[2020-10-25 06:27] LABS: Basophils % (A) 0 %; Eosinophils # (A) 0.1 k/uL (0-0.7); Eosinophils % (A) 1 %; HGB 12.2 gm/dL (11.4-16.0); Lymphocytes # (A) 1.3 k/uL (1.0-4.8); Lymphocytes % (A) 10 %; MCH 29.5 pg (25.0-35.0); MCHC 33.9 g/dL (31.0-37.0); MCV 86.9 fL (80.0-100.0); Mean Platelet Volume 6.6; Monocytes # (A) 0.8 k/uL (0-1.0); Monocytes % (A) 6 %; Neutrophils # (A) 10.3 k/uL (1.3-7.7); Neutrophils % (A) 81 %; Platelet Count 304 k/uL (150-450); RBC 4.14 m/uL (3.80-5.40); RDW 15.8 % (11.5-15.5); WBC 12.7 k/uL (3.8-10.6)
[2020-10-25 06:59] LABS: Glucose,Whole Blood 138 mg/dL (75-99)
[2020-10-25] MEDS: RIVAROXABAN 10 MG TAB PO SCH (08:22)
[2020-10-25] MEDS: PREGABALIN 100 MG CAP PO SCH ×2 (08:22→12:21)
[2020-10-25] MEDS: ISOSORBIDE MONONITRATE ER 30 MG TAB.ER.24H PO SCH (08:22)
[2020-10-25] MEDS: FAMOTIDINE 20 MG TAB PO SCH (08:22)
[2020-10-25] MEDS: buPROPion XL 150 MG TAB.ER.24H PO SCH (08:22)
[2020-10-25] MEDS: methocarbamoL 750 MG TAB PO SCH (08:23)
[2020-10-25] MEDS: ASPIRIN 81 MG PO SCH (08:23)
[2020-10-25] MEDS: metFORMIN 500 MG TAB PO SCH (08:23)
[2020-10-25] MEDS: hydrALAZINE HCL 25 MG TAB PO SCH (08:23)
[2020-10-25] MEDS: MULTIVITAMINS, THERA 1 EACH TAB PO SCH (08:24)
[2020-10-25] MEDS: LOSARTAN 50 MG TAB PO SCH (08:24)
[2020-10-25] MEDS: FLUoxetine HCL 20 MG CAP PO SCH (08:24)
[2020-10-25] MEDS: PIOGLITAZONE 30 MG TAB PO SCH (08:29)
[2020-10-25 08:44] VITALS: BP 139/74; PULSE 86; RESP 19; TEMP 98.9
[2020-10-25] MEDS: SYMBICORT 160-4.5 MCG INHALER INHALATION SCH (08:51)
--- NOTE | 2020-10-25 09:14 | P.PN ---
Subjective Progress Note Date: 10/25/20 Principal diagnosis: Status post left total hip arthroplasty Patient is doing well today on exam, she is resting comfortably. Her pain is better controlled today. She denies any chest pain, fever or chills, nausea or vomiting. Objective - Vital Signs Vital signs: Vital Signs Temp 98.9 F 10/25/20 08:00 Pulse 86 10/25/20 08:00 Resp 19 10/25/20 08:00 BP 139/74 10/25/20 08:00 Pulse Ox 93 L 10/25/20 08:00 Intake & Output 10/24/20 10/25/20 10/25/20 18:59 06:59 18:59 Intake Total 300 400 Balance 300 400 Intake: Intake, IV Titration 300 Amount Lactated Ringers 1,000 ml 300 @ 50 mls/hr IV .Q20H JARVIS Rx#:[id number] Oral 400 Other: # Voids 4 4 # Bowel Movements 1 - Exam Left lower extremity: Incision is clean, dry, and intact. The exofin fusion tape is in good condition. There is minimal soft tissue swelling and ecchymosis surrounding the medial and lateral aspects of the incision. Calf is soft, no tenderness with palpation. Plantar flexion, dorsiflexion, EHL, FHL are intact. Sensory exam to light touch throughout the extremity is intact, dorsal pedis pulses 2+. - Labs CBC & Chem 7: 10/25/20 06:05 10/24/20 05:44 Labs: Abnormal Lab Results - Last 24 Hours (Table) 10/24/20 10/24/20 10/24/20 Range/Units 05:44 11:28 16:42 WBC (3.8-10.6) k/uL RDW (11.5-15.5) % Neutrophils # (1.3-7.7) k/uL Sodium 130 L (135-145) mmol/L Chloride 95 L (96-109) mmol/L Creatinine 0.5 L (0.6-1.5) mg/dL Glucose 117 H (70-110) mg/dL POC Glucose (mg/dL) 117 H 168 H (75-99) mg/dL Calcium 8.4 L (8.7-10.3) mg/dL Total Bilirubin 0.2 L (0.3-1.2) mg/dL Alkaline Phosphatase 135 H (41-126) U/L Total Protein 5.8 L (6.2-8.2) g/dL 10/24/20 10/25/20 10/25/20 Range/Units 20:36 06:05 06:58 WBC 12.7 H (3.8-10.6) k/uL RDW 15.8 H (11.5-15.5) % Neutrophils # 10.3 H (1.3-7.7) k/uL Sodium (135-145) mmol/L Chloride (96-109) mmol/L Creatinine (0.6-1.5) mg/dL Glucose (70-110) mg/dL POC Glucose (mg/dL) 164 H 138 H (75-99) mg/dL Calcium (8.7-10.3) mg/dL Total Bilirubin (0.3-1.2) mg/dL Alkaline Phosphatase (41-126) U/L Total Protein (6.2-8.2) g/dL Assessment and Plan Assessment: Status post left total hip arthroplasty Plan: Plan resumed normally prescribe pain medication of discharge DVT prophylaxis, continue Xarelto, plan for the same medication of discharge Wound care instructions were discussed Continue physical therapy Medical recommendations Plan for discharge to rehab today
--- NOTE | 2020-10-25 09:22 | P.DS ---
Providers Date of admission: 10/24/20 10:56 Expected date of discharge: 10/25/20 Attending physician: Devaughn Cali Consults: 10/23/20 15:19 Consult Physician Routine Consulting Provider: Aditya Nelson Reason/Comments: medical management Do you want consulting provider notified?: Yes Primary care physician: Aditya Nelson [facility] Course: Date of admission: 10/23/2020 Date of discharge: 10/25/2020 Admission diagnosis: Status post left total hip arthroplasty Discharge diagnosis: Same Attending physician: Dr. Cali Surgical procedures: Left total hip arthroplasty Brief history: Patient is a 60-year-old female with a history of progressive primary left hip osteoarthritis. At this point patient has failed conservative treatment measures and has opted to proceed with a elective left hip total arthroplasty. Hospital course: Details of patient's surgery can be found in operative report. Patient tolerated the procedure well and was subsequently transported to o [facility] floor. Patient's orthopeidc and medical care was provided daily. Patient had daily laboratory tests performed for evaluation of overall blood counts. Patient had daily physical therapy to include strengthening range of motion as well as education with walker ambulation. Patient was treated with Xarelto for their postoperative DVT prophylaxis during their inpatient stay. Patient was noted to have a relatively uneventful postoperative course. Patient reported satisfactory pain control with oral pain medications by postoperative day 0. Patient showed satisfactory progress with physical therapy. Patient moved steadily through the program and had no difficulty meeting the goals by postoperative day 2. Given patient's otherwise satisfactory course and having met physical therapy goals, plan is to discharge patient rehab on postoperative day 2. Discharge condition/disposition: Patient will be discharged rehab in stable condition. Discharge medications: Instructions are given on resumption of patient's normal daily medications per primary care recommendation, in addition patient will be prescribed Xarelto 10 mg. Discharge instructions: 1. Wound care and infection precautions, keep incision dry and covered while showering, no lotions, creams, moisturizers. No soaking, tubs, pools, hottubs. Do not scrub over the incision. 2. Weight-bear as tolerated with walker / cane until follow-up. Adhere to total hip precautions, no flexing of the hip past 90, avoid deep seeded chairs, avoid sleeping on the operative side or crossing the operative leg. 3. Ice and elevate when necessary. Do not exceed 20 minutes per hour with ice pack. 4. Utilize compression sleeve until seen at first follow up appointment. 5. Visiting nursing care. 6. Home physical therapy. 7. Pain meds and anticoagulants per prescription. 8. Pain medication has potential to cause constipation. Increase oral fluid and fiber intake. Contact primary care provider if you have not had a bowel movement within 48 hours after discharge 9. No anti-inflammatory medication until discussed at first post operative visit, this including Motrin, Aleve, Mobic, Diclofenac. 10. Follow up in office at 2 weeks postop with Elia Brar PA-C 11. Follow up with your primary care doctor 7-10 days after discharge. 12. Contact [facility] with any questions, . Procedures: Left total hip arthroplasty Patient Condition at Discharge: Good Plan - Discharge Summary Discharge Rx Participant: Yes New Discharge Prescriptions: New Rivaroxaban [Xarelto] 10 mg PO DAILY #26 tab Hydrocodone/Acetaminophen [Sidon 10-325] 1 each PO Q6H PRN #12 tab PRN Reason: Pain Pregabalin 100 mg PO TID 3 Days #9 cap methocarbamoL [Robaxin] 750 mg PO TID PRN #12 tab PRN Reason: Spasms ALPRAZolam [Xanax] 0.5 mg PO TID PRN #12 tablet PRN Reason: Anxiety No Action metFORMIN HCL [Glucophage] 1,000 mg PO BID-W/MEALS OXcarbazepine [Trileptal] 1,200 mg PO HS Isosorbide Mononitrate ER [Imdur] 30 mg PO DAILY Liraglutide [Victoza 2-Fredo] 1.8 mg SQ HS Pioglitazone [Actos] 30 mg PO DAILY Verapamil HCl [Verapamil ER] 240 mg PO HS Atorvastatin [Lipitor] 40 mg PO HS Pramipexole Di-HCl [Mirapex] 0.5 mg PO HS Mirtazapine 30 mg PO HS Insulin Glargine [Lantus] 30 unit SQ HS ALPRAZolam [Xanax] 0.5 mg PO TID PRN PRN Reason: Anxiety Aspirin [Adult Low Dose Aspirin EC] 81 mg PO DAILY DULoxetine HCL [Cymbalta] 30 mg PO W/LUNCH Budesonide/Formoterol Fumarate [Symbicort 160-4.5 Mcg Inhaler] 2 puff INHALATION RT-BID methocarbamoL [Robaxin] 750 mg PO TID Losartan Potassium 100 mg PO DAILY Ergocalciferol [Vitamin D2 (DRISDOL)] 50,000 unit PO SA FLUoxetine HCL [PROzac] 20 mg PO DAILY Multivit-Min/FA/Lycopen/Lutein [Centrum Silver Tablet] 1 tab PO DAILY buPROPion HCL [Wellbutrin XL] 150 mg PO DAILY Pregabalin [Lyrica] 100 mg PO TID-W/MEALS DULoxetine HCL [Cymbalta] 60 mg PO W/LUNCH Hydrocodone/Acetaminophen [Sidon 10-325] 1 tab PO QID Nicotine [Nicotrol] 10 mg INHALATION 5XD PRN PRN Reason: Nicotine Cravings hydrALAZINE HCL 25 mg PO BID Discharge Medication List metFORMIN HCL [Glucophage] 1,000 mg PO BID-W/MEALS 10/06/14 [History] OXcarbazepine [Trileptal] 1,200 mg PO HS 10/07/16 [History] Isosorbide Mononitrate ER [Imdur] 30 mg PO DAILY 10/22/16 [History] Liraglutide [Victoza 2-Fredo] 1.8 mg SQ HS 04/21/17 [History] Pioglitazone [Actos] 30 mg PO DAILY 04/21/17 [History] Verapamil HCl [Verapamil ER] 240 mg PO HS 12/19/17 [History] Atorvastatin [Lipitor] 40 mg PO HS 10/15/18 [History] Insulin Glargine [Lantus] 30 unit SQ HS 06/13/19 [History] Mirtazapine 30 mg PO HS 06/13/19 [History] Pramipexole Di-HCl [Mirapex] 0.5 mg PO HS 06/13/19 [History] ALPRAZolam [Xanax] 0.5 mg PO TID PRN 06/15/19 [History] Aspirin [Adult Low Dose Aspirin EC] 81 mg PO DAILY 08/26/19 [History] Budesonide/Formoterol Fumarate [Symbicort 160-4.5 Mcg Inhaler] 2 puff INHALATION RT-BID 10/27/19 [History] DULoxetine HCL [Cymbalta] 30 mg PO W/LUNCH 10/27/19 [History] Ergocalciferol [Vitamin D2 (DRISDOL)] 50,000 unit PO SA 06/06/20 [History] FLUoxetine HCL [PROzac] 20 mg PO DAILY 06/06/20 [History] Losartan Potassium 100 mg PO DAILY 06/06/20 [History] Multivit-Min/FA/Lycopen/Lutein [Centrum Silver Tablet] 1 tab PO DAILY 06/06/20 [History] methocarbamoL [Robaxin] 750 mg PO TID 06/06/20 [History] DULoxetine HCL [Cymbalta] 60 mg PO W/LUNCH 09/11/20 [History] Hydrocodone/Acetaminophen [Sidon 10-325] 1 tab PO QID 09/11/20 [History] Nicotine [Nicotrol] 10 mg INHALATION 5XD PRN 09/11/20 [History] Pregabalin [Lyrica] 100 mg PO TID-W/MEALS 09/11/20 [History] buPROPion HCL [Wellbutrin XL] 150 mg PO DAILY 09/11/20 [History] hydrALAZINE HCL 25 mg PO BID 10/23/20 [History] ALPRAZolam [Xanax] 0.5 mg PO TID PRN #12 tablet 10/25/20 [Rx] Hydrocodone/Acetaminophen [Sidon 10-325] 1 each PO Q6H PRN #12 tab 10/25/20 [Rx] Pregabalin 100 mg PO TID 3 Days #9 cap 10/25/20 [Rx] Rivaroxaban [Xarelto] 10 mg PO DAILY #26 tab 10/25/20 [Rx] methocarbamoL [Robaxin] 750 mg PO TID PRN #12 tab 10/25/20 [Rx] Follow up Appointment(s)/Referral(s): Justine Mcqueen, [NON-STAFF] - As Needed Trevor Brar PAC [PHYSICIAN [employer]] - 2 Weeks Aditya Nelson MD [Primary Care Provider] - 1 Week Activity/Diet/Wound Care/Special Instructions: Orthopedic Discharge Instructions: 1. Wound care and infection precautions, keep incision dry and covered while showering, no lotions, creams, moisturizers. No soaking, pools, hot tubs. Do not scrub over incision. 2. Weight-bear as tolerated with walker / cane until follow-up. 3. Ice and elevate when necessary. Do not exceed 20 minutes per hour with ice pack. 4. Utilize compression sleeve until seen at first follow up appointment. 5. Pain meds and anticoagulants per prescription. 6. Pain medication has potential to cause constipation. Increase oral fluid and fiber intake. Contact primary care provider if you have not had a bowel movement within 48 hours after discharge. 7. No anti-inflammatory medication until discussed at first post operative visit, this including Motrin, Aleve, Mobic, Diclofenac. 8. Follow up in office at 2 weeks postop with Elia Brar PA-C 9. Follow up with your primary care doctor 7-10 days after discharge. 10. Contact [facility] with any questions, . Discharge Disposition: TRANSFER TO SNF/ECF
[2020-10-25 10:11] LABS: African American GFR (CKD) 123.6 (60.0-200.0); Albumin 4.1 g/dL (3.80-4.90); Albumin/Globulin Ratio 2.28 (1.60-3.17); Anion Gap 6.5 mmol/L (4.00-12.00); Calcium 8.4 mg/dL (8.7-10.3); Carbon Dioxide 24.5 mmol/L (21.6-31.8); Globulin 1.8 g/dL (1.6-3.3); Non-African American GFR(CKD) 106.7 (60.0-200.0); Potassium 3.9 mmol/L (3.5-5.5); Total Bilirubin 0.5 mg/dL (0.3-1.2); Total Protein 5.9 g/dL (6.2-8.2)
[2020-10-25 11:19] LABS: Glucose,Whole Blood 132 mg/dL (75-99)
[2020-10-25] MEDS: DULoxetine HCL 60 MG CAPSULE.DR PO SCH (12:21)
[2020-10-25] MEDS: DULoxetine HCL 30 MG CAPSULE.DR PO SCH (12:21)
[2020-10-27] MEDS ORDERED: ERGOCALCIFEROL 50,000 UNIT CAP PO SCH (09:00)
--- NOTE | 2020-10-30 19:05 | P.PN ---
Subjective Progress Note Date: 10/25/20 Renee ambrose, is a 60-year-old female well known to my practice who was admitted to [facility] by Dr. Devaughn Cali, due to left hip that failed conservative management patient underwent left total hip arthroplasty medical consultation was requested for management while hospitalized. Patient has a known history of hypertension, hyperlipidemia, insulin-dependent diabetes mellitus, coronary artery disease, depression, restless leg syndrome, history of COPD, history of morbid obesity, history of obstructive sleep apnea. On review of systems patient is alert and oriented 3 in no distress she is complaining of left hip pain otherwise she denies any complaints there is no fever or chills no headache or dizziness no chest pain no shortness of breath no cough no nausea or vomiting no abdominal pain no diarrhea no blood in the stools no burning with urination no frequency or urgency and no hematuria On 10/25/2020 patient was seen and examined on the medical floor she is alert and oriented 3 in no apparent distress there is no fever or chills no headache or dizziness no chest pain no shortness of breath no cough no nausea or vomiting no abdominal pain no diarrhea and no urinary symptoms patient is scheduled for discharge to home today Objective - Vital Signs Vital signs: Vital Signs Temp 98.9 F 10/25/20 08:00 Pulse 86 10/25/20 08:00 Resp 19 10/25/20 08:00 BP 139/74 10/25/20 08:00 Pulse Ox 93 L 10/25/20 08:00 Intake & Output 10/24/20 10/25/20 10/25/20 18:59 06:59 18:59 Intake Total 300 400 Balance 300 400 Intake: Intake, IV Titration 300 Amount Lactated Ringers 1,000 ml 300 @ 50 mls/hr IV .Q20H JARVIS Rx#:[id number] Oral 400 Other: # Voids 4 4 # Bowel Movements 1 - Exam In general patient is alert and oriented 3 in no apparent distress HEENT head normocephalic and atraumatic Neck is supple no JVD no goiter no lymphadenopathy Chest exam reveals clear respiratory sounds no crackles no wheezing Cardiac exam reveals regular heart sounds S1 and S2 no gallops no murmurs Abdomen is soft nontender no organomegaly with normal bowel sounds Extremity exam reveals minimal edema no cyanosis or clubbing Neurological examination reveals no gross focal neurological deficit - Labs CBC & Chem 7: 10/25/20 06:05 10/25/20 06:05 Labs: Abnormal Lab Results - Last 24 Hours (Table) 10/24/20 10/24/20 10/25/20 Range/Units 16:42 20:36 06:05 WBC 12.7 H (3.8-10.6) k/uL RDW 15.8 H (11.5-15.5) % Neutrophils # 10.3 H (1.3-7.7) k/uL Sodium (135-145) mmol/L BUN (9.0-27.0) mg/dL Creatinine (0.6-1.5) mg/dL Glucose (70-110) mg/dL POC Glucose (mg/dL) 168 H 164 H (75-99) mg/dL Calcium (8.7-10.3) mg/dL Alkaline Phosphatase (41-126) U/L Total Protein (6.2-8.2) g/dL 10/25/20 10/25/20 10/25/20 Range/Units 06:05 06:58 11:17 WBC (3.8-10.6) k/uL RDW (11.5-15.5) % Neutrophils # (1.3-7.7) k/uL Sodium 129 L (135-145) mmol/L BUN 7.0 L (9.0-27.0) mg/dL Creatinine 0.5 L (0.6-1.5) mg/dL Glucose 141 H (70-110) mg/dL POC Glucose (mg/dL) 138 H 132 H (75-99) mg/dL Calcium 8.4 L (8.7-10.3) mg/dL Alkaline Phosphatase 127 H (41-126) U/L Total Protein 5.9 L (6.2-8.2) g/dL Assessment and Plan Plan: 1. Osteoarthritis status post left total hip arthroplasty postoperative day #1 2. Underlying history of insulin-dependent diabetes mellitus 3. Underlying history of hypertension with hypertensive cardiovascular disease 4. Underlying history of hypertension 5. An underlying history of hyperlipidemia 6. Underlying history of depression with anxiety disorder 7. Underlying history of restless leg syndrome 8. Underlying history of obstructive sleep apnea 9. Underlying history of COPD At this time home medication reviewed and reordered Medication and labs reviewed today Continue with current care we will follow during this admission
== END 2020-10-25 16:50 ==
LOC: OR 15:19 → 4SSUR 15:20 → OR 15:36 → 4SSUR 10-24 10:56 → OR 10-24 10:56 → UNDOADMOB 10-24 10:56 → 4SSUR 10-24 10:56 → UNDODISOB 10-25 16:50
PROVIDERS: ADMIT Orthopaedic Surgery; ATTEND Orthopaedic Surgery
DX: M16.12 Unilateral primary osteoarthritis, left hip (principal); I25.10 Atherosclerotic heart disease of native coronary artery without angina pectoris; J44.9 Chronic obstructive pulmonary disease, unspecified; M79.7 Fibromyalgia; E11.40 Type 2 diabetes mellitus with diabetic neuropathy, unspecified; G62.9 Polyneuropathy, unspecified; E78.00 Pure hypercholesterolemia, unspecified; M19.90 Unspecified osteoarthritis, unspecified site; F17.210 Nicotine dependence, cigarettes, uncomplicated; G25.81 Restless legs syndrome; E66.01 Morbid (severe) obesity due to excess calories; Z68.41 Body mass index [BMI] 40.0-44.9, adult; G47.33 Obstructive sleep apnea (adult) (pediatric); E78.5 Hyperlipidemia, unspecified; I11.0 Hypertensive heart disease with heart failure; I50.9 Heart failure, unspecified; Z91.81 History of falling; F31.9 Bipolar disorder, unspecified; F43.10 Post-traumatic stress disorder, unspecified; F41.9 Anxiety disorder, unspecified; Z99.89 Dependence on other enabling machines and devices; Z90.49 Acquired absence of other specified parts of digestive tract; Z79.899 Other long term (current) drug therapy; Z79.4 Long term (current) use of insulin; Z79.82 Long term (current) use of aspirin; Z79.51 Long term (current) use of inhaled steroids; Z79.891 Long term (current) use of opiate analgesic; Z90.710 Acquired absence of both cervix and uterus; Z82.49 Family history of ischemic heart disease and other diseases of the circulatory system; Z83.3 Family history of diabetes mellitus; Z82.3 Family history of stroke; Z83.518 Family history of other specified eye disorder
CPT/HCPCS: 73501; 80053; 85025; 88300; 94640

== ENCOUNTER 2020-10-29 13:53 | Observation (INO) | payer MEDICARE ==
[2020-10-29] MEDS ORDERED: SODIUM CHLORIDE 0.9% 500 ML 500 ML IV STA (14:26)
[2020-10-29] MEDS ORDERED: ASPIRIN 81 MG PO STA (14:26)
--- NOTE | 2020-10-29 14:31 | ED ---
General Adult HPI - General Chief complaint: Chest Pain Stated complaint: Chest Pain Time Seen by Provider: 10/29/20 14:06 Source: patient, RN notes reviewed Mode of arrival: wheelchair Limitations: no limitations - History of Present Illness Initial comments: 52-year-old female with a past medical history of asthma, heart failure, COPD, diabetes mellitus, hyperlipidemia, hypertension postop day 5 from total hip replacement presents for chest pain. Patient had chest pain starting about 3 hours prior to arrival. States it is somewhat painful to take a deep breath. She does admit to mild shortness of breath. Patient states she was "just sitting there" when she developed the shortness of breath. states that she was supposed to start blood thinners today but had not done so yet. Patient has no other complaints at this time including abdominal pain, nausea or vomiting, headache, or visual changes. - Related Data Home Medications Medication Instructions Recorded Confirmed metFORMIN HCL [Glucophage] 1,000 mg PO BID-W/MEALS 10/06/14 10/19/20 OXcarbazepine [Trileptal] 1,200 mg PO HS 10/07/16 10/19/20 Isosorbide Mononitrate ER [Imdur] 30 mg PO DAILY 10/22/16 10/19/20 Liraglutide [Victoza 2-Fredo] 1.8 mg SQ HS 04/21/17 10/19/20 Pioglitazone [Actos] 30 mg PO DAILY 04/21/17 10/19/20 Verapamil HCl [Verapamil ER] 240 mg PO HS 12/19/17 10/19/20 Atorvastatin [Lipitor] 40 mg PO HS 10/15/18 10/19/20 Insulin Glargine [Lantus] 30 unit SQ HS 06/13/19 10/19/20 Mirtazapine 30 mg PO HS 06/13/19 10/19/20 Pramipexole Di-HCl [Mirapex] 0.5 mg PO HS 06/13/19 10/19/20 ALPRAZolam [Xanax] 0.5 mg PO TID PRN 06/15/19 10/19/20 Aspirin [Adult Low Dose Aspirin EC] 81 mg PO DAILY 08/26/19 10/19/20 Budesonide/Formoterol Fumarate 2 puff INHALATION RT-BID 10/27/19 10/19/20 [Symbicort 160-4.5 Mcg Inhaler] DULoxetine HCL [Cymbalta] 30 mg PO W/LUNCH 10/27/19 10/19/20 Ergocalciferol [Vitamin D2 50,000 unit PO SA 06/06/20 10/19/20 (DRISDOL)] FLUoxetine HCL [PROzac] 20 mg PO DAILY 06/06/20 10/19/20 Losartan Potassium 100 mg PO DAILY 06/06/20 10/19/20 Multivit-Min/FA/Lycopen/Lutein 1 tab PO DAILY 06/06/20 10/19/20 [Centrum Silver Tablet] methocarbamoL [Robaxin] 750 mg PO TID 06/06/20 10/19/20 DULoxetine HCL [Cymbalta] 60 mg PO W/LUNCH 09/11/20 10/19/20 Hydrocodone/Acetaminophen [Rudd 1 tab PO QID 09/11/20 10/19/20 10-325] Nicotine [Nicotrol] 10 mg INHALATION 5XD PRN 09/11/20 10/19/20 Pregabalin [Lyrica] 100 mg PO TID-W/MEALS 09/11/20 10/19/20 buPROPion HCL [Wellbutrin XL] 150 mg PO DAILY 09/11/20 10/19/20 hydrALAZINE HCL 25 mg PO BID 10/23/20 10/23/20 Previous Rx's Medication Instructions Recorded ALPRAZolam [Xanax] 0.5 mg PO TID PRN #12 tablet 10/25/20 HYDROcodone/APAP 10-325MG [Rudd 1 each PO Q6H PRN tab 10/25/20 10-325] Hydrocodone/Acetaminophen [Rudd 1 each PO Q6H PRN #12 tab 10/25/20 10-325] Magnesium Hydroxide [Milk of 2,400 mg PO DAILY PRN ml 10/25/20 Magnesia Concentrate] Pregabalin 100 mg PO TID 3 Days #9 cap 10/25/20 Rivaroxaban [Xarelto] 10 mg PO DAILY #26 tab 10/25/20 Sennosides-Docusate Sodium 2 each PO HS tab 10/25/20 [Senokot-S] methocarbamoL [Robaxin] 750 mg PO TID PRN #12 tab 10/25/20 Allergies Allergy/AdvReac Type Severity Reaction Status Date / Time No Known Allergies Allergy Verified 10/29/20 14:01 Review of Systems ROS Statement: Those systems with pertinent positive or pertinent negative responses have been documented in the HPI. ROS Other: All systems not noted in ROS Statement are negative. Past Medical History Past Medical History: Asthma, Chest Pain / Angina, Heart Failure, COPD, Diabetes Mellitus, Fibromyalgia, Hyperlipidemia, Hypertension, Neurologic Disorder, Osteoarthritis (OA), Sleep Apnea/CPAP/BIPAP Additional Past Medical History / Comment(s): Back pain, fall at home March 2019, pain with standing/walking. Hx Restless Leg, neuropathy, more foot pain recently, no CPAP use, DDD, occasional chest pain and SOB. recent vision changes be evaluated and tested by dr lt hip pain to begin physical therapy. FELL AT HOME 09/27/20 SEEN IN ER History of Any Multi-Drug Resistant Organisms: None Reported Past Surgical History: Cholecystectomy, Heart Catheterization, Hysterectomy, Orthopedic Surgery, Tonsillectomy Additional Past Surgical History / Comment(s): Colonoscopy, tendon repair on lef t foot, epidural for pain, pain clinic procedures. filipe cataract Past Anesthesia/Blood Transfusion Reactions: Motion Sickness Past Psychological History: Anxiety, Bipolar, Depression, PTSD Smoking Status: Current every day smoker, Vaper Past Alcohol Use History: Rare Past Drug Use History: None Reported - Past Family History Father Family Medical History: CVA/TIA, Diabetes Mellitus, Hypertension Additional Family Medical History / Comment(s): CATARACTS, AAA. General Exam Limitations: no limitations General appearance: alert, in no apparent distress Head exam: Present: atraumatic, normocephalic, normal inspection Eye exam: Present: normal appearance, PERRL, EOMI. Absent: scleral icterus, conjunctival injection, periorbital swelling ENT exam: Present: normal exam, mucous membranes moist Neck exam: Present: normal inspection, full ROM. Absent: tenderness, meningismus, lymphadenopathy Respiratory exam: Present: normal lung sounds bilaterally. Absent: respiratory distress, wheezes, rales, rhonchi, stridor Cardiovascular Exam: Present: regular rate, normal rhythm, normal heart sounds. Absent: systolic murmur, diastolic murmur, rubs, gallop, clicks GI/Abdominal exam: Present: soft, normal bowel sounds. Absent: distended, tenderness, guarding, rebound, rigid Course Vital Signs 10/29/20 10/29/20 10/29/20 13:56 14:48 16:05 Temperature 98.2 F Pulse Rate 102 H 95 98 Respiratory 20 20 20 Rate Blood Pressure 159/69 162/78 159/92 O2 Sat by Pulse 98 96 96 Oximetry EKG Findings - EKG Comments: EKG Findings:: Normal sinus rhythm, ventricular rate 98, P1 86, QTC 446 Medical Decision Making - Medical Decision Making Vitals are stable. Patient initially slightly tachycardic. She is complaining of chest pain worsening with deep breathing. This started approximately 2-3 hours prior to arrival. CBC did show leukocytosis however this could be reac tive to recent surgery. CMP does demonstrate slight hyponatremia which patient does have a history of. Chest CTA was obtained which does not show any evidence for a PE although this was a limited study. She does have evidence of heart failure which she has a history of. Patient had a normal heart cath in 2017. She had stress test showing possible previous AR a couple months ago. At this time patient will be admitted for cardiac rule out. - Lab Data Result diagrams: 10/29/20 14:31 10/29/20 14:31 Lab Results 10/29/20 10/29/20 10/29/20 Range/Units 14:31 14:31 14:31 WBC 15.3 H (3.8-10.6) k/uL RBC 4.04 (3.80-5.40) m/uL Hgb 12.0 (11.4-16.0) gm/dL Hct 35.5 (34.0-46.0) % MCV 87.7 (80.0-100.0) fL MCH 29.8 (25.0-35.0) pg MCHC 34.0 (31.0-37.0) g/dL RDW 15.5 (11.5-15.5) % Plt Count 511 H (150-450) k/uL MPV 7.2 Neutrophils % 81 % Lymphocytes % 11 % Monocytes % 4 % Eosinophils % 2 % Basophils % 1 % Neutrophils # 12.3 H (1.3-7.7) k/uL Lymphocytes # 1.7 (1.0-4.8) k/uL Monocytes # 0.7 (0-1.0) k/uL Eosinophils # 0.4 (0-0.7) k/uL Basophils # 0.1 (0-0.2) k/uL PT 9.4 (9.0-12.0) sec INR 0.9 (<1.2) APTT 24.2 (22.0-30.0) sec Sodium 129 L (137-145) mmol/L Potassium 4.3 (3.5-5.1) mmol/L Chloride 95 L (98-107) mmol/L Carbon Dioxide 27 (22-30) mmol/L Anion Gap 7 mmol/L BUN 10 (7-17) mg/dL Creatinine 0.45 L (0.52-1.04) mg/dL Est GFR (CKD-EPI)AfAm >90 (>60 ml/min/1.73 sqM) Est GFR (CKD-EPI)NonAf >90 (>60 ml/min/1.73 sqM) Glucose 206 H (74-99) mg/dL Calcium 8.9 (8.4-10.2) mg/dL Magnesium 1.7 (1.6-2.3) mg/dL Total Bilirubin 0.4 (0.2-1.3) mg/dL AST 23 (14-36) U/L ALT 26 (4-34) U/L Alkaline Phosphatase 146 H (38-126) U/L Troponin I (0.000-0.034) ng/mL Total Protein 6.4 (6.3-8.2) g/dL Albumin 3.6 (3.5-5.0) g/dL 10/29/20 Range/Units 14:31 WBC (3.8-10.6) k/uL RBC (3.80-5.40) m/uL Hgb (11.4-16.0) gm/dL Hct (34.0-46.0) % MCV (80.0-100.0) fL MCH (25.0-35.0) pg MCHC (31.0-37.0) g/dL RDW (11.5-15.5) % Plt Count (150-450) k/uL MPV Neutrophils % % Lymphocytes % % Monocytes % % Eosinophils % % Basophils % % Neutrophils # (1.3-7.7) k/uL Lymphocytes # (1.0-4.8) k/uL Monocytes # (0-1.0) k/uL Eosinophils # (0-0.7) k/uL Basophils # (0-0.2) k/uL PT (9.0-12.0) sec INR (<1.2) APTT (22.0-30.0) sec Sodium (137-145) mmol/L Potassium (3.5-5.1) mmol/L Chloride (98-107) mmol/L Carbon Dioxide (22-30) mmol/L Anion Gap mmol/L BUN (7-17) mg/dL Creatinine (0.52-1.04) mg/dL Est GFR (CKD-EPI)AfAm (>60 ml/min/1.73 sqM) Est GFR (CKD-EPI)NonAf (>60 ml/min/1.73 sqM) Glucose (74-99) mg/dL Calcium (8.4-10.2) mg/dL Magnesium (1.6-2.3) mg/dL Total Bilirubin (0.2-1.3) mg/dL AST (14-36) U/L ALT (4-34) U/L Alkaline Phosphatase (38-126) U/L Troponin I <0.012 (0.000-0.034) ng/mL Total Protein (6.3-8.2) g/dL Albumin (3.5-5.0) g/dL Disposition Clinical Impression: Chest pain Disposition: ADMITTED IP TO THIS [facility] Condition: Fair Is patient prescribed a controlled substance at d/c from ED?: No Referrals: Aditya Nelson MD [Primary Care Provider] - 1-2 days Time of Disposition: 16:33
[2020-10-29 14:53] LABS: Basophils # (A) 0.1 k/uL (0-0.2); Basophils % (A) 1 %; Eosinophils # (A) 0.4 k/uL (0-0.7); Eosinophils % (A) 2 %; HCT 35.5 % (34.0-46.0); Lymphocytes # (A) 1.7 k/uL (1.0-4.8); Lymphocytes % (A) 11 %; MCH 29.8 pg (25.0-35.0); MCV 87.7 fL (80.0-100.0); Mean Platelet Volume 7.2; Monocytes # (A) 0.7 k/uL (0-1.0); Monocytes % (A) 4 %; Neutrophils # (A) 12.3 k/uL (1.3-7.7); Neutrophils % (A) 81 %; Platelet Count 511 k/uL (150-450); RBC 4.04 m/uL (3.80-5.40); RDW 15.5 % (11.5-15.5); WBC 15.3 k/uL (3.8-10.6)
[2020-10-29 15:02] LABS: ALT 26 U/L (4-34); AST 23 U/L (14-36); African American GFR (CKD) >90 (>60 ml/min/1.73 sqM); Albumin 3.6 g/dL (3.5-5.0); Alkaline Phosphatase 146 U/L (38-126); Anion Gap 7 mmol/L; Blood Urea Nitrogen 10 mg/dL (7-17); Calcium 8.9 mg/dL (8.4-10.2); Carbon Dioxide 27 mmol/L (22-30); Chloride 95 mmol/L (98-107); Glucose 206 mg/dL (74-99); Magnesium 1.7 mg/dL (1.6-2.3); Non-African American GFR(CKD) >90 (>60 ml/min/1.73 sqM); Potassium 4.3 mmol/L (3.5-5.1); Sodium 129 mmol/L (137-145); Total Bilirubin 0.4 mg/dL (0.2-1.3); Total Protein 6.4 g/dL (6.3-8.2)
[2020-10-29 15:09] LABS: INR 0.9 (<1.2); Partial Thromboplastin Time 24.2 sec (22.0-30.0); Prothrombin Time 9.4 sec (9.0-12.0)
--- NOTE | 2020-10-29 15:25 | CT ---
EXAMINATION TYPE: CT chest angio for PE DATE OF EXAM: 10/29/2020 COMPARISON: CTA chest September 07, 2017 and older CTs HISTORY: Chest pain after total hip replacement. CT DLP: 619.3 mGycm. Automated Exposure Control for Dose Reduction was Utilized. CONTRAST: CTA scan of the thorax is performed with IV Contrast, patient injected with 100 mL of Isovue 370, pul monary embolism protocol. MIP Images are created on CT scanner and reviewed. FINDINGS: LUNGS: Exam noted suboptimal as patient unable to hold breath. [id number] underlying emphysemat ous change greatest in the upper lungs redemonstrated with scattered blebs and bulla greatest in the right upper lobe. No pleural effusion or pneumothorax seen. No new focal consolidation. Some groundgl ass opacity in the upper lungs is present. MEDIASTINUM: There is medical contrast within left heart systems and overall heterogeneity. There is no central pulmonary embolism. Cannot exclude smaller segmental and subsegmental PE on this study. Th ere are more prominent thoracic lymph nodes on current study throughout the mediastinum and bilateral hilar region. Coronary artery calcification is redemonstrated. No new pericardial effusion is seen . Heart size upper limits of normal. OTHER: No additional significant abnormality is seen. IMPRESSION: Suboptimal study as patient unable to hold breath. Chronic emphysematous change without c entral acute pulmonary embolism. Cannot exclude small segmental subsegmental pulmonary emboli. Heart size borderline with mild alveolar edema, correlate for CHF exacerbation or fluid overload state. Pro minent nonspecific thoracic lymph nodes, follow-up advised.
[2020-10-29] MEDS ORDERED: MORPHINE SULFATE 4 MG/ML SYRINGE IVP STA (15:43)
[2020-10-29 18:58] LABS: Glucose,Whole Blood 156 mg/dL (75-99)
[2020-10-29] MEDS: ENOXAPARIN 40 MG/0.4 ML SYRINGE SQ SCH (19:19)
[2020-10-29] MEDS ORDERED: ALPRAZolam 0.5 MG TAB PO PRN (19:23)
[2020-10-29] MEDS ORDERED: methocarbamoL 750 MG TAB PO PRN (19:23)
[2020-10-29] MEDS: HYDROcodone/APAP 10-325MG 1 EACH TAB PO PRN (19:52)
[2020-10-29] MEDS ORDERED: MIRTAZAPINE 15 MG TAB PO SCH (21:00)
[2020-10-29] MEDS ORDERED: ATORVASTATIN 40 MG TAB PO SCH (21:00)
[2020-10-29] MEDS ORDERED: VERAPAMIL SR 240 MG TABLET.ER PO SCH (21:00)
[2020-10-29] MEDS ORDERED: SENNOSIDES-DOCUSATE SODIUM 1 EACH TAB PO PRN (21:00)
[2020-10-29] MEDS ORDERED: OXcarbazepine 300 MG TAB PO SCH (21:00)
[2020-10-29 22:27] LABS: Glucose,Whole Blood 160 mg/dL (75-99)
[2020-10-29] MEDS: hydrALAZINE HCL 25 MG TAB PO SCH (22:39)
[2020-10-29] MEDS: INSULIN ASPART (NovoLOG) 100 UNIT/ML VIAL SQ SCH (22:39)
[2020-10-30] MEDS: HYDROcodone/APAP 10-325MG 1 EACH TAB PO PRN (01:53)
[2020-10-30 03:24] LABS: Cholesterol 100 mg/dL (<200); HDL Cholesterol 43 mg/dL (40-60); LDL Cholesterol,Calculated 41 mg/dL (0-99); Triglycerides 81 mg/dL (<150)
[2020-10-30 03:56] VITALS: RESP 16
[2020-10-30] MEDS: PREGABALIN 100 MG CAP PO SCH ×2 (06:25→12:15)
[2020-10-30 06:27] LABS: Glucose,Whole Blood 138 mg/dL (75-99)
[2020-10-30] MEDS: SYMBICORT 160-4.5 MCG INHALER INHALATION SCH ×2 (07:50)
[2020-10-30] MEDS: INSULIN ASPART (NovoLOG) 100 UNIT/ML VIAL SQ SCH ×3 (08:10→17:32)
[2020-10-30] MEDS ORDERED: FLUoxetine HCL 20 MG CAP PO SCH (09:00)
[2020-10-30] MEDS ORDERED: ASPIRIN 325 MG TAB PO SCH (09:00)
[2020-10-30] MEDS ORDERED: ISOSORBIDE MONONITRATE ER 30 MG TAB.ER.24H PO SCH (09:00)
[2020-10-30] MEDS ORDERED: NON FORMULARY DRUG (Aspirin [Adult Low Dose Aspirin Ec] 81 MG Tablet.Dr) PO SCH (09:00)
[2020-10-30] MEDS ORDERED: buPROPion XL 150 MG TAB.ER.24H PO SCH (09:00)
[2020-10-30] MEDS: hydrALAZINE HCL 25 MG TAB PO SCH (10:09)
[2020-10-30] MEDS: ENOXAPARIN 40 MG/0.4 ML SYRINGE SQ SCH (10:11)
--- NOTE | 2020-10-30 10:11 | P.CRDCN ---
History of Present Illness History of present illness: HISTORY OF PRESENTING ILLNESS This is a pleasant 60-year-old -Greek female past medical history significant for COPD, diabetes mellitus, hypertension, dyslipidemia, sleep apnea, chronic nicotine dependence and morbid obesity. She follows in the office with Dr. Izquierdo. We have been asked to see in consultation for chest pain. She states yesterday she was sitting down and had an acute onset of pain in the mid-sternal region described as a tightness like someone was reaching in and squeezing. There was no radiation tot he back, arm, neck or jaw. She also felt some associated shortness of breath. The pain in her chest was exacerbated by taking a deep breath. It is not reproducible on palpations. She denies associated dizziness, palpitations, nausea, vomiting or diaphoresis. Last week she underwent a left total hip arthroplasty with Dr. Cali. Prior to surgery she underwent a Lexiscan stress test revealing preserved LV systolic function with EF 55% with some paradoxical wall motion at the apex and inferior wall with evidence of prior UT with decreased uptake on stress compared to rest. Which is negative for reversibility. Echocardiogram obtained at that time reveals preserved LV systolic function with ejection fraction 60-65%, mild tricuspid regurgitation and mild pulmonary hypertension with an RVSP of 44 mmHg. She also had a catheterization performed in 2017 that revealed normal coronary arteries. DIAGNOSTICS EKG reveals sinus mechanism heart rate of 98. CTA negative for large central PE with right upper lobe bulla or bleb and underlying COPD. Laboratory reviewed, cardiac enzymes negative 3, WBC 15.3, hemoglobin 12, platelets 511, sodium 129, potassium 4.3, creatinine 0.45,. ProBNP 195, LDL 41 and HDL 43 Current cardiac medications include Imdur 30 mg daily, aspirin 81 mg daily, verapamil 240 mg daily, hydralazine 25 mg twice a day and atorvastatin 40 mg at bedtime. REVIEW OF SYSTEMS At the time of my exam: CONSTITUTIONAL: Denies fever or chills. CARDIOVASCULAR: Denies chest pain, shortness of breath, orthopnea, PND or palpitations. RESPIRATORY: Denies cough. GASTROINTESTINAL: Denies abdominal pain, diarrhea, constipation, nausea or v omiting. MUSCULOSKELETAL: Denies myalgias. NEUROLOGIC: Denies numbness, tingling or weakness. ENDOCRINE: Denies fatigue, weight change, polydipsia or polyurina. GENITOURINARY: Denies burning, hematuria or urgency with micturation. HEMATOLOGIC: Denies history of anemia or bleeding. PHYSICAL EXAMINATION Blood pressure 152/77 heart rate 94 afebrile and maintaining oxygen saturation on room air. CONSTITUTIONAL: No apparent distress. Morbidly obese. HEENT: Head is normocephalic. Pupils are equal, round. Sclerae anicteric. Mucous membranes of the mouth are moist. No JVD. No carotid bruit. CHEST EXAMINATION: Lungs are clear to auscultation. No chest wall tenderness is noted on palpation or with deep breathing. HEART EXAMINATION: Regular rate and rhythm. S1, S2 heard. No murmurs, gallops or rub. ABDOMEN: Soft, nontender. Positive bowel sounds. EXTREMITIES: 2+ peripheral pulses, no lower extremity edema and no calf tenderness. NEUROLOGIC EXAMINATION: Patient is awake, alert and oriented x3. ASSESSMENT Chest pain, pleuritic in nature. Recent left hip replacement Leuckocytosis Hyponatremit Diabetes mellitus Hypertension Dyslipidemia Sleep apnea COPD Chronic nicotine dependence Morbid obesity, BMI 43 PLAN An acute coronary event has been ruled out. Pain is atypical for angina. Pleu ritic in nature, consider underlying pneumonia given elevated white count and abnormal CT scan. Recommend initiation of KARLEE inhibitor given her elevated blood pressure and history of diabetes mellitus. No further cardiac work-up, we will follow along as needed. Follow up with Dr. Izquierdo upon discharge. Thank you kindly for this consultation. Nurse Practitioner note has been reviewed, I agree with a documented findings and plan of care. Patient was seen and examined. Past Medical History Past Medical History: Asthma, Chest Pain / Angina, Heart Failure, COPD, Diabetes Mellitus, Fibromyalgia, Hyperlipidemia, Hypertension, Neurologic Disorder, Osteo arthritis (OA), Sleep Apnea/CPAP/BIPAP Additional Past Medical History / Comment(s): Back pain, fall at home March 2019, pain with standing/walking. Hx Restless Leg, neuropathy, more foot pain recently, no CPAP use, DDD, occasional chest pain and SOB. recent vision changes be evaluated and tested by , lt hip pain to begin physical therapy. FELL AT HOME 09/27/20 SEEN IN ER History of Any Multi-Drug Resistant Organisms: None Reported Past Surgical History: Cholecystectomy, Heart Catheterization, Hysterectomy, Orthopedic Surgery, Tonsillectomy Additional Past Surgical History / Comment(s): Colonoscopy, tendon repair on left foot, epidural for pain, pain clinic procedures. filipe cataract Past Anesthesia/Blood Transfusion Reactions: Motion Sickness Past Psychological History: Anxiety, Bipolar, Depression, PTSD Additional Psychological History / Comment(s): pt states she has major depressive disorder with manic episodes Smoking Status: Current every day smoker, Vaper Past Alcohol Use History: Rare Additional Past Alcohol Use History / Comment(s): Quit smoking in 2010, using vape now, smoked approx 40 yrs, 2PPD. SMOKING AGAIN-ABOUT 1/2 PPD-TRYING TO QUIT AGAIN Past Drug Use History: None Reported Additional Drug Use History / Comment(s): . - Past Family History Father Family Medical History: CVA/TIA, Diabetes Mellitus, Hypertension Additional Family Medical History / Comment(s): CATARACTS, AAA. Medications and Allergies Home Medications Medication Instructions Recorded Confirmed Type metFORMIN HCL [Glucophage] 1,000 mg PO BID-W/MEALS 10/06/14 10/29/20 History OXcarbazepine [Trileptal] 1,200 mg PO HS 10/07/16 10/29/20 History Isosorbide Mononitrate ER [Imdur] 30 mg PO DAILY 10/22/16 10/29/20 History Liraglutide [Victoza 2-Fredo] 1.8 mg SQ HS 04/21/17 10/29/20 History Pioglitazone [Actos] 30 mg PO DAILY 04/21/17 10/29/20 History Verapamil HCl [Verapamil ER] 240 mg PO HS 12/19/17 10/29/20 History Atorvastatin [Lipitor] 40 mg PO HS 10/15/18 10/29/20 History Insulin Glargine [Lantus] 30 unit SQ HS 06/13/19 10/29/20 History Mirtazapine 30 mg PO HS 06/13/19 10/29/20 History Pramipexole Di-HCl [Mirapex] 0.5 mg PO HS 06/13/19 10/29/20 History Aspirin [Adult Low Dose Aspirin EC] 81 mg PO DAILY 08/26/19 10/29/20 History Budesonide/Formoterol Fumarate 2 puff INHALATION RT-BID 10/27/19 10/29/20 History [Symbicort 160-4.5 Mcg Inhaler] DULoxetine HCL [Cymbalta] 30 mg PO W/LUNCH 10/27/19 10/29/20 History Ergocalciferol [Vitamin D2 50,000 unit PO SA 06/06/20 10/29/20 History (DRISDOL)] FLUoxetine HCL [PROzac] 20 mg PO DAILY 06/06/20 10/29/20 History Multivit-Min/FA/Lycopen/Lutein 1 tab PO DAILY 06/06/20 10/29/20 History [Centrum Silver Tablet] DULoxetine HCL [Cymbalta] 60 mg PO W/LUNCH 09/11/20 10/29/20 History Nicotine [Nicotrol] 10 mg INHALATION 5XD PRN 09/11/20 10/29/20 History Pregabalin [Lyrica] 100 mg PO TID-W/MEALS 09/11/20 10/29/20 History buPROPion HCL [Wellbutrin XL] 150 mg PO DAILY 09/11/20 10/29/20 History hydrALAZINE HCL 25 mg PO BID 10/23/20 10/29/20 History ALPRAZolam [Xanax] 0.5 mg PO TID PRN #12 tablet 10/25/20 10/29/20 Rx Hydrocodone/Acetaminophen [[place] 1 each PO Q6H PRN #12 tab 10/25/20 10/29/20 Rx 10-325] Magnesium Hydroxide [Milk of 2,400 mg PO DAILY PRN ml 10/25/20 10/29/20 Rx Magnesia Concentrate] methocarbamoL [Robaxin] 750 mg PO TID PRN #12 tab 10/25/20 10/29/20 Rx Nystatin 100,000 Unit/gm Powd 1 applic TOPICAL BID PRN 10/29/20 10/29/20 History [Mycostatin Powder] Nystatin 100,000Unit/gm Cream 1 applic TOPICAL BID PRN 10/29/20 10/29/20 History [Mycostatin Cream] Sennosides-Docusate Sodium 2 each PO HS PRN 10/29/20 10/29/20 History [Senokot-S] Allergies Allergy/AdvReac Type Severity Reaction Status Date / Time No Known Allergies Allergy Verified 10/29/20 16:46 Physical Exam Vitals: Vital Signs Temp Pulse Pulse Resp BP BP Pulse Ox 10/30/20 08:12 94 16 10/30/20 08:11 99.2 F 94 152/77 10/30/20 03:00 98.4 F 97 16 138/70 92 L 10/29/20 21:00 98.2 F 95 18 125/75 95 10/29/20 20:24 98.2 F 95 18 125/75 94 L 10/29/20 20:20 97 20 156/78 95 10/29/20 19:15 103 H 20 155/83 96 10/29/20 16:48 98.2 F 96 20 152/76 96 10/29/20 16:05 98 20 159/92 96 10/29/20 14:48 95 20 162/78 96 10/29/20 13:56 98.2 F 102 H 20 159/69 98 Intake and Output 10/29/20 10/30/20 10/30/20 22:59 06:59 14:59 Intake Total 240 Balance 240 Intake: Oral 240 Other: Voiding Method Toilet Toilet Toilet # Voids 2 2 Weight 126.099 kg Results 10/29/20 14:31 10/29/20 14:31 Cardiac Enzymes 10/29/20 10/29/20 10/29/20 Range/Units 14:31 14:31 18:00 AST 23 (14-36) U/L Troponin I <0.012 <0.012 (0.000-0.034) ng/mL 10/29/20 Range/Units 21:22 AST (14-36) U/L Troponin I <0.012 (0.000-0.034) ng/mL Coagulation 10/29/20 Range/Units 14:31 PT 9.4 (9.0-12.0) sec APTT 24.2 (22.0-30.0) sec Lipids 10/29/20 Range/Units 14:31 Triglycerides 81 (<150) mg/dL Cholesterol 100 (<200) mg/dL HDL Cholesterol 43 (40-60) mg/dL CBC 10/29/20 Range/Units 14:31 WBC 15.3 H (3.8-10.6) k/uL RBC 4.04 (3.80-5.40) m/uL Hgb 12.0 (11.4-16.0) gm/dL Hct 35.5 (34.0-46.0) % Plt Count 511 H (150-450) k/uL Comprehensive Metabolic Panel 10/29/20 Range/Units 14:31 Sodium 129 L (137-145) mmol/L Potassium 4.3 (3.5-5.1) mmol/L Chloride 95 L (98-107) mmol/L Carbon Dioxide 27 (22-30) mmol/L BUN 10 (7-17) mg/dL Creatinine 0.45 L (0.52-1.04) mg/dL Glucose 206 H (74-99) mg/dL Calcium 8.9 (8.4-10.2) mg/dL AST 23 (14-36) U/L ALT 26 (4-34) U/L Alkaline Phosphatase 146 H (38-126) U/L Total Protein 6.4 (6.3-8.2) g/dL Albumin 3.6 (3.5-5.0) g/dL Current Medications Generic Name Dose Route Start Last Admin Trade Name Freq PRN Reason Stop Dose Admin Hydrocodone Bitart/Acetaminophen 1 each 10/29/20 19:23 10/30/20 01:53 Hydrocodone/Apap 10-325mg 1 Each Tab PO 1 each Q6H PRN Administration Pain Alprazolam 0.5 mg 10/29/20 19:23 10/29/20 19:53 Alprazolam 0.5 Mg Tab PO 0.5 mg TID PRN Administration Anxiety Aspirin 325 mg 10/30/20 09:00 Aspirin 325 Mg Tab PO DAILY JARVIS Atorvastatin Calcium 40 mg 10/29/20 21:00 10/29/20 22:39 Atorvastatin 40 Mg Tab PO 40 mg HS JARVIS Administration Budesonide/Formoterol Fumarate 2 puff 10/29/20 20:00 10/30/20 07:50 Symbicort 160-4.5 Mcg Inhaler INHALATION 2 puff RT-BID JARVIS Administration Bupropion HCl 150 mg 10/30/20 09:00 Bupropion Xl 150 Mg Tab.Er.24h PO DAILY JARVIS Duloxetine HCl 30 mg 10/30/20 12:30 Duloxetine Hcl 30 Mg Capsule. PO W/LUNCH JARVIS Duloxetine HCl 60 mg 10/30/20 12:30 Duloxetine Hcl 60 Mg Capsule. PO W/LUNCH JARVIS Enoxaparin Sodium 40 mg 10/29/20 16:45 10/29/20 19:19 Enoxaparin 40 Mg/0.4 Ml Syringe SQ 40 mg DAILY JARVIS Administration Fluoxetine HCl 20 mg 10/30/20 09:00 Fluoxetine Hcl 20 Mg Cap PO DAILY JARVIS Hydralazine HCl 25 mg 10/29/20 21:00 10/29/20 22:39 Hydralazine Hcl 25 Mg Tab PO 25 mg BID JARVIS Administration Insulin Aspart 0 unit 10/29/20 21:00 10/30/20 08:10 Insulin Aspart (Novolog) 100 Unit/Ml Vial SQ Not Given ACHS JARVIS Protocol Isosorbide Mononitrate 30 mg 10/30/20 09:00 Isosorbide Mononitrate Er 30 Mg Tab.Er.24h PO DAILY JAVRIS Methocarbamol 750 mg 10/29/20 19:23 10/29/20 20:21 Methocarbamol 750 Mg Tab PO 750 mg TID PRN Administration Spasms Mirtazapine 30 mg 10/29/20 21:00 10/30/20 00:29 Mirtazapine 15 Mg Tab PO 30 mg HS JARVIS Administration Oxcarbazepine 1,200 mg 10/29/20 21:00 10/29/20 20:21 Oxcarbazepine 300 Mg Tab PO 1,200 mg HS AJRVIS Administration Pregabalin 100 mg 10/30/20 07:30 10/30/20 06:25 Pregabalin 100 Mg Cap PO 100 mg TID-W/MEALS JARVIS Administration Senna/Docusate Sodium 2 each 10/29/20 21:00 Sennosides-Docusate Sodium 1 Each Tab PO HS PRN Constipation Verapamil HCl 240 mg 10/29/20 21:00 10/29/20 20:21 Verapamil Sr 240 Mg Tablet.Er PO 240 mg HS JARVIS Administration Intake and Output 10/29/20 10/30/20 10/30/20 22:59 06:59 14:59 Intake Total 240 Balance 240 Intake: Oral 240 Other: Voiding Method Toilet Toilet Toilet # Voids 2 2 Weight 126.099 kg 10/29/20 14:31 10/29/20 14:31
[2020-10-30] MEDS ORDERED: lisinopriL 5 MG TAB PO SCH (10:15)
[2020-10-30 12:12] LABS: Glucose,Whole Blood 181 mg/dL (75-99)
[2020-10-30] MEDS ORDERED: DULoxetine HCL 60 MG CAPSULE.DR PO SCH (12:30)
[2020-10-30] MEDS ORDERED: DULoxetine HCL 30 MG CAPSULE.DR PO SCH (12:30)
[2020-10-30 14:29] LABS: Anisocytosis Slight; Basophils # (A) 0.1 k/uL (0-0.2); Basophils % (A) 1 %; Eosinophils # (A) 0.4 k/uL (0-0.7); Eosinophils % (A) 4 %; HGB 11.1 gm/dL (11.4-16.0); Lymphocytes # (A) 1.9 k/uL (1.0-4.8); Lymphocytes % (A) 17 %; MCH 27.7 pg (25.0-35.0); MCHC 31.7 g/dL (31.0-37.0); MCV 87.4 fL (80.0-100.0); Mean Platelet Volume 6.5; Monocytes # (A) 0.6 k/uL (0-1.0); Monocytes % (A) 6 %; Neutrophils # (A) 7.7 k/uL (1.3-7.7); Neutrophils % (A) 71 %; Platelet Count 592 k/uL (150-450); RDW 16.2 % (11.5-15.5); WBC 10.9 k/uL (3.8-10.6)
[2020-10-30 15:56] VITALS: BP 139/69; PULSE 90; TEMP 98.5
[2020-10-30] MEDS ORDERED: methylPREDNISolone SOD SUCCI 40 MG/ML 1 ML VIAL IV SCH (16:00)
--- NOTE | 2020-10-30 16:22 | P.CNPUL ---
History of Present Illness Consult date: 10/30/20 Reason for consult: chest pain Chief complaint: Chest pain History of present illness: This is a 60-year-old female with known history of COPD, not O2 dependent, not prednisone dependent, maintained mostly on bronchodilators/inhalers. Patient is also known to have history of diabetes, fibromyalgia, dyslipidemia, hyper tension, obesity, obstructive sleep apnea syndrome. Patient was admitted yesterday with basically a sudden onset of substernal chest pain. Patient said she was sitting and she developed some epigastric discomfort and severe pain. Pain was pleuritic in nature, but was not associated with any shortness of breath whatsoever. There was no cough, there was no fever no chills no hemoptysis no diaphoresis. Patient took some Tums, the pain went away completely, however few hours later she developed the same type of pain. Hence she came to the ER, and she was admitted. Patient had a CT angiogram of the chest showed no evidence of pulmonary embolism, she was seen by cardiology, and it was felt that the patient had extensive cardiac workup before she underwent hip surgery recently, and her cardiac workup was negative. She also had a cardiac catheterization in 2017 which was normal. Hence the pain was felt to be noncardiac in nature. And I was asked to see her on consultation. Patient bonita gain is known to have COPD which is relatively mild based on her symptoms, she has no fever no chills no cough no wheezing. I felt that her pain is most likely GI in nature could be GERD related. And I felt that the patient could be discharged home with outpatient follow-up. Review of Systems CONSTITUTIONAL: No fever no chills no weight loss. CARDIOVASCULAR: As noted in HPI.. RESPIRATORY: As noted in HPI. GASTROINTESTINAL: As noted in HPI. MUSCULOSKELETAL: Negative NEUROLOGIC: Negative ENDOCRINE: Negative GENITOURINARY: Negative. HEMATOLOGIC: Negative Psychiatric: Negative Past Medical History Past Medical History: Asthma, Chest Pain / Angina, Heart Failure, COPD, Diabetes Mellitus, Fibromyalgia, Hyperlipidemia, Hypertension, Neurologic Disorder, Osteoarthritis (OA), Sleep Apnea/CPAP/BIPAP Additional Past Medical History / Comment(s): Back pain, fall at home March 2019, pain with standing/walking. Hx Restless Leg, neuropathy, more foot pain recently, no CPAP use, DDD, occasional chest pain and SOB. recent vision changes be evaluated and tested by dr, lt hip pain to begin physical therapy. FELL AT HOME 09/27/20 SEEN IN ER History of Any Multi-Drug Resistant Organisms: None Reported Past Surgical History: Cholecystectomy, Heart Catheterization, Hysterectomy, Orthopedic Surgery, Tonsillectomy Additional Past Surgical History / Comment(s): Colonoscopy, tendon repair on left foot, epidural for pain, pain clinic procedures. filipe cataract Past Anesthesia/Blood Transfusion Reactions: Motion Sickness Past Psychological History: Anxiety, Bipolar, Depression, PTSD Additional Psychological History / Comment(s): pt states she has major depres sive disorder with manic episodes Smoking Status: Current every day smoker, Vaper Past Alcohol Use History: Rare Additional Past Alcohol Use History / Comment(s): Quit smoking in 2010, using vape now, smoked approx 40 yrs, 2PPD. SMOKING AGAIN-ABOUT 1/2 PPD-TRYING TO QUIT AGAIN Past Drug Use History: None Reported Additional Drug Use History / Comment(s): . - Past Family History Father Family Medical History: CVA/TIA, Diabetes Mellitus, Hypertension Additional Family Medical History / Comment(s): CATARACTS, AAA. Medications and Allergies Home Medications Medication Instructions Recorded Confirmed Type metFORMIN HCL [Glucophage] 1,000 mg PO BID-W/MEALS 10/06/14 10/29/20 History OXcarbazepine [Trileptal] 1,200 mg PO HS 10/07/16 10/29/20 History Isosorbide Mononitrate ER [Imdur] 30 mg PO DAILY 10/22/16 10/29/20 History Liraglutide [Victoza 2-Fredo] 1.8 mg SQ HS 04/21/17 10/29/20 History Pioglitazone [Actos] 30 mg PO DAILY 04/21/17 10/29/20 History Verapamil HCl [Verapamil ER] 240 mg PO HS 12/19/17 10/29/20 History Atorvastatin [Lipitor] 40 mg PO HS 10/15/18 10/29/20 History Insulin Glargine [Lantus] 30 unit SQ HS 06/13/19 10/29/20 History Mirtazapine 30 mg PO HS 06/13/19 10/29/20 History Pramipexole Di-HCl [Mirapex] 0.5 mg PO HS 06/13/19 10/29/20 History Aspirin [Adult Low Dose Aspirin EC] 81 mg PO DAILY 08/26/19 10/29/20 History Budesonide/Formoterol Fumarate 2 puff INHALATION RT-BID 10/27/19 10/29/20 H istory [Symbicort 160-4.5 Mcg Inhaler] DULoxetine HCL [Cymbalta] 30 mg PO W/LUNCH 10/27/19 10/29/20 History Ergocalciferol [Vitamin D2 50,000 unit PO SA 06/06/20 10/29/20 History (DRISDOL)] FLUoxetine HCL [PROzac] 20 mg PO DAILY 06/06/20 10/29/20 History Multivit-Min/FA/Lycopen/Lutein 1 tab PO DAILY 06/06/20 10/29/20 History [Centrum Silver Tablet] DULoxetine HCL [Cymbalta] 60 mg PO W/LUNCH 09/11/20 10/29/20 History Nicotine [Nicotrol] 10 mg INHALATION 5XD PRN 09/11/20 10/29/20 History Pregabalin [Lyrica] 100 mg PO TID-W/MEALS 09/11/20 10/29/20 History buPROPion HCL [Wellbutrin XL] 150 mg PO DAILY 09/11/20 10/29/20 History hydrALAZINE HCL 25 mg PO BID 10/23/20 10/29/20 History ALPRAZolam [Xanax] 0.5 mg PO TID PRN #12 tablet 10/25/20 10/29/20 Rx Hydrocodone/Acetaminophen [[place] 1 each PO Q6H PRN #12 tab 10/25/20 10/29/20 Rx 10-325] Magnesium Hydroxide [Milk of 2,400 mg PO DAILY PRN ml 10/25/20 10/29/20 Rx Magnesia Concentrate] methocarbamoL [Robaxin] 750 mg PO TID PRN #12 tab 10/25/20 10/29/20 Rx Nystatin 100,000 Unit/gm Powd 1 applic TOPICAL BID PRN 10/29/20 10/29/20 History [Mycostatin Powder] Nystatin 100,000Unit/gm Cream 1 applic TOPICAL BID PRN 10/29/20 10/29/20 History [Mycostatin Cream] Sennosides-Docusate Sodium 2 each PO HS PRN 10/29/20 10/29/20 History [Senokot-S] Allergies Allergy/AdvReac Type Severity Reaction Status Date / Time No Known Allergies Allergy Verified 10/29/20 16:46 Physical Exam Vitals: Vital Signs Temp Pulse Pulse Resp BP BP Pulse Ox 10/30/20 15:00 98.5 F 90 16 139/69 97 10/30/20 08:12 94 16 10/30/20 08:11 99.2 F 94 152/77 10/30/20 03:00 98.4 F 97 16 138/70 92 L 10/29/20 21:00 98.2 F 95 18 125/75 95 10/29/20 20:24 98.2 F 95 18 125/75 94 L 10/29/20 20:20 97 20 156/78 95 10/29/20 19:15 103 H 20 155/83 96 10/29/20 16:48 98.2 F 96 20 152/76 96 Intake and Output 10/30/20 10/30/20 10/30/20 06:59 14:59 22:59 Intake Total 200 Balance 200 Intake: Oral 200 Other: Voiding Method Toilet Toilet Toilet # Voids 2 3 3 Physical Exam: Revealed 60-year-old female, obese, in no distress. Very pleasant. Head: Atraumatic, normocephalic. HEENT: [No neck masses.] [No thyromegaly.] [No JVD.] Chest: [Clear throughout, no crackles, no rhonchi, no wheezes.] Cardiac Exam: [Normal S1 and S2, no S3 gallop, no murmur.] Abdomen: [Obese, Soft, nontender, no megaly, no rebound, no guarding, normal bowel sounds.] Extremities: [No clubbing, no edema, no cyanosis.] Neurological Exam: [No focal neurologic deficit.] Alert oriented 3. Psychiatric: Normal mood affect and normal mental status examination. Skin: No rashes. Lymphatics: No lymphadenopathy. Results - Laboratory Findings CBC and BMP: 10/30/20 14:14 10/29/20 14:31 PT/INR, D-dimer PT 9.4 sec (9.0-12.0) 10/29/20 14:31 INR 0.9 (<1.2) 10/29/20 14:31 Abnormal lab findings: Abnormal Labs 12/10/29/20 10/29/20 14:31 14:31 18:56 WBC 15.3 H Hgb RDW Plt Count 511 H Neutrophils # 12.3 H Sodium 129 L Chloride 95 L Creatinine 0.45 L Glucose 206 H POC Glucose (mg/dL) 156 H Alkaline Phosphatase 146 H 10/29/20 10/30/20 10/30/20 22:25 06:24 12:11 WBC Hgb RDW Plt Count Neutrophils # Sodium Chloride Creatinine Glucose POC Glucose (mg/dL) 160 H 138 H 181 H Alkaline Phosphatase 10/30/20 14:14 WBC 10.9 H Hgb 11.1 L RDW 16.2 H Plt Count 592 H Neutrophils # Sodium Chloride Creatinine Glucose POC Glucose (mg/dL) Alkaline Phosphatase - Diagnostic Findings CT scan - chest: image reviewed (As noted in HPI, CT angiogram of the chest is negative for pulmonary embolism, and no significant findings, there was some nonspecific interstitial changes,) Assessment and Plan Assessment: Impression: Atypical chest pain. Rule to be GI in nature, most likely GERD unless for otherwise. Suspect GERD with esophagitis. Possible pleurisy however during my examination the patient has no pain whatsoever, and there was definitely no pleuritic symptoms whatsoever. History of left hip replacement. Type 2 diabetes. History of COPD presently inactive. Tobacco dependence syndrome. Morbid obesity, BMI of 43. History of obstructive sleep apnea syndrome. Recommendation: Suggest placing the patient on oral omeprazole or Prilosec daily Patient is to continue her present meds. Cleared from my perspective for discharge if cleared already by cardiology to be discharged home today. Follow-up on outpatient basis. Time with Patient: Greater than 30
[2020-10-30 17:18] LABS: Glucose,Whole Blood 220 mg/dL (75-99)
--- NOTE | 2020-10-30 19:09 | P.HPIM ---
History of Present Illness H&P Date: 10/30/20 Chief Complaint: chest pain Renee Cannon is a 60-year-old female who presented to [facility] emergency room with a chief complaint of chest pain, patient did describe a sharp pain when she takes a deep breath patient was recently admitted to [facility] and underwent left total hip arthroplasty patient was evaluated in the emergency room possibility of pulmonary embolism was entertained she underwent computed tomography scan angiogram of the chest in the emergency room which was negative for pulmonary embolism she was admitted to the observation unit cardiology consultation was requested Patient has a known history of hypertension, hyperlipidemia, insulin-dependent diabetes mellitus, coronary artery disease, depression, restless leg syndrome, history of COPD, history of morbid obesity, history of obstructive sleep apnea. On review of systems patient is alert and oriented 3 in no distress she is complaining of left hip pain otherwise she denies any complaints there is no fever or chills no headache or dizziness no shortness of breath no cough no nausea or vomiting no abdominal pain no diarrhea no blood in the stools no burning with urination no frequency or urgency and no hematuria Past Medical History Past Medical History: Asthma, Chest Pain / Angina, Heart Failure, COPD, Diabetes Mellitus, Fibromyalgia, Hyperlipidemia, Hypertension, Neurologic Disorder, Osteoarthritis (OA), Sleep Apnea/CPAP/BIPAP Additional Past Medical History / Comment(s): Back pain, fall at home March 2019, pain with standing/walking. Hx Restless Leg, neuropathy, more foot pain recen tly, no CPAP use, DDD, occasional chest pain and SOB. recent vision changes be evaluated and tested by dr lt hip pain to begin physical therapy. FELL AT HOME 09/27/20 SEEN IN ER History of Any Multi-Drug Resistant Organisms: None Reported Past Surgical History: Cholecystectomy, Heart Catheterization, Hysterectomy, Orthopedic Surgery, Tonsillectomy Additional Past Surgical History / Comment(s): Colonoscopy, tendon repair on left foot, epidural for pain, pain clinic procedures. filipe cataract Past Anesthesia/Blood Transfusion Reactions: Motion Sickness Past Psychological History: Anxiety, Bipolar, Depression, PTSD Additional Psychological History / Comment(s): pt states she has major depressive disorder with manic episodes Smoking Status: Current every day smoker, Vaper Past Alcohol Use History: Rare Additional Past Alcohol Use History / Comment(s): Quit smoking in 2010, using vape now, smoked approx 40 yrs, 2PPD. SMOKING AGAIN-ABOUT 1/2 PPD-TRYING TO QUIT AGAIN Past Drug Use History: None Reported Additional Drug Use History / Comment(s): . - Past Family History Father Family Medical History: CVA/TIA, Diabetes Mellitus, Hypertension Additional Family Medical History / Comment(s): CATARACTS, AAA. Medications and Allergies Home Medications Medication Instructions Recorded Confirmed Type metFORMIN HCL [Glucophage] 1,000 mg PO BID-W/MEALS 10/06/14 10/29/20 History OXcarbazepine [Trileptal] 1,200 mg PO HS 10/07/16 10/29/20 History Isosorbide Mononitrate ER [Imdur] 30 mg PO DAILY 10/22/16 10/29/20 History Liraglutide [Victoza 2-Fredo] 1.8 mg SQ HS 04/21/17 10/29/20 History Pioglitazone [Actos] 30 mg PO DAILY 04/21/17 10/29/20 History Verapamil HCl [Verapamil ER] 240 mg PO HS 12/19/17 10/29/20 History Atorvastatin [Lipitor] 40 mg PO HS 10/15/18 10/29/20 History Insulin Glargine [Lantus] 30 unit SQ HS 06/13/19 10/29/20 History Mirtazapine 30 mg PO HS 06/13/19 10/29/20 History Pramipexole Di-HCl [Mirapex] 0.5 mg PO HS 06/13/19 10/29/20 History Aspirin [Adult Low Dose Aspirin EC] 81 mg PO DAILY 08/26/19 10/29/20 History Budesonide/Formoterol Fumarate 2 puff INHALATION RT-BID 10/27/19 10/29/20 History [Symbicort 160-4.5 Mcg Inhaler] DULoxetine HCL [Cymbalta] 30 mg PO W/LUNCH 10/27/19 10/29/20 History Ergocalciferol [Vitamin D2 50,000 unit PO SA 06/06/20 10/29/20 History (DRISDOL)] FLUoxetine HCL [PROzac] 20 mg PO DAILY 06/06/20 10/29/20 History Multivit-Min/FA/Lycopen/Lutein 1 tab PO DAILY 06/06/20 10/29/20 History [Centrum Silver Tablet] DULoxetine HCL [Cymbalta] 60 mg PO W/LUNCH 09/11/20 10/29/20 History Nicotine [Nicotrol] 10 mg INHALATION 5XD PRN 09/11/20 10/29/20 History Pregabalin [Lyrica] 100 mg PO TID-W/MEALS 09/11/20 10/29/20 History buPROPion HCL [Wellbutrin XL] 150 mg PO DAILY 09/11/20 10/29/20 History hydrALAZINE HCL 25 mg PO BID 10/23/20 10/29/20 History ALPRAZolam [Xanax] 0.5 mg PO TID PRN #12 tablet 10/25/20 10/29/20 Rx Hydrocodone/Acetaminophen [Upton 1 each PO Q6H PRN #12 tab 10/25/20 10/29/20 Rx 10-325] Magnesium Hydroxide [Milk of 2,400 mg PO DAILY PRN ml 10/25/20 10/29/20 Rx Magnesia Concentrate] methocarbamoL [Robaxin] 750 mg PO TID PRN #12 tab 10/25/20 10/29/20 Rx Nystatin 100,000 Unit/gm Powd 1 applic TOPICAL BID PRN 10/29/20 10/29/20 History [Mycostatin Powder] Nystatin 100,000Unit/gm Cream 1 applic TOPICAL BID PRN 10/29/20 10/29/20 History [Mycostatin Cream] Sennosides-Docusate Sodium 2 each PO HS PRN 10/29/20 10/29/20 History [Senokot-S] lisinopriL [Zestril] 5 mg PO DAILY tab 10/30/20 Rx Allergies Allergy/AdvReac Type Severity Reaction Status Date / Time No Known Allergies Allergy Verified 10/29/20 16:46 Physical Exam Vitals: Vital Signs Temp Pulse Pulse Resp BP BP Pulse Ox 10/30/20 08:12 94 16 10/30/20 08:11 99.2 F 94 152/77 10/30/20 03:00 98.4 F 97 16 138/70 92 L 10/29/20 21:00 98.2 F 95 18 125/75 95 10/29/20 20:24 98.2 F 95 18 125/75 94 L 10/29/20 20:20 97 20 156/78 95 10/29/20 19:15 103 H 20 155/83 96 10/29/20 16:48 98.2 F 96 20 152/76 96 10/29/20 16:05 98 20 159/92 96 10/29/20 14:48 95 20 162/78 96 10/29/20 13:56 98.2 F 102 H 20 159/69 98 Intake and Output 10/29/20 10/30/20 10/30/20 22:59 06:59 14:59 Intake Total 240 200 Balance 240 200 Intake: Oral 240 200 Other: Voiding Method Toilet Toilet Toilet # Voids 2 3 Weight 126.099 kg In general patient is alert and oriented 3 in no apparent distress HEENT head normocephalic and atraumatic Neck is supple no JVD no goiter no lymphadenopathy Chest exam reveals clear respiratory sounds no crackles no wheezing Cardiac exam reveals regular heart sounds S1 and S2 no gallops no murmurs Abdomen is soft nontender no organomegaly with normal bowel sounds Extremity exam reveals minimal edema no cyanosis or clubbing Neurological examination reveals no gross focal neurological deficit Results CBC & Chem 7: 10/30/20 14:14 10/29/20 14:31 Labs: Abnormal Lab Results - Last 24 Hours (Table) 10/29/20 10/29/20 10/29/20 Range/Units 14:31 14:31 18:56 WBC 15.3 H (3.8-10.6) k/uL Plt Count 511 H (150-450) k/uL Neutrophils # 12.3 H (1.3-7.7) k/uL Sodium 129 L (137-145) mmol/L Chloride 95 L (98-107) mmol/L Creatinine 0.45 L (0.52-1.04) mg/dL Glucose 206 H (74-99) mg/dL POC Glucose (mg/dL) 156 H (75-99) mg/dL Alkaline Phosphatase 146 H (38-126) U/L 10/29/20 10/30/20 10/30/20 Range/Units 22:25 06:24 12:11 WBC (3.8-10.6) k/uL Plt Count (150-450) k/uL Neutrophils # (1.3-7.7) k/uL Sodium (137-145) mmol/L Chloride (98-107) mmol/L Creatinine (0.52-1.04) mg/dL Glucose (74-99) mg/dL POC Glucose (mg/dL) 160 H 138 H 181 H (75-99) mg/dL Alkaline Phosphatase (38-126) U/L Thrombosis Risk Factor Assmnt - Choose All That Apply Each Factor Represents 1 point: Abnormal pulmonary function (COPD), Age 41-60 years, Obesity (BMI >25) Thrombosis Risk Factor Assessment Total Risk Factor Score: 3 Thrombosis Risk Factor Assessment Level: Moderate Risk Assessment and Plan Plan: Episode of chest pain patient is admitted to the observation unit serial EKG and cardiac enzymes ordered cardiology consultation requested Also due to the pleuritic nature of the chest pain pulmonary consultation was also requested
--- NOTE | 2020-10-30 19:11 | P.DS ---
Providers Date of admission: 10/29/20 16:12 Expected date of discharge: 10/30/20 Attending physician: Aditya Nelson Consults: 10/29/20 16:34 Consult Physician Routine Consulting Provider: [facility] Consult Reason/Comments: CP Do you want consulting provider notified?: Yes 10/30/20 13:38 Consult Physician Routine Consulting Provider: Herrera Chanel Reason/Comments: chest pain Do you want consulting provider notified?: Yes Primary care physician: Aditya Nelson [facility] Course: Diagnosis on discharge: Episode of chest pain, patient was evaluated by cardiology and pulmonary no evidence of pulmonary embolism no evidence of acute coronary syndrome Most likely pleuritic chest pain Hospital course: Renee ambrose, is a 60-year-old female well known to my practice who was admitted to [facility] by Dr. Devaughn Cali, due to left hip that failed conservative management patient underwent left total hip arthroplasty medical consultation was requested for management while hospitalized. Patient has a known history of hypertension, hyperlipidemia, insulin-dependent diabetes mellitus, coronary artery disease, depression, restless leg syndrome, history of COPD, history of morbid obesity, history of obstructive sleep apnea. On review of systems patient is alert and oriented 3 in no distress she is complaining of left hip pain otherwise she denies any complaints there is no fever or chills no headache or dizziness no chest pain no shortness of breath no cough no nausea or vomiting no abdominal pain no diarrhea no blood in the stools no burning with urination no frequency or urgency and no hematuria Patient was stable she was discharged home Patient Condition at Discharge: Fair Plan - Discharge Summary Discharge Rx Participant: No New Discharge Prescriptions: New lisinopriL [Zestril] 5 mg PO DAILY tab Continue metFORMIN HCL [Glucophage] 1,000 mg PO BID-W/MEALS OXcarbazepine [Trileptal] 1,200 mg PO HS Isosorbide Mononitrate ER [Imdur] 30 mg PO DAILY Liraglutide [Victoza 2-Fredo] 1.8 mg SQ HS Pioglitazone [Actos] 30 mg PO DAILY Verapamil HCl [Verapamil ER] 240 mg PO HS Atorvastatin [Lipitor] 40 mg PO HS Pramipexole Di-HCl [Mirapex] 0.5 mg PO HS Mirtazapine 30 mg PO HS Insulin Glargine [Lantus] 30 unit SQ HS Aspirin [Adult Low Dose Aspirin EC] 81 mg PO DAILY DULoxetine HCL [Cymbalta] 30 mg PO W/LUNCH Budesonide/Formoterol Fumarate [Symbicort 160-4.5 Mcg Inhaler] 2 puff INHALATION RT-BID Ergocalciferol [Vitamin D2 (DRISDOL)] 50,000 unit PO SA FLUoxetine HCL [PROzac] 20 mg PO DAILY Multivit-Min/FA/Lycopen/Lutein [Centrum Silver Tablet] 1 tab PO DAILY buPROPion HCL [Wellbutrin XL] 150 mg PO DAILY Pregabalin [Lyrica] 100 mg PO TID-W/MEALS DULoxetine HCL [Cymbalta] 60 mg PO W/LUNCH Nicotine [Nicotrol] 10 mg INHALATION 5XD PRN PRN Reason: Nicotine Cravings hydrALAZINE HCL 25 mg PO BID Hydrocodone/Acetaminophen [Una 10-325] 1 each PO Q6H PRN #12 tab PRN Reason: Pain methocarbamoL [Robaxin] 750 mg PO TID PRN #12 tab PRN Reason: Spasms ALPRAZolam [Xanax] 0.5 mg PO TID PRN #12 tablet PRN Reason: Anxiety Magnesium Hydroxide [Milk of Magnesia Concentrate] 2,400 mg PO DAILY PRN ml PRN Reason: Constipation Sennosides-Docusate Sodium [Senokot-S] 2 each PO HS PRN PRN Reason: Constipation Nystatin 100,000 Unit/gm Powd [Mycostatin Powder] 1 applic TOPICAL BID PRN PRN Reason: intertrigo underneath breasts Nystatin 100,000Unit/gm Cream [Mycostatin Cream] 1 applic TOPICAL BID PRN PRN Reason: fungal infection/perineal area Discharge Medication List metFORMIN HCL [Glucophage] 1,000 mg PO BID-W/MEALS 10/06/14 [History] OXcarbazepine [Trileptal] 1,200 mg PO HS 10/07/16 [History] Isosorbide Mononitrate ER [Imdur] 30 mg PO DAILY 10/22/16 [History] Liraglutide [Victoza 2-Fredo] 1.8 mg SQ HS 04/21/17 [History] Pioglitazone [Actos] 30 mg PO DAILY 04/21/17 [History] Verapamil HCl [Verapamil ER] 240 mg PO HS 12/19/17 [History] Atorvastatin [Lipitor] 40 mg PO HS 10/15/18 [History] Insulin Glargine [Lantus] 30 unit SQ HS 06/13/19 [History] Mirtazapine 30 mg PO HS 06/13/19 [History] Pramipexole Di-HCl [Mirapex] 0.5 mg PO HS 06/13/19 [History] Aspirin [Adult Low Dose Aspirin EC] 81 mg PO DAILY 08/26/19 [History] Budesonide/Formoterol Fumarate [Symbicort 160-4.5 Mcg Inhaler] 2 puff INHALATION RT-BID 10/27/19 [History] DULoxetine HCL [Cymbalta] 30 mg PO W/LUNCH 10/27/19 [History] Ergocalciferol [Vitamin D2 (DRISDOL)] 50,000 unit PO SA 06/06/20 [History] FLUoxetine HCL [PROzac] 20 mg PO DAILY 06/06/20 [History] Multivit-Min/FA/Lycopen/Lutein [Centrum Silver Tablet] 1 tab PO DAILY 06/06/20 [History] DULoxetine HCL [Cymbalta] 60 mg PO W/LUNCH 09/11/20 [History] Nicotine [Nicotrol] 10 mg INHALATION 5XD PRN 09/11/20 [History] Pregabalin [Lyrica] 100 mg PO TID-W/MEALS 09/11/20 [History] buPROPion HCL [Wellbutrin XL] 150 mg PO DAILY 09/11/20 [History] hydrALAZINE HCL 25 mg PO BID 10/23/20 [History] ALPRAZolam [Xanax] 0.5 mg PO TID PRN #12 tablet 10/25/20 [Rx] Hydrocodone/Acetaminophen [Una 10-325] 1 each PO Q6H PRN #12 tab 10/25/20 [Rx] Magnesium Hydroxide [Milk of Magnesia Concentrate] 2,400 mg PO DAILY PRN ml 10/25/20 [Rx] methocarbamoL [Robaxin] 750 mg PO TID PRN #12 tab 10/25/20 [Rx] Nystatin 100,000 Unit/gm Powd [Mycostatin Powder] 1 applic TOPICAL BID PRN 10/29/20 [History] Nystatin 100,000Unit/gm Cream [Mycostatin Cream] 1 applic TOPICAL BID PRN 10/29/20 [History] Sennosides-Docusate Sodium [Senokot-S] 2 each PO HS PRN 10/29/20 [History] lisinopriL [Zestril] 5 mg PO DAILY tab 10/30/20 [Rx] Follow up Appointment(s)/Referral(s): Aditya Nelson MD [Primary Care Provider] - 1-2 days Patient Instructions/Handouts: Chest Pain (DC)
== END 2020-10-30 17:32 ==
LOC: EC 13:53 → 1SOBS 16:12
PROVIDERS: ADMIT Internal Medicine; ATTEND Internal Medicine
DX: R07.89 Other chest pain (principal); R10.13 Epigastric pain; J44.9 Chronic obstructive pulmonary disease, unspecified; I11.0 Hypertensive heart disease with heart failure; I50.9 Heart failure, unspecified; E78.5 Hyperlipidemia, unspecified; Z96.642 Presence of left artificial hip joint; M79.7 Fibromyalgia; M19.90 Unspecified osteoarthritis, unspecified site; M54.9 Dorsalgia, unspecified; Z91.81 History of falling; G25.81 Restless legs syndrome; E11.40 Type 2 diabetes mellitus with diabetic neuropathy, unspecified; H53.9 Unspecified visual disturbance; F41.9 Anxiety disorder, unspecified; F31.9 Bipolar disorder, unspecified; F43.10 Post-traumatic stress disorder, unspecified; D72.829 Elevated white blood cell count, unspecified; R00.0 Tachycardia, unspecified; E66.01 Morbid (severe) obesity due to excess calories; Z68.41 Body mass index [BMI] 40.0-44.9, adult; I25.2 Old myocardial infarction; R07.81 Pleurodynia; E87.1 Hypo-osmolality and hyponatremia; F17.210 Nicotine dependence, cigarettes, uncomplicated; F17.290 Nicotine dependence, other tobacco product, uncomplicated; T75.3XXA Motion sickness, initial encounter; G47.33 Obstructive sleep apnea (adult) (pediatric); K59.00 Constipation, unspecified; I25.10 Atherosclerotic heart disease of native coronary artery without angina pectoris; Z90.710 Acquired absence of both cervix and uterus; Z79.899 Other long term (current) drug therapy; Z79.4 Long term (current) use of insulin; Z79.82 Long term (current) use of aspirin; Z79.51 Long term (current) use of inhaled steroids; Z79.891 Long term (current) use of opiate analgesic; Z90.49 Acquired absence of other specified parts of digestive tract; Z83.3 Family history of diabetes mellitus; Z82.3 Family history of stroke; Z82.49 Family history of ischemic heart disease and other diseases of the circulatory system; Z83.518 Family history of other specified eye disorder; Z20.828 Contact with and (suspected) exposure to other viral communicable diseases
CPT/HCPCS: 93005 ×2; 96372 ×2; 96361; 96374; 99285; 36415; 94640 ×2; 83880; 80061; 80053; 83735; 84484; 85025 ×2; 85610; 85730; 87635; 71275; G0378 ×2; J2270; J1650 ×2; Q9967

== ENCOUNTER 2020-12-04 14:35 | Emergency (ER) | payer MEDICARE ==
--- NOTE | 2020-12-04 15:12 | ED ---
General Adult HPI - General Chief complaint: Extremity Problem,Nontraumatic Stated complaint: Leg swelling Time Seen by Provider: 12/04/20 14:47 Source: patient, RN notes reviewed, old records reviewed Mode of arrival: wheelchair Limitations: no limitations - History of Present Illness Initial comments: This a 60-year-old female presents emergency department stating that she had hip surgery about 6 weeks ago. Patient states she's been off Xarelto for a couple weeks. Patient states she also has edema in her legs and congestive heart failure in the past and was on a diuretic but they took her off because her sodium was low. Patient comes in today because her feet are both swelling. Patient states the right foot is larger than the left foot. Patient denies any calf pain. Patient denies any shortness of breath more than normal. Patient denies chest pain or difficulty breathing. Patient denies headache patient denies numbness weakness. Patient denies lightheadedness or dizziness. - Related Data Home Medications Medication Instructions Recorded Confirmed metFORMIN HCL [Glucophage] 1,000 mg PO BID-W/MEALS 10/06/14 12/04/20 OXcarbazepine [Trileptal] 1,200 mg PO HS 10/07/16 12/04/20 Isosorbide Mononitrate ER [Imdur] 30 mg PO DAILY 10/22/16 12/04/20 Liraglutide [Victoza 2-Fredo] 1.8 mg SQ HS 04/21/17 12/04/20 Pioglitazone [Actos] 30 mg PO DAILY 04/21/17 12/04/20 Verapamil HCl [Verapamil ER] 240 mg PO HS 12/19/17 12/04/20 Insulin Glargine [Lantus] 30 unit SQ HS 06/13/19 12/04/20 Mirtazapine 30 mg PO HS 06/13/19 12/04/20 Pramipexole Di-HCl [Mirapex] 0.5 mg PO HS 06/13/19 12/04/20 Aspirin [Adult Low Dose Aspirin EC] 81 mg PO DAILY 08/26/19 12/04/20 Budesonide/Formoterol Fumarate 2 puff INHALATION RT-BID 10/27/19 12/04/20 [Symbicort 160-4.5 Mcg Inhaler] DULoxetine HCL [Cymbalta] 30 mg PO W/LUNCH 10/27/19 12/04/20 Ergocalciferol [Vitamin D2 50,000 unit PO SA 06/06/20 12/04/20 (DRISDOL)] FLUoxetine HCL [PROzac] 20 mg PO DAILY 06/06/20 12/04/20 Multivit-Min/FA/Lycopen/Lutein 1 tab PO DAILY 06/06/20 12/04/20 [Centrum Silver Tablet] DULoxetine HCL [Cymbalta] 60 mg PO W/LUNCH 09/11/20 12/04/20 Nicotine [Nicotrol] 10 mg INHALATION 5XD PRN 09/11/20 12/04/20 Pregabalin [Lyrica] 100 mg PO TID-W/MEALS 09/11/20 12/04/20 buPROPion HCL [Wellbutrin XL] 150 mg PO DAILY 09/11/20 12/04/20 hydrALAZINE HCL 25 mg PO BID 10/23/20 12/04/20 Nystatin 100,000Unit/gm Cream 1 applic TOPICAL BID PRN 10/29/20 12/04/20 [Mycostatin Cream] Acetaminophen [Tylenol Arthritis] 650 mg PO Q8H PRN 12/04/20 12/04/20 Albuterol Sulfate [Ventolin HFA] 2 puff INHALATION RT-Q6H PRN 12/04/20 12/04/20 Benzonatate [Tessalon Perles] 100 mg PO TID PRN 12/04/20 12/04/20 Hydrocodone/Acetaminophen [[place] 1 tab PO Q6H PRN 12/04/20 12/04/20 10-325] Losartan Potassium [Cozaar] 100 mg PO DAILY 12/04/20 12/04/20 Naproxen Sodium [Aleve] 440 mg PO Q8H PRN 12/04/20 12/04/20 busPIRone HCL 15 mg PO BID 12/04/20 12/04/20 Previous Rx's Medication Instructions Recorded ALPRAZolam [Xanax] 0.5 mg PO TID PRN #12 tablet 10/25/20 methocarbamoL [Robaxin] 750 mg PO TID PRN #12 tab 10/25/20 lisinopriL [Zestril] 5 mg PO DAILY tab 10/30/20 Furosemide [Lasix] 10 mg PO DAILY #7 tab 12/04/20 Allergies Allergy/AdvReac Type Severity Reaction Status Date / Time No Known Allergies Allergy Verified 12/04/20 16:13 Review of Systems ROS Statement: Those systems with pertinent positive or pertinent negative responses have been documented in the HPI. ROS Other: All systems not noted in ROS Statement are negative. Past Medical History Past Medical History: Asthma, Chest Pain / Angina, Heart Failure, COPD, Diabetes Mellitus, Fibromyalgia, Hyperlipidemia, Hypertension, Neurologic Disorder, Osteoarthritis (OA), Sleep Apnea/CPAP/BIPAP Additional Past Medical History / Comment(s): Back pain, fall at home March 2019, pain with standing/walking. Hx Restless Leg, neuropathy, more foot pain recently, no CPAP use, DDD, occasional chest pain and SOB. recent vision changes be evaluated and tested by lt jamal hip pain to begin physical therapy. FELL AT HOME 09/27/20 SEEN IN ER History of Any Multi-Drug Resistant Organisms: None Reported Past Surgical History: Cholecystectomy, Heart Catheterization, Hysterectomy, Ort hopedic Surgery, Tonsillectomy Additional Past Surgical History / Comment(s): Colonoscopy, tendon repair on left foot, epidural for pain, pain clinic procedures. filipe cataract. total left hip replacement Past Anesthesia/Blood Transfusion Reactions: Motion Sickness Past Psychological History: Anxiety, Bipolar, Depression, PTSD Smoking Status: Current every day smoker, Vaper Past Alcohol Use History: Rare Past Drug Use History: None Reported - Past Family History Father Family Medical History: CVA/TIA, Diabetes Mellitus, Hypertension Additional Family Medical History / Comment(s): CATARACTS, AAA. General Exam - General Exam Comments Initial Comments: GENERAL: Patient is well-developed and well-nourished. Patient is nontoxic and well- hydrated and is in mild distress. ENT: Neck is soft and supple. No significant lymphadenopathy is noted. Oropharynx is clear. Moist mucous membranes. Neck has full range of motion without eliciting any pain. EYES: The sclera were anicteric and conjunctiva were pink and moist. Extraocular movements were intact and pupils were equal round and reactive to light. Eyelids were unremarkable. PULMONARY: Unlabored respirations. Good breath sounds bilaterally. No audible rales rhonchi or wheezing was noted. CARDIOVASCULAR: There is a regular rate and rhythm without any murmurs gallops or rubs. ABDOMEN: Soft and nontender with normal bowel sounds. SKIN: Skin is clear with no lesions or rashes and otherwise unremarkable. NEUROLOGIC: Patient is alert and oriented x3. Cranial nerves II through XII are grossly intact. Motor and sensory are also intact. Normal speech, volume and content. Symmetrical smile. MUSCULOSKELETAL: Normal extremities with adequate strength and full range of motion. Patient has bilateral edema 2+ right is greater than left. Patient has no calf tenderness LYMPHATICS: No significant lymphadenopathy is noted PSYCHIATRIC: Normal psychiatric evaluation. Limitations: no limitations Course Vital Signs 12/04/20 12/04/20 14:39 16:24 Temperature 98.4 F Pulse Rate 95 88 Respiratory 20 18 Rate Blood Pressure 142/55 135/68 O2 Sat by Pulse 96 98 Oximetry Medical Decision Making - Medical Decision Making EKG shows sinus rhythm with occasional PAC at 91 bpm ME interval 194 QRS is 76 QT interval 340 QTC is 428. Patient's EKG shows no ST segment elevation or depression. Chest x-ray shows no acute abnormality. CT of the chest shows no PE or any acute abnormality. Ultrasound of both leg showed no DVT. I started the patient Laskeyon I spoke with Dr. Nelson he agreed to follow the patient in the office. - Lab Data Result diagrams: 12/04/20 15:17 12/04/20 15:17 Lab Results 12/04/20 12/04/20 12/04/20 Range/Units 15:17 15:17 15:17 WBC 14.0 H (3.8-10.6) k/uL RBC 4.21 (3.80-5.40) m/uL Hgb 12.2 (11.4-16.0) gm/dL Hct 36.0 (34.0-46.0) % MCV 85.6 (80.0-100.0) fL MCH 29.0 (25.0-35.0) pg MCHC 33.9 (31.0-37.0) g/dL RDW 16.0 H (11.5-15.5) % Plt Count 465 H (150-450) k/uL MPV 6.0 Neutrophils % 79 % Lymphocytes % 11 % Monocytes % 5 % Eosinophils % 2 % Basophils % 1 % Neutrophils # 11.0 H (1.3-7.7) k/uL Lymphocytes # 1.6 (1.0-4.8) k/uL Monocytes # 0.8 (0-1.0) k/uL Eosinophils # 0.3 (0-0.7) k/uL Basophils # 0.1 (0-0.2) k/uL Anisocytosis Slight D-Dimer 2.26 H (<0.60) mg/L FEU Sodium 131 L (137-145) mmol/L Potassium 3.9 (3.5-5.1) mmol/L Chloride 98 (98-107) mmol/L Carbon Dioxide 30 (22-30) mmol/L Anion Gap 3 mmol/L BUN 7 (7-17) mg/dL Creatinine 0.45 L (0.52-1.04) mg/dL Est GFR (CKD-EPI)AfAm >90 (>60 ml/min/1.73 sqM) Est GFR (CKD-EPI)NonAf >90 (>60 ml/min/1.73 sqM) Glucose 176 H (74-99) mg/dL Calcium 8.6 (8.4-10.2) mg/dL Total Bilirubin 0.4 (0.2-1.3) mg/dL AST 18 (14-36) U/L ALT 19 (4-34) U/L Alkaline Phosphatase 137 H (38-126) U/L NT-Pro-B Natriuret Pep pg/mL Total Protein 6.4 (6.3-8.2) g/dL Albumin 3.7 (3.5-5.0) g/dL 12/04/20 Range/Units 15:17 WBC (3.8-10.6) k/uL RBC (3.80-5.40) m/uL Hgb (11.4-16.0) gm/dL Hct (34.0-46.0) % MCV (80.0-100.0) fL MCH (25.0-35.0) pg MCHC (31.0-37.0) g/dL RDW (11.5-15.5) % Plt Count (150-450) k/uL MPV Neutrophils % % Lymphocytes % % Monocytes % % Eosinophils % % Basophils % % Neutrophils # (1.3-7.7) k/uL Lymphocytes # (1.0-4.8) k/uL Monocytes # (0-1.0) k/uL Eosinophils # (0-0.7) k/uL Basophils # (0-0.2) k/uL Anisocytosis D-Dimer (<0.60) mg/L FEU Sodium (137-145) mmol/L Potassium (3.5-5.1) mmol/L Chloride (98-107) mmol/L Carbon Dioxide (22-30) mmol/L Anion Gap mmol/L BUN (7-17) mg/dL Creatinine (0.52-1.04) mg/dL Est GFR (CKD-EPI)AfAm (>60 ml/min/1.73 sqM) Est GFR (CKD-EPI)NonAf (>60 ml/min/1.73 sqM) Glucose (74-99) mg/dL Calcium (8.4-10.2) mg/dL Total Bilirubin (0.2-1.3) mg/dL AST (14-36) U/L ALT (4-34) U/L Alkaline Phosphatase (38-126) U/L NT-Pro-B Natriuret Pep 85 pg/mL Total Protein (6.3-8.2) g/dL Albumin (3.5-5.0) g/dL Disposition Clinical Impression: Pedal edema Disposition: HOME SELF-CARE Condition: Good Instructions (If sedation given, give patient instructions): Leg Edema (ED) Prescriptions: Furosemide [Lasix] 10 mg PO DAILY #7 tab Is patient prescribed a controlled substance at d/c from ED?: No Referrals: Aditya Nelson MD [Primary Care Provider] - 1-2 days Time of Disposition: 18:48
[2020-12-04 15:25] LABS: Anisocytosis Slight; Basophils # (A) 0.1 k/uL (0-0.2); Basophils % (A) 1 %; Eosinophils # (A) 0.3 k/uL (0-0.7); Eosinophils % (A) 2 %; HGB 12.2 gm/dL (11.4-16.0); Lymphocytes # (A) 1.6 k/uL (1.0-4.8); Lymphocytes % (A) 11 %; MCHC 33.9 g/dL (31.0-37.0); MCV 85.6 fL (80.0-100.0); Monocytes # (A) 0.8 k/uL (0-1.0); Monocytes % (A) 5 %; Neutrophils % (A) 79 %; Platelet Count 465 k/uL (150-450); RBC 4.21 m/uL (3.80-5.40)
--- NOTE | 2020-12-04 15:28 | XR ---
EXAMINATION TYPE: XR chest 2V DATE OF EXAM: 12/04/2020 COMPARISON: 09/14/2020 INDICATION: Difficulty in breathing TECHNIQUE: Frontal and lateral views of the chest are obtained. FINDINGS: The heart size is normal. The pulmonary vasculature is normal. The lungs are clear. There is some hyperinflation which can be compatible COPD. IMPRESSION: 1. No acute pulmonary process. 2. Clinical consideration for COPD.
[2020-12-04 15:34] LABS: ALT 19 U/L (4-34); AST 18 U/L (14-36); African American GFR (CKD) >90 (>60 ml/min/1.73 sqM); Albumin 3.7 g/dL (3.5-5.0); Alkaline Phosphatase 137 U/L (38-126); Anion Gap 3 mmol/L; Blood Urea Nitrogen 7 mg/dL (7-17); Calcium 8.6 mg/dL (8.4-10.2); Carbon Dioxide 30 mmol/L (22-30); Chloride 98 mmol/L (98-107); Glucose 176 mg/dL (74-99); Non-African American GFR(CKD) >90 (>60 ml/min/1.73 sqM); Potassium 3.9 mmol/L (3.5-5.1); Sodium 131 mmol/L (137-145); Total Bilirubin 0.4 mg/dL (0.2-1.3); Total Protein 6.4 g/dL (6.3-8.2)
[2020-12-04 16:25] VITALS: RESP 18
--- NOTE | 2020-12-04 17:48 | US ---
EXAMINATION TYPE: US venous doppler duplex LE DATE OF EXAM: 12/04/2020 5:40 PM COMPARISON: US CLINICAL HISTORY: Elevated d-dimer, bilateral edema. Elevated D Dimer, bilateral edema x 2 days. No h x of DVT. Patient is not taking blood thinners. Left hip replacement 10-24-20. SIDE PERFORMED: Bilateral TECHNIQUE: The lower extremity deep venous system is examined utilizing real time linear array sonog ryan with graded compression, doppler sonography and color-flow sonography. VESSELS IMAGED: Common Femoral Vein Deep Femoral Vein Greater Saphenous Vein * Femoral Vein Popliteal Vein Small Saphenous Vein * Proximal Calf Veins (* superficial vessels) Limited due to large patient body habitus and edema. Right Leg: No evidence of DVT in veins imaged at this time from prox calf veins to CFV/GSV. Left Leg: No evidence of DVT in veins imaged at this time from prox calf veins to CFV/GSV. IMPRESSION: No sign of deep vein thrombosis in the right leg.
--- NOTE | 2020-12-04 18:29 | CT ---
EXAMINATION TYPE: CT chest angio for PE DATE OF EXAM: 12/04/2020 COMPARISON: 10/29/2020 HISTORY: Shortness of breath. Post OP hip [address] DLP: 656.2 mGycm Automated exposure control for dose reduction was used. CONTRAST: Performed with IV Contrast, patient injected with 100 mL of Isovue 370. Images obtained from the thoracic inlet to the diaphragm with IV contrast and 3-D post processed imag es. There is pulmonary emphysema. This is more noticeable in the right upper lobe. There is no mediastina l adenopathy. There are some right bronchial lymph nodes that measure up to 1.5 cm. There are 1 cm le ft bronchial lymph nodes. There is no mediastinal adenopathy. Thoracic aorta is intact. There is no a neurysm or dissection. Heart size is normal. There is no pericardial effusion. The lungs are clear of consolidation. There is no evidence of a pulmonary mass. Upper abdominal soft tissues are intact. There is normal contrast opacification of the pulmonary arteries. There are no filling defects. There is some spurring in the thoracic spine. IMPRESSION: Pulmonary emphysema. Minimal bronchial adenopathy. No evidence of pulmonary embolism. No acute lung d isease.
[2020-12-04] MEDS ORDERED: FUROSEMIDE 10 MG/ML 2 ML VIAL IV ONE (18:39)
[2020-12-04 19:05] VITALS: BP 138/73; PULSE 82; TEMP 98.3
== END 2020-12-04 19:05 | disposition home or self-care (01) ==
LOC: EC 14:35
DX: R60.0 Localized edema (principal); F31.9 Bipolar disorder, unspecified; F41.9 Anxiety disorder, unspecified; F17.200 Nicotine dependence, unspecified, uncomplicated; J44.9 Chronic obstructive pulmonary disease, unspecified; I50.9 Heart failure, unspecified; E11.40 Type 2 diabetes mellitus with diabetic neuropathy, unspecified; E78.5 Hyperlipidemia, unspecified; I11.0 Hypertensive heart disease with heart failure; M19.90 Unspecified osteoarthritis, unspecified site; G47.33 Obstructive sleep apnea (adult) (pediatric); Z79.51 Long term (current) use of inhaled steroids; Z79.82 Long term (current) use of aspirin; Z99.89 Dependence on other enabling machines and devices; Z79.4 Long term (current) use of insulin; Z79.899 Other long term (current) drug therapy; Z90.49 Acquired absence of other specified parts of digestive tract; Z90.710 Acquired absence of both cervix and uterus; Z95.5 Presence of coronary angioplasty implant and graft; Z98.42 Cataract extraction status, left eye; Z98.41 Cataract extraction status, right eye; Z96.642 Presence of left artificial hip joint
CPT/HCPCS: 99284; 96374; 36415; 93005; 85379; 83880; 80053; 85025; 71046; 93970; 71275; J1940; Q9967

== ENCOUNTER 2020-12-10 14:19 | Observation (INO) | payer MEDICARE ==
--- NOTE | 2020-12-10 15:13 | ED ---
General Adult HPI - General Chief complaint: Extremity Problem,Nontraumatic Stated complaint: Leg swelling Time Seen by Provider: 12/10/20 14:53 Source: patient Mode of arrival: ambulatory Limitations: no limitations - History of Present Illness Initial comments: Dictation was produced using [employer] dictation software. please excuse any grammatical, word or spelling errors. This patient was cared for during a federal and state declared state of emergency secondary to Covid 19 Chief Complaint: 60-year-old female multiple comorbidities presents today with bilateral lower extremity redness and pain History of Present Illness: 60-year-old female she is here in emergency department for persistent symptoms. 6 days ago patient began having redness and swelling to bilateral lower extremities. Symptoms are especially more apparent on the right leg. On Thursday she was seen by her primary care physician who placed her on Lasix and antibiotic Keflex. Patient states she had taken approximately 2-1/2 days worth of doses. States that her symptoms are not improving and in fact perhaps getting worse. Denies any constitutional sympt oms. She states that her symptoms include pain, redness and warmth. Patient denies any calf pain, popliteal pain or medial thigh pain. She denies any history of blood clots. She decided come to the emergency department because she needs a different medication upper symptoms and because she cannot afford another co-pay for the medicine. The ROS documented in this emergency department record has been reviewed and confirmed by me. Those systems with pertinent positive or negative responses h ave been documented in the HPI. All other systems are other negative and/or noncontributory. PHYSICAL EXAM: General Impression: Alert and oriented x3, not in acute distress HEENT: Normocephalic atraumatic, extra-ocular movements intact, pupils equal and reactive to light bilaterally, mucous membranes moist. Cardiovascular: Heart regular rate and rhythm Chest: Able to complete full sentences, no retractions, no tachypnea Abdomen: abdomen soft, non-tender, non-distended, no organomegaly Musculoskeletal: Pulses present and equal in all extremities, Motor: no focal deficits noted Neurological: CN II-XII grossly intact, no focal motor or sensory deficits noted Skin: Bilateral lower extremity pitting edema that is 2+, lower pretibial areas are hyperpigmented, slight warmth and erythema. Psych: Normal affect and mood ED course: 60 y Old female presents with bilateral lower extremity symptoms. Symptoms for the last 6 days and reports worsening symptoms despite being on Lasix and Keflex.Laboratory evaluation unremarkable. CBC shows no leukocytosis. Metabolic panel is within patient's usual limits. CRP is 27.0. Urinalysis is negative. Patient's primary care physician was contacted for recommendations. He would prefer the patient be admitted with infectious disease consultation. Patient is agreeable to disposition. We will maintain patient on Keflex and Lasix. Patient will be admitted to observation unit. EKG interpretation: Ventricular rate 80, normal sinus rhythm, IN interval 98, QRS 76, QTC 457. No IN prolongation, no QTC prolongation, no ST or T-wave changes noted. EKG compared to 05/04/2021 showing no changes. Overall, this EKG is unremarkable - Related Data Home Medications Medication Instructions Recorded Confirmed metFORMIN HCL [Glucophage] 1,000 mg PO BID-W/MEALS 10/06/14 12/10/20 OXcarbazepine [Trileptal] 1,200 mg PO HS 10/07/16 12/10/20 Isosorbide Mononitrate ER [Imdur] 30 mg PO DAILY 10/22/16 12/10/20 Liraglutide [Victoza 2-Fredo] 1.8 mg SQ HS 04/21/17 12/10/20 Pioglitazone [Actos] 30 mg PO DAILY 04/21/17 12/10/20 Verapamil HCl [Verapamil ER] 240 mg PO HS 12/19/17 12/10/20 Insulin Glargine [Lantus] 30 unit SQ HS 06/13/19 12/10/20 Mirtazapine 30 mg PO HS 06/13/19 12/10/20 Pramipexole Di-HCl [Mirapex] 0.5 mg PO HS 06/13/19 12/10/20 Aspirin [Adult Low Dose Aspirin EC] 81 mg PO DAILY 08/26/19 12/10/20 Budesonide/Formoterol Fumarate 2 puff INHALATION RT-BID 10/27/19 12/10/20 [Symbicort 160-4.5 Mcg Inhaler] DULoxetine HCL [Cymbalta] 30 mg PO W/LUNCH 10/27/19 12/10/20 Ergocalciferol [Vitamin D2 50,000 unit PO SA 06/06/20 12/10/20 (DRISDOL)] FLUoxetine HCL [PROzac] 20 mg PO DAILY 06/06/20 12/10/20 Multivit-Min/FA/Lycopen/Lutein 1 tab PO DAILY 06/06/20 12/10/20 [Centrum Silver Tablet] DULoxetine HCL [Cymbalta] 60 mg PO W/LUNCH 09/11/20 12/10/20 Nicotine [Nicotrol] 10 mg INHALATION 5XD PRN 09/11/20 12/10/20 Pregabalin [Lyrica] 100 mg PO TID-W/MEALS 09/11/20 12/10/20 buPROPion HCL [Wellbutrin XL] 150 mg PO DAILY 09/11/20 12/10/20 hydrALAZINE HCL 25 mg PO BID 10/23/20 12/10/20 Nystatin 100,000Unit/gm Cream 1 applic TOPICAL BID PRN 10/29/20 12/10/20 [Mycostatin Cream] Acetaminophen [Tylenol Arthritis] 650 mg PO Q8H PRN 12/04/20 12/10/20 Albuterol Sulfate [Ventolin HFA] 2 puff INHALATION RT-Q6H PRN 12/04/20 12/10/20 Benzonatate [Tessalon Perles] 100 mg PO TID PRN 12/04/20 12/10/20 Hydrocodone/Acetaminophen [[place] 1 tab PO Q6H PRN 12/04/20 12/10/20 10-325] Losartan Potassium [Cozaar] 100 mg PO DAILY 12/04/20 12/10/20 Naproxen Sodium [Aleve] 440 mg PO Q8H PRN 12/04/20 12/10/20 busPIRone HCL 15 mg PO BID 12/04/20 12/10/20 Cephalexin [Keflex] 500 mg PO Q6H 12/10/20 12/10/20 Furosemide [Lasix] 40 mg PO DAILY 12/10/20 12/10/20 Previous Rx's Medication Instructions Recorded ALPRAZolam [Xanax] 0.5 mg PO TID PRN #12 tablet 10/25/20 methocarbamoL [Robaxin] 750 mg PO TID PRN #12 tab 10/25/20 lisinopriL [Zestril] 5 mg PO DAILY tab 10/30/20 Allergies Allergy/AdvReac Type Severity Reaction Status Date / Time No Known Allergies Allergy Verified 12/10/20 15:49 Review of Systems ROS Statement: Those systems with pertinent positive or pertinent negative responses have been documented in the HPI. ROS Other: All systems not noted in ROS Statement are negative. Past Medical History Past Medical History: Asthma, Chest Pain / Angina, Heart Failure, COPD, Diabetes Mellitus, Fibromyalgia, Hyperlipidemia, Hypertension, Neurologic Disorder, Osteoarthritis (OA), Sleep Apnea/CPAP/BIPAP Additional Past Medical History / Comment(s): Back pain, fall at home March 2019, pain with standing/walking. Hx Restless Leg, neuropathy, more foot pain recently, no CPAP use, DDD, occasional chest pain and SOB. recent vision changes be evaluated and tested by dr lt hip pain to begin physical therapy. FELL AT HOME 09/27/20 SEEN IN ER History of Any Multi-Drug Resistant Organisms: None Reported Past Surgical History: Cholecystectomy, Heart Catheterization, Hysterectomy, Orthopedic Surgery, Tonsillectomy Additional Past Surgical History / Comment(s): Colonoscopy, tendon repair on left foot, epidural for pain, pain clinic procedures. filipe cataract. total left hip replacement Past Anesthesia/Blood Transfusion Reactions: Motion Sickness Past Psychological History: Anxiety, Bipolar, Depression, PTSD Smoking Status: Current every day smoker, Vaper Past Alcohol Use History: Rare Past Drug Use History: None Reported - Past Family History Father Family Medical History: CVA/TIA, Diabetes Mellitus, Hypertension Additional Family Medical History / Comment(s): CATARACTS, AAA. General Exam Limitations: no limitations Course Vital Signs 12/10/20 14:21 Temperature 98.6 F Pulse Rate 97 Respiratory 18 Rate Blood Pressure 141/71 O2 Sat by Pulse 98 Oximetry Medical Decision Making - Lab Data Result diagrams: 12/10/20 15:18 12/10/20 15:18 Lab Results 12/10/20 12/10/20 12/10/20 Range/Units 15:18 15:18 15:18 WBC 9.4 (3.8-10.6) k/uL RBC 4.52 (3.80-5.40) m/uL Hgb 12.6 (11.4-16.0) gm/dL Hct 38.8 (34.0-46.0) % MCV 85.7 (80.0-100.0) fL MCH 27.8 (25.0-35.0) pg MCHC 32.4 (31.0-37.0) g/dL RDW 15.5 (11.5-15.5) % Plt Count 457 H (150-450) k/uL MPV 6.0 Neutrophils % 73 % Lymphocytes % 16 % Monocytes % 5 % Eosinophils % 3 % Basophils % 1 % Neutrophils # 6.9 (1.3-7.7) k/uL Lymphocytes # 1.5 (1.0-4.8) k/uL Monocytes # 0.5 (0-1.0) k/uL Eosinophils # 0.3 (0-0.7) k/uL Basophils # 0.1 (0-0.2) k/uL Sodium 134 L (137-145) mmol/L Potassium 3.6 (3.5-5.1) mmol/L Chloride 97 L (98-107) mmol/L Carbon Dioxide 31 H (22-30) mmol/L Anion Gap 6 mmol/L BUN 7 (7-17) mg/dL Creatinine 0.50 L (0.52-1.04) mg/dL Est GFR (CKD-EPI)AfAm >90 (>60 ml/min/1.73 sqM) Est GFR (CKD-EPI)NonAf >90 (>60 ml/min/1.73 sqM) Glucose 153 H (74-99) mg/dL Calcium 8.6 (8.4-10.2) mg/dL Total Bilirubin 0.3 (0.2-1.3) mg/dL AST 18 (14-36) U/L ALT 20 (4-34) U/L Alkaline Phosphatase 133 H (38-126) U/L Troponin I <0.012 (0.000-0.034) ng/mL C-Reactive Protein 27.0 H (<10.0) mg/L NT-Pro-B Natriuret Pep pg/mL Total Protein 6.3 (6.3-8.2) g/dL Albumin 3.5 (3.5-5.0) g/dL Urine Color Urine Appearance (Clear) Urine pH (5.0-8.0) Ur Specific [place] (1.001-1.035) Urine Protein (Negative) Urine Glucose (UA) (Negative) Urine Ketones (Negative) Urine Blood (Negative) Urine Nitrite (Negative) Urine Bilirubin (Negative) Urine Urobilinogen (<2.0) mg/dL Ur Leukocyte Esterase (Negative) Urine RBC (0-5) /hpf Urine WBC (0-5) /hpf Ur Squamous Epith Cells (0-4) /hpf Urine Mucus (None) /hpf 12/10/20 12/10/20 Range/Units 15:18 15:35 WBC (3.8-10.6) k/uL RBC (3.80-5.40) m/uL Hgb (11.4-16.0) gm/dL Hct (34.0-46.0) % MCV (80.0-100.0) fL MCH (25.0-35.0) pg MCHC (31.0-37.0) g/dL RDW (11.5-15.5) % Plt Count (150-450) k/uL MPV Neutrophils % % Lymphocytes % % Monocytes % % Eosinophils % % Basophils % % Neutrophils # (1.3-7.7) k/uL Lymphocytes # (1.0-4.8) k/uL Monocytes # (0-1.0) k/uL Eosinophils # (0-0.7) k/uL Basophils # (0-0.2) k/uL Sodium (137-145) mmol/L Potassium (3.5-5.1) mmol/L Chloride (98-107) mmol/L Carbon Dioxide (22-30) mmol/L Anion Gap mmol/L BUN (7-17) mg/dL Creatinine (0.52-1.04) mg/dL Est GFR (CKD-EPI)AfAm (>60 ml/min/1.73 sqM) Est GFR (CKD-EPI)NonAf (>60 ml/min/1.73 sqM) Glucose (74-99) mg/dL Calcium (8.4-10.2) mg/dL Total Bilirubin (0.2-1.3) mg/dL AST (14-36) U/L ALT (4-34) U/L Alkaline Phosphatase (38-126) U/L Troponin I (0.000-0.034) ng/mL C-Reactive Protein (<10.0) mg/L NT-Pro-B Natriuret Pep 34 pg/mL Total Protein (6.3-8.2) g/dL Albumin (3.5-5.0) g/dL Urine Color Yellow Urine Appearance Cloudy H (Clear) Urine pH 6.0 (5.0-8.0) Ur Specific [place] 1.024 (1.001-1.035) Urine Protein Trace H (Negative) Urine Glucose (UA) Negative (Negative) Urine Ketones Negative (Negative) Urine Blood Negative (Negative) Urine Nitrite Negative (Negative) Urine Bilirubin Negative (Negative) Urine Urobilinogen 2.0 (<2.0) mg/dL Ur Leukocyte Esterase Negative (Negative) Urine RBC 1 (0-5) /hpf Urine WBC <1 (0-5) /hpf Ur Squamous Epith Cells 4 (0-4) /hpf Urine Mucus Few H (None) /hpf Disposition Clinical Impression: Leg pain Disposition: ADMITTED IP TO THIS HOSP Condition: Fair Referrals: Aditya Nelson MD [Primary Care Provider] - 1-2 days Decision Time: 16:26
[2020-12-10 15:31] LABS: Basophils # (A) 0.1 k/uL (0-0.2); Basophils % (A) 1 %; Eosinophils # (A) 0.3 k/uL (0-0.7); Eosinophils % (A) 3 %; HCT 38.8 % (34.0-46.0); HGB 12.6 gm/dL (11.4-16.0); Lymphocytes # (A) 1.5 k/uL (1.0-4.8); Lymphocytes % (A) 16 %; MCH 27.8 pg (25.0-35.0); MCHC 32.4 g/dL (31.0-37.0); MCV 85.7 fL (80.0-100.0); Monocytes # (A) 0.5 k/uL (0-1.0); Monocytes % (A) 5 %; Neutrophils # (A) 6.9 k/uL (1.3-7.7); Neutrophils % (A) 73 %; Platelet Count 457 k/uL (150-450); RBC 4.52 m/uL (3.80-5.40); RDW 15.5 % (11.5-15.5); WBC 9.4 k/uL (3.8-10.6)
[2020-12-10 15:42] LABS: ALT 20 U/L (4-34); AST 18 U/L (14-36); African American GFR (CKD) >90 (>60 ml/min/1.73 sqM); Albumin 3.5 g/dL (3.5-5.0); Alkaline Phosphatase 133 U/L (38-126); Anion Gap 6 mmol/L; Blood Urea Nitrogen 7 mg/dL (7-17); Calcium 8.6 mg/dL (8.4-10.2); Carbon Dioxide 31 mmol/L (22-30); Chloride 97 mmol/L (98-107); Glucose 153 mg/dL (74-99); Non-African American GFR(CKD) >90 (>60 ml/min/1.73 sqM); Potassium 3.6 mmol/L (3.5-5.1); Sodium 134 mmol/L (137-145); Total Bilirubin 0.3 mg/dL (0.2-1.3); Total Protein 6.3 g/dL (6.3-8.2)
[2020-12-10 15:46] LABS: Appearance,Urine Cloudy (Clear); Bilirubin,Urine Negative (Negative); Blood,Urine Negative (Negative); Color,Urine Yellow; Glucose,Urine (UA) Negative (Negative); Ketones,Urine Negative (Negative); Leukocyte Esterase,Urine Negative (Negative); Mucus,Urine Few /hpf; Nitrite,Urine Negative (Negative); Protein,Urine Trace (Negative); RBC,Urine 1 /hpf (0-5); Specific Gravity,Urine 1.024 (1.001-1.035); Squamous Epithelial Cell,Urine 4 /hpf (0-4); WBC,Urine <1 /hpf (0-5)
--- NOTE | 2020-12-10 16:05 | XR ---
Bilateral legs HISTORY: Swelling and erythema Frontal lateral views of the legs are submitted on a total of 8 images There is lucency in the soft tissues. No periostitis to suggest osteomyelitis on the left, suspect pr esent on the right tibia medially. No fracture or dislocation. Osteoarthritic changes are present wit hin the knees. Small ossific density present medial to the medial malleolus of the right ankle is tho ught to be chronic IMPRESSION: Correlate for edema, cellulitis, osteomyelitis right leg. Osteoarthritis of the knees.
[2020-12-10] MEDS ORDERED: ACETAMINOPHEN TAB 325 MG TAB PO PRN (16:19)
[2020-12-10] MEDS ORDERED: NALOXONE 0.4 MG/ML 1 ML VIAL IV PRN (16:19)
[2020-12-10] MEDS ORDERED: NICOTINE 10 MG INHALATION PRN (17:34)
[2020-12-10] MEDS ORDERED: NON FORMULARY DRUG (Acetaminophen [Tylenol Arthritis] 650 MG Tablet.Er) PO PRN (17:34)
[2020-12-10] MEDS ORDERED: NYSTATIN 100,000UNIT/GM CREAM 30 GM TUBE TOPICAL PRN (17:34)
[2020-12-10] MEDS ORDERED: ALPRAZolam 0.5 MG TAB PO PRN (17:34)
[2020-12-10] MEDS ORDERED: BENZONATATE 100 MG CAP PO PRN (17:34)
[2020-12-10] MEDS ORDERED: ALBUTEROL NEBULIZED 2.5 MG/3 ML INHALATION PRN (17:34)
[2020-12-10] MEDS ORDERED: methocarbamoL 750 MG TAB PO PRN (17:34)
[2020-12-10] MEDS ORDERED: CEPHALEXIN 500 MG CAP PO SCH (18:00)
[2020-12-10] MEDS ORDERED: NAPROXEN 250 MG TAB PO PRN (18:13)
[2020-12-10] MEDS: SYMBICORT 160-4.5 MCG INHALER INHALATION SCH (20:18)
[2020-12-10 20:43] LABS: Glucose,Whole Blood 166 mg/dL (75-99)
[2020-12-10] MEDS: hydrALAZINE HCL 25 MG TAB PO SCH (21:00)
[2020-12-10] MEDS: VERAPAMIL SR 240 MG TABLET.ER PO SCH (21:00)
[2020-12-10] MEDS: buPROPion XL 150 MG TAB.ER.24H PO SCH (21:00)
[2020-12-10] MEDS: PRAMIPEXOLE 0.5 MG TAB PO SCH (21:01)
[2020-12-10] MEDS: ASPIRIN 81 MG PO SCH (21:01)
[2020-12-10] MEDS: HYDROcodone/APAP 10-325MG 1 EACH TAB PO PRN (21:01)
[2020-12-10] MEDS: busPIRone HCl 5 MG TAB PO SCH (21:01)
[2020-12-10] MEDS: MIRTAZAPINE 15 MG TAB PO SCH (21:01)
[2020-12-10] MEDS: OXcarbazepine 300 MG TAB PO SCH (21:01)
[2020-12-10] MEDS: INSULIN DETEMIR (LEVEMIR) 100 UNIT/ML SYR SQ SCH (21:02)
[2020-12-10] MEDS: NON FORMULARY DRUG (Liraglutide [Victoza 2-Pak] 0.6 MG/0.1 ML Pen.Injctr) SQ SCH (21:03)
--- NOTE | 2020-12-11 01:30 | US ---
EXAMINATION TYPE: US venous doppler duplex LE DATE OF EXAM: 12/11/2020 12:49 AM COMPARISON: US CLINICAL HISTORY: lower extremities edema. Swelling in the lower extremities since 12/03/20. No hx of DVT. SIDE PERFORMED: Bilateral TECHNIQUE: The lower extremity deep venous system is examined utilizing real time linear array sonog ryan with graded compression, doppler sonography and color-flow sonography. VESSELS IMAGED: Common Femoral Vein Deep Femoral Vein Greater Saphenous Vein * Femoral Vein Popliteal Vein Small Saphenous Vein * Proximal Calf Veins (* superficial vessels) Slightly limited due to body habitus and edema. Right Leg: No evidence of DVT in veins imaged at this time from prox calf veins to CFV. Left Leg: No evidence of DVT in veins imaged at this time from prox calf veins to CFV. IMPRESSION: No evidence of deep vein thrombosis in both legs.
[2020-12-11] MEDS: HYDROcodone/APAP 10-325MG 1 EACH TAB PO PRN ×4 (05:38→22:18)
[2020-12-11 07:04] LABS: Glucose,Whole Blood 204 mg/dL (75-99)
[2020-12-11] MEDS: SYMBICORT 160-4.5 MCG INHALER INHALATION SCH ×2 (07:21→19:52)
[2020-12-11] MEDS: metFORMIN 500 MG TAB PO SCH ×2 (08:18→17:53)
[2020-12-11] MEDS: FUROSEMIDE 40 MG TAB PO SCH (08:18)
[2020-12-11] MEDS: ASPIRIN 81 MG PO SCH (08:18)
[2020-12-11] MEDS: LOSARTAN 50 MG TAB PO SCH (08:18)
[2020-12-11] MEDS: busPIRone HCl 5 MG TAB PO SCH ×2 (08:19→22:19)
[2020-12-11] MEDS: hydrALAZINE HCL 25 MG TAB PO SCH ×2 (08:19→22:20)
[2020-12-11] MEDS: ISOSORBIDE MONONITRATE ER 30 MG TAB.ER.24H PO SCH (08:19)
[2020-12-11] MEDS: PREGABALIN 100 MG CAP PO SCH ×3 (08:19→17:52)
[2020-12-11] MEDS: MULTIVITAMINS, THERA 1 EACH TAB PO SCH (08:19)
[2020-12-11] MEDS: lisinopriL 5 MG TAB PO SCH (08:19)
[2020-12-11] MEDS: FLUoxetine HCL 20 MG CAP PO SCH (08:19)
[2020-12-11] MEDS: PIOGLITAZONE 30 MG TAB PO SCH (08:20)
[2020-12-11] MEDS: buPROPion XL 150 MG TAB.ER.24H PO SCH (08:20)
[2020-12-11 11:41] LABS: Glucose,Whole Blood 106 mg/dL (75-99)
--- NOTE | 2020-12-11 12:00 | ECHOF ---
Referral Reason:lower extremities edema MEASUREMENTS -------- HEIGHT: 170.2 cm WEIGHT: 122.5 kg BP: RVIDd: 3.1 cm (< 3.3) IVSd: 1.1 cm (0.6 - 1.1) LVIDd: 4.2 cm (3.9 - 5.3) LVPWd: 1.2 cm (0.6 - 1.1) IVSs: 1.4 cm LVIDs: 3.0 cm LVPWs: 1.1 cm LA Diam: 4.5 cm (2.7 - 3.8) Ao Diam: 2.3 cm (2.0 - 3.7) MV E Steven: 0.74 m/s MV DecT: 214 ms MV A Steven: 1.05 m/s MV E/A Ratio: 0.71 RAP: 5.00 mmHg RVSP: 17.25 mmHg FINDINGS -------- Sinus rhythm. Morbid Obesity This was a techncally difficult study with suboptimal views, , Definity utilized for enhancement of images. The left ventricular size is normal. There is borderline concentric left ventricular hypertrophy. Overall left ventricular systolic function is normal with, an EF between 55 - 60 %. The right ventricle is normal in size. The left atrium is mildly dilated. The right atrial size is normal. The aortic valve was not well visualized. The mitral valve was not well visualized. The tricuspid valve was not well visualized. The pulmonic valve was not well visualized. The aortic root size is normal. There is no pericardial effusion. CONCLUSIONS -------- 1. This was a techncally difficult study with suboptimal views, , Definity utilized for enhancement o f images. 2. There is borderline concentric left ventricular hypertrophy. 3. Overall left ventricular systolic function is normal with, an EF between 55 - 60 %. 4. The left atrium is mildly dilated. 5. The aortic valve was not well visualized. 6. The mitral valve was not well visualized. 7. The pulmonic valve was not well visualized. 8. There is no pericardial effusion. WATER RESOURCE MANAGER: Bella Morocho RDCS
[2020-12-11] MEDS ORDERED: DULoxetine HCL 60 MG CAPSULE.DR PO SCH (12:30)
[2020-12-11] MEDS: DULoxetine HCL 30 MG CAPSULE.DR PO SCH (12:38)
--- NOTE | 2020-12-11 14:08 | P.CONS ---
History of Present Illness - Reason for Consult Consult date: 12/11/20 Rule out cellulitis - History of Present Illness HISTORY OF PRESENT ILLNESS This is a 60-year-old female patient with past medical history significant for COPD, diabetes mellitus type 2, hypertension, hyperlipidemia, obstructive sleep apnea. Patient states that she woke up and found her feet and legs were swollen and also turn red. She was seen by Dr. Montes in the office on Thursday and was told to double up her Lasix and she was started on Keflex. She complains of pain like her bones hurt a #4/10 and that her skin feels hot like a burning sensation. She denies any fever or chills. No chest pain or shortness of b reath. No cough. No abdominal pain, nausea vomiting or diarrhea. She does state that she is planning to leave for [place] on Thursday. Patient was found to be afebrile, heart rate 97, blood pressure 141/71, pulse ox 90% on room air. CBC was unremarkable. Creatinine 0.5. C-reactive protein 27. Alkaline phosphatase 133. Urinalysis negative for infection. Ultrasound negative for DVT in both legs. REVIEW OF SYSTEMS Constitutional: No fever, no chills, no night sweats. No weight change. No weakness, fatigue or lethargy. EENT: No headache. No nasal drainage or congestion. No epistaxis. No sore throat. Lungs: No shortness of breath, cough, no sputum production. No wheezing. Cardiovascular: No chest pain, no lower extremity edema. No lightheadedness or dizziness. No syncopal episodes. Abdominal: No abdominal pain. No nausea, vomiting. No diarrhea. No constipation. No loss of appetite. Genitourinary: No dysuria, increased frequency, urgency. No urinary retention. Musculoskeletal: No myalgias. No muscle weakness. Integumentary: Reports redness and edema bilateral legs. Neurologic: No aphasia. No facial droop. No change in mentation. PHYSICAL EXAMINATION Gen: This is a morbidly obese 60-year-old female sitting in a recliner. Legs are in a dependent position. VS: Afebrile, heart rate 94, blood pressure 150/59, pulse ox 98% on room air. HEENT: Head is atraumatic, normocephalic. Pupils equal, round. Sclerae is anicteric. NECK: Supple. No JVD. No lymphadenopathy. No thyromegaly. LUNGS: Clear to auscultation. No wheezes or rhonchi. No intercostal retraction s. HEART: Regular rate and rhythm. No murmur. ABDOMEN: Soft. Bowel sounds are present. No masses. No tenderness. EXTREMITIES: No pedal edema. No calf tenderness. Mild erythema and edema, varicose veins. NEUROLOGICAL: Patient is awake, alert and oriented x3. Cranial nerves 2 through 12 are grossly intact. ASSESSMENT Cellulitis bilateral lower extremities DVT ruled out History diabetes mellitus type 2 PLAN Continue Kefzol increase dose to 2 g IV piggyback every 8 hours Elevate legs Continue supportive care The above dictated assessment and findings were discussed with Dr. Rincon. The impression and plan of care have been directed as dictated. Gladis Gupta nurse practitioner acting as scribe for Dr. Rincon. Past Medical History Past Medical History: Asthma, Chest Pain / Angina, Heart Failure, COPD, Diabetes Mellitus, Fibromyalgia, Hyperlipidemia, Hypertension, Neurologic Disorder, Osteoarthritis (OA), Sleep Apnea/CPAP/BIPAP Additional Past Medical History / Comment(s): Back pain, fall at home March 2019, pain with standing/walking. Hx Restless Leg, neuropathy, more foot pain recently, no CPAP use, DDD, occasional chest pain and SOB. recent vision changes be evaluated and tested by dr lt hip pain to begin physical therapy. FELL AT HOME 09/27/20 SEEN IN ER History of Any Multi-Drug Resistant Organisms: None Reported Past Surgical History: Cholecystectomy, Heart Catheterization, Hysterectomy, Orthopedic Surgery, Tonsillectomy Additional Past Surgical History / Comment(s): Colonoscopy, tendon repair on left foot, epidural for pain, pain clinic procedures. filipe cataract. total left hip replacement Past Anesthesia/Blood Transfusion Reactions: Motion Sickness Past Psychological History: Anxiety, Bipolar, Depression, PTSD Additional Psychological History / Comment(s): pt states she has major depressive disorder with manic episodes Smoking Status: Current every day smoker Past Alcohol Use History: Rare Past Drug Use History: None Reported Additional Drug Use History / Comment(s): . - Past Family History Father Family Medical History: CVA/TIA, Diabetes Mellitus, Hypertension Additional Family Medical History / Comment(s): CATARACTS, AAA. Medications and Allergies Home Medications Medication Instructions Recorded Confirmed Type metFORMIN HCL [Glucophage] 1,000 mg PO BID-W/MEALS 10/06/14 12/10/20 History OXcarbazepine [Trileptal] 1,200 mg PO HS 10/07/16 12/10/20 History Isosorbide Mononitrate ER [Imdur] 30 mg PO DAILY 10/22/16 12/10/20 History Liraglutide [Victoza 2-Fredo] 1.8 mg SQ HS 04/21/17 12/10/20 History Pioglitazone [Actos] 30 mg PO DAILY 04/21/17 12/10/20 History Verapamil HCl [Verapamil ER] 240 mg PO HS 12/19/17 12/10/20 History Insulin Glargine [Lantus] 30 unit SQ HS 06/13/19 12/10/20 History Mirtazapine 30 mg PO HS 06/13/19 12/10/20 History Pramipexole Di-HCl [Mirapex] 0.5 mg PO HS 06/13/19 12/10/20 History Aspirin [Adult Low Dose Aspirin EC] 81 mg PO DAILY 08/26/19 12/10/20 History Budesonide/Formoterol Fumarate 2 puff INHALATION RT-BID 10/27/19 12/10/20 History [Symbicort 160-4.5 Mcg Inhaler] DULoxetine HCL [Cymbalta] 30 mg PO W/LUNCH 10/27/19 12/10/20 History Ergocalciferol [Vitamin D2 50,000 unit PO SA 06/06/20 12/10/20 History (DRISDOL)] FLUoxetine HCL [PROzac] 20 mg PO DAILY 06/06/20 12/10/20 History Multivit-Min/FA/Lycopen/Lutein 1 tab PO DAILY 06/06/20 12/10/20 History [Centrum Silver Tablet] DULoxetine HCL [Cymbalta] 60 mg PO W/LUNCH 09/11/20 12/10/20 History Nicotine [Nicotrol] 10 mg INHALATION 5XD PRN 09/11/20 12/10/20 History Pregabalin [Lyrica] 100 mg PO TID-W/MEALS 09/11/20 12/10/20 History buPROPion HCL [Wellbutrin XL] 150 mg PO DAILY 09/11/20 12/10/20 History hydrALAZINE HCL 25 mg PO BID 10/23/20 12/10/20 History ALPRAZolam [Xanax] 0.5 mg PO TID PRN #12 tablet 10/25/20 12/10/20 Rx methocarbamoL [Robaxin] 750 mg PO TID PRN #12 tab 10/25/20 12/10/20 Rx Nystatin 100,000Unit/gm Cream 1 applic TOPICAL BID PRN 10/29/20 12/10/20 History [Mycostatin Cream] lisinopriL [Zestril] 5 mg PO DAILY tab 10/30/20 12/10/20 Rx Acetaminophen [Tylenol Arthritis] 650 mg PO Q8H PRN 12/04/20 12/10/20 History Albuterol Sulfate [Ventolin HFA] 2 puff INHALATION RT-Q6H PRN 12/04/20 12/10/20 History Benzonatate [Tessalon Perles] 100 mg PO TID PRN 12/04/20 12/10/20 History Hydrocodone/Acetaminophen [[place] 1 tab PO Q6H PRN 12/04/20 12/10/20 History 10-325] Losartan Potassium [Cozaar] 100 mg PO DAILY 12/04/20 12/10/20 History Naproxen Sodium [Aleve] 440 mg PO Q8H PRN 12/04/20 12/10/20 History busPIRone HCL 15 mg PO BID 12/04/20 12/10/20 History Cephalexin [Keflex] 500 mg PO Q6H 12/10/20 12/10/20 History Furosemide [Lasix] 40 mg PO DAILY 12/10/20 12/10/20 History Allergies Allergy/AdvReac Type Severity Reaction Status Date / Time No Known Allergies Allergy Verified 12/10/20 15:49 Physical Exam Vitals: Vital Signs Temp Pulse Pulse Resp BP BP Pulse Ox 12/11/20 07:41 98.1 F 87 16 140/68 95 12/11/20 02:30 98.1 F 91 16 167/76 95 12/10/20 20:39 98.2 F 94 171/73 93 L 12/10/20 17:13 98.1 F 88 16 138/75 94 L 12/10/20 14:21 98.6 F 97 18 141/71 98 Intake and Output 12/10/20 12/11/20 12/11/20 22:59 06:59 14:59 Intake Total 250 680 Balance 250 680 Intake: Oral 250 680 Other: Voiding Method Toilet Toilet # Voids 2 1 Weight 122.47 kg Results CBC & Chem 7: 12/10/20 15:18 12/10/20 15:18 Labs: Abnormal Lab Results - Last 24 Hours (Table) 12/10/20 12/10/20 12/10/20 Range/Units 15:18 15:18 15:35 Plt Count 457 H (150-450) k/uL Sodium 134 L (137-145) mmol/L Chloride 97 L (98-107) mmol/L Carbon Dioxide 31 H (22-30) mmol/L Creatinine 0.50 L (0.52-1.04) mg/dL Glucose 153 H (74-99) mg/dL POC Glucose (mg/dL) (75-99) mg/dL Alkaline Phosphatase 133 H (38-126) U/L C-Reactive Protein 27.0 H (<10.0) mg/L Urine Appearance Cloudy H (Clear) Urine Protein Trace H (Negative) Urine Mucus Few H (None) /hpf 12/10/20 12/11/20 12/11/20 Range/Units 20:41 07:03 11:39 Plt Count (150-450) k/uL Sodium (137-145) mmol/L Chloride (98-107) mmol/L Carbon Dioxide (22-30) mmol/L Creatinine (0.52-1.04) mg/dL Glucose (74-99) mg/dL POC Glucose (mg/dL) 166 H 204 H 106 H (75-99) mg/dL Alkaline Phosphatase (38-126) U/L C-Reactive Protein (<10.0) mg/L Urine Appearance (Clear) Urine Protein (Negative) Urine Mucus (None) /hpf
--- NOTE | 2020-12-11 15:11 | P.GSCN ---
History of Present Illness History of present illness: 60-year-old female, patient came with the marked swelling of the right lower extremity involving the dorsal suspect of the foot. Patient has a Brown induration of lower extremity for chronic venous insufficiency. Has been no previous history of deep vein thrombosis patient to had a ultrasound of the leg shows no evidence of deep vein thrombosis. Medical history patient has history of COPD, diabetes, hypertension, COPD is sleep apnea, On examination neck is supple no bruit appreciated Chest is clear first and second sound normal Abdomen soft nontender Vascular examination femorals are 1+ bilateral DP 1+ patient has a Brown induration of the both lower extremity no has evidence of venous stasis ulcer is a mild swelling noted on the dorsum aspect of the foot Impression is chronic's venous hypertension with mild swelling of the right foot dorsum aspect patient is an IV antibiotic under care infectious disease patient has used [employer] the past but according the patient is not covered by the insurance so she is not using them at this point according to patient she wants go home and she wants to move next week to [place] Past Medical History Past Medical History: Asthma, Chest Pain / Angina, Heart Failure, COPD, Diabetes Mellitus, Fibromyalgia, Hyperlipidemia, Hypertension, Neurologic Disorder, Osteoarthritis (OA), Sleep Apnea/CPAP/BIPAP Additional Past Medical History / Comment(s): Back pain, fall at home March 2019, pain with standing/walking. Hx Restless Leg, neuropathy, more foot pain recen tly, no CPAP use, DDD, occasional chest pain and SOB. recent vision changes be evaluated and tested by lt jamal hip pain to begin physical therapy. FELL AT HOME 09/27/20 SEEN IN ER History of Any Multi-Drug Resistant Organisms: None Reported Past Surgical History: Cholecystectomy, Heart Catheterization, Hysterectomy, Orthopedic Surgery, Tonsillectomy Additional Past Surgical History / Comment(s): Colonoscopy, tendon repair on left foot, epidural for pain, pain clinic procedures. filipe cataract. total left hip replacement Past Anesthesia/Blood Transfusion Reactions: Motion Sickness Past Psychological History: Anxiety, Bipolar, Depression, PTSD Additional Psychological History / Comment(s): pt states she has major depressive disorder with manic episodes Smoking Status: Current every day smoker Past Alcohol Use History: Rare Past Drug Use History: None Reported Additional Drug Use History / Comment(s): . - Past Family History Father Family Medical History: CVA/TIA, Diabetes Mellitus, Hypertension Additional Family Medical History / Comment(s): CATARACTS, AAA. Medications and Allergies Home Medications Medication Instructions Recorded Confirmed Type metFORMIN HCL [Glucophage] 1,000 mg PO BID-W/MEALS 10/06/14 12/10/20 History OXcarbazepine [Trileptal] 1,200 mg PO HS 10/07/16 12/10/20 History Isosorbide Mononitrate ER [Imdur] 30 mg PO DAILY 10/22/16 12/10/20 History Liraglutide [Victoza 2-Fredo] 1.8 mg SQ HS 04/21/17 12/10/20 History Pioglitazone [Actos] 30 mg PO DAILY 04/21/17 12/10/20 History Verapamil HCl [Verapamil ER] 240 mg PO HS 12/19/17 12/10/20 History Insulin Glargine [Lantus] 30 unit SQ HS 06/13/19 12/10/20 History Mirtazapine 30 mg PO HS 06/13/19 12/10/20 History Pramipexole Di-HCl [Mirapex] 0.5 mg PO HS 06/13/19 12/10/20 History Aspirin [Adult Low Dose Aspirin EC] 81 mg PO DAILY 08/26/19 12/10/20 History Budesonide/Formoterol Fumarate 2 puff INHALATION RT-BID 10/27/19 12/10/20 History [Symbicort 160-4.5 Mcg Inhaler] DULoxetine HCL [Cymbalta] 30 mg PO W/LUNCH 10/27/19 12/10/20 History Ergocalciferol [Vitamin D2 50,000 unit PO SA 06/06/20 12/10/20 History (DRISDOL)] FLUoxetine HCL [PROzac] 20 mg PO DAILY 06/06/20 12/10/20 History Multivit-Min/FA/Lycopen/Lutein 1 tab PO DAILY 06/06/20 12/10/20 History [Centrum Silver Tablet] DULoxetine HCL [Cymbalta] 60 mg PO W/LUNCH 09/11/20 12/10/20 History Nicotine [Nicotrol] 10 mg INHALATION 5XD PRN 09/11/20 12/10/20 History Pregabalin [Lyrica] 100 mg PO TID-W/MEALS 09/11/20 12/10/20 History buPROPion HCL [Wellbutrin XL] 150 mg PO DAILY 09/11/20 12/10/20 History hydrALAZINE HCL 25 mg PO BID 10/23/20 12/10/20 History ALPRAZolam [Xanax] 0.5 mg PO TID PRN #12 tablet 10/25/20 12/10/20 Rx methocarbamoL [Robaxin] 750 mg PO TID PRN #12 tab 10/25/20 12/10/20 Rx Nystatin 100,000Unit/gm Cream 1 applic TOPICAL BID PRN 10/29/20 12/10/20 History [Mycostatin Cream] lisinopriL [Zestril] 5 mg PO DAILY tab 10/30/20 12/10/20 Rx Acetaminophen [Tylenol Arthritis] 650 mg PO Q8H PRN 12/04/20 12/10/20 History Albuterol Sulfate [Ventolin HFA] 2 puff INHALATION RT-Q6H PRN 12/04/20 12/10/20 History Benzonatate [Tessalon Perles] 100 mg PO TID PRN 12/04/20 12/10/20 History Hydrocodone/Acetaminophen [[place] 1 tab PO Q6H PRN 12/04/20 12/10/20 History 10-325] Losartan Potassium [Cozaar] 100 mg PO DAILY 12/04/20 12/10/20 History Naproxen Sodium [Aleve] 440 mg PO Q8H PRN 12/04/20 12/10/20 History busPIRone HCL 15 mg PO BID 12/04/20 12/10/20 History Cephalexin [Keflex] 500 mg PO Q6H 12/10/20 12/10/20 History Furosemide [Lasix] 40 mg PO DAILY 12/10/20 12/10/20 History Allergies Allergy/AdvReac Type Severity Reaction Status Date / Time No Known Allergies Allergy Verified 12/10/20 15:49 Surgical - Exam Vital Signs Temp Pulse Resp BP Pulse Ox 98.6 F 97 18 141/71 98 12/10/20 14:21 12/10/20 14:21 12/10/20 14:21 12/10/20 14:21 12/10/20 14:21 Results - Labs 12/10/20 15:18 12/10/20 15:18 Abnormal Lab Results - Last 24 Hours (Table) 12/10/20 12/10/20 12/10/20 Range/Units 15:18 15:18 15:35 Plt Count 457 H (150-450) k/uL Sodium 134 L (137-145) mmol/L Chloride 97 L (98-107) mmol/L Carbon Dioxide 31 H (22-30) mmol/L Creatinine 0.50 L (0.52-1.04) mg/dL Glucose 153 H (74-99) mg/dL POC Glucose (mg/dL) (75-99) mg/dL Alkaline Phosphatase 133 H (38-126) U/L C-Reactive Protein 27.0 H (<10.0) mg/L Urine Appearance Cloudy H (Clear) Urine Protein Trace H (Negative) Urine Mucus Few H (None) /hpf 12/10/20 12/11/20 12/11/20 Range/Units 20:41 07:03 11:39 Plt Count (150-450) k/uL Sodium (137-145) mmol/L Chloride (98-107) mmol/L Carbon Dioxide (22-30) mmol/L Creatinine (0.52-1.04) mg/dL Glucose (74-99) mg/dL POC Glucose (mg/dL) 166 H 204 H 106 H (75-99) mg/dL Alkaline Phosphatase (38-126) U/L C-Reactive Protein (<10.0) mg/L Urine Appearance (Clear) Urine Protein (Negative) Urine Mucus (None) /hpf Diabetes panel 12/10/20 Range/Units 15:18 Sodium 134 L (137-145) mmol/L Potassium 3.6 (3.5-5.1) mmol/L Chloride 97 L (98-107) mmol/L Carbon Dioxide 31 H (22-30) mmol/L BUN 7 (7-17) mg/dL Creatinine 0.50 L (0.52-1.04) mg/dL Glucose 153 H (74-99) mg/dL Calcium 8.6 (8.4-10.2) mg/dL AST 18 (14-36) U/L ALT 20 (4-34) U/L Alkaline Phosphatase 133 H (38-126) U/L Total Protein 6.3 (6.3-8.2) g/dL Albumin 3.5 (3.5-5.0) g/dL Calcium panel 12/10/20 Range/Units 15:18 Calcium 8.6 (8.4-10.2) mg/dL Albumin 3.5 (3.5-5.0) g/dL Pituitary panel 12/10/20 Range/Units 15:18 Sodium 134 L (137-145) mmol/L Potassium 3.6 (3.5-5.1) mmol/L Chloride 97 L (98-107) mmol/L Carbon Dioxide 31 H (22-30) mmol/L BUN 7 (7-17) mg/dL Creatinine 0.50 L (0.52-1.04) mg/dL Glucose 153 H (74-99) mg/dL Calcium 8.6 (8.4-10.2) mg/dL Adrenal panel 12/10/20 Range/Units 15:18 Sodium 134 L (137-145) mmol/L Potassium 3.6 (3.5-5.1) mmol/L Chloride 97 L (98-107) mmol/L Carbon Dioxide 31 H (22-30) mmol/L BUN 7 (7-17) mg/dL Creatinine 0.50 L (0.52-1.04) mg/dL Glucose 153 H (74-99) mg/dL Calcium 8.6 (8.4-10.2) mg/dL Total Bilirubin 0.3 (0.2-1.3) mg/dL AST 18 (14-36) U/L ALT 20 (4-34) U/L Alkaline Phosphatase 133 H (38-126) U/L Total Protein 6.3 (6.3-8.2) g/dL Albumin 3.5 (3.5-5.0) g/dL
[2020-12-11 17:13] LABS: Glucose,Whole Blood 224 mg/dL (75-99)
--- NOTE | 2020-12-11 17:58 | P.HPIM ---
History of Present Illness H&P Date: 12/11/20 Renee Cannon, is a 60-year-old female who presented to [facility] emergency room with worsening bilateral lower extremity edema and erythema and tenderness in the right lower extremity in the foot and ankle area. Patient was seen with similar symptoms as outpatient she was diagnosed with cellulitis she was started on oral antibiotic Keflex however her condition continued to worsen and she decided to come to emergency room. She was evaluated in the emergency room bilateral lower extremity Doppler was negative for DVT, x-ray of the right lower extremity was suspicious for osteomyelitis, patient was started on IV antibiotic and admitted to medical floor infectious disease consultation was requested. On review of systems patient is complaining of lower extremity edema and e rythema in the right foot area otherwise she denies any complaints there is no fever or chills no headache or dizziness no chest pain no shortness of breath no cough no nausea or vomiting no abdominal pain no diarrhea no blood in the stools no burning with urination no frequency or urgency and no hematuria no weakness or numbness in any of the extremity no change in vision speech or gait Past Medical History Past Medical History: Asthma, Chest Pain / Angina, Heart Failure, COPD, Diabetes Mellitus, Fibromyalgia, Hyperlipidemia, Hypertension, Neurologic Disorder, Osteoarthritis (OA), Sleep Apnea/CPAP/BIPAP Additional Past Medical History / Comment(s): Back pain, fall at home March 2019, pain with standing/walking. Hx Restless Leg, neuropathy, more foot pain recently, no CPAP use, DDD, occasional chest pain and SOB. recent vision changes be evaluated and tested by lt jamal hip pain to begin physical therapy. FELL AT HOME 09/27/20 SEEN IN ER History of Any Multi-Drug Resistant Organisms: None Reported Past Surgical History: Cholecystectomy, Heart Catheterization, Hysterectomy, Orthopedic Surgery, Tonsillectomy Additional Past Surgical History / Comment(s): Colonoscopy, tendon repair on left foot, epidural for pain, pain clinic procedures. filipe cataract. total left hip replacement Past Anesthesia/Blood Transfusion Reactions: Motion Sickness Past Psychological History: Anxiety, Bipolar, Depression, PTSD Additional Psychological History / Comment(s): pt states she has major depressive disorder with manic episodes Smoking Status: Current every day smoker Past Alcohol Use History: Rare Past Drug Use History: None Reported Additional Drug Use History / Comment(s): . - Past Family History Father Family Medical History: CVA/TIA, Diabetes Mellitus, Hypertension Additional Family Medical History / Comment(s): CATARACTS, AAA. Medications and Allergies Home Medications Medication Instructions Recorded Confirmed Type metFORMIN HCL [Glucophage] 1,000 mg PO BID-W/MEALS 10/06/14 12/10/20 History OXcarbazepine [Trileptal] 1,200 mg PO HS 10/07/16 12/10/20 History Isosorbide Mononitrate ER [Imdur] 30 mg PO DAILY 10/22/16 12/10/20 History Liraglutide [Victoza 2-Fredo] 1.8 mg SQ HS 04/21/17 12/10/20 History Pioglitazone [Actos] 30 mg PO DAILY 04/21/17 12/10/20 History Verapamil HCl [Verapamil ER] 240 mg PO HS 12/19/17 12/10/20 History Insulin Glargine [Lantus] 30 unit SQ HS 06/13/19 12/10/20 History Mirtazapine 30 mg PO HS 06/13/19 12/10/20 History Pramipexole Di-HCl [Mirapex] 0.5 mg PO HS 06/13/19 12/10/20 History Aspirin [Adult Low Dose Aspirin EC] 81 mg PO DAILY 08/26/19 12/10/20 History Budesonide/Formoterol Fumarate 2 puff INHALATION RT-BID 10/27/19 12/10/20 History [Symbicort 160-4.5 Mcg Inhaler] DULoxetine HCL [Cymbalta] 30 mg PO W/LUNCH 10/27/19 12/10/20 History Ergocalciferol [Vitamin D2 50,000 unit PO SA 06/06/20 12/10/20 History (DRISDOL)] FLUoxetine HCL [PROzac] 20 mg PO DAILY 06/06/20 12/10/20 History Multivit-Min/FA/Lycopen/Lutein 1 tab PO DAILY 06/06/20 12/10/20 History [Centrum Silver Tablet] DULoxetine HCL [Cymbalta] 60 mg PO W/LUNCH 09/11/20 12/10/20 History Nicotine [Nicotrol] 10 mg INHALATION 5XD PRN 09/11/20 12/10/20 History Pregabalin [Lyrica] 100 mg PO TID-W/MEALS 09/11/20 12/10/20 History buPROPion HCL [Wellbutrin XL] 150 mg PO DAILY 09/11/20 12/10/20 History hydrALAZINE HCL 25 mg PO BID 10/23/20 12/10/20 History ALPRAZolam [Xanax] 0.5 mg PO TID PRN #12 tablet 10/25/20 12/10/20 Rx methocarbamoL [Robaxin] 750 mg PO TID PRN #12 tab 10/25/20 12/10/20 Rx Nystatin 100,000Unit/gm Cream 1 applic TOPICAL BID PRN 10/29/20 12/10/20 History [Mycostatin Cream] lisinopriL [Zestril] 5 mg PO DAILY tab 10/30/20 12/10/20 Rx Acetaminophen [Tylenol Arthritis] 650 mg PO Q8H PRN 12/04/20 12/10/20 History Albuterol Sulfate [Ventolin HFA] 2 puff INHALATION RT-Q6H PRN 12/04/20 12/10/20 History Benzonatate [Tessalon Perles] 100 mg PO TID PRN 12/04/20 12/10/20 History Hydrocodone/Acetaminophen [[place] 1 tab PO Q6H PRN 12/04/20 12/10/20 History 10-325] Losartan Potassium [Cozaar] 100 mg PO DAILY 12/04/20 12/10/20 History Naproxen Sodium [Aleve] 440 mg PO Q8H PRN 12/04/20 12/10/20 History busPIRone HCL 15 mg PO BID 12/04/20 12/10/20 History Cephalexin [Keflex] 500 mg PO Q6H 12/10/20 12/10/20 History Furosemide [Lasix] 40 mg PO DAILY 12/10/20 12/10/20 History Allergies Allergy/AdvReac Type Severity Reaction Status Date / Time No Known Allergies Allergy Verified 12/10/20 15:49 Physical Exam Vitals: Vital Signs Temp Pulse Pulse Resp BP BP Pulse Ox 12/11/20 07:41 98.1 F 87 16 140/68 95 12/11/20 02:30 98.1 F 91 16 167/76 95 12/10/20 20:39 98.2 F 94 171/73 93 L 12/10/20 17:13 98.1 F 88 16 138/75 94 L 12/10/20 14:21 98.6 F 97 18 141/71 98 Intake and Output 12/10/20 12/11/20 12/11/20 22:59 06:59 14:59 Intake Total 250 680 Balance 250 680 Intake: Oral 250 680 Other: Voiding Method Toilet Toilet # Voids 2 1 Weight 122.47 kg In general patient is alert and oriented 3 in no apparent distress HEENT head normocephalic and atraumatic Neck is supple no JVD no goiter no lymphadenopathy Chest exam reveals a few scattered rhonchi no wheezing Cardiac exam reveals regular heart sounds S1 and S2 no gallops no murmurs Abdomen is soft nontender no organomegaly with normal bowel sounds Extremity exam reveals 2 + edema bilaterally, there is erythema in the right foot and ankle area Neurological examination no gross focal deficit Results CBC & Chem 7: 12/10/20 15:18 12/10/20 15:18 Labs: Abnormal Lab Results - Last 24 Hours (Table) 12/10/20 12/10/20 12/10/20 Range/Units 15:18 15:18 15:35 Plt Count 457 H (150-450) k/uL Sodium 134 L (137-145) mmol/L Chloride 97 L (98-107) mmol/L Carbon Dioxide 31 H (22-30) mmol/L Creatinine 0.50 L (0.52-1.04) mg/dL Glucose 153 H (74-99) mg/dL POC Glucose (mg/dL) (75-99) mg/dL Alkaline Phosphatase 133 H (38-126) U/L C-Reactive Protein 27.0 H (<10.0) mg/L Urine Appearance Cloudy H (Clear) Urine Protein Trace H (Negative) Urine Mucus Few H (None) /hpf 12/10/20 12/11/20 Range/Units 20:41 07:03 Plt Count (150-450) k/uL Sodium (137-145) mmol/L Chloride (98-107) mmol/L Carbon Dioxide (22-30) mmol/L Creatinine (0.52-1.04) mg/dL Glucose (74-99) mg/dL POC Glucose (mg/dL) 166 H 204 H (75-99) mg/dL Alkaline Phosphatase (38-126) U/L C-Reactive Protein (<10.0) mg/L Urine Appearance (Clear) Urine Protein (Negative) Urine Mucus (None) /hpf Thrombosis Risk Factor Assmnt - Choose All That Apply Any of the Below Risk Factors Present?: Yes Each Factor Represents 1 point: Abnormal pulmonary function (COPD), Age 41-60 years, Obesity (BMI >25) Other Risk Factors: No Other congenital or acquired thrombophilia - If yes, enter type in comment: No Thrombosis Risk Factor Assessment Total Risk Factor Score: 3 Thrombosis Risk Factor Assessment Level: Moderate Risk Assessment and Plan Plan: 1. Right lower extremity cellulitis, failed outpatient therapy with oral keflex 2. Possible osteomyelitis, on right lower extremity X Ray, infectious disease consult requested 3. Bilateral lower extremity edema, check Echocardiogram 4. Underlying history of diabetes mellitus, type 2 insulin-dependent 5. Underlying history of hypertension 6. Underlying history of depression 7. Underlying history of peripheral neuropathy maintained on Lyrica which might contribute to lower extremity edema 8. Underlying history of osteoarthritis with chronic pain maintained on [place] At this time patient was started on IV antibiotics cefazolin Awaiting infectious disease consultation Patient will need a bone scan to rule out osteomyelitis Will follow closely
[2020-12-11 22:12] LABS: Glucose,Whole Blood 141 mg/dL (75-99)
[2020-12-11] MEDS: INSULIN DETEMIR (LEVEMIR) 100 UNIT/ML SYR SQ SCH (22:17)
[2020-12-11] MEDS: VERAPAMIL SR 240 MG TABLET.ER PO SCH (22:20)
[2020-12-11] MEDS: MIRTAZAPINE 15 MG TAB PO SCH (22:21)
[2020-12-11] MEDS: OXcarbazepine 300 MG TAB PO SCH (22:21)
[2020-12-11] MEDS: PRAMIPEXOLE 0.5 MG TAB PO SCH (22:21)
[2020-12-11] MEDS: NON FORMULARY DRUG (Liraglutide [Victoza 2-Pak] 0.6 MG/0.1 ML Pen.Injctr) SQ SCH (22:22)
[2020-12-12 04:37] LABS: Basophils # (A) 0.1 k/uL (0-0.2); Basophils % (A) 1 %; Eosinophils # (A) 0.2 k/uL (0-0.7); Eosinophils % (A) 3 %; HCT 38.7 % (34.0-46.0); HGB 12.4 gm/dL (11.4-16.0); Lymphocytes # (A) 1.3 k/uL (1.0-4.8); Lymphocytes % (A) 17 %; MCH 27.9 pg (25.0-35.0); MCHC 32.1 g/dL (31.0-37.0); MCV 86.9 fL (80.0-100.0); Mean Platelet Volume 6.4; Monocytes # (A) 0.5 k/uL (0-1.0); Monocytes % (A) 7 %; Neutrophils # (A) 5.2 k/uL (1.3-7.7); Neutrophils % (A) 71 %; Platelet Count 404 k/uL (150-450); RBC 4.46 m/uL (3.80-5.40); RDW 15.6 % (11.5-15.5); WBC 7.4 k/uL (3.8-10.6)
[2020-12-12] MEDS: HYDROcodone/APAP 10-325MG 1 EACH TAB PO PRN ×2 (05:56→12:19)
[2020-12-12 06:52] LABS: Glucose,Whole Blood 142 mg/dL (75-99)
[2020-12-12] MEDS: SYMBICORT 160-4.5 MCG INHALER INHALATION SCH (07:22)
[2020-12-12] MEDS: ASPIRIN 81 MG PO SCH (08:39)
[2020-12-12] MEDS: FUROSEMIDE 40 MG TAB PO SCH (08:39)
[2020-12-12] MEDS: LOSARTAN 50 MG TAB PO SCH (08:39)
[2020-12-12] MEDS: metFORMIN 500 MG TAB PO SCH (08:39)
[2020-12-12] MEDS: PREGABALIN 100 MG CAP PO SCH ×2 (08:39→12:19)
[2020-12-12] MEDS: PIOGLITAZONE 30 MG TAB PO SCH (08:39)
[2020-12-12] MEDS: MULTIVITAMINS, THERA 1 EACH TAB PO SCH (08:39)
[2020-12-12] MEDS: ISOSORBIDE MONONITRATE ER 30 MG TAB.ER.24H PO SCH (08:39)
[2020-12-12] MEDS: hydrALAZINE HCL 25 MG TAB PO SCH (08:39)
[2020-12-12] MEDS: buPROPion XL 150 MG TAB.ER.24H PO SCH (08:39)
[2020-12-12] MEDS: busPIRone HCl 5 MG TAB PO SCH (08:40)
[2020-12-12] MEDS: FLUoxetine HCL 20 MG CAP PO SCH (08:40)
[2020-12-12] MEDS: lisinopriL 5 MG TAB PO SCH (08:40)
[2020-12-12 10:09] LABS: African American GFR (CKD) 123.6 (60.0-200.0); Albumin 4.1 g/dL (3.80-4.90); Albumin/Globulin Ratio 2.16 (1.60-3.17); Anion Gap 2.8 mmol/L (4.00-12.00); Calcium 8.6 mg/dL (8.7-10.3); Carbon Dioxide 27.2 mmol/L (21.6-31.8); Globulin 1.9 g/dL (1.6-3.3); Non-African American GFR(CKD) 106.7 (60.0-200.0); Potassium 3.7 mmol/L (3.5-5.5); Total Bilirubin 0.2 mg/dL (0.3-1.2)
[2020-12-12 11:37] LABS: Glucose,Whole Blood 167 mg/dL (75-99)
[2020-12-12] MEDS: DULoxetine HCL 30 MG CAPSULE.DR PO SCH (12:20)
--- NOTE | 2020-12-12 13:23 | P.DS ---
Providers Date of admission: 12/12/20 09:18 Expected date of discharge: 12/12/20 Attending physician: Aditya Nelson Consults: 12/10/20 16:19 Consult Physician Routine Consulting Provider: Lisa Rincon Consult Reason/Comments: rule out cellulitis Do you want consulting provider notified?: Yes 12/10/20 17:38 Consult Physician Routine Consulting Provider: Santos Gabriel Consult Reason/Comments: lower extremities edema Do you want consulting provider notified?: Yes Primary care physician: Aditya Nelson [facility] Course: Discharge diagnosis 1. Right lower extremity cellulitis, failed outpatient therapy with oral keflex 2. Possible osteomyelitis, on right lower extremity X Ray, infectious disease consult requested 3. Bilateral lower extremity edema, check Echocardiogram. 2-D echo completed showing an EF of 55-60% 4. Underlying history of diabetes mellitus, type 2 insulin-dependent 5. Underlying history of hypertension 6. Underlying history of depression 7. Underlying history of peripheral neuropathy maintained on Lyrica which might contribute to lower extremity edema 8. Underlying history of osteoarthritis with chronic pain maintained on [place] Patient was evaluated by infectious disease. Per infectious disease not behaving as osteomyelitis no wound no fever no WBC patient advised to follow-up with physician when she moves to [place] in the next week for possible MRI or bone scan. Recommendations for Keflex 500 mg 3 times a day 7 days for discharge Hospital course Renee Cannon, is a 60-year-old female who presented to [facility] emergency room with worsening bilateral lower extremity edema and erythema and tenderness in the right lower extremity in the foot and ankle area. Patient was seen with similar symptoms as outpatient she was diagnosed with cellulitis she was started on oral antibiotic Keflex however her condition continued to worsen and she decided to come to emergency room. She was evaluated in the emergency room bilateral lower extremity Doppler was negative for DVT, x-ray of the right lower extremity was suspicious for osteomyelitis, patient was started on IV antibiotic and admitted to medical floor infectious disease consultation was requested. On review of systems patient is complaining of lower extremity edema and erythema in the right foot area otherwise she denies any complaints there is no fever or chills no headache or dizziness no chest pain no shortness of breath no cough no nausea or vomiting no abdominal pain no diarrhea no blood in the stools no burning with urination no frequency or urgency and no hematuria no weakness or numbness in any of the extremity no change in vision speech or gait On 12/12/2020 patient is alert and oriented 3. Patient states that she is very eager to go home. Discussed case with infectious disease doctor. Recommend discharge with Keflex 3 times a day for [address] Rincon does not believe osteomyelitis due to no wound or fever and normal white blood cell. Patient planning to move to [place] this weekend per ID was recommended the patient follow up with physician there and possible MRI or bone scan. Patient denies chest pain or shortness of breath. Patient denies nausea vomiting or diarrhea. Patient denies any urinary burning or frequency. Patient Condition at Discharge: Stable Plan - Discharge Summary Discharge Rx Participant: No New Discharge Prescriptions: New Cephalexin [Keflex] 500 mg PO Q8HR 7 Days #21 cap Continue metFORMIN HCL [Glucophage] 1,000 mg PO BID-W/MEALS OXcarbazepine [Trileptal] 1,200 mg PO HS Isosorbide Mononitrate ER [Imdur] 30 mg PO DAILY Liraglutide [Victoza 2-Fredo] 1.8 mg SQ HS Pioglitazone [Actos] 30 mg PO DAILY Verapamil HCl [Verapamil ER] 240 mg PO HS Pramipexole Di-HCl [Mirapex] 0.5 mg PO HS Mirtazapine 30 mg PO HS Insulin Glargine [Lantus] 30 unit SQ HS Aspirin [Adult Low Dose Aspirin EC] 81 mg PO DAILY DULoxetine HCL [Cymbalta] 30 mg PO W/LUNCH Budesonide/Formoterol Fumarate [Symbicort 160-4.5 Mcg Inhaler] 2 puff INHALATION RT-BID Ergocalciferol [Vitamin D2 (DRISDOL)] 50,000 unit PO SA FLUoxetine HCL [PROzac] 20 mg PO DAILY Multivit-Min/FA/Lycopen/Lutein [Centrum Silver Tablet] 1 tab PO DAILY buPROPion HCL [Wellbutrin XL] 150 mg PO DAILY Pregabalin [Lyrica] 100 mg PO TID-W/MEALS DULoxetine HCL [Cymbalta] 60 mg PO W/LUNCH Nicotine [Nicotrol] 10 mg INHALATION 5XD PRN PRN Reason: Nicotine Cravings hydrALAZINE HCL 25 mg PO BID methocarbamoL [Robaxin] 750 mg PO TID PRN #12 tab PRN Reason: Spasms ALPRAZolam [Xanax] 0.5 mg PO TID PRN #12 tablet PRN Reason: Anxiety Nystatin 100,000Unit/gm Cream [Mycostatin Cream] 1 applic TOPICAL BID PRN PRN Reason: fungal infection/perineal area lisinopriL [Zestril] 5 mg PO DAILY tab Albuterol Sulfate [Ventolin HFA] 2 puff INHALATION RT-Q6H PRN PRN Reason: Shortness Of Breath Benzonatate [Tessalon Perles] 100 mg PO TID PRN PRN Reason: Cough busPIRone HCL 15 mg PO BID Hydrocodone/Acetaminophen [[place] 10-325] 1 tab PO Q6H PRN PRN Reason: Pain Losartan Potassium [Cozaar] 100 mg PO DAILY Naproxen Sodium [Aleve] 440 mg PO Q8H PRN PRN Reason: Pain Acetaminophen [Tylenol Arthritis] 650 mg PO Q8H PRN PRN Reason: Pain Cephalexin [Keflex] 500 mg PO Q6H Furosemide [Lasix] 40 mg PO DAILY Discharge Medication List metFORMIN HCL [Glucophage] 1,000 mg PO BID-W/MEALS 10/06/14 [History] OXcarbazepine [Trileptal] 1,200 mg PO HS 10/07/16 [History] Isosorbide Mononitrate ER [Imdur] 30 mg PO DAILY 10/22/16 [History] Liraglutide [Victoza 2-Fredo] 1.8 mg SQ HS 04/21/17 [History] Pioglitazone [Actos] 30 mg PO DAILY 04/21/17 [History] Verapamil HCl [Verapamil ER] 240 mg PO HS 12/19/17 [History] Insulin Glargine [Lantus] 30 unit SQ HS 06/13/19 [History] Mirtazapine 30 mg PO HS 06/13/19 [History] Pramipexole Di-HCl [Mirapex] 0.5 mg PO HS 06/13/19 [History] Aspirin [Adult Low Dose Aspirin EC] 81 mg PO DAILY 08/26/19 [History] Budesonide/Formoterol Fumarate [Symbicort 160-4.5 Mcg Inhaler] 2 puff INHALATION RT-BID 10/27/19 [History] DULoxetine HCL [Cymbalta] 30 mg PO W/LUNCH 10/27/19 [History] Ergocalciferol [Vitamin D2 (DRISDOL)] 50,000 unit PO SA 06/06/20 [History] FLUoxetine HCL [PROzac] 20 mg PO DAILY 06/06/20 [History] Multivit-Min/FA/Lycopen/Lutein [Centrum Silver Tablet] 1 tab PO DAILY 06/06/20 [History] DULoxetine HCL [Cymbalta] 60 mg PO W/LUNCH 09/11/20 [History] Nicotine [Nicotrol] 10 mg INHALATION 5XD PRN 09/11/20 [History] Pregabalin [Lyrica] 100 mg PO TID-W/MEALS 09/11/20 [History] buPROPion HCL [Wellbutrin XL] 150 mg PO DAILY 09/11/20 [History] hydrALAZINE HCL 25 mg PO BID 10/23/20 [History] ALPRAZolam [Xanax] 0.5 mg PO TID PRN #12 tablet 10/25/20 [Rx] methocarbamoL [Robaxin] 750 mg PO TID PRN #12 tab 10/25/20 [Rx] Nystatin 100,000Unit/gm Cream [Mycostatin Cream] 1 applic TOPICAL BID PRN 10/29/20 [History] lisinopriL [Zestril] 5 mg PO DAILY tab 10/30/20 [Rx] Acetaminophen [Tylenol Arthritis] 650 mg PO Q8H PRN 12/04/20 [History] Albuterol Sulfate [Ventolin HFA] 2 puff INHALATION RT-Q6H PRN 12/04/20 [History] Benzonatate [Tessalon Perles] 100 mg PO TID PRN 12/04/20 [History] Hydrocodone/Acetaminophen [[place] 10-325] 1 tab PO Q6H PRN 12/04/20 [History] Losartan Potassium [Cozaar] 100 mg PO DAILY 12/04/20 [History] Naproxen Sodium [Aleve] 440 mg PO Q8H PRN 12/04/20 [History] busPIRone HCL 15 mg PO BID 12/04/20 [History] Cephalexin [Keflex] 500 mg PO Q6H 12/10/20 [History] Furosemide [Lasix] 40 mg PO DAILY 12/10/20 [History] Cephalexin [Keflex] 500 mg PO Q8HR 7 Days #21 cap 12/12/20 [Rx] Follow up Appointment(s)/Referral(s): Aditya Nelson MD [Primary Care Provider] - 1-2 days
--- NOTE | 2020-12-12 13:52 | PN ---
PROGRESS NOTE DATE OF SERVICE: 12/12/2020 REASON FOR FOLLOWUP: 1. Lower extremity cellulitis. 2. Abnormal x-ray. INTERVAL HISTORY: The patient is currently afebrile. The patient is feeling better. Breathing comfortably. Denies having any chest pain or shortness of breath or cough. Overall swelling to the leg has improved as well as the discomfort improved, currently with no open wound or any drainage. PHYSICAL EXAMINATION: Her blood pressure is 163/77, pulse of 85, temperature 97.6. She is 94% on room air. General description is a middle-aged female up in the chair in no distress. RESPIRATORY SYSTEM: Unlabored breathing, clear to auscultation anteriorly. HEART: S1, S2. Regular rate and rhythm. ABDOMEN: Soft, no tenderness. Right leg swelling has decreased. Minimal redness. No open wound or any drainage. LABS: Hemoglobin is 12.4, white count 7.4, BUN of 11, creatinine 0.5. DIAGNOSTIC IMPRESSION AND PLAN: Patient with bilateral lower extremity cellulitis, right greater than left. The patient did have abnormal x-ray raises the possibility of osteo of the tibia. However, currently patient did not have any open wound or any other stigmata to be suspicious for an osteomyelitis. The patient clinically responded to cefazolin, finish therapy with oral Keflex. Patient wants to move down to [place] and is scheduled to fly this weekend. She has been advised to follow up with a physician in [place] for possible consideration of a bone scan or MRI. This was discussed with the nurse practitioner with the admitting team working on discharge. MMODL / IJN: [id number] /
[2020-12-12 13:56] VITALS: BP 152/68; PULSE 76; RESP 17; TEMP 97.4
--- NOTE | 2020-12-13 22:00 | CDI ---
Documentation Clarification Form Date: 12/14/2020 From: Jose Francisco Torres Phone: If you have a question about this query, please contact Diann Herrera [employer] at [phone] between 8am and 5pm. Admit Date: 12/12/2020 09:18:00 AM Patient Name: Renee Cannon Visit Number: [id number] Discharge Date: 12/12/2020 02:34:00 PM ATTENTION: The Clinical Documentation Specialists (CDI) and [facility] Coding Staff appreciate your assistance in clarifying documentation. Please respond to the clarification below the line at the bottom and electronically sign. The CDI & [facility] Coding staff will review the response and follow-up if needed. Please note: Queries are made part of the Legal Health Record. If you have any questions, please contact the author of this message via ITS. Dr. Aditya Nelson MD., Your patient has the documented diagnosis of Right lower extremity cellulitis and DM type 2 in your notes dated 12/12/2020 A relationship between diagnoses cannot be assumed unless documented as such by the attending physician. In order to capture the severity of condition; please document the relationship, if any, between these diagnoses. History/Risk Factors: Asthma, Chest Pain / Angina, Heart Failure, COPD, Diabetes Mellitus, Fibromyalgia, Hyperlipidemia, Hypertension, Neurologic Disorder, Osteoarthritis (OA), Sleep Apnea/CPAP/BIPAP Clinical Indicators: Right lower extremity cellulitis, failed outpatient therapy with oral keflex Treatment: IV antibiotic , Keflex 3 times a day for 7 days Please clarify and document your clinical opinion in the progress notes and discharge summary if any relationship (due to, caused by, secondary to) exists between these two diagnoses. Please include clinical findings supporting your diagnosis. Cellulitis Related to DM type 2 Cellulitis not related to DM type2 Other explanation of clinical findings (please specify) Unable to determine (no explanation for clinical findings) Cellulitis related to DM Type II MTDD
[2020-12-15] MEDS ORDERED: ERGOCALCIFEROL 1,250 MCG (50,000 IU) CAPSULE PO SCH (09:00)
== END 2020-12-12 14:34 | disposition home or self-care (01) ==
LOC: EC 14:19 → 6NMEDSUR 16:19 → OBSVTOIN 12-11 09:18 → INTOOBSV 12-11 09:18 → OBSVTOIN 12-12 09:18 → INTOOBSV 12-12 09:18 → UNDODISIN 12-12 14:34
PROVIDERS: ADMIT Internal Medicine; ATTEND Internal Medicine
DX: E11.628 Type 2 diabetes mellitus with other skin complications (principal); R60.0 Localized edema; F32.9 Major depressive disorder, single episode, unspecified; E11.42 Type 2 diabetes mellitus with diabetic polyneuropathy; M19.90 Unspecified osteoarthritis, unspecified site; I11.0 Hypertensive heart disease with heart failure; I50.9 Heart failure, unspecified; J44.9 Chronic obstructive pulmonary disease, unspecified; M79.7 Fibromyalgia; E78.5 Hyperlipidemia, unspecified; G47.30 Sleep apnea, unspecified; G25.81 Restless legs syndrome; Z90.49 Acquired absence of other specified parts of digestive tract; Z90.710 Acquired absence of both cervix and uterus; Z90.89 Acquired absence of other organs; Z98.42 Cataract extraction status, left eye; Z98.41 Cataract extraction status, right eye; Z96.642 Presence of left artificial hip joint; Z98.890 Other specified postprocedural states; F41.9 Anxiety disorder, unspecified; F31.9 Bipolar disorder, unspecified; F43.10 Post-traumatic stress disorder, unspecified; F17.200 Nicotine dependence, unspecified, uncomplicated; Z82.3 Family history of stroke; Z83.3 Family history of diabetes mellitus; Z82.49 Family history of ischemic heart disease and other diseases of the circulatory system; Z83.518 Family history of other specified eye disorder; Z79.891 Long term (current) use of opiate analgesic; Z79.82 Long term (current) use of aspirin; Z79.51 Long term (current) use of inhaled steroids; Z79.4 Long term (current) use of insulin; Z79.899 Other long term (current) drug therapy; Z79.1 Long term (current) use of non-steroidal anti-inflammatories (NSAID)
CPT/HCPCS: 96366; 96365; 99284; 36415; 94640 ×4; 93005; 83880; 80053 ×2; 84484; 85025 ×2; 86140; 81001; 73590; 93970; G0378 ×3; C8929; J0690 ×4; Q9950; 93306